=== PATIENT | male | born 1960 | race Caucasian/White ===

== ENCOUNTER 2018-01-06 09:44 | Inpatient (IN) | payer OTHER ==
--- OUTSIDE RECORDS SUMMARY | 2018-01-06 09:47 | XMS REPORT ---
:1960 [facility] Address [address] [place] [address] Dr. Arias [address] [place] [id number] Care Team Providers Name Role Phone Unavailable Unavailable Unavailable Problems This patient has no known problems. Allergies, Adverse Reactions, Alerts This patient has no known allergies or adverse reactions. Medications This patient has no known medications. Results Test Description Test Time Test Comments Text Results Atomic Results Result Comments NM BONE SCAN WHOLE BODY CLINICAL INDICATION: C61 Malignant neoplasm of prostateMODALITY: [employer] dual head gamma cameraTECHNIQUE: 25 mCi Tc 99m MDP are injected IV. After a suitable time delay, whole body imaging images are obtained.FINDINGS:COMPARISON: Multi para metric prostate MRI performed 05/24/2017.Symmetric bilateral renal function is observed.Nonspecific arthritic changes are noted at the acromioclavicular, glenohumeral, sternoclavicular, hip, patellofemoral joints bilaterally, left ankle.No lytic or blastic osseous metastatic disease.IMPRESSION:Negative for evidence of osteoblastic metastasis.PQRS 147: [id number]
--- OUTSIDE RECORDS SUMMARY | 2018-01-06 09:47 | XMS REPORT | Clinical Summary ---
:1960 Author Organization [facility] Address [address] [place] [address] Care Team Providers Name Role Phone Azael Marino MD Primary Care Provider Allergies Active Allergy Reactions Severity Noted Date Comments Cephalexin Hives 05/07/2017 Current Medications Prescription Sig. Disp. Refills Start Date End Date Status montelukast TAKE ONE (1) 11 02/17/2017 Active (SINGULAIR) 10 mg TABLET(S) BY tablet MOUTH ONCE A DAY. loratadine Take 10 mg by Active (CLARITIN) 10 mg mouth daily. tablet ONE DAILY Take by mouth. Active MULTIVITAMIN ORAL levoFLOXacin Take 1 tablet 5 tablet 0 05/07/2017 (LEVAQUIN) 750 MG (750 mg total) 7 tablet by mouth daily for 5 days. Take one tablet the night before procedure, then morning of procedure until gone. levoFLOXacin Take 1 tablet 10 tablet 0 07/26/2017 (LEVAQUIN) 500 MG (500 mg total) 8 tablet by mouth daily for 5 days. levoFLOXacin TAKE 1 TABLET 0 07/24/2017 Discontinued (LEVAQUIN) 750 MG (750 MG TOTAL) 8 tablet BY MOUTH DAILY FOR 5 DAYS. TAKE ONE TABLET THE NIGHT BEFORE PROCEDURE, THEN MORNING OF PROCEDURE UNTIL GONE. ciprofloxacin Begin taking 10 tablet 0 11/25/2017 (CIPRO) 500 MG twice daily, 1 8 tablet day prior to follow-up appointment with your Urologist docusate sodium Take 1 capsule 60 capsule 0 11/19/2017 (COLACE) 100 MG (100 mg total) 8 capsule by mouth 2 (two) times a day for 30 days. acetaminophen-code Take 1-2 tablets 30 tablet 0 11/19/2017 ine (TYLENOL WITH by mouth every 6 8 CODEINE #3) 300-30 (six) hours as mg per tablet needed for moderate pain for up to 14 days. ciprofloxacin Take 1 tablet 8 tablet 0 11/20/2017 (CIPRO) 500 MG (500 mg total) 8 tablet by mouth 2 (two) times a day for 4 days. acetaminophen-code Take 1-2 tablets 30 tablet 0 11/20/2017 ine (TYLENOL WITH by mouth every 6 8 CODEINE #3) 300-30 (six) hours as mg per tablet needed for moderate pain for up to 30 days. docusate sodium Take 1 capsule 60 capsule 0 11/20/2017 (COLACE) 100 MG (100 mg total) 8 capsule by mouth 2 (two) times a day for 30 days. tadalafil (CIALIS, Take 1 tablet (5 30 tablet 3 11/26/2017 ADCIRCA) 5 MG mg total) by 8 tablet mouth daily as needed for erectile dysfunction for up to 30 days. tadalafil (CIALIS) Take 1 tablet 12 tablet 3 11/26/2017 20 mg tablet (20 mg total) by 8 mouth every 7 days for 30 days. 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 11/25/2017 Prostate cancer 11/04/2017 Encounters Date Type Specialty Care Team Description 12/14/2017 Telephone Urology Jesus Hernandez MD 12/14/2017 Telephone Urology Jenifer Anthony 12/10/2017 Telephone Urology Jesus Hernandez MD 11/26/2017 Office Visit Urology Jesus Hernandez Malignant neoplasm of prostate (Primary Dx); MD Kelly Erectile dysfunction following radical prostatectomy 11/26/2017 Hospital Encounter Radiology Jesus Hernandez Malignant neoplasm of JMD Ellie prostate 11/26/2017 Telephone Urology Nataly Salas MA 11/25/2017 Hospital Encounter Radiology Khavari, Disorder of lymphatics; MD Angelica Malignant neoplasm of prostate; Localized edema 11/25/2017 Office Visit UrologJesus Owen Malignant Anisa MD prostate (Primary Dx) 11/25/2017 Transcribe Orders Jesus Carey Disorder of lymphatics ( Primary Dx); MD Kelly Malignant neoplasm of prostate; Localized edema 11/24/2017 Telephone Urology Anabella Dowell MA 11/18/2017 - Hospital Encounter General Internal Jesus Hernandez Prostate cancer 11/20/2017 Medicine MD Kelly 11/18/2017 Procedure Pass Urology 11/18/2017 Surgery Urology Jesus Hernandez ROBOTIC ASSISTED MD Kelly LAPARSCOPIC PROSTATECTOMY, BILATERAL PELVIC LYMPH NODE DISSECTION, W/ LAPIDES 11/17/2017 Telephone UrologJesus Owen MD 11/08/2017 Telephone Urology Jesus Hernandez MD 11/05/2017 Anesthesia Event Urology Carolina Duron, MATTIE 11/04/2017 Pre-Admit Testing Pre-Admission Jesus Hernandez Preop testing ( Primary Dx); Appointment Testing MD Kelly Malignant neoplasm of prostate 11/04/2017 Office Visit UrologJesus Owen Malignant neoplasm of prostate (Primary Dx); MD Kelly Pre-op testing; Prostate cancer 11/01/2017 Telephone UrologJesus Owen MD 10/21/2017 Transcribe Orders Jesus Carey MD prostate (Primary Dx) 09/09/2017 Telephone Charlesy Jenifer Anthony 08/24/2017 Orders Only Jesus Carey MD 08/24/2017 Telephone Urology Jenifer Anthony 08/20/2017 Telephone Urology Jesus Hernandez MD 08/09/2017 Office Visit UrologJesus Owen Malignant Anisa MD prostate (Primary Dx) 08/01/2017 Refill UrologJesus Owen MD 07/28/2017 Telephone Jesus Carey MD 07/28/2017 Telephone UrologJenifer Pugh 07/28/2017 Orders Only Jesus Carey MD 07/27/2017 Orders Only Urology Jesus Hernandez MD 07/26/2017 Procedure visit Jesus Carey MD specific antigen (PSA) 07/21/2017 Transcribe Orders Jesus Carey MD specific antigen (PSA) (Primary Dx) 05/26/2017 Telephone Jenifer Ma 05/26/2017 Orders Only Jesus Carey MD 05/24/2017 Orders Only Jesus Carey MD 05/24/2017 Telephone Jenifer Ma 05/20/2017 Telephone Jesus Carey MD 05/12/2017 Telephone Jesus Carey MD 05/07/2017 Office Visit Jesus Carey MD specific antigen (PSA) (Primary Dx) 04/15/2017 Telephone Jesus Carey MD after 01/05/2017 Family History Medical History Relation Name Comments Prostate cancer Father Cancer Maternal Aunt Relation Name Status Comments Father Alive Maternal Aunt Mother Social History Tobacco Use Types Packs/Day Years Used Date Never Smoker Smokeless Tobacco: Never Used Alcohol Use Drinks/Week oz/Week Comments No Sex Assigned at Date Recorded Not on file Last Filed Vital Signs Vital Sign Reading Time Taken Blood Pressure 116/65 11/20/2017 11:00 AM CDT Pulse 76 11/20/2017 11:00 AM CDT Temperature 37.5 C (99.5 F) 11/20/2017 11:00 AM CDT Respiratory Rate 20 11/20/2017 11:00 AM CDT Oxygen Saturation 96% 11/20/2017 11:00 AM CDT Inhaled Oxygen Concentration - - Weight 83.9 kg (185 lb) 11/25/2017 11:06 AM CDT Height 170.2 cm (5' 7") 11/25/2017 11:06 AM CDT Body Mass Index 28.98 11/25/2017 11:06 AM CDT Plan of Treatment Date Type Specialty Care Team Description 01/17/2018 Office Visit [place] [address] [place] [address] 01/17/2018 Office Visit Jesus Carey MD [address] [facility] [address] [place] [address] [phone] Health Maintenance Due Date Last Done Comments COLON CANCER SCREENING 2012 SHINGRIX VACCINE (#1) 2012 INFLUENZA VACCINE 02/02/2018 Implants Implanted Type Area Manager Pharmacy Device Expiration Model / Identifier Date Serial / Lot Clip Zander Hem-O-Kerwin Endoscpc Aplr Plymr Lg - [id number] Surgical N/A: WECK CLOSURE [id number] / Implanted: 11/18/2017 (Quantity not on file) Implants; N/A SYSTEMS / Expanders; Extenders; Surgical Wires Drain Wnd 1/4in 49in Rnd Mid Perfrtn - [id number] Surgical BARD MEDICAL [id number] / Implanted: Qty: 1 on 11/18/2017 by Jesus Hernandez MD Implants; DIVISION / Expanders; Extenders; Surgical Wires Amniofix Amniotic Membrane Allograft - [id number] Urological N/A: [employer] 08/05/2022 APS [id number] / Implanted: 11/18/2017 (Quantity not on file) Implants or N/A INC AS21- [id number] / Sets [id number] Procedures Procedure Name Priority Date/Time Associated Comments Diagnosis FL CYSTOGRAM MINIMUM Routine 11/26/2017 9:51 AM Malignant neoplasm Results for this 3 VW CDT of prostate procedure are in the results section. CT ABDOMEN W WO Routine 11/25/2017 12:02 PM Disorder of Results for this CONTRAST PELVIS W WO CDT lymphatics procedure are in CONTRAST Malignant neoplasm the results of prostate section. Localized edema HEMOGLOBIN & Routine 11/20/2017 10:20 AM Results for this HEMATOCRIT CDT procedure are in the results section. CREATININE LEVEL, STAT 11/20/2017 10:20 AM Results for this MISC FLUID CDT procedure are in the results section. HC COMPLETE BLD Routine 11/19/2017 4:20 AM Results for this COUNT W/AUTO DIFF CDT procedure are in the results section. ESTIMATED GFR Routine 11/19/2017 4:00 AM Results for this CDT procedure are in the results section. BASIC METABOLIC Routine 11/19/2017 4:00 AM Results for this PANEL CDT procedure are in the results section. ESTIMATED GFR Routine 11/18/2017 3:00 PM Results for this CDT procedure are in the results section. BASIC METABOLIC Routine 11/18/2017 3:00 PM Results for this PANEL CDT procedure are in the results section. HC COMPLETE BLD Routine 11/18/2017 3:00 PM Results for this COUNT W/AUTO DIFF CDT procedure are in the results section. SURGICAL PATHOLOGY Routine 11/18/2017 1:02 PM Results for this REQUEST CDT procedure are in the results section. SURGICAL PATHOLOGY Routine 11/18/2017 1:02 PM Results for this REQUEST CDT procedure are in the results section. PROSTATECTOMY, 11/18/2017 12:30 PM Prostate cancer LAPAROSCOPIC, CDT ROBOT-ASSISTED Special Needs DAVINCI NC AN ELECTIVE ENDOTRACHEAL AIRWAY Routine 11/18/2017 12:00 PM CDT Procedure Note - Tamara Alcala CRNA - 11/18/2017 12:00 PM CDT Airway Date/Time: 11/18/2017 11:10 AM Performed by: TAMARA ALCALA Authorized by: TRENTON SKINNER Location: OR Urgency: Elective Difficult Airway: No Resident/SHOT EXAMINER/AA: TAMARA ALCALA Preoxygenated with 100% O2: Yes C-spine Precautions Maintained Throughout: Yes Mask Ventilation: Easy mask Final Airway Type: Endotracheal airway Final Endotracheal Airway: ETT Cuffed: Yes Technique Used: Direct laryngoscopy Devices/Methods Used in Placement: Intubating stylet Insertion Site: Oral Blade Type: Woody Laryngoscope Blade/Videolaryngoscope Blade Size: 2 ETT Size (mm): 8.0 Cuff at minimum occlusion pressure: Yes Measured from: Gums ETT to Gums (cm): 23 Placement Verified by: CO2 detection and direct visualization Laryngoscopic view: Grade I - full view of glottis Rapid Sequence Induction (RSI): No Modified RSI: No Number of Attempts at Approach: 1 AUTRAUMATIC LUBE & TAPE BOTH EYES OGT URINE CULTURE Routine 11/04/2017 1:33 PM Results for this CDT procedure are in the results section. URINALYSIS SCREEN AND Routine 11/04/2017 1:12 PM Preop testing Results for this MICROSCOPY, WITH REFLEX CDT procedure are in TO CULTURE the results section. TYPE AND SCREEN Routine 11/04/2017 1:00 PM Malignant neoplasm Results for this CDT of prostate procedure are in the results section. ECG 12-LEAD Routine 11/04/2017 12:56 PM Malignant neoplasm Results for this CDT of prostate procedure are in the results section. ESTIMATED GFR Routine 11/04/2017 12:30 PM Results for this CDT procedure are in the results section. TESTOSTERONE LEVEL, Routine 11/04/2017 12:30 PM Malignant neoplasm Results for this FREE AND TOTAL, MALE CDT of prostate procedure are in the results section. PROTHROMBIN TIME WITH Routine 11/04/2017 12:30 PM Malignant neoplasm Results for this INR CDT of prostate procedure are in the results section. PARTIAL THROMBOPLASTIN Routine 11/04/2017 12:30 PM Malignant neoplasm Results for this TIME (PTT) CDT of prostate procedure are in the results section. HC COMPLETE BLD COUNT Routine 11/04/2017 12:30 PM Malignant neoplasm Results for this W/AUTO DIFF CDT of prostate procedure are in the results section. BASIC METABOLIC PANEL Routine 11/04/2017 12:30 PM Malignant neoplasm Results for this CDT of prostate procedure are in the results section. HEPATIC FUNCTION PANEL Routine 11/04/2017 12:30 PM Preop testing Results for this CDT procedure are in the results section. HIV 1, 2 ANTIBODY Routine 11/04/2017 12:24 PM Malignant neoplasm Results for this CDT of prostate procedure are in the results section. NM BONE SCAN WHOLE BODY Routine 08/20/2017 12:00 AM STACKER TISSUE, 13 SPECIMENS Routine 07/27/2017 12:04 PM Results for this STACKER procedure are in the results section. SURGICAL PATHOLOGY Routine 07/27/2017 12:04 PM Results for this REQUEST STACKER procedure are in the results section. BIOPSY PROSTATE Routine 07/27/2017 12:00 AM STACKER US NEEDLE BIOPSY Routine 07/26/2017 9:12 AM Elevated prostate Results for this STACKER specific antigen procedure are in (PSA) the results section. POC URINALYSIS DIPSTICK Routine 07/26/2017 8:30 AM Elevated prostate Results for this STACKER specific antigen procedure are in (PSA) the results section. MRI PROSTATE WWO Routine 05/24/2017 12:00 AM CONTRAST STACKER PROSTATE CANCER GENE Routine 05/14/2017 12:00 AM 3TIC STACKER after 01/05/2017 Results FL Cystogram Minimun 3 Views (11/26/2017 9:51 AM) Narrative Performed At EXAMINATION:FL CYSTOGRAM MINIMUM 3 VW HM RADIANT CLINICAL HISTORY:C61 Malignant neoplasm of prostate, cap COMPARISON:None. TECHNIQUE: Cystogram was performed. Contrast was instilled into the bladder in a retrograde manner via Daily catheter. FLUOROSCOPIC TIME:0.8 minutes IMAGES:9 FINDINGS: Bladder is normally distensible. There is no filling defect or outpouching. No contrast leak appreciated. Minimal residual following Daily catheter drainage. There is some subcutaneous emphysema in the regional soft tissues, postoperative. IMPRESSION: Unremarkable postoperative cystogram without evidence of leak. [facility]-[id number] Procedure Note Interface, Radiology Results Incoming - 11/26/2017 10:15 AM CDT EXAMINATION: FL CYSTOGRAM MINIMUM 3 VW CLINICAL HISTORY: C61 Malignant neoplasm of prostate, cap COMPARISON: None. TECHNIQUE: Cystogram was performed. Contrast was instilled into the bladder in a retrograde manner via Daily catheter. FLUOROSCOPIC TIME: 0.8 minutes IMAGES: 9 FINDINGS: Bladder is normally distensible. There is no filling defect or outpouching. No contrast leak appreciated. Minimal residual following Daily catheter drainage. There is some subcutaneous emphysema in the regional soft tissues, postoperative. IMPRESSION: Unremarkable postoperative cystogram without evidence of leak. [facility]-[id number] Performing Organization Address City/State/[facility] Phone Number [facility] [address] [place] [address] CT Abdomen W Wo Contrast Pelvis W Wo Contrast (11/25/2017 12:02 PM) Narrative Performed At Technique: Axial images of the abdomen pre and post contrast [facility] menstruation is obtained. Coronal and sagittal reformatted images are obtained reviewed and archived. CT scans performed using radiation dose reduction techniques.Technical factors are evaluated and adjusted to ensure appropriate moderation of exposure.Automated dose management technology is applied to adjust radiation exposure while achieving a diagnostic quality image. COMPARISON: None FINDINGS: ABDOMEN: The liver, gallbladder, spleen, pancreas, adrenals, and kidneys are within normal limits. The small bowel and colon are unremarkable. Subcutaneous emphysema is noted in the soft tissues of both the left and right flanks. Subcutaneous edema is present no evidence of abscess. No fluid collections. Pelvis: The prostate has been surgically removed. A small trace amount of free fluid is noted in the pelvic cul-de-sac. No loculated fluid collections are identified within the pelvis to suggest abscess or lymphocele. Diverticulosis is noted throughout colon without evidence of diverticulitis Small amount of air is present in the pelvis in the midline at the umbilicus as well as in the right and left lower flank most likely from laparoscopic port placement. Subcutaneous tissues in the soft tissues of the lower pelvis extending near the inguinal canal. Bony structures are within normal limits Atelectasis left lower lobe IMPRESSION: Patient has undergone recent laparoscopic prostate removal. Small amount of free fluid is present in the pelvic cul-de-sac. No loculated fluid collections are present to suggest abscess or lymphocele. Small amount of free air is noted in the abdomen in the midline near the iliacus and in the right and left lower anterior pelvis likely from port sites. Subcutaneous air in the subcutaneous tissues of the lower abdomen and pelvis Procedure Note Interface, Radiology Results Incoming - 11/25/2017 3:07 PM CDT Technique: Axial images of the abdomen pre and post contrast menstruation is obtained. Coronal and sagittal reformatted images are obtained reviewed and archived. CT scans performed using radiation dose reduction techniques. Technical factors are evaluated and adjusted to ensure appropriate moderation of exposure. Automated dose management technology is applied to adjust radiation exposure while achieving a diagnostic quality image. COMPARISON: None FINDINGS: ABDOMEN: The liver, gallbladder, spleen, pancreas, adrenals, and kidneys are within normal limits. The small bowel and colon are unremarkable. Subcutaneous emphysema is noted in the soft tissues of both the left and right flanks. Subcutaneous edema is present no evidence of abscess. No fluid collections. Pelvis: The prostate has been surgically removed. A small trace amount of free fluid is noted in the pelvic cul-de-sac. No loculated fluid collections are identified within the pelvis to suggest abscess or lymphocele. Diverticulosis is noted throughout colon without evidence of diverticulitis Small amount of air is present in the pelvis in the midline at the umbilicus as well as in the right and left lower flank most likely from laparoscopic port placement. Subcutaneous tissues in the soft tissues of the lower pelvis extending near the inguinal canal. Bony structures are within normal limits Atelectasis left lower lobe IMPRESSION: Patient has undergone recent laparoscopic prostate removal. Small amount of free fluid is present in the pelvic cul-de-sac. No loculated fluid collections are present to suggest abscess or lymphocele. Small amount of free air is noted in the abdomen in the midline near the iliacus and in the right and left lower anterior pelvis likely from port sites. Subcutaneous air in the subcutaneous tissues of the lower abdomen and pelvis Performing Organization Address City/State/Zipcode Phone Number [facility] [address] [place] [address] Hemoglobin & hematocrit (11/20/2017 10:20 AM) HGB 13.0 (L) 14.0 - 18.0 g/dL [facility] DEPARTMENT OF PATHOLOGY AND GENOMIC MEDICINE HCT 38.6 (L) 41.0 - 51.0 % [facility] DEPARTMENT OF PATHOLOGY AND GENOMIC MEDICINE Specimen Blood Performing Organization Address City/[facility]/Zipcode Phone Number [facility] DEPARTMENT OF PATHOLOGY AND [address] [place] [phone] GENOMIC MEDICINE Creatinine level, misc fluid (11/20/2017 10:20 AM) Fluid type Ascitic [facility] DEPARTMENT OF PATHOLOGY AND GENOMIC MEDICINE Creatinine, fluid 1.0 mg/dL [facility] DEPARTMENT OF PATHOLOGY Comment: AND GENOMIC MEDICINE Analysis performed on Jean Marie 8000 analyzer. This is not an approved methodology for this specimen type;accuracy and clinical significance uncertain. Specimen Fluid Performing Organization Address [facility] Phone Number [facility] DEPARTMENT OF PATHOLOGY AND [address] [place] [phone] GENOMIC MEDICINE CBC with platelet and differential (11/19/2017 4:20 AM)Only the most recent of3 resultswithin the time period is included. WBC 7.41 4.50 - 11.00 k/uL [facility] DEPARTMENT OF PATHOLOGY AND GENOMIC MEDICINE RBC 4.35 (L) 4.40 - 6.00 m/uL [facility] DEPARTMENT OF PATHOLOGY AND GENOMIC MEDICINE HGB 12.5 (L) 14.0 - 18.0 g/dL [facility] DEPARTMENT OF PATHOLOGY AND GENOMIC MEDICINE HCT 37.1 (L) 41.0 - 51.0 % [facility] DEPARTMENT OF PATHOLOGY AND GENOMIC MEDICINE MCV 85.3 82.0 - 100.0 fL [facility] DEPARTMENT OF PATHOLOGY AND GENOMIC MEDICINE MCH 28.7 27.0 - 34.0 pg [facility] DEPARTMENT OF PATHOLOGY AND GENOMIC MEDICINE MCHC 33.7 31.0 - 37.0 g/dL [facility] DEPARTMENT OF PATHOLOGY AND GENOMIC MEDICINE RDW - SD 39.1 37.0 - 55.0 fL [facility] DEPARTMENT OF PATHOLOGY AND GENOMIC MEDICINE MPV 10.2 8.8 - 13.2 fL [facility] DEPARTMENT OF PATHOLOGY AND GENOMIC MEDICINE Platelet count 138 (L) 150 - 400 k/uL [facility] DEPARTMENT OF PATHOLOGY AND GENOMIC MEDICINE Nucleated RBC 0.00 /100 WBC [facility] DEPARTMENT OF PATHOLOGY AND GENOMIC MEDICINE Neutrophils 61.0 39.0 - 69.0 % [facility] DEPARTMENT OF PATHOLOGY AND GENOMIC MEDICINE Lymphocytes 27.0 25.0 - 45.0 % [facility] DEPARTMENT OF PATHOLOGY AND GENOMIC MEDICINE Monocytes 10.4 (H) 0.0 - 10.0 % [facility] DEPARTMENT OF PATHOLOGY AND GENOMIC MEDICINE Eosinophils 0.7 0.0 - 5.0 % [facility] DEPARTMENT OF PATHOLOGY AND GENOMIC MEDICINE Basophils 0.8 0.0 - 1.0 % [facility] DEPARTMENT OF PATHOLOGY AND GENOMIC MEDICINE Immature granulocytes 0.1Comment: 0.0 - 1.0 % [facility] DEPARTMENT OF "Immature PATHOLOGY AND GENOMIC granulocytes" MEDICINE (promyelocytes, myelocytes, metamyelocytes) Specimen Blood Performing Organization Address City/[facility] Phone Number [facility] DEPARTMENT OF PATHOLOGY AND [address] [place] [address] Estimated GFR (11/19/2017 4:00 AM)Only the most recent of3 resultswithin the time period is included. GFR Non Af Amer 63 mL/min/1.73 m2 [facility] DEPARTMENT OF PATHOLOGY AND GENOMIC MEDICINE GFR Af Amer 76 mL/min/1.73 m2 [facility] DEPARTMENT OF Comment: PATHOLOGY AND GENOMIC Chronic kidney disease: <60 mL/min/1.73m2 MEDICINE Kidney failure: <15 mL/min/1.73m2 The estimated GFR is calculated from the IDMS-traceable Modification of Diet in Renal Disease Equation. The accuracy of the calculation is poor when the creatinine is normal. Calculated values >90 mL/min/1.73m2 are not reported. This equation has not been validated in children (<18 years), women, the elderly (>70 years), or ethnic groups other than Caucasians and Americans. Specimen Plasma specimen Performing Organization Address City/State/Zipcode Phone Number [facility] OF PATHOLOGY AND [address] [place] [phone] zerved Basic metabolic panel (11/19/2017 4:00 AM)Only the most recent of3 resultswithin the time period is included. Sodium 139 135 - 148 mEq/L [facility] DEPARTMENT OF PATHOLOGY AND GENOMIC MEDICINE Potassium 4.0 3.5 - 5.0 mEq/L [facility] DEPARTMENT OF PATHOLOGY AND GENOMIC MEDICINE Chloride 102 98 - 112 mEq/L [facility] DEPARTMENT OF PATHOLOGY AND GENOMIC MEDICINE CO2 26 24 - 31 mEq/L [facility] DEPARTMENT OF PATHOLOGY AND GENOMIC MEDICINE Anion gap 11@ANIO 7 - 15 mEq/L [facility] DEPARTMENT OF PATHOLOGY AND GENOMIC MEDICINE BUN 15 6 - 20 mg/dL [facility] DEPARTMENT OF PATHOLOGY AND GENOMIC MEDICINE Creatinine 1.2 0.7 - 1.2 mg/dL [facility] DEPARTMENT OF PATHOLOGY AND GENOMIC MEDICINE Glucose 118 (H) 65 - 99 mg/dL [facility] DEPARTMENT OF PATHOLOGY AND GENOMIC MEDICINE Calcium 8.1 (L) 8.3 - 10.2 mg/dL [facility] DEPARTMENT OF PATHOLOGY AND GENOMIC MEDICINE Specimen Plasma specimen Performing Organization Address City/[facility] Phone Number [facility] DEPARTMENT OF PATHOLOGY AND [address] [place] [address] GENOMIC MEDICINE Surgical pathology request (11/18/2017 1:02 PM)Only the most recent of3 resultswithin the time period is included. [facility] DEPARTMENT OF PATHOLOGY AND GENOMIC MEDICINE Surgical pathology See link below for PDF Lab [facility] DEPARTMENT OF report Report PATHOLOGY AND GENOMIC MEDICINE Result status This is Supplemental Report [facility] DEPARTMENT OF to [id number] PATHOLOGY AND GENOMIC MEDICINE Performing Organization Address City/[facility]ode Phone Number [facility] DEPARTMENT OF PATHOLOGY AND [address] [place] [address] MEDICINE Urine culture (11/04/2017 1:33 PM) Urine culture SEE COMMENTComment: Bacteriuria [facility] [facility] DEPARTMENT OF PATHOLOGY screen negative. AND GENOMIC MEDICINE Performing Organization Address City/[facility] Phone Number [facility] DEPARTMENT OF PATHOLOGY AND [address] [place] [address] Urinalysis screen and microscopy, with reflex to culture (11/04/2017 1:12 PM) Specimen site Clean catch [facility] DEPARTMENT OF PATHOLOGY AND GENOMIC MEDICINE Color, UA Yellow [facility] DEPARTMENT OF PATHOLOGY AND GENOMIC MEDICINE Appearance, UA Clear [facility] DEPARTMENT OF PATHOLOGY AND GENOMIC MEDICINE Specific gravity, UA 1.018 1.001 - 1.035 [facility] DEPARTMENT OF PATHOLOGY AND GENOMIC MEDICINE pH, UA 5.0 5.0 - 8.5 [facility] DEPARTMENT OF PATHOLOGY AND GENOMIC MEDICINE Protein, UA Negative Negative [facility] DEPARTMENT OF PATHOLOGY AND GENOMIC MEDICINE Glucose, UA Negative Negative [facility] DEPARTMENT OF PATHOLOGY AND GENOMIC MEDICINE Ketones, UA Negative Negative [facility] DEPARTMENT OF PATHOLOGY AND GENOMIC MEDICINE Bilirubin, UA Negative Negative [facility] DEPARTMENT OF PATHOLOGY AND GENOMIC MEDICINE Blood, UA Negative Negative [facility] DEPARTMENT OF PATHOLOGY AND GENOMIC MEDICINE Nitrite, UA Negative Negative [facility] DEPARTMENT OF PATHOLOGY AND GENOMIC MEDICINE Urobilinogen, UA <2.0 <2.0 [facility] DEPARTMENT OF PATHOLOGY AND GENOMIC MEDICINE Leukocyte esterase, UA Negative Negative [facility] DEPARTMENT OF PATHOLOGY AND GENOMIC MEDICINE Epithelial cells, UA <1 /HPF [facility] DEPARTMENT OF PATHOLOGY AND GENOMIC MEDICINE WBC, UA 2 (H) 0 - 1 /HPF [facility] DEPARTMENT OF PATHOLOGY AND GENOMIC MEDICINE RBC, UA 1 0 - 5 /HPF [facility] DEPARTMENT OF PATHOLOGY AND GENOMIC MEDICINE Bacteria, UA None seen None seen [facility] DEPARTMENT OF PATHOLOGY AND GENOMIC MEDICINE Yeast, UA None seen [facility] DEPARTMENT OF PATHOLOGY AND GENOMIC MEDICINE Yeast with pseudohyphae, UA None seen [facility] DEPARTMENT OF PATHOLOGY AND GENOMIC MEDICINE Specimen Urine Performing Organization Address City/[facility]/Zipcode Phone Number [facility] DEPARTMENT OF PATHOLOGY AND [address] [place], [place] [phone] GENOMIC MEDICINE Type and screen (11/04/2017 1:00 PM) ABO grouping O [facility] DEPARTMENT OF PATHOLOGY AND GENOMIC MEDICINE Rh type POS [facility] DEPARTMENT OF PATHOLOGY AND GENOMIC MEDICINE Antibody screen (gel) NEG [facility] DEPARTMENT OF PATHOLOGY AND GENOMIC MEDICINE Specimen Blood Performing Organization Address City/[facility] Phone Number [facility] DEPARTMENT OF PATHOLOGY AND [address] [place], [place] [phone] [facility] ECG 12 lead (11/04/2017 12:56 PM) Ventricular rate 50 [facility] Atrial rate 50 [facility] NC interval 166 [facility] QRSD interval 80 [facility] QT interval 426 [facility] QTC interval 388 [facility] P axis 1 67 [facility] QRS axis 1 81 [facility]USE T wave axis 40 [facility] EKG impression Sinus bradycardia-Otherwise normal ECG-No [facility] previous ECGs available- Performing Organization Address City/[facility] Phone Number [facility] MUSE [address] [place] [address] Partial thromboplastin time, activated (11/04/2017 12:30 PM) PTT 29.2 23.0 - 36.0 sec [facility] DEPARTMENT OF PATHOLOGY Comment: AND [facility] PTT therapeutic range for unfractionated heparin is 61.0-112.0 seconds which corresponds to Anti-Xa 0.3-0.7 U/ml. Specimen Blood Performing Organization Address City/[facility] Phone Number [facility] DEPARTMENT OF PATHOLOGY AND [address] [phone] [facility] Prothrombin time with INR (11/04/2017 12:30 PM) Prothrombin time 13.9 12.0 - 15.0 sec [facility] DEPARTMENT OF PATHOLOGY AND GENOMIC MEDICINE INR 1.1 [facility] DEPARTMENT OF Comment: PATHOLOGY AND GENOMIC The International Normalized Ratio (INR) is a therapeutic MEDICINE monitoring tool for patients who are stable on oral anticoagulant therapy. An INR of 2.0-3.0 is suggested for deep vein thrombosis/pulmonary embolism. Specimen Blood Performing Organization Address [facility] Phone Number [facility] DEPARTMENT OF PATHOLOGY AND [address] [place], [place] [phone] [facility] Testosterone level, free and total, male (11/04/2017 12:30 PM) Testosterone, total, 608 300 - 890 ng/dL [facility] adult male Comment: REFERENCE INTERVAL: Testosterone, Adult Male Access complete set of age- and/or gender-specific reference intervals for this test in the [facility] Test Directory ([employer]). Sex hormone binding 92 (H) 11 - 80 nmol/L [facility] globulin Comment: REFERENCE INTERVAL: Sex Hormone Binding Globulin Access complete set of age- and/or gender-specific reference intervals for this test in the [facility] Test Directory ([employer]). Testosterone, free 58 47 - 244 pg/mL [facility] Comment: INTERPRETIVE INFORMATION:Testosterone, Free Nicolas Stage IV35 - 169 pg/mL Nicolas Stage V 41 - 239 pg/mL The concentration of Free Testosterone is derived from a mathematical expression based on the constant for the binding of testosterone to Sex Hormone Binding Globulin (SHBG). Access complete set of age- and/or gender-specific reference intervals for this test in the [facility] Test Directory ([employer]). Testosterone, % free 1.0 (L) 1.6 - 2.9 % [facility] Comment: Performed by [facility], [address] [place] [id number] [email or web address], Jayden Burton MD - Lab. Director Specimen Serum Performing Organization Address City/[facility]/Zipcode Phone Number [facility] [address] [place] [address] Hepatic function panel (11/04/2017 12:30 PM) Albumin 4.0 3.5 - 5.0 g/dL [facility] DEPARTMENT OF PATHOLOGY AND GENOMIC MEDICINE Total bilirubin 0.4 0.0 - 1.2 mg/dL [facility] DEPARTMENT OF PATHOLOGY AND GENOMIC MEDICINE Bilirubin direct <0.2 0.0 - 0.3 mg/dL [facility] DEPARTMENT OF PATHOLOGY AND GENOMIC MEDICINE Alkaline phosphatase 93 40 - 129 U/L [facility] DEPARTMENT OF PATHOLOGY AND GENOMIC MEDICINE Protein 8.0 6.3 - 8.3 g/dL [facility] DEPARTMENT OF Comment: PATHOLOGY AND GENOMIC [facility] 4.6-7.0 g/dL MEDICINE 1 week 4.4-7.6 g/dL 7 months-1year5.1-7.3 g/dL 1-2 years5.6-7.5 g/dL >3 years6.0-8.0 g/dL 18-150 6.3-8.3 g/dL ALT 29 5 - 50 U/L [facility] DEPARTMENT OF PATHOLOGY AND GENOMIC MEDICINE AST 30 10 - 50 U/L [facility] DEPARTMENT OF PATHOLOGY AND GENOMIC MEDICINE Specimen Plasma specimen Performing Organization Address [facility] Phone Number [facility] DEPARTMENT OF PATHOLOGY AND [address] [place] [address] GENOMIC MEDICINE HIV 1, 2 antibody (11/04/2017 12:24 PM) HIV 1, 2 antibody Non-reactive Non-reactive [facility] DEPARTMENT OF Comment: PATHOLOGY AND GENOMIC Starting from October 01 2015, 4th generation HIV screening MEDICINE and confirmation assays are in use at [facility], consistent with the CDC-recommended algorithm. The screening test detects antibodies to HIV-1, HIV-2 and the p24 antigen. Positive screening results will be automatically reflexed to a HIV-1/HIV-2 differentiation assay. Indeterminant HIV-1 results will be further automatically reflexed to a nucleic acid test for detection of acute infection. Western blot will no longer be performed as a confirmation test. For a quick reference guide on the testing algorithm, please refer to: http://stacks.cdc.gov/view/cdc/26043. Specimen Blood Performing Organization Address City/[facility]/Zipcode Phone Number [facility] DEPARTMENT OF PATHOLOGY AND [address] [place] [phone] [facility] Bone Scan Whole Body (08/20/2017) Narrative Performed At Tissue, 13 specimens (07/27/2017 12:04 PM) Source Comment: PROSTATE RIGHT [facility] [place] LATERAL BASE Procedure Comment: Biopsy [facility] Gross description: [facility] Comment: Right lateral base, received in formalin, verified as to the patient's name and consists of one delicate soft rodriguez core(s) measuring 1.5 cm in length.TS, one block. Gross exam(s) performed at: [facility] [address] [phone] Art Department Head: BALTAZAR VILLELA M.D. Micro description [facility] Comment: Microscopic examination supports the above diagnosis. Diagnosis [facility] Comment: Benign prostatic tissue. Negative for malignancy. Source Comment: PROSTATE RIGHT [facility] LATERAL MID Procedure Comment: Biopsy [facility] Gross description: [facility] Comment: Right lateral mid, received in formalin, verified as to the patient's name and consists of one delicate soft rodriguez core(s) measuring 1.3 cm in length.TS, one block. Micro description [facility] Comment: Microscopic examination supports the above diagnosis. Diagnosis [facility] Comment: Benign prostatic tissue. Negative for malignancy. Source Comment: PROSATE RIGHT LATERAL [facility] APEX Procedure Comment: Biopsy [facility] Gross description: [facility] Comment: Right lateral apex, received in formalin, verified as to the patient's name and consists of one delicate soft rodriguez core(s) measuring 1.0 cm in length.TS, one block. Micro description [facility] Comment: Microscopic examination supports the above diagnosis. Diagnosis [facility] Comment: Benign prostatic tissue. Negative for malignancy. Source Comment: PROSTATE RIGHT BASE [facility] Procedure Comment: Biopsy [facility] Gross description: [facility] Comment: Right base, received in formalin, verified as to the patient's name and consists of one delicate soft rodirguez core(s) measuring 1.6 cm in length. TS, one block. Micro description [facility] [place] Comment: Microscopic examination supports the above diagnosis. Diagnosis [facility] Comment: Benign prostatic tissue. Negative for malignancy. Source Comment: PROSTATE RIGHT MID [facility] Procedure Comment: Biopsy [facility] Gross description: [facility] Comment: Right mid, received in formalin, verified as to the patient's name and consists of one delicate soft rodriguez core(s) measuring 1.5 cm in length. TS, one block. Micro description [facility] Comment: Microscopic examination supports the above diagnosis. Diagnosis [facility] Comment: Benign prostatic tissue. Negative for malignancy. Source Comment: PROSTATE RIGHT APEX [facility] Procedure Comment: Biopsy [facility] Gross description: [facility] Comment: Right apex, received in formalin, verified as to the patient's name and consists of one delicate soft rodriguez core(s) measuring 1.0 cm in length. TS, one block. Micro description [facility] Comment: Microscopic examination supports the above diagnosis. Diagnosis [facility] Comment: Benign prostatic tissue. Negative for malignancy. Source Comment: PROSTATE LEFT LATERAL [facility] BASE Procedure Comment: Biopsy [facility] Gross description: [facility] Comment: Left lateral base, received in formalin, verified as to the patient's name and consists of one delicate soft rodriguez core(s) measuring 1.7 cm in length.TS, one block. Micro description [facility] Comment: Microscopic examination supports the above diagnosis. 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 Grade Group 4. Source Comment: PROSTATE LEFT LATERAL [facility] [place] MID Procedure Comment: Biopsy [facility] Gross description: [facility] Comment: Left lateral mid, received in formalin, verified as to the patient's name and consists of one delicate soft rodriguez core(s) measuring 1.0 cm in length.TS, one block. Micro description [facility] Comment: Microscopic examination supports the above diagnosis. 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 Source Comment: PROSTATE LEFT LATERAL [facility] APEX Procedure Comment: Biopsy [facility] Gross description: [facility] Comment: Left lateral apex, received in formalin, verified as to the patient's name and consists of one delicate soft rodriguez core(s) measuring 2.0 cm in length.TS, one block. Micro description [facility] Comment: Microscopic examination supports the above diagnosis. Diagnosis [facility] Comment: Benign prostatic tissue. Negative for malignancy. Source Comment: PROSTATE LEFT BASE [facility] Procedure Comment: Biopsy [facility] Gross description: [facility] Comment: Left base, received in formalin, verified as to the patient's name and consists of one delicate soft rodriguez core(s) measuring 1.5 cm in length. TS, one block. Micro description [facility] Comment: Microscopic examination supports the above diagnosis. 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 Grade Group 4. Source Comment: PROSTATE LEFT MID [facility] Procedure Comment: Biopsy [facility] Gross description: [facility] Comment: Left mid, received in formalin, verified as to the patient's name and consists of one delicate soft rodriguez core(s) measuring 1.5 cm in length. TS, one block. Micro description [facility] [place] Comment: Microscopic examination supports the above diagnosis. 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 Grade Group 4. Source Comment: PROSTATE LEFT APEX [facility] Procedure Comment: Biopsy [facility] Gross description: [facility] [place] Comment: Left apex, received in formalin, verified as to the patient's name and consists of one delicate soft rodriguez core(s) measuring 1.4 cm in length. TS, one block. Micro description [facility] [place] Comment: Microscopic examination supports the above diagnosis. 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 Source Comment: PROSTATE ROL [facility] Procedure Comment: Biopsy [facility] Gross description: [facility] Comment: ROL, received in formalin, verified as to the patient's name and consists of 3 delicate soft rodriguez core(s) measuring up to 1.7 cm in length. TS, one block. CW 07/27/2017 Micro description [facility] [place] Comment: Microscopic examination supports the above diagnosis. Diagnosis [facility] Comment: Adenocarcinoma, Luis Fernando grade 4+4=8, 2/3 core(s), involving 90% of needle core tissue, and measuring 20 mm in length. Grade Group 4. Comment [facility] Comment: The doctor's office cannot be reached at this time. Report is faxed to the doctor's office on 07/27/17 at 10:11 am. Narrative Performed At FASTING: UNKNOWN [facility] Comment Performing Organization Information: Site ID: [id number] Name: [facility] Address: [address] [place] [id number] Director: Baltazar Villela MD Performing Organization Address [facility]/Zipcode Phone Number [facility] [address] [phone] Biopsy prostate (07/27/2017) Narrative Performed At US Needle Biopsy (07/26/2017 9:12 AM) Narrative Performed At Ultrasound/ MRI guided Prostate Needle Biopsy SD DiagnosisElevated PSA Previous Bx: Benign Findings: Prostate echogenicity: Heterogenous Calcifications: Small focal Measurements: Whole Gland AP Diamter:2.8 cm. Trasverse:3.9 cm. Length 3.9 cm. Total [id number] mL. Transitional Zone AP Diamter:2.2 cm. Trasverse:3.4 cm. Length 2.4 cm. Total Volume9 mL. Nodule Ultrasound guided biopsies under local anesthesia: 12 Template Biopsies. 2 Additional Biopsies ofMRI JUSTIN PI-RADS 5. : Comments: Fusion guided prostate needle BX was performed by and procedure was tolerated very well. Total 14 cores were taken under local anesthesia 1% lidocaine 10 cc on each side. Performing Organization Address [facility]ode Phone Number [facility] [address] [place] [address] POC urinalysis dipstick (07/26/2017 8:30 AM) Color urine, POC Yellow Clarity urine, POC Clear Glucose urine, POC Negative Negative Bilirubin urine, POC Negative Negative Ketones urine, POC Trace (A) Negative Specific gravity urine, POC >/=1.030 1.005 - 1.030 Blood urine, POC Negative Negative pH urine, POC 5.5 5.0, 5.5, 6.0, 6.5, 7.0, 7.5, 8.0, 8.5 Protein urine, POC Negative Negative Urobilinogen urine, POC <2.0 <2.0 Nitrite urine, POC Negative Negative Leukocyte esterase urine, POC Negative Negative Specimen Urine MRI Prostate Wwo Contrast (05/24/2017) Narrative Performed At Prostate Cancer Gene 3 (05/14/2017) Narrative Performed At after 01/05/2017 Insurance Payer Benefit Plan / Group Subscriber ID Type Phone Address AETNA AETNA PPO OPEN CHOICE xxxxxxxxx PPO [facility] MEDICAID [facility] COMM STAR+ MED xxxxxxxxx HMO Home: [id number] [facility] y [phone] [place], [facility] [place] [address]
[2018-01-06 10:29] LABS: Absolute Lymphocytes (CBC) 0.7 K/uL (0.7-4.9); Absolute Neutrophil 9.6 K/uL (1.8-8.0); Basophils % 0.6 % (0-1.3); Eosinophils % 0.5 % (0-4.4); Hematocrit 42.1 % (39.6-49.0); Lymphocytes % 6.4 % (15.3-44.8); MCH 28.6 pg (27.0-35.0); MCV 84.3 fL (80-100); MPV 8.7 fL (7.6-11.3); Monocytes % 8.8 % (3.3-12.3)
[2018-01-06] MEDS ORDERED: MORPHINE 4 MG/ML SYR ONE ×2 (10:32→13:01)
[2018-01-06] MEDS ORDERED: ONDANSETRON 4 MG/2 ML VIAL ONE (10:32)
[2018-01-06] MEDS ORDERED: NA CHLORIDE 0.9% 1,000 ML ONE ×2 (10:32→14:50)
[2018-01-06 10:42] LABS: Albumin 3.8 g/dL (3.4-5.0); Bilirubin Direct 0.1 mg/dL (0-0.2); Bilirubin Total 0.7 mg/dL (0.2-1.0); Protein, Total 7.2 g/dL (6.4-8.2)
--- NOTE | 2018-01-06 12:19 | RAD REPORT ---
EXAM DESCRIPTION: CT - Abdomen Pelvis W Contrast - 01/06/2018 12:01 pm CLINICAL HISTORY: Abdominal pain. Prostate carcinoma is August 2017 COMPARISON: None. TECHNIQUE: Computed axial tomography of the abdomen and pelvis was obtained. 100 cc Isovue-300 is ad ministered intravenously. Oral contrast was given. All CT scans are performed using dose optimization technique as appropriate and may include automated exposure control or mA/KV adjustment according to patient size. FINDINGS: The liver, spleen, pancreas, and adrenals appear unremarkable. Tiny nonobstructing bilateral renal ca lculi are present. Postsurgical changes of a prostatectomy are seen. The seminal vesicles appear unremarkable. A 7 x 3 c entimeter fluid collection abuts the left pelvic sidewall. A 6 by 3 centimeter fluid collection abuts the right pelvic sidewall Small right inguinal hernias contain fat. Mild to moderate stranding is present adjacent to the proximal to mid sigmoid colon. Diverticula are noted. An abscess is not seen.. The wall of the distal esophagus appears thickened perhaps secondary to esophagitis IMPRESSION: Mild to moderate sigmoid diverticulitis. Fluid collections along the pelvic sidewalls probably represent lymphoceles secondary to the recent p rostate surgery
[2018-01-06] MEDS ORDERED: METRONIDAZOLE 500mg IVPB 500 MG/100 ML BAG IV ONE (13:02)
[2018-01-06] MEDS ORDERED: CIPROFLOXACIN 400mg IV 400 MG/200 ML BAG IV ONE (13:02)
[2018-01-06] MEDS ORDERED: ACETAMINOPHEN 500 MG TAB ONE (13:02)
[2018-01-06 13:43] LABS: Urine Bacteria NONE SEEN /HPF (NONE SEEN); Urine Culture Reflex Order NOT NEEDED; Urine RBC <5 /HPF (NONE SEEN)
[2018-01-06 13:43] LABS: Urine Blood TRACE (NEG); Urine Glucose NEGATIVE (NEG); Urine Protein NEGATIVE (NEG); Urine Specific Gravity 1.015 (1.005-1.030)
--- NOTE | 2018-01-06 14:02 | ER ---
Nurse's Notes [facility] Name: Leno Rincon Jr Age: 57 yrs Sex: Male : 1960 Arrival Date: 01/06/2018 Time: 09:45 Bed 14 Private MD: Diagnosis: Diverticulitis of large intestine without perforation or abscess without bleeding;Lymphoceles Presentation: 01/06 09:55 Presenting complaint: Patient states: pt reports this morning, severe suprapubic abd sg pain, N/V this morning, reports chills and shakes, had a prostectomy Nov 18 2017, concerned may be having issues with it, SX performed by Dr. Hernandez. Transition of care: patient was not received from another setting of care. Onset of symptoms was January 06, 2018. Risk Assessment: Do you want to hurt yourself or someone else? Patient reports no desire to harm self or others. Initial Sepsis Screen: Does the patient meet any 2 criteria? No. Patient's initial sepsis screen is negative. Does the patient have a suspected source of infection? No. Patient's initial sepsis screen is negative. Care prior to arrival: None. 09:55 Method Of Arrival: Ambulatory sg 09:55 Acuity: MANASA 3 sg Historical: - Allergies: 09:55 Keflex; sg - Home Meds: 16:09 Cialis oral oral [Active]; Claritin Oral [Active]; Singulair Oral [Active]; rb1 - PMHx: 09:55 Prostate Cancer; sg - PSHx: 09:55 eye surgery; Tonsillectomy; sg 09:55 prostate; rb1 - Immunization history:: Adult Immunizations up to date. - Social history:: Smoking status: Patient/guardian denies using tobacco. - Ebola Screening: : Patient negative for fever greater than or equal to 101.5 degrees Fahrenheit, and additional compatible Ebola Virus Disease symptoms Patient denies exposure to infectious person Patient denies travel to an Ebola-affected area in the 21 days before illness onset No symptoms or risks identified at this time. - Family history:: not pertinent. - Hospitalizations: : No recent hospitalization is reported. Screenin:00 Abuse screen: Denies threats or abuse. Nutritional screening: No deficits noted. rb1 Tuberculosis screening: No symptoms or risk factors identified. Fall Risk None identified. Assessment: 10:00 General: Appears uncomfortable, Behavior is calm, cooperative, Reports chills for fever rb1 for. Pain: Complains of pain in abdomen Pain currently is 10 out of 10 on a pain scale. Neuro: Level of Consciousness is awake, alert, obeys commands, Oriented to person, place, time, situation. Cardiovascular: Capillary refill < 3 seconds is brisk in bilateral fingers. Respiratory: Airway is patent Respiratory effort is even, unlabored, Respiratory pattern is regular, symmetrical. GI: Bowel sounds present X 4 quads. Abdomen is tender to palpation in suprapubic area, right lower quadrant and left lower quadrant Reports diarrhea, nausea. : Derm: Skin is pink, warm \\T\\ dry. 11:00 Reassessment: Patient appears in no apparent distress at this time. Patient and/or rb1 family updated on plan of care and expected duration. Pain level reassessed. Patient is alert, oriented x 3, equal unlabored respirations, skin warm/dry/pink. 12:00 Reassessment: Patient appears in no apparent distress at this time. No changes from rb1 previously documented assessment. 13:00 Reassessment: Patient appears in no apparent distress at this time. Patient and/or rb1 family updated on plan of care and expected duration. Pain level reassessed. Patient is alert, oriented x 3, equal unlabored respirations, skin warm/dry/pink. 14:00 Reassessment: Patient appears in no apparent distress at this time. Patient and/or rb1 family updated on plan of care and expected duration. Pain level reassessed. Patient is alert, oriented x 3, equal unlabored respirations, skin warm/dry/pink. 15:00 Reassessment: pt. is resting with eyes closed, respirations even, unlabored. call light rb1 within reach. 15:48 Reassessment: Received lab alert for Lactate 2.4; Dr. Cervantes notified. rb1 16:00 Reassessment: Called Dr. Maria to inform him of Lactate 2.4. Received order for Sepsis rb1 protocol NS 2500 ml bolus, then NS at 125 ml/h. 16:00 Reassessment: Patient appears in no apparent distress at this time. Patient and/or rb1 family updated on plan of care and expected duration. Pain level reassessed. Patient is alert, oriented x 3, equal unlabored respirations, skin warm/dry/pink. 16:15 Reassessment: Dr. Maria at bedside. rb1 16:19 Reassessment: Attempted to call report and was put on hold. rb1 16:22 Reassessment: Called 2nd floor spoke to Ingris, unit secretary and she stated, "Dagmar is rb1 pushing meds, I'll have her call you back.". 16:30 Reassessment: Gave report to PUSHPA Leavitt. Information from the SBAR was given. All rb1 questions asked and answered. Vital Signs: 09:54 Pulse 115 MON; Resp 19 S; Temp 100(TE); Pulse Ox 96% ; Pain 10/10; sg 09:57 BP 104 / 70; sg 10:54 BP 115 / 79; Pulse 100; Resp 18; Pulse Ox 94% on R/A; rb1 11:30 BP 120 / 66; Pulse 105; Resp 19; Pulse Ox 94% on R/A; rb1 13:14 BP 94 / 47; Pulse 108; Resp 17; Pulse Ox 94% on R/A; mh5 13:17 BP 99 / 56; Pulse 103; Resp 18; Pulse Ox 94% on R/A; rb1 14:43 BP 89 / 58; Pulse 90; Resp 18; Pulse Ox 97% on R/A; mh5 14:44 BP 92 / 54; Pulse 90; Resp 19; Pulse Ox 94% on R/A; Pain 4/10; rb1 15:40 BP 104 / 75; Pulse 96; Resp 18; Pulse Ox 100% ; rb1 16:01 Weight 83.91 kg; rb1 16:30 BP 100 / 73; Pulse 91; Resp 19; Pulse Ox 98% on R/A; rb1 ED Course: 09:45 Patient arrived in ED. as 09:55 Arm band placed on. sg 09:56 Triage completed. sg 09:59 David Cervantes MD is Attending Physician. rn 10:00 Patient has correct armband on for positive identification. Placed in gown. Bed in low rb1 position. Call light in reach. Side rails up X 1. Pulse ox on. NIBP on. 10:08 Inserted saline lock: 20 gauge in right antecubital area, using aseptic technique. ss Blood collected. 10:27 Xochitl Rees, RN is Primary Nurse. rb1 12:01 CT Abd/Pelvis - W/Contrast In Process Unspecified. EDMS 14:00 Tim Maria DO is Hospitalizing Provider. rn 16:40 No provider procedures requiring assistance completed. Patient admitted, IV remains in rb1 place. Administered Medications: 10:37 Drug: NS 0.9% 1000 ml Route: IV; Rate: 1000 ml; Site: right antecubital; rb1 11:50 Follow up: IV Status: Completed infusion rb1 10:38 Drug: morphine 4 mg Route: IVP; Site: right antecubital; rb1 11:00 Follow up: Response: No adverse reaction; Pain is decreased rb1 10:38 Drug: Zofran 4 mg Route: IVP; Site: right antecubital; rb1 11:00 Follow up: Response: No adverse reaction; Nausea is decreased rb1 11:54 Drug: Tylenol 1000 mg Route: PO; rb1 12:30 Follow up: Response: No adverse reaction; Temperature is decreased rb1 11:54 Drug: morphine 4 mg Route: IVP; Site: right antecubital; rb1 12:13 Follow up: Response: No adverse reaction; Pain is decreased rb1 11:55 Drug: Flagyl 500 mg Volume: 100 ml; Route: IVPB; Rate: 200 ml/hr; Infused Over: 30 rb1 mins; Site: right antecubital; 14:11 Follow up: IV Status: Completed infusion ss 14:11 Drug: Cipro 400 mg Volume: 200 ml; Route: IVPB; Infused Over: 60 mins; Site: right ss antecubital; 15:14 Follow up: Response: No adverse reaction; IV Status: Completed infusion rb1 14:50 Drug: NS 0.9% 1000 ml Route: IV; Rate: 1000 ml; Site: right antecubital; rb1 16:00 Follow up: IV Status: Completed infusion rb1 16:27 Drug: NS 0.9% 500 ml Route: IV; Rate: bolus; Site: right antecubital; rb1 16:40 Follow up: IV Status: Infusion continued upon admission rb1 Outcome: 14:01 Decision to Hospitalize by Provider. rn 16:40 Patient left the ED. rb1 16:40 Admitted to Med/surg accompanied by tech, family with patient, via wheelchair, room rb1 224, with chart, Report called to PUSHPA Leavitt. Information from the SBAR was given. All questions asked and answered. 16:40 Condition: stable rb1 16:40 Instructed on the need for admit. Signatures: Dispatcher [employer] EDMS Grant Mckeon RN RN Sarah Arias Roman, MD MD rn Smirch, Shelby, RN RN ss Xochitl Rees RN RN rb1 Vanessa Alvarado [facility] Corrections: (The following items were deleted from the chart) 19:11 17:23 Patient left the ED. rb1 rb1
--- NOTE | 2018-01-06 14:02 | EDPHYS ---
Physician Documentation [facility] Name: Leno Rincon Jr Age: 57 yrs Sex: Male : 1960 Arrival Date: 01/06/2018 Time: 09:45 Bed 14 Private MD: ED Physician David Cervantes HPI: 01/06 10:07 This 57 yrs old Male presents to ER via Ambulatory with complaints of rn Abdominal Pain. 10:07 The patient presents with abdominal pain in the lower abdomen. Onset: The rn symptoms/episode began/occurred this morning. The symptoms do not radiate. Associated signs and symptoms: Pertinent positives: anorexia, diarrhea, fever, nausea, Pertinent negatives: testicular pain, vomiting blood. The symptoms are described as constant, sharp, stabbing. Modifying factors: The symptoms are alleviated by nothing, the symptoms are aggravated by movement, touching the area. Severity of pain: At its worst the pain was moderate in the emergency department the pain is unchanged. The patient has experienced a previous episode. Reports acute abdominal pain since 0400 today, assoc with anorexia/nausea/diarrhea, feels different from previous diverticulitis, finished abx a few weeks ago for uncomplicated diverticulitis. Had recent prostate surgery but no urinary symptoms. . Historical: - Allergies: 09:55 Keflex; sg - Home Meds: 16:09 Cialis oral oral [Active]; Claritin Oral [Active]; Singulair Oral [Active]; rb1 - PMHx: 09:55 Prostate Cancer; sg - PSHx: 09:55 eye surgery; Tonsillectomy; sg 09:55 prostate; rb1 - Immunization history:: Adult Immunizations up to date. - Social history:: Smoking status: Patient/guardian denies using tobacco. - Ebola Screening: : Patient negative for fever greater than or equal to 101.5 degrees Fahrenheit, and additional compatible Ebola Virus Disease symptoms Patient denies exposure to infectious person Patient denies travel to an Ebola-affected area in the 21 days before illness onset No symptoms or risks identified at this time. - Family history:: not pertinent. - Hospitalizations: : No recent hospitalization is reported. ROS: 10:07 Constitutional: Negative for fever, chills, and weight loss, Eyes: Negative for injury, rn pain, redness, and discharge, Neck: Negative for injury, pain, and swelling, Cardiovascular: Negative for chest pain, palpitations, and edema, Respiratory: Negative for shortness of breath, cough, wheezing, and pleuritic chest pain, Abdomen/GI: + abdominal pain/nausea/diarrhea MS/Extremity: Negative for injury and deformity, Skin: Negative for injury, rash, and discoloration, Neuro: Negative for headache, weakness, numbness, tingling, and seizure. Exam: 10:07 Constitutional: This is a well developed, well nourished patient who is awake, alert, rn appears uncomfortable Head/Face: Normocephalic, atraumatic. ENT: dry MM Cardiovascular: tachycardic, regular Abdomen/GI: soft, + tender RLQ/suprapubic/LLQ with guarding, no masses Skin: Warm, dry with normal turgor. Normal color with no rashes, no lesions, and no evidence of cellulitis. MS/ Extremity: Pulses equal, no cyanosis. Neurovascular intact. Full, normal range of motion. Equal circumference. Neuro: Awake and alert, GCS 15, oriented to person, place, time, and situation. Motor strength 5/5 in all extremities. Sensory grossly intact. Vital Signs: 09:54 Pulse 115 MON; Resp 19 S; Temp 100(TE); Pulse Ox 96% ; Pain 10/10; sg 09:57 BP 104 / 70; sg 10:54 BP 115 / 79; Pulse 100; Resp 18; Pulse Ox 94% on R/A; rb1 11:30 BP 120 / 66; Pulse 105; Resp 19; Pulse Ox 94% on R/A; rb1 13:14 BP 94 / 47; Pulse 108; Resp 17; Pulse Ox 94% on R/A; mh5 13:17 BP 99 / 56; Pulse 103; Resp 18; Pulse Ox 94% on R/A; rb1 14:43 BP 89 / 58; Pulse 90; Resp 18; Pulse Ox 97% on R/A; mh5 14:44 BP 92 / 54; Pulse 90; Resp 19; Pulse Ox 94% on R/A; Pain 4/10; rb1 15:40 BP 104 / 75; Pulse 96; Resp 18; Pulse Ox 100% ; rb1 16:01 Weight 83.91 kg; rb1 16:30 BP 100 / 73; Pulse 91; Resp 19; Pulse Ox 98% on R/A; rb1 MDM: 09:59 Patient medically screened. rn 13:30 ED course: Have paged his urologist at [facility], no call back, organizing transfer to rn [facility] for lymphoceles and acute diverticulitis. 13:54 Differential diagnosis: appendicitis, bowel obstruction, diverticulitis, non-specific rn abd pain, Peritonitis, Ureterolithiasis. Data reviewed: vital signs, nurses notes, lab test result(s), radiologic studies, CT scan, and as a result, I will admit patient. Counseling: I had a detailed discussion with the patient and/or guardian regarding: the historical points, exam findings, and any diagnostic results supporting the discharge/admit diagnosis, lab results, radiology results, the need for further work-up and treatment in the hospital, the need to transfer to another facility. Response to treatment: the patient's symptoms have markedly improved after treatment. ED course: Contacted [facility], at capacity, unable to transfer patient at this time, they recommend transfer re-initiation in AM, spoke with patient and family, this is best option instead of transferring to completely new hospital. Unlikely getting emergent lymphocele drainage as diverticulitis active. . 01/06 10:07 Order name: Basic Metabolic Panel; Complete Time: 11:01 rn 01/06 10:07 Order name: CBC with Diff; Complete Time: 11:01 rn 01/06 10:07 Order name: Hepatic Function; Complete Time: 11:01 rn 01/06 10:07 Order name: Lipase; Complete Time: 11:01 rn 01/06 10:07 Order name: Urine Microscopic Only; Complete Time: 14:46 rn 01/06 13:38 Order name: Urine Dipstick--Ancillary (enter results); Complete Time: 14:46 01/06 10:07 Order name: CT Abd/Pelvis - W/Contrast; Complete Time: 12:25 rn 01/06 15:49 Order name: Lactate; Complete Time: 15:55 EDMS 01/06 16:01 Order name: Procalcitonin; Complete Time: 16:34 EDMS 01/06 10:07 Order name: IV Saline Lock; Complete Time: 10:14 rn 01/06 10:07 Order name: Labs collected and sent; Complete Time: 10:14 rn 01/06 10:07 Order name: Urine Dipstick-Ancillary (obtain specimen); Complete Time: 13:38 rn Administered Medications: 10:37 Drug: NS 0.9% 1000 ml Route: IV; Rate: 1000 ml; Site: right antecubital; rb1 11:50 Follow up: IV Status: Completed infusion rb1 10:38 Drug: morphine 4 mg Route: IVP; Site: right antecubital; rb1 11:00 Follow up: Response: No adverse reaction; Pain is decreased rb1 10:38 Drug: Zofran 4 mg Route: IVP; Site: right antecubital; rb1 11:00 Follow up: Response: No adverse reaction; Nausea is decreased rb1 11:54 Drug: Tylenol 1000 mg Route: PO; rb1 12:30 Follow up: Response: No adverse reaction; Temperature is decreased rb1 11:54 Drug: morphine 4 mg Route: IVP; Site: right antecubital; rb1 12:13 Follow up: Response: No adverse reaction; Pain is decreased rb1 11:55 Drug: Flagyl 500 mg Volume: 100 ml; Route: IVPB; Rate: 200 ml/hr; Infused Over: 30 rb1 mins; Site: right antecubital; 14:11 Follow up: IV Status: Completed infusion ss 14:11 Drug: Cipro 400 mg Volume: 200 ml; Route: IVPB; Infused Over: 60 mins; Site: right ss antecubital; 15:14 Follow up: Response: No adverse reaction; IV Status: Completed infusion rb1 14:50 Drug: NS 0.9% 1000 ml Route: IV; Rate: 1000 ml; Site: right antecubital; rb1 16:00 Follow up: IV Status: Completed infusion rb1 16:27 Drug: NS 0.9% 500 ml Route: IV; Rate: bolus; Site: right antecubital; rb1 16:40 Follow up: IV Status: Infusion continued upon admission rb1 Disposition: 01/06/18 14:01 Hospitalization ordered by Tim Maria for Inpatient Admission. Preliminary diagnosis are Diverticulitis of large intestine without perforation or abscess without bleeding, Lymphoceles. - Bed requested for Telemetry/MedSurg (Inpatient). - Status is Inpatient Admission. rb1 - Condition is Stable. - Problem is new. - Symptoms have improved. UTI on Admission? No Signatures: Dispatcher [employer] Grant Diamond RN RN sg Nieto, Roman, MD MD rn Martinez, Eric em1 Silvia Ghotra RN RN Rees, Xochitl, RN RN rb1 Corrections: (The following items were deleted from the chart) 15:52 14:01 Hospitalization Ordered by Tim Maria DO for Inpatient Admission. Preliminary em1 diagnosis is Diverticulitis of large intestine without perforation or abscess without bleeding; Lymphoceles. Bed requested for Telemetry/MedSurg (Inpatient). Status is Inpatient Admission. Condition is Stable. Problem is new. Symptoms have improved. UTI on Admission? No. rn 16:40 15:52 01/06/2018 14:01 Hospitalization Ordered by Tim Maria DO for Inpatient em1 Admission. Preliminary diagnosis is Diverticulitis of large intestine without perforation or abscess without bleeding; Lymphoceles. Bed requested for Telemetry/MedSurg (Inpatient). Status is Inpatient Admission. Condition is Stable. Problem is new. Symptoms have improved. UTI on Admission? No. em1 17:23 16:40 01/06/2018 14:01 Hospitalization Ordered by Tim Crow RAMSAY for Inpatient rb1 Admission. Preliminary diagnosis is Diverticulitis of large intestine without perforation or abscess without bleeding; Lymphoceles. Bed requested for Telemetry/MedSurg (Inpatient). Status is Inpatient Admission. Condition is Stable. Problem is new. Symptoms have improved. UTI on Admission? No. em1
[2018-01-06] MEDS ORDERED: SODIUM CHLORIDE 0.9% 10ML INJ IV PRN (14:23)
[2018-01-06] MEDS ORDERED: ONDANSETRON 4 MG/2 ML VIAL IV PRN (14:23)
[2018-01-06] MEDS ORDERED: ACETAMINOPHEN 650MG/RECT SUPP PR PRN (14:23)
[2018-01-06] MEDS ORDERED: ACETAMINOPHEN 500 MG TAB PO PRN (14:23)
[2018-01-06] MEDS ORDERED: MORPHINE 4 MG/ML SYR IV PRN (14:23)
--- NOTE | 2018-01-06 14:40 | P.HP ---
Certification for Inpatient Patient admitted to: Inpatient With expected LOS: >2 Midnights Patient will require the following post-hospital care: None Practitioner: I am a practitioner with admitting privileges, knowledge of patient current condition, hospital course, and medical plan of care. Services: Services provided to patient in accordance with Admission requirements found in Title 42 Section 412.3 of the Code of Federal Regulations Patient History Date of Service: 01/06/18 Primary Care Provider: Dr. Mccullough; Urology-Dr. Hernandez-[facility] Reason for admission: Abdominal pain History of Present Illness: 57-year-old male present emergency room with abdominal pain. Patient reports abdominal pain since early this morning. He rated the pain severe. Mainly to the left lower quadrant. It was associated with fever, chills, riders, nausea and vomiting. Patient reports a history of diverticulitis in the past. Since August of 2017 he has had 2 prior episodes. 1 in August treated in the ER. Another episode of diverticulitis treated about a month ago as an outpatient. Of note patient had prostatectomy for stage II level 4 prostate cancer on November 18 by Urology-Dr. Hernandez at . Patient denies any diarrhea. Patient able to urinate appropriately. In the ER patient was evaluated. Initial white count elevated at 11.5, hemoglobin 14. Percent neutrophils 83, absolute neutrophils 9.6. Sodium 141, potassium 4.0, BUN of 21, creatinine 1.1 with a GFR of 69. Glucose 103. Urinalysis showed trace blood. CT scan showed postsurgical changes of the prostatectomy. There is a 7 x 3 cm fluid collection abutting the left pelvic sidewall. A 6 x 3 cm fluid collection abuts the right pelvic side wall. Small right inguinal hernia is noted. Mild to moderate stranding to the proximal and mid sigmoid colon noted. No abscess seen. Distal esophagus appeared thickened likely esophagitis. Patient with recurrent mild to moderate sigmoid diverticulitis with a fluid collections likely related to lymphoceles secondary to recent prostate surgery. ER physician tried to transfer the patient to with his urologist due to the findings. A bed was not available. [facility] recommended that the patient be admitted here and re-initiate for transfer. Once a bed is available intervention can be transferred to for further intervention by urology and possible intervention radiology. I saw the patient the ER, he appeared stable. Pain well controlled with morphine. Patient does not smoke. He occasionally drinks. Allergies cephalexin monohydrate [From Keflex] Allergy (Verified 12/31/14 16:28) Rash Home medications list reviewed: Yes Home Medications: Loratadine/Pseudoephedrine [Claritin-D 24 Hour Tablet] 1 each PO DAILY 12/31/14 Montelukast [Singulair] 10 mg PO DAILY 12/31/14 Ciprofloxacin HCl [Cipro] 250 mg PO BID 01/01/15 Docusate [Colace Cap] 100 mg PO DAILY 01/01/15 Oxybutynin Chloride 5 mg PO BEDTIME 01/01/15 Phenazopyrididine [Pyridium] 200 mg PO TID 01/01/15 Tamsulosin [Flomax] 0.4 mg PO BEDTIME 01/01/15 Tramadol HCl [Ultram] 50 mg PO Q8HP 01/01/15 metroNIDAZOLE [Flagyl] 500 mg PO Q8H 01/01/15 - Past Medical/Surgical History Diabetic: No -: Recurrent diverticulitis -: Prostate cancer status post prostatectomy -: Allergic rhinitis -: GERD -: Prostatectomy, November 2017 -: Bilateral tympanic membrane repair -: Eye surgery -: Left thumb partial amputation Psychosocial/ Personal History: The patient is engaged. 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 He has 5 children - Family History Father -: Cancer (Prostate cancer) Mother -: Cancer (Uterine cancer) - Social History Smoking Status: Never smoker Alcohol use: Yes CD- Drugs: No Caffeine use: Yes Place of Residence: Home Review of Systems General: Fever, Chills, Sweats, Malaise, As per HPI Eyes: Unremarkable ENT: Unremarkable Respiratory: Unremarkable Cardiovascular: Unremarkable Gastrointestinal: Nausea, Vomiting, Abdominal Pain, As per HPI Genitourinary: Unremarkable Musculoskeletal: Unremarkable Integumentary: Unremarkable Neurological: As per HPI Lymphatics: Unremarkable Physical Examination - Physical Exam General: Alert, In no apparent distress, Oriented x3, Cooperative HEENT: Atraumatic, Normocephalic, PERRLA, Other (Dry mucous membranes) Neck: Supple, No Thyromegaly Respiratory: Clear to auscultation bilaterally, Normal air movement Cardiovascular: Normal pulses, Regular rate/rhythm Gastrointestinal: Normal bowel sounds, Soft and benign, No masses, No rebound, No guarding, Distended (Minimal distention.), Tenderness (Tenderness to the left lower quadrant) Musculoskeletal: No erythema, No tenderness, No warmth Integumentary: No tenderness/swelling, No erythema, No warmth, No cyanosis Neurological: Normal speech, Normal strength at 5/5 x4 extr, Normal tone, Normal affect Lymphatics: No axilla or inguinal lymphadenopathy - Studies Laboratory Data (last 24 hrs) 01/06/18 10:04: WBC 11.5 H, Hgb 14.3, Hct 42.1, Plt Count 200 01/06/18 10:04: Sodium 141, Potassium 4.0, BUN 21 H, Creatinine 1.10, Glucose 103, Total Bilirubin 0.7, AST 24, ALT 32, Alkaline Phosphatase 74, Lipase 100 Assessment and Plan - Problems (Diagnosis) (1) Diverticulitis Current Visit: Yes Status: Acute Plan: Patient with recurrent sigmoid diverticulitis. Will start IV Cipro/Flagyl. Will provide IV fluid bolus. Will continue with aggressive hydration. Will keep the patient NPO. Will obtain blood, urine culture. Patient also found to have 7 x 3 cm fluid collection abutting the left pelvic side wall and 6 x 3 cm fluid collection abutting the right pelvic side wall. Both likely lymphoceles secondary to prostatectomy from prostate cancer done November 2017. ER tried to transfer the patient to for further evaluation by his urologist and possible intervention by interventional radiology. Bed not available. Will admit the patient. Will reinitiate transfer. Transfer for further evaluation and treatment. Transfer when approved. (2) Lymphocele after surgical procedure Current Visit: Yes Status: Acute Plan: Continue as above. Will re-initiate transferred to . Patient will need urological evaluation with possible intervention radiology procedure. (3) History of prostatectomy Current Visit: Yes Status: Chronic Plan: Continue as above. (4) Prostate cancer Current Visit: Yes Status: Chronic Plan: Continue as above. (5) Dehydration Current Visit: Yes Status: Acute Plan: Continue with aggressive fluid hydration and antibiotic therapy. (6) Renal insufficiency Current Visit: Yes Status: Acute Plan: Likely from dehydration. Will continue aggressive IV fluids. Discharge Plan: Transfer Plan to discharge in: Greater than 2 days - Advance Directives Does patient have a Living Will: No Does patient have a Durable POA for Healthcare: No - Code Status/Comfort Care Code Status Assessed: Yes (Patient full code.) Time Spent Managing Pts Care (In Minutes): 55
[2018-01-06] MEDS ORDERED: NA CHLORIDE 0.9% 500 ML ONE (16:21)
[2018-01-06] MEDS ORDERED: NA CHLORIDE 0.9% 1,000 ML IV ONE (17:42)
[2018-01-06] MEDS: NA CHLORIDE 0.9% 1,000 ML IV SCH ×2 (17:49→22:20)
[2018-01-06] MEDS: METRONIDAZOLE 500mg IVPB 500 MG/100 ML BAG IV SCH (17:50)
[2018-01-06] MEDS: ENOXAPARIN 40 MG/0.4 ML SQ SCH (17:50)
[2018-01-06] MEDS ORDERED: NA CHLORIDE 0.9% 500 ML IV ONE (19:00)
[2018-01-06 19:43] VITALS: BMI 29.0
[2018-01-06] MEDS ORDERED: VANCOMYCIN 1.5 GM in NA CHLORIDE 0.9% 500 ML IVPB SCH (20:00)
[2018-01-06] MEDS: CIPROFLOXACIN 400mg IV 400 MG/200 ML BAG IV SCH (21:08)
[2018-01-06] MEDS: FENTANYL CITR 100 MCG/2 ML IV PRN (22:16)
[2018-01-07] MEDS: METRONIDAZOLE 500mg IVPB 500 MG/100 ML BAG IV SCH ×2 (01:08→09:12)
[2018-01-07] MEDS: FENTANYL CITR 100 MCG/2 ML IV PRN (03:59)
[2018-01-07 04:54] LABS: Absolute Lymphocytes (CBC) 0.4 K/uL (0.7-4.9); Absolute Monocytes 1.3 K/uL (0.1-1.3); Absolute Neutrophil 9.6 K/uL (1.8-8.0); Basophils % 0.2 % (0-1.3); Eosinophils % 0.5 % (0-4.4); Hematocrit 36.4 % (39.6-49.0); Lymphocytes % 3.8 % (15.3-44.8); MCH 29.1 pg (27.0-35.0); MCV 86.9 fL (80-100); MPV 8.9 fL (7.6-11.3); Monocytes % 11.3 % (3.3-12.3); RBC Red Blood Cell Count 4.19 M/uL (4.33-5.43)
[2018-01-07 05:09] LABS: Magnesium 1.6 mg/dL (1.8-2.4); Potassium 4.3 mmol/L (3.5-5.1)
[2018-01-07] MEDS ORDERED: MAGNESIUM SULFATE 1 gm IVPB 1 GM/100 ML BAG IV ONE (05:13)
[2018-01-07] MEDS: NA CHLORIDE 0.9% 1,000 ML IV SCH ×2 (06:04→15:00)
--- NOTE | 2018-01-07 06:16 | P.INFCA ---
Sepsis Focused Assessment - Sepsis Screen Result Severe Sepsis: Negative Septic Shock: Positive - Evaluation Current stage of sepsis: Septic shock - Vital Signs Reviewed: Yes Temperature: 98.5 F Heart rate: 80 Blood Pressure: 105/55 Respiratory Rate: 18 O2 Sat by Pulse Oximetry: 95 - Examination Date exam was performed: 01/06/18 Time exam was performed: 20:35 Heart: Regular rate/rhythm Lungs: Clear bilaterally Peripheral pulses: 2+ Slightly diminished Peripheral pulse location: Radial Capillary refill: <2 Seconds Skin examination: Normal turgor
[2018-01-07 06:30] LABS: Thyroid Stimulating Hormone 1.05 uIU/mL (0.36-3.74)
[2018-01-07] MEDS ORDERED: TRAMADOL HCL 50 MG TAB PO PRN (07:11)
--- NOTE | 2018-01-07 07:56 | P.PN ---
Subjective Date of Service: 01/07/18 Primary Care Provider: Dr. Mccullough; Urology-Dr. Hernandez[facility] Chief Complaint: Abdominal pain Subjective: Other (Patient stable this time. Patient reports pain to the abdomen. Improved about 5/10. No significant nausea vomiting noted. Patient did have some diarrhea last night. T-max 100.) Physical Examination - Vital Signs Temperature: 98.5 F Blood Pressure: 105/55 Pulse: 80 Respirations: 18 Pulse Ox (%): 95 - Physical Exam General: Alert, In no apparent distress, Oriented x3, Cooperative HEENT: Atraumatic Neck: Supple Respiratory: Clear to auscultation bilaterally, Normal air movement Cardiovascular: Normal pulses, Regular rate/rhythm Gastrointestinal: Hypoactive, Non-distended, No masses, No rebound, No guarding , Tenderness (Pain to the lower quadrant) Musculoskeletal: No erythema, No tenderness, No warmth Integumentary: No tenderness/swelling, No erythema, No warmth, No cyanosis Neurological: Normal speech, Normal strength at 5/5 x4 extr, Normal tone, Normal affect - Studies Laboratory Data (last 24 hrs) 01/06/18 10:04: WBC 11.5 H, Hgb 14.3, Hct 42.1, Plt Count 200 01/06/18 10:04: Sodium 141, Potassium 4.0, BUN 21 H, Creatinine 1.10, Glucose 103, Total Bilirubin 0.7, AST 24, ALT 32, Alkaline Phosphatase 74, Lipase 100 Medications List Reviewed: Yes Assessment & Plan - Problems (Diagnosis) (1) Diverticulitis Current Visit: Yes Status: Acute Plan: Patient with recurrent sigmoid diverticulitis. Patient has had 2 prior episodes of diverticulitis within the past 6 months. Will continue with IV Cipro and Flagyl. Patient received aggressive fluid hydration due to sepsis. Vancomycin was also added yesterday. Patient remains NPO. Will provide medication for nausea. Blood cultures obtained. Lactic acid within normal range. Patient currently stable this time. Blood pressure stable. Patient also found to have 7 x 3 cm fluid collection abutting the left pelvic side wall and 6 x 3 cm fluid collection abutting the right pelvic side wall. Both likely lymphoceles secondary to prostatectomy from prostate cancer done November 2017. ER tried to transfer the patient to [facility] for further evaluation by his urologist and possible intervention by interventional radiology. I was able to get in contact with his urologist Dr. Hernandez at [facility]. He has agreed to accept the patient. Will re-initiate transferred this morning. Await transfer approval. (2) Lymphocele after surgical procedure Current Visit: Yes Status: Acute Plan: Continue as above. I did speak to his urologist last night-Dr. Hernandez out of [facility]. He has agreed to accept the patient. Will reinitiate transfer. Anticipate transfer today. Patient will likely need further intervention. (3) History of prostatectomy Current Visit: Yes Status: Chronic Plan: Continue as above. (4) Prostate cancer Current Visit: Yes Status: Chronic Plan: Continue as above. (5) Dehydration Current Visit: Yes Status: Acute Plan: Continue with aggressive fluid hydration and antibiotic therapy. (6) Renal insufficiency Current Visit: Yes Status: Acute Plan: Likely from dehydration. Will continue aggressive IV fluids. (7) Diarrhea Current Visit: Yes Status: Acute Plan: Will check stool for c. dif and culture. Qualifiers: Diarrhea type: unspecified type Qualified Code(s): R19.7 - Diarrhea, unspecified Discharge Plan: Transfer Plan to discharge in: 24 Hours Time Spent Managing Pts Care (In Minutes): 55
[2018-01-07] MEDS ORDERED: PANTOPRAZOLE 40 MG INJ IVP SCH (09:00)
[2018-01-07] MEDS: CIPROFLOXACIN 400mg IV 400 MG/200 ML BAG IV SCH (09:12)
[2018-01-07] MEDS: ENOXAPARIN 40 MG/0.4 ML SQ SCH (09:13)
[2018-01-07] MEDS: HYDROCODONE/APAP 7.5/325 MG TAB PO PRN ×2 (09:13→17:33)
[2018-01-07 11:04] VITALS: O2SAT 95
--- NOTE | 2018-01-07 11:52 | CON ---
Date of Consultation: 01/06/2018 Reason: Acute sigmoid diverticulitis. History Of Present Illness: The patient is a 57-year-old gentleman, who recently diagnosed with pros rosas cancer. Underwent a prostatectomy 6 weeks ago. Had some issues afterwards. There was concern for lymphocele, however, CAT scan done 1 week ago did not show any evidence of disease. This is his fourth episode of acute sigmoid diverticulitis. First one was done diagnosed earlier this year and t he second one, he was diagnosed with a CAT scan, treated with Cipro and Flagyl and he has been treate d with Cipro and Flagyl the last time as well. However, he had acute onset of suprapubic left lower quadrant pain associated with fever, chills, nausea, and vomiting and he came to the emergency room, had another CAT scan, which revealed 2 lymphoceles as well as acute sigmoid diverticulitis and I was consulted. He is accepted to admit to this hospital awaiting transfer, however, he is still in the h ospital and I was asked to evaluate the patient. He has never had a colonoscopy and there is no [facility] history of colorectal malignancy. Feels a little better after being admitted. Review of Systems: Otherwise unremarkable. Past Medical History: Significant for recent prostate cancer, allergic rhinitis, GERD, recurrent div erticulitis. Past Surgical History: Eye surgery, left thumb, partial amputation, bilateral ear surgery, prostatec za earlier this year. Allergies: CEPHALEXIN. Social History: He does not smoke. Drinks occasionally. Family History: Noncontributory. Physical Examination: Vital signs: Currently stable. He is afebrile. General: He is awake, alert, and oriented x3. Head and neck: Cranial nerves 2 through 12 are grossly within normal limits. No neck masses. No JV D. Throat clear. Neck is supple. Chest: Clear. Heart: S1, S2. Abdomen: Soft, nondistended. Bowel sounds hypoactive. Left lower and suprapubic tenderness with mi nimal rebound. No rigidity or guarding. EXTREMITIES: Adequately perfused. Nontender. Neuro: Nonfocal. Laboratory Data: White count was 11.5 yesterday and today is 11.4, with a left shift. Chemistry rev iewed. Magnesium is low, is being replaced. His procalcitonin was 13.46. Lactic acid was 2.4 yeste rday and today is 2.0. CAT scan of the abdomen and pelvis reviewed with Dr. Mcduffie essentially show s 2 lymphoceles on pelvic souza and mild to moderate sigmoid diverticulitis, uncomplicated. No evide nce of abscess or perforation. Assessment: Acute sigmoid diverticulitis and lymphoceles following prostate surgery. Recommendations: Discussed the case with Dr. Maria. We will add vancomycin and change the Flagyl t o clindamycin as he has had Cipro and Flagyl in the past without resolution. Subsequently, he will n eed outpatient oral antibiotic therapy followed by a colonoscopy in 4-6 weeks, after which I would re commend a segmental colon resection. Plan of care discussed in detail with Dr. Maria, the patient, and family members. The importance of low-fiber diet currently and high-fiber diet following was discussed in detail with the patient as well. /MODL Voice ID: [id number] Report ID: [id number]
--- NOTE | 2018-01-07 16:24 | P.DS ---
Admission Date: 01/06/18 Discharge Date: 01/07/18 Primary Care Provider: Dr. Mccullough; Urology-Dr. Hernandez[facility] Disposition: TRANSFER TO [facility] Discharge Condition: GOOD Reason for Admission: Abdominal pain Consultations: Surgery-Dr. Baldwin Procedures: CT Scan: CLINICAL HISTORY: Abdominal pain. Prostate carcinoma is August 2017 COMPARISON: None. TECHNIQUE: Computed axial tomography of the abdomen and pelvis was obtained. 100 cc Isovue-300 is administered intravenously. Oral contrast was given. All CT scans are performed using dose optimization technique as appropriate and may include automated exposure control or mA/KV adjustment according to patient size. FINDINGS: The liver, spleen, pancreas, and adrenals appear unremarkable. Tiny nonobstructing bilateral renal calculi are present. Postsurgical changes of a prostatectomy are seen. The seminal vesicles appear unremarkable. A 7 x 3 centimeter fluid collection abuts the left pelvic sidewall. A 6 by 3 centimeter fluid collection abuts the right pelvic sidewall Small right inguinal hernias contain fat. Mild to moderate stranding is present adjacent to the proximal to mid sigmoid colon. Diverticula are noted. An abscess is not seen.. The wall of the distal esophagus appears thickened perhaps secondary to esophagitis IMPRESSION: Mild to moderate sigmoid diverticulitis. Fluid collections along the pelvic sidewalls probably represent lymphoceles secondary to the recent prostate surgery - Problems (1) Diverticulitis Onset Date: 01/07/18 Current Visit: Yes Status: Acute (2) Lymphocele after surgical procedure Current Visit: Yes Status: Acute (3) History of prostatectomy Current Visit: Yes Status: Chronic (4) Prostate cancer Onset Date: 01/07/18 Current Visit: Yes Status: Chronic (5) Dehydration Onset Date: 01/07/18 Current Visit: Yes Status: Acute (6) Renal insufficiency Onset Date: 01/07/18 Current Visit: Yes Status: Acute (7) Diarrhea Current Visit: Yes Status: Acute Qualifiers: Diarrhea type: unspecified type Qualified Code(s): R19.7 - Diarrhea, unspecified (8) C. difficile colitis Current Visit: Yes Status: Acute (9) Guaiac + stool Current Visit: Yes Status: Acute (10) Sepsis Current Visit: Yes Status: Acute Brief History of Present Illness: 57-year-old male present emergency room with abdominal pain. Patient reports abdominal pain since early this morning. He rated the pain severe. Mainly to the left lower quadrant. It was associated with fever, chills, riders, nausea and vomiting. Patient reports a history of diverticulitis in the past. Since August of 2017 he has had 2 prior episodes. 1 in August treated in the ER. Another episode of diverticulitis treated about a month ago as an outpatient. Of note patient had prostatectomy for stage II level 4 prostate cancer on November 18 by Urology-Dr. Hernandez at [facility]. Patient denies any diarrhea. Patient able to urinate appropriately. In the ER patient was evaluated. Initial white count elevated at 11.5, hemoglobin 14. Percent neutrophils 83, absolute neutrophils 9.6. Sodium 141, potassium 4.0, BUN of 21, creatinine 1.1 with a GFR of 69. Glucose 103. Urinalysis showed trace blood. CT scan showed postsurgical changes of the prostatectomy. There is a 7 x 3 cm fluid collection abutting the left pelvic sidewall. A 6 x 3 cm fluid collection abuts the right pelvic side wall. Small right inguinal hernia is noted. Mild to moderate stranding to the proximal and mid sigmoid colon noted. No abscess seen. Distal esophagus appeared thickened likely esophagitis. Patient with recurrent mild to moderate sigmoid diverticulitis with a fluid collections likely related to lymphoceles secondary to recent prostate surgery. ER physician tried to transfer the patient to [facility] with his urologist due to the findings. A bed was not available. [facility] recommended that the patient be admitted here and re-initiate for transfer. Once a bed is available intervention can be transferred to [facility] for further intervention by urology and possible intervention radiology. I saw the patient the ER, he appeared stable. Pain well controlled with morphine. Patient does not smoke. He occasionally drinks. Hospital Course: During the course of his stay patient flagged for sepsis. Patient received 4 L of fluid bolus. Patient currently on maintenance 125 cc per hr of normal saline. Blood pressure remained stable. Blood cultures pending at this time. So far negative blood culture. Patient was found to have recurrent moderate sigmoid diverticulitis, C difficile positive, guaiac positive, pelvic fluid collections likely secondary to prostatectomy. These are likely Lymphoceles. Fluid collections will need to be evaluated for possible abscess. I discuss this case with his urologist last night. Urologist agrees to accept patient to further assess. Surgery was consulted to evaluate his diverticulitis. Patient currently on IV vancomycin, Cipro, and Flagyl. Patient is currently NPO not tolerating diet. Patient stable this time. Surgery recommends the patient be further assess at [facility] by surgery. Patient may require future colectomy. Further evaluation of fluid collections will be addressed by urology at [facility]. Transfer accepted. Patient to be transferred. Vital Signs/Physical Exam: Temp Pulse Resp BP Pulse Ox 97.6 F 70 18 90/51 L 96 01/07/18 12:00 01/07/18 12:00 01/07/18 12:00 01/07/18 12:00 01/07/18 12:00 General: Alert, In no apparent distress, Oriented x3, Cooperative HEENT: Atraumatic Neck: Supple Respiratory: Clear to auscultation bilaterally, Normal air movement Cardiovascular: Normal pulses, Regular rate/rhythm Gastrointestinal: Hypoactive, Non-distended, Tenderness (pain to the lower quadrant) Musculoskeletal: No erythema, No tenderness, No warmth Integumentary: No tenderness/swelling, No erythema, No warmth, No cyanosis Neurological: Normal speech, Normal strength at 5/5 x4 extr, Normal tone, Normal affect Laboratory Data at Discharge: WBC 11.4 K/uL (4.3-10.9) H 01/07/18 04:05 Hgb 12.2 g/dL (13.6-17.9) L 01/07/18 04:05 Hct 36.4 % (39.6-49.0) L 01/07/18 04:05 Plt Count 148 K/uL (152-406) L D 01/07/18 04:05 Sodium 142 mmol/L (136-145) 01/07/18 04:05 Potassium 4.3 mmol/L (3.5-5.1) 01/07/18 04:05 BUN 18 mg/dL (7-18) 01/07/18 04:05 Creatinine 1.00 mg/dL (0.55-1.3) 01/07/18 04:05 Glucose 87 mg/dL (74-106) 01/07/18 04:05 Magnesium 1.6 mg/dL (1.8-2.4) L 01/07/18 04:05 Total Bilirubin 0.7 mg/dL (0.2-1.0) 01/06/18 10:04 AST 24 U/L (15-37) 01/06/18 10:04 ALT 32 U/L (12-78) 01/06/18 10:04 Alkaline Phosphatase 74 U/L (45-117) 01/06/18 10:04 Lipase 100 U/L (73-393) 01/06/18 10:04 Home Medications: Loratadine/Pseudoephedrine [Claritin-D 24 Hour Tablet] 1 each PO DAILY 01/06/18 Montelukast [Singulair] 10 mg PO DAILY 01/06/18 Patient Discharge Instructions: 1. Patient will be transferred to [facility] for higher level of care. Patient with moderate recurrent diverticulitis, C diff colitis, guaiac-positive stool, Lymphoceles to pelvic wall likely secondary to prostatectomy. Patient will likely require further intervention by urology and possibly interventional radiology. 2. Patient currently on vancomycin, Cipro, Flagyl. 3. Continue pain medication, IV fluids. 4. Further adjustment can be done by [facility] physician. Diet: NPO Activity: Bedrest Time spent managing pt's care (in minutes): 55
[2018-01-07 16:29] VITALS: BP 101/55; TEMP 98.7
[2018-01-07] MEDS ORDERED: CLINDAMYCIN INJ 600 MG in NA CHLORIDE 0.9% 50 ML IV SCH (17:00)
[2018-01-07] MEDS ORDERED: VANCOMYCIN ORAL SOLN 250 MG/5 ML OSYR PO SCH (18:00)
[2018-01-07] MEDS ORDERED: LACTOBACILLUS/ACIDOPHILUS TAB PO SCH (21:00)
[2018-01-07] MEDS ORDERED: METRONIDAZOLE 500mg IVPB 500 MG/100 ML BAG IV SCH (21:00)
== END 2018-01-07 18:15 | disposition short-term general hospital (02) | DRG 871 ==
LOC: ER 09:44 → ERHOLD 14:07 → 2ND 16:44
PROVIDERS: ADMIT Family Medicine; ATTEND Family Medicine
DX: A41.9 Sepsis, unspecified organism (principal); R65.21 Severe sepsis with septic shock; K57.32 Diverticulitis of large intestine without perforation or abscess without bleeding; A04.72 Enterocolitis due to Clostridium difficile, not specified as recurrent; I89.8 Other specified noninfective disorders of lymphatic vessels and lymph nodes; Z90.79 Acquired absence of other genital organ(s); E86.0 Dehydration; N28.9 Disorder of kidney and ureter, unspecified; Z85.46 Personal history of malignant neoplasm of prostate; K21.9 Gastro-esophageal reflux disease without esophagitis; J30.9 Allergic rhinitis, unspecified
CPT/HCPCS: 36415; 74177; 80048; 80076; 81003; 81015; 82274; 82533; 83605; 83690; 83735; 84145; 84439; 84443; 85025; 87040; 87045; 87046; 87493; 96361; 96365; 96366; 96367; 96375; 99285; C9113; J0744; J1650; J2405; J3010; J3475; J7030; Q9967

== ENCOUNTER 2018-03-31 15:55 | Emergency (ER) | payer OTHER ==
--- OUTSIDE RECORDS SUMMARY | 2018-03-31 15:58 | XMS REPORT ---
:1960 [facility] Address [address] [place] [address] Dr. Arias [address] [place] [id number] Care Team Providers Name Role Phone Unavailable Unavailable Unavailable Problems This patient has no known problems. Allergies, Adverse Reactions, Alerts This patient has no known allergies or adverse reactions. Medications This patient has no known medications. Results Test Description Test Time Test Comments Text Results Atomic Results Result Comments NM BONE SCAN WHOLE BODY CLINICAL INDICATION: C61 Malignant neoplasm of prostateMODALITY: Lab21 dual head gamma cameraTECHNIQUE: 25 mCi Tc [...]
--- OUTSIDE RECORDS SUMMARY | 2018-03-31 15:58 | XMS REPORT | Clinical Summary ---
:1960 Author Organization [facility] Address [address] [place] [address] Care Team Providers Name Role Phone Rayne Mccullough MD Primary Care Provider Allergies Active Allergy Reactions Severity Noted Date Comments Cephalexin Hives 05/07/2017 Current Medications Prescription Sig. Disp. Refills Start Date End Date Status montelukast TAKE ONE (1) 11 02/17/2017 Active (SINGULAIR) 10 mg TABLET(S) BY tablet MOUTH ONCE A DAY. loratadine Take 10 mg by Active (CLARITIN) 10 mg mouth daily. tablet ONE DAILY Take by mouth Active MULTIVITAMIN ORAL daily. tadalafil (CIALIS) Take 20 mg by Active 20 mg tablet mouth daily. 10mg Wednesday-Wednesday, 25mg Wednesday meloxicam (MOBIC) Take 1 tablet 90 tablet 0 01/17/2018 Active 15 mg tablet (15 mg total) by mouth daily. oxybutynin XL Take 1 tablet 30 tablet 11 01/17/2018 01/18/20 Active (DITROPAN XL) 10 MG (10 mg total) by 19 24 hr tablet mouth daily. levoFLOXacin Take 1 tablet 5 tablet 0 05/07/2017 05/12/20 (LEVAQUIN) 750 MG (750 mg total) 17 tablet by mouth daily for 5 days. Take one tablet the night before procedure, then morning of procedure until gone. levoFLOXacin Take 1 tablet 10 tablet 0 07/26/2017 07/31/19 (LEVAQUIN) 500 MG (500 mg total) 18 tablet by mouth daily for 5 days. levoFLOXacin TAKE 1 TABLET 0 07/24/2017 11/05/19 Discontinued (LEVAQUIN) 750 MG (750 MG TOTAL) 18 tablet BY MOUTH DAILY FOR 5 DAYS. TAKE ONE TABLET THE NIGHT BEFORE PROCEDURE, THEN MORNING OF PROCEDURE UNTIL GONE. ciprofloxacin Begin taking 10 tablet 0 11/25/2017 12/01/19 (CIPRO) 500 MG twice daily, 1 18 tablet day prior to follow-up appointment with your Urologist docusate sodium Take 1 capsule 60 capsule 0 11/19/2017 12/20/19 (COLACE) 100 MG (100 mg total) 18 capsule by mouth 2 (two) times a day for 30 days. acetaminophen-codei Take 1-2 tablets 30 tablet 0 11/19/2017 12/04/19 ne (TYLENOL WITH by mouth every 6 18 CODEINE #3) 300-30 (six) hours as mg per tablet needed for moderate pain for up to 14 days. ciprofloxacin Take 1 tablet 8 tablet 0 11/20/2017 11/25/19 (CIPRO) 500 MG (500 mg total) 18 tablet by mouth 2 (two) times a day for 4 days. acetaminophen-codei Take 1-2 tablets 30 tablet 0 11/20/2017 12/21/19 ne (TYLENOL WITH by mouth every 6 18 CODEINE #3) 300-30 (six) hours as mg per tablet needed for moderate pain for up to 30 days. docusate sodium Take 1 capsule 60 capsule 0 11/20/2017 12/21/19 (COLACE) 100 MG (100 mg total) 18 capsule by mouth 2 (two) times a day for 30 days. tadalafil (CIALIS, Take 1 tablet (5 30 tablet 3 11/26/2017 12/27/19 ADCIRCA) 5 MG mg total) by 18 tablet mouth daily as needed for erectile dysfunction for up to 30 days. tadalafil (CIALIS) Take 1 tablet 12 tablet 3 11/26/2017 12/27/19 20 mg tablet (20 mg total) by 18 mouth every 7 days for 30 days. Lactobacillus Take 1 tablet by 90 tablet 0 01/11/2018 02/11/20 acidoph-L.bulgar mouth 3 (three) 18 (FLORANEX) 1 times a day for million cell tablet 30 days. ondansetron ODT Take 1 tablet (4 10 tablet 0 01/11/2018 03/25/20 Discontinued (ZOFRAN-ODT) 4 MG mg total) by 18 disintegrating mouth every 12 tablet (twelve) hours as needed for nausea or vomiting for up to 10 doses. ferrous sulfate 325 Take 1 tablet 60 tablet 0 01/11/2018 02/11/20 (65 FE) MG tablet (325 mg total) 18 by mouth 2 (two) times a day with meals for 30 days. vancomycin Take 2.5 mL (125 100 mL 0 01/11/2018 01/22/20 (VANCOCIN) 50 mg/ml mg total) by 18 suspension oral mouth 4 (four) suspension times a day for 10 days. meloxicam (MOBIC) Take 1 tablet 1 tablet 1 01/17/2018 01/18/20 Discontinued 15 mg tablet (15 mg total) by 18 mouth daily. ciprofloxacin Take 1 tablet 20 tablet 0 02/11/2018 02/22/20 (CIPRO) 500 MG (500 mg total) 18 tablet by mouth 2 (two) times a day for 10 days. metroNIDAZOLE Take 1 tablet 30 tablet 0 02/11/2018 02/22/20 (FLAGYL) 500 MG (500 mg total) 18 tablet by mouth 3 (three) times a day for 10 days. sodium,potassium,ma Take 2 Bottles 2 Bottle 0 03/21/2018 03/21/20 g sulfates (SUPREP (354 mL total) 18 BOWEL PREP KIT) by mouth once 17.5-3.13-1.6 gram for 1 dose. recon soln SUPREP BOWEL PREP Take 2 Bottles 354 mL 0 03/28/2018 03/28/20 KIT 17.5-3.13-1.6 (354 mL total) 18 gram recon soln by mouth once for 1 dose. Take as directed by physician Hospital, Clinic, or Other Ordered Dose Route Frequency Start Date End Date Status Facility Administered Medication gentamicin (GARAMYCIN) 160 mg IM once 07/26/2017 07/26/2017 Ended injection 160 mgIndications: Elevated prostate specific antigen (PSA) Active Problems Problem Noted Date Adhesive capsulitis of left shoulder 01/17/2018 Diverticulitis of intestine 01/09/2018 Diverticulitis 01/08/2018 C. difficile colitis 01/08/2018 Abdominal pain 01/07/2018 Lymphocele after surgical procedure 11/25/2017 Prostate cancer 11/04/2017 Encounters Date Type Specialty Care Team Description 03/28/2018 Orders Only General Surgery Govind Tayolr MD 03/25/2018 Pre-Admit Testing Pre-Admission Govind Taylor Preop examination Appointment Testing MD Dontae (Primary Dx) 03/25/2018 Anesthesia Event Pre-Admission Kari Daniela Testing WEllie, CONFIGURATION DEVELOPER 03/21/2018 Orders Only General Surgery Chelsi Collins 02/11/2018 Office Visit General Surgery Alagugurusamy, Diverticulitis of Miranda Fernandes, large intestine DRIVER LICENSE TECHNICIAN-C without perforation Govind Taylor or abscess without MD Dontae bleeding (Primary Dx) 02/11/2018 Orders Only General Surgery Alagugurusamy, Miranda Fernandes, DRIVER LICENSE TECHNICIAN-C 02/10/2018 Telephone Urology Jesus Hernandez MD 01/25/2018 Telephone Urology Jesus Hernandez MD 01/17/2018 Office Visit Urology Jesus Hernandez, Malignant neoplasm of MD prostate (Primary Dx) 01/17/2018 Hospital Encounter Radiology Clarence Carlos MD 01/17/2018 Office Visit Orthopedic Clarence Carlos, Adhesive capsulitis of left shoulder (Primary Dx); Surgery Bilateral shoulder pain, unspecified chronicity 01/17/2018 Procedure Pass Radiology 01/17/2018 Ancillary Orders Radiology Clarence Carlos MD 01/17/2018 Ancillary Orders Radiology Blanquita Haas MD 01/07/2018 - Hospital Encounter General Internal FanHeike MD Abdominal pain, unspecified abdominal location (Primary Dx); 01/11/2018 Medicine 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 Intake Access N/A 01/06/2018 Intake Access N/A 12/14/2017 Telephone Urology Jesus Hernandez MD 12/14/2017 Telephone Urology Jenifer Anthony 12/10/2017 Telephone Urology Jesus Hernandez MD 11/26/2017 Office Visit Urology Jesus Hernandez, Malignant neoplasm of prostate (Primary Dx); Erectile dysfunction following radical prostatectomy 11/26/2017 Hospital Encounter Radiology Jesus Hernandez, Malignant neoplasm of MD prostate 11/26/2017 Telephone Urology Nataly Salas MA 11/25/2017 Hospital Encounter Radiology Angelica Goldberg MD Disorder of lymphatics; Malignant neoplasm of prostate; Localized edema 11/25/2017 Office Visit Urology Jesus Hernandez, Malignant neoplasm of MD prostate (Primary Dx) 11/25/2017 Transcribe Orders Urology Jesus Hernandez, Disorder of lymphatics (Primary Dx); Malignant neoplasm of prostate; Localized edema 11/24/2017 Telephone Urology Delmer AnabellaJEN 11/18/2017 - Hospital Encounter General Internal Jesus Hernandez, Prostate cancer 11/20/2017 Medicine MD 11/18/2017 Procedure Pass Urology 11/18/2017 Surgery Urology Jesus Hernandez, ROBOTIC ASSISTED LAPARSCOPIC PROSTATECTOMY, BILATERAL PELVIC LYMPH NODE DISSECTION, W/ LAPIDES 11/17/2017 Telephone UrologJesus Owen MD 11/08/2017 Telephone UrologJessu Owen MD 11/05/2017 Anesthesia Event Urology Carolina De lCid, MATTIE 11/04/2017 Pre-Admit Testing Pre-Admission Jesus Hernandez, Preop testing ( Primary Dx); Appointment Testing Malignant neoplasm of prostate 11/04/2017 Office Visit UrologJesus Owen, Malignant neoplasm of prostate (Primary Dx); Pre-op testing; Prostate cancer 11/01/2017 Telephone UrologJesus Owen MD 10/21/2017 Transcribe Orders UrologJesus Owen, Malignant neoplasm of prostate (Primary Dx) 09/09/2017 Telephone Urology Jenifer Anthony 08/24/2017 Orders Only Jesus Carey MD 08/24/2017 Telephone Urology Jenifer Anthony 08/20/2017 Telephone UrologJesus Owen MD 08/09/2017 Office Visit UrologJesus Owen, Malignant neoplasm of prostate (Primary Dx) 08/01/2017 Refill UrologJesus Owen MD 07/28/2017 Telephone Jesus Carey MD 07/28/2017 Telephone UrologJenifer Pugh 07/28/2017 Orders Only Jesus Carey MD 07/27/2017 Orders Only Jesus Carey MD 07/26/2017 Procedure visit Jesus Carey, Elevated prostate MD specific antigen (PSA) 07/21/2017 Transcribe Orders Urology Jesus Hernandez, Elevated prostate MD specific antigen (PSA) (Primary Dx) 05/26/2017 Telephone Urology Jenfier Anthony 05/26/2017 Orders Only Urology Jesus Hernandez MD 05/24/2017 Orders Only Jesus Carey MD 05/24/2017 Telephone Urology Jenifer Anthony 05/20/2017 Telephone Urology Jesus Hernandez MD 05/12/2017 Telephone Urology Jesus Hernandez MD 05/07/2017 Office Visit Urology Jesus Hernandez, Elevated prostate MD specific antigen (PSA) (Primary Dx) 04/15/2017 Telephone Urology Jesus Hernandez MD after 03/30/2017 Family History Medical History Relation Name Comments Prostate cancer Father Cancer Maternal Aunt Relation Name Status Comments Father Alive Maternal Aunt Mother Social History Tobacco Use Types Packs/Day Years Used Date Never Smoker Smokeless Tobacco: Never Used Alcohol Use Drinks/Week oz/Week Comments No Sex Assigned at Date Recorded Not on file Last Filed Vital Signs Vital Sign Reading Time Taken Blood Pressure 113/56 03/25/2018 12:01 PM CDT Pulse 56 03/25/2018 12:01 PM CDT Temperature 36.1 C (96.9 F) 03/25/2018 12:01 PM CDT Respiratory Rate 16 03/25/2018 12:01 PM CDT Oxygen Saturation 93% 03/25/2018 12:01 PM CDT Inhaled Oxygen Concentration - - Weight 88.5 kg (195 lb) 03/25/2018 12:01 PM CDT Height 170.2 cm (5' 7") 03/25/2018 12:01 PM CDT Body Mass Index 30.54 03/25/2018 12:01 PM CDT Plan of Treatment Date Type Specialty Care Team Description 04/06/2018 Surgery General Surgery Govind Taylor ROBOTIC ASSISTED MD Dontae LAPARSCOPIC LOW [address] [facility] [address] [place] [address] 04/06/2018 Procedure Pass General Surgery 04/06/2018 Hospital Encounter General Surgery Govind Taylor MD [address] [facility] [address] [place] [address] [phone] 07/25/2018 Office Visit Urology Jesus Hernandez MD [address] [facility] [address] [place] [address] Health Maintenance Due Date Last Done Comments COLON CANCER SCREENING 2012 SHINGRIX VACCINE (#1) 2012 INFLUENZA VACCINE 02/02/2018 Implants Implanted Type Area Digital Forensics Investigator Device Expiration Model / Identifier Date Serial / Lot Clip Ligtng Hem-O-Kerwin Endoscpc Aplr [facility] Lg - [id number] Surgical N/A: WECK CLOSURE [id number] / Implanted: 11/18/2017 (Quantity not on file) Implants; N/A SYSTEMS / Expanders; Extenders; Surgical Wires Drain Wnd 1/4in 49in Rnd Mid Perfrtn - [id number] Surgical BARD MEDICAL [id number] / Implanted: Qty: 1 on 11/18/2017 by Jesus Hernandez MD Implants; DIVISION / Expanders; Extenders; Surgical Wires Amniofix Amniotic Membrane Allograft - [id number] Urological N/A: [employer] 08/05/2022 APS [id number] / Implanted: 11/18/2017 (Quantity not on file) Implants or N/A INC AS21- [id number] / Sets [id number] Procedures Procedure Name Priority Date/Time Associated Diagnosis Comments ECG PRE/POST OP Routine 03/25/2018 12:20 Preop examination Results for this PM CDT procedure are in the results section. ESTIMATED GFR Routine 03/25/2018 12:07 Results for this PM CDT procedure are in the results section. CBC HEMOGRAM Routine 03/25/2018 12:07 Preop examination Results for this PM CDT procedure are in the results section. TYPE AND SCREEN Routine 03/25/2018 12:07 Preop examination Results for this PM CDT procedure are in the results section. BASIC METABOLIC Routine 03/25/2018 12:07 Preop examination Results for this PANEL PM CDT procedure are in the results section. XR SHOULDERS Routine 01/17/2018 8:50 Bilateral shoulder Results for this BILATERAL AM CDT pain, unspecified procedure are in chronicity the results section. ZZESTIMATED GFR Routine 01/11/2018 4:40 Results for this AM CDT procedure are in the results section. PHOSPHORUS LEVEL Routine 01/11/2018 4:40 Results for this AM CDT procedure are in the results section. MAGNESIUM LEVEL Routine 01/11/2018 4:40 Results for this AM CDT procedure are in the results section. BASIC METABOLIC Routine 01/11/2018 4:40 Results for this PANEL AM CDT procedure are in the results section. HC COMPLETE BLD Routine 01/11/2018 4:40 Results for this COUNT W/AUTO DIFF AM CDT procedure are in the results section. XR PICC CHEST Routine 01/10/2018 12:57 AML (acute myeloid Results for this PORTABLE PM CDT leukemia) in relapse procedure are in the results section. HC CATH DUAL LUMEN Routine 01/10/2018 12:12 Results for this PICC PM CDT procedure are in the results section. HC US GUIDED Routine 01/10/2018 12:12 Results for this VASCULAR ACCESS PM CDT procedure are in the results section. HC CVL PICC INSERT 5 Routine 01/10/2018 12:12 Results for this YRS OR > PM CDT procedure are in the results section. HC COMPLETE BLD Routine 01/10/2018 5:30 Results for this COUNT W/AUTO DIFF AM CDT procedure are in the results section. ZZESTIMATED GFR Routine 01/10/2018 4:00 Results for this AM CDT procedure are in the results section. PHOSPHORUS LEVEL Routine 01/10/2018 4:00 Results for this AM CDT procedure are in the results section. MAGNESIUM LEVEL Routine 01/10/2018 4:00 Results for this AM CDT procedure are in the results section. BASIC METABOLIC Routine 01/10/2018 4:00 Results for this PANEL AM CDT procedure are in the results section. URINALYSIS SCREEN Routine 01/09/2018 2:23 Results for this AND MICROSCOPY, WITH PM CDT procedure are in REFLEX TO CULTURE the results section. GRAM STAIN Routine 01/09/2018 2:23 Results for this PM CDT procedure are in the results section. URINE CULTURE Routine 01/09/2018 2:23 Results for this PM CDT procedure are in the results section. ZZESTIMATED GFR Routine 01/09/2018 4:00 Results for this AM CDT procedure are in the results section. PHOSPHORUS LEVEL Routine 01/09/2018 4:00 Results for this AM CDT procedure are in the results section. MAGNESIUM LEVEL Routine 01/09/2018 4:00 Results for this AM CDT procedure are in the results section. BASIC METABOLIC Routine 01/09/2018 4:00 Results for this PANEL AM CDT procedure are in the results section. HC COMPLETE BLD Routine 01/09/2018 4:00 Results for this COUNT W/AUTO DIFF AM CDT procedure are in the results section. VITAMIN B12 LEVEL Routine 01/09/2018 4:00 Results for this AM CDT procedure are in the results section. TOTAL IRON BINDING Routine 01/09/2018 4:00 Results for this CAPACITY AM CDT procedure are in the results section. FOLATE LEVEL Routine 01/09/2018 4:00 Results for this AM CDT procedure are in the results section. FERRITIN LEVEL Routine 01/09/2018 4:00 Results for this AM CDT procedure are in the results section. ECG 12-LEAD Routine 01/08/2018 6:44 Results for this PM CDT procedure are in the results section. CLOSTRIDIUM Routine 01/08/2018 5:29 Results for this DIFFICILE TOXIN PM CDT procedure are in the results section. BLOOD CULTURE, Routine 01/08/2018 1:51 Results for this AEROBIC PM CDT procedure are in the results section. BLOOD CULTURE, Routine 01/08/2018 12:41 Results for this AEROBIC & ANAEROBIC PM CDT procedure are in the results section. CBC HEMOGRAM Routine 01/08/2018 5:00 Results for this AM CDT procedure are in the results section. ZZESTIMATED GFR Routine 01/08/2018 4:00 Results for this AM CDT procedure are in the results section. BASIC METABOLIC Routine 01/08/2018 4:00 Results for this PANEL AM CDT procedure are in the results section. ZZESTIMATED GFR STAT 01/07/2018 9:15 Results for this PM CDT procedure are in the results section. BASIC METABOLIC STAT 01/07/2018 9:15 Results for this PANEL PM CDT procedure are in the results section. CBC HEMOGRAM STAT 01/07/2018 9:15 Results for this PM CDT procedure are in the results section. FL CYSTOGRAM MINIMUM Routine 11/26/2017 9:51 Malignant neoplasm Results for this 3 VW AM CDT of prostate procedure are in the results section. CT ABDOMEN W WO Routine 11/25/2017 12:02 Disorder of Results for this CONTRAST PELVIS W WO PM CDT lymphatics procedure are in CONTRAST Malignant neoplasm the results of prostate section. Localized edema HEMOGLOBIN & Routine 11/20/2017 10:20 Results for this HEMATOCRIT AM CDT procedure are in the results section. CREATININE LEVEL, STAT 11/20/2017 10:20 Results for this MISC FLUID AM CDT procedure are in the results section. HC COMPLETE BLD Routine 11/19/2017 4:20 Results for this COUNT W/AUTO DIFF AM CDT procedure are in the results section. ZZESTIMATED GFR Routine 11/19/2017 4:00 Results for this AM CDT procedure are in the results section. BASIC METABOLIC Routine 11/19/2017 4:00 Results for this PANEL AM CDT procedure are in the results section. ZZESTIMATED GFR Routine 11/18/2017 3:00 Results for this PM CDT procedure are in the results section. BASIC METABOLIC Routine 11/18/2017 3:00 Results for this PANEL PM CDT procedure are in the results section. HC COMPLETE BLD Routine 11/18/2017 3:00 Results for this COUNT W/AUTO DIFF PM CDT procedure are in the results section. SURGICAL PATHOLOGY Routine 11/18/2017 1:02 Results for this REQUEST PM CDT procedure are in the results section. SURGICAL PATHOLOGY Routine 11/18/2017 1:02 Results for this REQUEST PM CDT procedure are in the results section. PROSTATECTOMY, 11/18/2017 12:30 Prostate cancer LAPAROSCOPIC, PM CDT ROBOT-ASSISTED Special Needs DAVINCI NM AN ELECTIVE ENDOTRACHEAL AIRWAY Routine 11/18/2017 12:00 PM CDT Procedure Note - Tamara Alcala CRNA - 11/18/2017 12:00 PM CDT Airway Date/Time: 11/18/2017 11:10 AM Performed by: TAMARA ALCALA Authorized by: TRENTON SKINNER Location: OR Urgency: Elective Difficult Airway: No Resident/LADLE PULLER/AA: TAMARA ALCALA Preoxygenated with 100% O2: Yes C-spine Precautions Maintained Throughout: Yes Mask Ventilation: Easy mask Final Airway Type: Endotracheal airway Final Endotracheal Airway: ETT Cuffed: Yes Technique Used: Direct laryngoscopy Devices/Methods Used in Placement: Intubating stylet Insertion Site: Oral Blade Type: Woody Laryngoscope Blade/Videolaryngoscope Blade Size: 2 ETT Size (mm): 8.0 Cuff at minimum occlusion pressure: Yes Measured from: Fely ALFONSOT to Gums (cm): 23 Placement Verified by: [...] prostate procedure are in the results section. ZZESTIMATED GFR Routine 11/04/2017 12:30 PM Results for [...] SCAN WHOLE BODY Routine 08/20/2017 12:00 AM CASE TECHNICIAN TISSUE, 13 SPECIMENS Routine 07/27/2017 12:04 PM Results for this CASE TECHNICIAN procedure are in the results section. SURGICAL PATHOLOGY Routine 07/27/2017 12:04 PM Results for this REQUEST CASE TECHNICIAN procedure are in the results section. BIOPSY PROSTATE Routine 07/27/2017 12:00 AM CASE TECHNICIAN US NEEDLE BIOPSY Routine 07/26/2017 9:12 AM Elevated prostate Results for this CASE TECHNICIAN specific antigen procedure are in (PSA) the results section. POC URINALYSIS DIPSTICK Routine 07/26/2017 8:30 AM Elevated prostate Results for this CASE TECHNICIAN specific antigen procedure are in (PSA) the results section. MRI LOWER EXTREMITY Routine 07/15/2017 5:18 PM Results for this EXTERNAL STUDY CASE TECHNICIAN procedure are in the results section. MRI PROSTATE WWO Routine 05/24/2017 12:00 AM CONTRAST CASE TECHNICIAN PROSTATE CANCER GENE Routine 05/14/2017 12:00 AM 3TIC CASE TECHNICIAN after 03/30/2017 Results ECG Pre/Post Op (03/25/2018 12:20 PM) Ventricular rate 54 [facility] Atrial rate 54 [facility] NM interval 156 [facility] QRSD interval 82 [facility] QT interval 396 [facility] QTC interval 375 [facility] P axis 1 70 [facility] QRS axis 1 78 [facility] T wave axis 40 [facility] EKG impression Sinus bradycardia-Otherwise normal ECG-In [facility] MUSE automated comparison with ECG of 08-JAN-2018 18:44,-QT has shortened- Performing Organization Address City/[facility] Hospitalcode Phone Number [facility] [address] [place] [address] Estimated GFR (03/25/2018 12:07 PM) Estimated GFR 82 mL/min/1.73 m2 [facility] DEPARTMENT OF Comment: PATHOLOGY AND GENOMIC CatergoryUnitsInterpretation MEDICINE G1 >=90 Normal or high G2 60-89Mildly decreased [id number] to moderately decreased [id number] to severely decreased G4 15-29Severely decreased G5 <15Kidney failure The eGFR was calculated using the Chronic Kidney Disease Epidemiology Collaboration (CKD-EPI) equation. Interpretation is based on recommendations of the National Kidney Foundation-Kidney Disease Outcomes Quality Initiative (NKF-KDOQI) published in 2014. Specimen Plasma specimen Performing Organization Address City/[facility]/Zipcode Phone Number [facility] DEPARTMENT OF PATHOLOGY AND [address] [place] [address] GENOMIC MEDICINE CBC hemogram (03/25/2018 12:07 PM)Only the most recent of3 resultswithin the time period is included. WBC 6.74 4.50 - 11.00 k/uL [facility] DEPARTMENT OF PATHOLOGY AND GENOMIC MEDICINE RBC 5.19 4.40 - 6.00 m/uL [facility] DEPARTMENT OF PATHOLOGY AND GENOMIC MEDICINE HGB 14.4 14.0 - 18.0 g/dL [facility] DEPARTMENT OF PATHOLOGY AND GENOMIC MEDICINE HCT 42.9 41.0 - 51.0 % [facility] DEPARTMENT OF PATHOLOGY AND GENOMIC MEDICINE MCV 82.7 82.0 - 100.0 fL [facility] DEPARTMENT OF PATHOLOGY AND GENOMIC MEDICINE MCH 27.7 27.0 - 34.0 pg [facility] DEPARTMENT OF PATHOLOGY AND GENOMIC MEDICINE MCHC 33.6 31.0 - 37.0 g/dL [facility] DEPARTMENT OF PATHOLOGY AND GENOMIC MEDICINE RDW - SD 38.0 37.0 - 55.0 fL [facility] DEPARTMENT OF PATHOLOGY AND GENOMIC MEDICINE MPV 10.4 8.8 - 13.2 fL [facility] DEPARTMENT OF PATHOLOGY AND GENOMIC MEDICINE Platelet count 200 150 - 400 k/uL [facility] DEPARTMENT OF PATHOLOGY AND GENOMIC MEDICINE Nucleated RBC 0.00 /100 WBC [facility] DEPARTMENT OF PATHOLOGY AND GENOMIC MEDICINE Specimen Blood Performing Organization Address City/[facility] Hospitalcode Phone Number [facility] DEPARTMENT OF PATHOLOGY AND [address] [place], [place] [id number] GENOMIC MEDICINE Type and screen (03/25/2018 12:07 PM)Only the most recent of2 resultswithin the time period is included. ABO grouping O [facility] DEPARTMENT OF PATHOLOGY AND GENOMIC MEDICINE Rh type POS [facility] DEPARTMENT OF PATHOLOGY AND GENOMIC MEDICINE Antibody screen (gel) NEG [facility] DEPARTMENT OF PATHOLOGY AND GENOMIC MEDICINE Specimen Blood Performing Organization Address City/[facility] Hospitalcode Phone Number [facility] DEPARTMENT OF PATHOLOGY AND [address] [place] [phone] GENOMIC MEDICINE Basic metabolic panel (03/25/2018 12:07 PM)Only the most recent of9 resultswithin the time period is included. Sodium 140 135 - 148 mEq/L [facility] DEPARTMENT OF PATHOLOGY AND GENOMIC MEDICINE Potassium 4.5 3.5 - 5.0 mEq/L [facility] DEPARTMENT OF PATHOLOGY AND GENOMIC MEDICINE Chloride 104 98 - 112 mEq/L [facility] DEPARTMENT OF PATHOLOGY AND GENOMIC MEDICINE CO2 24 24 - 31 mEq/L [facility] DEPARTMENT OF PATHOLOGY AND GENOMIC MEDICINE Anion gap 12@ANIO 7 - 15 mEq/L [facility] DEPARTMENT OF PATHOLOGY AND GENOMIC MEDICINE BUN 22 (H) 6 - 20 mg/dL [facility] DEPARTMENT OF PATHOLOGY AND GENOMIC MEDICINE Creatinine 1.02 0.70 - 1.20 mg/dL [facility] DEPARTMENT OF PATHOLOGY AND GENOMIC MEDICINE Glucose 86 65 - 99 mg/dL [facility] DEPARTMENT OF PATHOLOGY AND GENOMIC MEDICINE Calcium 9.3 8.3 - 10.2 mg/dL [facility] DEPARTMENT OF PATHOLOGY AND GENOMIC MEDICINE Specimen Plasma specimen Performing Organization Address City/[facility] [place]/Zipcode Phone Number [facility] DEPARTMENT OF PATHOLOGY AND [address] [place] [address] MEDICINE XR Shoulders Bilateral (01/17/2018 8:50 AM) Narrative Performed At 3 views (AP, scapular Y, axillary) of the bilateral shoulder(s) reveal no [facility] evidence of any fracture, dislocation, or any other acute osseous abnormalities. Performing Organization Address [facility] [place] Phone Number [facility] [address] [place] [phone] Estimated GFR (01/11/2018 4:40 AM)Only the most recent of8 resultswithin the time period is included. GFR Non Af Amer 88 mL/min/1.73 m2 [facility] DEPARTMENT OF PATHOLOGY AND GENOMIC MEDICINE GFR Af Amer >90 mL/min/1.73 m2 [facility] DEPARTMENT OF Comment: PATHOLOGY AND [...] Americans. Specimen Plasma specimen Performing Organization Address [facility]/Zipcode Phone Number [facility] DEPARTMENT OF PATHOLOGY AND [address] [place], [place] [id number] [facility] CBC with platelet and differential (01/11/2018 4:40 AM)Only the most recent of6 resultswithin the time period is included. WBC 6.02 4.50 - 11.00 k/uL [facility] DEPARTMENT OF PATHOLOGY AND GENOMIC MEDICINE RBC 4.35 (L) 4.40 - 6.00 m/uL [facility] DEPARTMENT OF PATHOLOGY AND GENOMIC MEDICINE HGB 12.4 (L) 14.0 - 18.0 g/dL [facility] DEPARTMENT OF PATHOLOGY AND GENOMIC MEDICINE HCT 36.3 (L) 41.0 - 51.0 % [facility] DEPARTMENT OF PATHOLOGY AND GENOMIC MEDICINE MCV 83.4 82.0 - 100.0 fL [facility] DEPARTMENT OF PATHOLOGY AND GENOMIC MEDICINE MCH 28.5 27.0 - 34.0 pg [facility] DEPARTMENT OF PATHOLOGY AND GENOMIC MEDICINE MCHC 34.2 31.0 - 37.0 g/dL [facility] DEPARTMENT OF PATHOLOGY AND GENOMIC MEDICINE RDW - SD 39.4 37.0 - 55.0 fL [facility] DEPARTMENT OF PATHOLOGY AND GENOMIC MEDICINE MPV 10.3 8.8 - 13.2 fL [facility] DEPARTMENT OF PATHOLOGY AND GENOMIC MEDICINE Platelet count 171 150 - 400 k/uL [facility] DEPARTMENT OF PATHOLOGY AND GENOMIC MEDICINE Nucleated RBC 0.00 /100 WBC [facility] DEPARTMENT OF PATHOLOGY AND GENOMIC MEDICINE Neutrophils 58.1 39.0 - 69.0 % [facility] DEPARTMENT OF PATHOLOGY AND GENOMIC MEDICINE Lymphocytes 24.6 (L) 25.0 - 45.0 % [facility] DEPARTMENT OF PATHOLOGY AND GENOMIC MEDICINE Monocytes 11.1 (H) 0.0 - 10.0 % [facility] DEPARTMENT OF PATHOLOGY AND GENOMIC MEDICINE Eosinophils 4.7 0.0 - 5.0 % [facility] DEPARTMENT OF PATHOLOGY AND GENOMIC MEDICINE Basophils 0.7 0.0 - 1.0 % [facility] DEPARTMENT OF PATHOLOGY AND GENOMIC MEDICINE Immature granulocytes 0.8Comment: 0.0 - 1.0 % [facility] DEPARTMENT OF "Immature PATHOLOGY AND GENOMIC granulocytes" MEDICINE (promyelocytes, myelocytes, metamyelocytes) Specimen Blood Performing Organization Address City/[facility] [place] Phone Number [facility] DEPARTMENT OF PATHOLOGY AND [address] [place] [phone] GENOMIC MEDICINE Phosphorus level (01/11/2018 4:40 AM)Only the most recent of3 resultswithin the time period is included. Phosphorus 2.7 2.4 - 4.5 mg/dL [facility] DEPARTMENT OF PATHOLOGY AND GENOMIC MEDICINE Specimen Plasma specimen Performing Organization Address City/[facility] [place] Hospitalcode Phone Number [facility] DEPARTMENT OF PATHOLOGY AND [address] [place] [phone] [employer] MEDICINE Magnesium level (01/11/2018 4:40 AM)Only the most recent of3 resultswithin the time period is included. 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 IMPRESSION: Single frontal view reveals the presence of a left-sided PICC line with tip overlying the SVC. Lungs are clear. Pleural margins are sharp. Otherwise negative mediastinal silhouette. 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 IMPRESSION: Single frontal view reveals the presence of a left-sided PICC line with tip overlying the SVC. Lungs are clear. Pleural margins are sharp. Otherwise negative mediastinal silhouette. [facility]-[id number] Performing Organization Address [facility] [place] Hospitalcode Phone Number [facility] [address] [place] [address] PICC INSERTION (01/10/2018 12:12 PM) Narrative Performed At [facility] 01/10/2018 12:46 PM PICC insertion Date/Time: 01/10/2018 12:45 PM Performed by: JOSE HAGAN Authorized by: HEIKE TRIVEDI Consent: Consent obtained:Verbal Consent given by:Patient Risks discussed: arterial puncture, incorrect placement, nerve damage, infection, superficial thrombus, deep vein thrombus and bleeding [place] protocol: Procedure explained and questions answered to patient or proxy's satisfaction: yes Relevant documents present and verified: yes Test results available and properly labeled: yes Imaging studies available: yes Required blood products, implants, devices, and special equipment available: yes Site/side marked: yes Immediately prior to procedure, a time out was called: yes Patient identity confirmed:Verbally with patient, arm band and hospital-assigned identification number Pre-procedure details: Hand hygiene: Hand hygiene performed prior to insertion Sterile barrier technique: All elements of maximal sterile technique followed Skin preparation:2% chlorhexidine Skin preparation agent: Skin preparation agent completely dried prior to procedure Anesthesia (see MAR for exact dosages): Anesthesia method:Local infiltration Local anesthetic:Lidocaine 1% w/o epi Route of administration:Subcutaneous PICC Line Placement Details (Will create an LDA): Patient position:Flat Vessel Size (mm): 4.8. 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 IV therapy Location:Left basilic Site selection rationale:NON-COMPRESSIBLE RIGHT BASILIC VEIN Device Type:Non-valved Catheter size:5 Fr PICC Characteristics: Catheter Brand:MakerCraft POWER PICC External Catheter Length (cm):0 Internal Catheter Length (cm):41 Total Catheter Length (cm):41 Catheter Lot Number:[id number] Catheter Expiration Date:09/02/2019 Procedure Details: Landmarks identified: yes Ultrasound guidance: yes Sterile ultrasound techniques: Sterile gel and sterile probe covers were used Number of attempts:2 Number of PICC kits used during procedure:1 Purpose of procedure:PICC Placement Successful PICC Placement: Yes Patency/Placement:Flushes without difficulty, flushed with 10 mL normal saline, positive blood return, injection cap placed and x-ray placement verified PICC placed utlizing ultrasound-guided Modified Seldinger Technique: Yes Dressing/Securement:Antimicrobial dressing applied and catheter securement device Blood Loss Amount:Less than 20 mL Post-Procedure Details: Post-procedure:Dressing applied Tip placement confirmed by chest x-ray: Yes Patient tolerance of procedure:Tolerated well, no immediate complications Urinalysis screen and microscopy, with reflex to culture (01/09/2018 2:23 PM) Only the most recent of2 resultswithin the time period is included. Specimen site Clean catch [facility] DEPARTMENT OF PATHOLOGY AND GENOMIC MEDICINE Color, UA Straw [facility] DEPARTMENT OF PATHOLOGY AND GENOMIC MEDICINE Appearance, UA Clear [facility] DEPARTMENT OF PATHOLOGY AND GENOMIC MEDICINE Specific gravity, UA 1.009 1.001 - 1.035 [facility] DEPARTMENT OF PATHOLOGY AND GENOMIC MEDICINE pH, UA 6.0 5.0 - 8.5 [facility] DEPARTMENT OF PATHOLOGY AND GENOMIC MEDICINE Protein, UA Negative Negative [facility] DEPARTMENT OF PATHOLOGY AND GENOMIC MEDICINE Glucose, UA Negative Negative [facility] DEPARTMENT OF PATHOLOGY AND GENOMIC MEDICINE Ketones, UA Trace (A) Negative [facility] DEPARTMENT OF PATHOLOGY AND GENOMIC MEDICINE Bilirubin, UA Negative Negative [facility] DEPARTMENT OF PATHOLOGY AND GENOMIC MEDICINE Blood, UA Negative Negative [facility] DEPARTMENT OF PATHOLOGY AND GENOMIC MEDICINE Nitrite, UA Negative Negative [facility] DEPARTMENT OF PATHOLOGY AND GENOMIC MEDICINE Urobilinogen, UA <2.0 <2.0 [facility] DEPARTMENT OF PATHOLOGY AND GENOMIC MEDICINE Leukocyte esterase, UA Trace (A) Negative [facility] DEPARTMENT OF PATHOLOGY AND GENOMIC MEDICINE Epithelial cells, UA <1 /HPF [facility] DEPARTMENT OF PATHOLOGY AND GENOMIC MEDICINE WBC, UA 4 (H) 0 - 1 /HPF [facility] DEPARTMENT OF PATHOLOGY AND GENOMIC MEDICINE RBC, UA None seen 0 - 5 /HPF [facility] DEPARTMENT OF PATHOLOGY AND GENOMIC MEDICINE Bacteria, UA Few None seen [facility] DEPARTMENT OF PATHOLOGY AND GENOMIC MEDICINE Yeast, UA None seen [facility] DEPARTMENT OF PATHOLOGY AND GENOMIC MEDICINE Yeast with pseudohyphae, UA None seen [facility] DEPARTMENT OF PATHOLOGY AND GENOMIC MEDICINE Specimen Urine Performing Organization Address City/[facility] [place] Hospitalcode Phone Number [facility] DEPARTMENT OF PATHOLOGY AND [address] [place] [address] MEDICINE Gram stain (01/09/2018 2:23 PM) Gram stain result No WBC's or organisms seen. [facility] DEPARTMENT OF PATHOLOGY Comment: AND GENOMIC MEDICINE Specimen Information Specimen Source: Urine Specimen Site: Clean catch Specimen Urine Performing Organization Address City/[facility] [place] Hospitalcode Phone Number [facility] DEPARTMENT OF PATHOLOGY AND [address] [place] [address] Urine culture (01/09/2018 2:23 PM)Only the most recent of2 resultswithin the time period is included. Urine culture isolate Yeast [facility] DEPARTMENT OF <10-1 cfu/ml PATHOLOGY AND GENOMIC (A) MEDICINE Comment: Specimen Information Specimen Source: Urine Specimen Site: Clean catch Specimen Urine Performing Organization Address City/[facility] Hospitalcode Phone Number [facility] DEPARTMENT OF PATHOLOGY AND [address] [place] [address] Total iron binding capacity (01/09/2018 4:00 AM) Iron level 25 (L) 59 - 158 ug/dL [facility] DEPARTMENT OF PATHOLOGY AND GENOMIC MEDICINE Iron binding capacity 135 (L) 200 - 400 ug/dL [facility] DEPARTMENT OF PATHOLOGY AND GENOMIC MEDICINE % Saturation 18.5 (L) 20.0 - 40.0 % [facility] DEPARTMENT OF PATHOLOGY AND GENOMIC MEDICINE Specimen Plasma specimen Performing Organization Address City/State/[facility] Hospitalcode Phone Number [facility] DEPARTMENT OF PATHOLOGY AND [address] [place] [address] Folate level (01/09/2018 4:00 AM) Folate 13.3 4.8 - 24.2 ng/mL [facility] DEPARTMENT OF PATHOLOGY AND GENOMIC MEDICINE Specimen Serum Performing Organization Address [facility] Phone Number [facility] DEPARTMENT OF PATHOLOGY AND [address] [place] [address] Ferritin level (01/09/2018 4:00 AM) Ferritin level 248 30 - 400 ng/mL [facility] DEPARTMENT OF PATHOLOGY AND GENOMIC MEDICINE Specimen Plasma specimen Performing Organization Address [facility] Phone Number [facility] DEPARTMENT OF PATHOLOGY AND [address] [place] [address] Vitamin B12 level (01/09/2018 4:00 AM) Vitamin B12 271 211 - 946 pg/mL [facility] DEPARTMENT OF PATHOLOGY Comment: AND [facility] MEDICINE Significant overlap exists between normal and deficiency states. However, most patients with deficiencies will have Serum B12 <200 pg/mL. Specimen Serum Performing Organization Address [facility] Phone Number [facility] DEPARTMENT OF PATHOLOGY AND [address] [place] [address] ECG 12 lead (01/08/2018 6:44 PM)Only the most recent of2 resultswithin the time period is included. Ventricular rate 62 [facility] MUSE Atrial rate 62 [facility] MUSE NM interval 156 [facility] MUSE QRSD interval 82 [facility] QT interval 418 [facility] MUSE QTC interval 424 [facility] MUSE P axis 1 67 [facility] QRS axis 1 65 [facility] MUSE T wave axis 49 [facility] MUSE EKG impression Normal sinus rhythm-Normal ECG-In automated [facility] MUSE comparison with ECG of 04-NOV-2017 12:56,-No significant change was found- Performing Organization Address [facility] Hospitalcode Phone Number [facility] MUSE [address] [place] [address] C difficile toxin (01/08/2018 5:29 PM) Clostridium difficile Positive for C. difficile toxin (A) [facility] DEPARTMENT OF toxin Comment: PATHOLOGY AND GENOMIC Specimen Information MEDICINE Specimen Source: Stool Specimen Site: Nonpreserved Specimen Stool - Nonpreserved Performing Organization Address [facility] Hospitalcode Phone Number [facility] DEPARTMENT OF PATHOLOGY AND [address] [place] [phone] [facility] Blood culture, aerobic (01/08/2018 1:51 PM) Blood culture isolate, No growth after 5 days of incubation. [facility] DEPARTMENT OF aerobic Comment: PATHOLOGY AND GENOMIC Specimen Information MEDICINE Specimen Source: Blood Specimen Site: LAC Specimen Blood Performing Organization Address [facility] Hospitalcode Phone Number [facility] DEPARTMENT OF PATHOLOGY AND [address] [place] [address] Blood culture, aerobic & anaerobic (01/08/2018 12:41 PM) Blood culture isolate No growth after 5 days of incubation. [facility] DEPARTMENT OF Comment: PATHOLOGY AND GENOMIC Specimen Information MEDICINE Specimen Source: Blood Specimen Site: RT AC Specimen Blood Performing Organization Address [facility] Phone Number [facility] DEPARTMENT OF PATHOLOGY AND [address] [place] [address] [place] Cystogram Minimun 3 Views (11/26/2017 9:51 AM) Narrative Performed At EXAMINATION:[place] CYSTOGRAM MINIMUM 3 VW [facility] CLINICAL HISTORY:C61 Malignant neoplasm of prostate, cap COMPARISON:None. TECHNIQUE: Cystogram was performed. Contrast was instilled into the bladder in a retrograde manner via Daily catheter. FLUOROSCOPIC TIME:0.8 minutes IMAGES:9 FINDINGS: Bladder is normally distensible. There is no filling defect or outpouching. No contrast leak appreciated. Minimal residual following Adily catheter drainage. There is some subcutaneous emphysema in the regional soft tissues, postoperative. IMPRESSION: Unremarkable postoperative cystogram without evidence of leak. [facility]-[id number] Procedure Note Interface, Radiology Results Incoming - [...] Unremarkable postoperative cystogram without evidence of leak. [facility]-[id number] Performing Organization Address City/State/Zipcode Phone Number [facility] [address] [place] [address] CT Abdomen W Wo Contrast Pelvis W Wo Contrast (11/25/2017 12:02 PM) Narrative Performed At Technique: Axial images of the abdomen pre and post contrast [facility] menstruation is obtained. Coronal and sagittal reformatted [...] lower abdomen and pelvis Performing Organization Address City/[facility]/Zipcode Phone Number [facility] [address] [place] [address] Hemoglobin & hematocrit (11/20/2017 10:20 AM) HGB 13.0 (L) 14.0 - 18.0 g/dL [facility] DEPARTMENT OF PATHOLOGY AND GENOMIC MEDICINE HCT 38.6 (L) 41.0 - 51.0 % [facility] DEPARTMENT OF PATHOLOGY AND GENOMIC MEDICINE Specimen Blood Performing Organization Address [facility] Hospitalcode Phone Number [facility] DEPARTMENT OF PATHOLOGY AND [address] [place] [address] GENOMIC MEDICINE Creatinine level, misc fluid (11/20/2017 10:20 AM) Fluid type Ascitic [facility] DEPARTMENT OF PATHOLOGY AND GENOMIC MEDICINE Creatinine, fluid 1.0 mg/dL [facility] DEPARTMENT OF PATHOLOGY Comment: AND GENOMIC MEDICINE Analysis performed on Jean Marie 8000 analyzer. This is not an approved methodology for this specimen type;accuracy and clinical significance uncertain. Specimen Fluid Performing Organization Address [facility] Hospitalcode Phone Number [facility] DEPARTMENT OF PATHOLOGY AND [address] [place] [address] GENOMIC MEDICINE Surgical pathology request (11/18/2017 1:02 PM)Only the most recent of3 resultswithin the time period is included. [facility] DEPARTMENT OF PATHOLOGY AND GENOMIC MEDICINE Surgical pathology See link below for PDF Lab [facility] DEPARTMENT OF report Report PATHOLOGY AND GENOMIC MEDICINE Result status This is Supplemental Report [facility] DEPARTMENT OF to [id number] PATHOLOGY AND GENOMIC MEDICINE Performing Organization Address [facility] Hospitalcoid Phone Number [facility] DEPARTMENT OF PATHOLOGY AND [address] [place] [address] Partial thromboplastin time, activated (11/04/2017 12:30 PM) PTT 29.2 23.0 - 36.0 sec [facility] DEPARTMENT OF PATHOLOGY Comment: AND [facility] PTT therapeutic range for unfractionated heparin is 61.0-112.0 seconds which corresponds to Anti-Xa 0.3-0.7 U/ml. Specimen Blood Performing Organization Address [facility] Hospitalcode Phone Number [facility] DEPARTMENT OF PATHOLOGY AND [address] [place] [address] Prothrombin time with INR (11/04/2017 12:30 PM) Prothrombin time 13.9 12.0 - 15.0 sec [facility] DEPARTMENT OF PATHOLOGY AND [employer] MEDICINE INR 1.1 [facility] DEPARTMENT OF Comment: PATHOLOGY AND GENOMIC The International Normalized Ratio (INR) is a therapeutic MEDICINE monitoring tool for patients who are stable on oral anticoagulant therapy. An INR of 2.0-3.0 is suggested for deep vein thrombosis/pulmonary embolism. Specimen Blood Performing Organization Address [facility] Phone Number [facility] DEPARTMENT OF PATHOLOGY AND [address] [place] [address] Testosterone level, free and total, male (11/04/2017 12:30 PM) Testosterone, total, 608 300 - 890 ng/dL [facility] adult male Comment: REFERENCE INTERVAL: Testosterone, Adult Male Access complete set of age- and/or gender-specific reference intervals for this test in the [facility] Test Directory ([facility]). Sex hormone binding 92 (H) 11 - 80 nmol/L [facility] globulin Comment: REFERENCE INTERVAL: Sex Hormone Binding Globulin Access complete set of age- and/or gender-specific reference intervals for this test in the [facility] Test Directory ([facility]). Testosterone, free 58 47 - 244 pg/mL [facility] Comment: INTERPRETIVE INFORMATION:Testosterone, Free Nicolas Stage IV35 - 169 pg/mL Nicolas Stage V 41 - 239 pg/mL The concentration of Free Testosterone is derived from a mathematical expression based on the constant for the binding of testosterone to Sex Hormone Binding Globulin (SHBG). Access complete set of age- and/or gender-specific reference intervals for this test in the [employer] Laboratory Test Directory ([facility]). Testosterone, % free 1.0 (L) 1.6 - 2.9 % [facility] Comment: Performed by [employer], [address] [place], [place] [id number] [email or web address], Jayden Burton MD - Lab. Director Specimen Serum Performing Organization Address City/[facility] Hospitalcode Phone Number [facility] [address] [place] [address] Hepatic function panel (11/04/2017 12:30 PM) Albumin 4.0 3.5 - 5.0 g/dL [facility] DEPARTMENT OF PATHOLOGY AND GENOMIC MEDICINE Total bilirubin 0.4 0.0 - 1.2 mg/dL [facility] DEPARTMENT OF PATHOLOGY AND GENOMIC MEDICINE Bilirubin direct <0.2 0.0 - 0.3 mg/dL [facility] DEPARTMENT OF PATHOLOGY AND GENOMIC MEDICINE Alkaline phosphatase 93 40 - 129 U/L [facility] DEPARTMENT OF PATHOLOGY AND GENOMIC MEDICINE Protein 8.0 6.3 - 8.3 g/dL [facility] DEPARTMENT OF Comment: PATHOLOGY AND GENOMIC [place] 4.6-7.0 g/dL MEDICINE 1 week 4.4-7.6 g/dL 7 months-1year5.1-7.3 g/dL 1-2 years5.6-7.5 g/dL >3 years6.0-8.0 g/dL 18-150 6.3-8.3 g/dL ALT 29 5 - 50 U/L [facility] DEPARTMENT OF PATHOLOGY AND GENOMIC MEDICINE AST 30 10 - 50 U/L [facility] DEPARTMENT OF PATHOLOGY AND GENOMIC MEDICINE Specimen Plasma specimen Performing Organization Address City/[facility]/Zipcode Phone Number [facility] DEPARTMENT OF PATHOLOGY AND [address] [place] [phone] [facility] HIV 1, 2 antibody (11/04/2017 12:24 PM) HIV 1, 2 antibody Non-reactive Non-reactive [facility] DEPARTMENT OF Comment: PATHOLOGY AND GENOMIC Starting from October 01 2015, 4th generation HIV screening MEDICINE and confirmation assays are in use at [facility], consistent with the CDC-recommended algorithm. [...] on the testing algorithm, please refer to: http://stacks.cdc.gov/view/cdc/85172. Specimen Blood Performing Organization Address City/State/Zipcode Phone Number [facility] DEPARTMENT OF PATHOLOGY AND [address] [place] [address] GENOMIC MEDICINE NM Bone Scan Whole Body (08/20/2017) Narrative Performed At Tissue, 13 specimens (07/27/2017 12:04 PM) Source Comment: PROSTATE RIGHT [facility] LATERAL BASE Procedure Comment: Biopsy [facility] Gross description: [facility] Comment: Right lateral base, received in formalin, verified as to the patient's name and consists of one delicate soft rodriguez core(s) measuring 1.5 cm in length.TS, one block. Gross exam(s) performed at: [facility] [address] [address] Engraver: BALTAZAR VILLELA M.D. Micro description [facility] Comment: Microscopic examination supports the above diagnosis. Diagnosis [facility] Comment: Benign prostatic tissue. Negative for malignancy. Source Comment: PROSTATE RIGHT [facility] LATERAL MID Procedure Comment: Biopsy [facility] Gross description: [facility] Comment: Right lateral mid, received in formalin, verified as to the patient's name and consists of one delicate soft rodriguez core(s) measuring 1.3 cm in length.TS, one block. Micro description [facility] Comment: Microscopic examination supports the above diagnosis. Diagnosis [facility] Comment: Benign prostatic tissue. Negative for malignancy. Source Comment: PROSATE RIGHT LATERAL [facility] APEX Procedure Comment: Biopsy [facility] Gross description: [facility] Comment: Right lateral apex, received in formalin, verified as to the patient's name and consists of one delicate soft rodriguez core(s) measuring 1.0 cm in length.TS, one block. Micro description [facility] [place] Comment: Microscopic examination supports the above diagnosis. Diagnosis [facility] Comment: Benign prostatic tissue. Negative for malignancy. Source Comment: PROSTATE RIGHT BASE [facility] Procedure Comment: Biopsy [facility] [place] Gross description: [facility] [place] Comment: Right base, received in formalin, verified as to the patient's name and consists of one delicate soft rodriguez core(s) measuring 1.6 cm in length. TS, one block. Micro description [facility] [place] Comment: Microscopic examination supports the above diagnosis. Diagnosis [facility] [place] Comment: Benign prostatic tissue. Negative for malignancy. Source Comment: PROSTATE RIGHT MID [facility] [place] Procedure Comment: Biopsy [facility] [place] Gross description: [facility] Comment: Right mid, received in formalin, verified as to the patient's name and consists of one delicate soft rodriguez core(s) measuring 1.5 cm in length. TS, one block. Micro description [facility] Comment: Microscopic examination supports the above diagnosis. Diagnosis [facility] Comment: Benign prostatic tissue. Negative for malignancy. Source Comment: PROSTATE RIGHT APEX [facility] [place] Procedure Comment: Biopsy [facility] Gross description: [facility] Comment: Right apex, received in formalin, verified as to the patient's name and consists of one delicate soft rodriguez core(s) measuring 1.0 cm in length. TS, one block. Micro description [facility] [place] Comment: Microscopic examination supports the above diagnosis. Diagnosis [facility] [place] Comment: Benign prostatic tissue. Negative for malignancy. Source Comment: PROSTATE LEFT LATERAL [facility] [place] BASE Procedure Comment: Biopsy [facility] [place] Gross description: [facility] [place] Comment: Left lateral base, received in formalin, verified as to the patient's name and consists of one delicate soft rodriguez core(s) measuring 1.7 cm in length.TS, one block. Micro description [facility] [place] [facility] Comment: Microscopic examination supports the above diagnosis. 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 Grade Group 4. Source Comment: PROSTATE LEFT LATERAL [facility] [place] MID Procedure Comment: Biopsy [facility] [place] Gross description: [facility] [place] Comment: Left lateral mid, received in formalin, verified as to the patient's name and consists of one delicate soft rodriguez core(s) measuring 1.0 cm in length.TS, one block. Micro description [facility] [place] Comment: Microscopic examination supports the above diagnosis. 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 Source Comment: PROSTATE LEFT LATERAL [facility] [place] [facility] APEX Procedure Comment: Biopsy [facility] [place] Gross description: [facility] [place] Comment: Left lateral apex, received in formalin, verified as to the patient's name and consists of one delicate soft rodriguez core(s) measuring 2.0 cm in length.TS, one block. Micro description [facility] [place] Comment: Microscopic examination supports the above diagnosis. Diagnosis [facility] [place] Comment: Benign prostatic tissue. Negative for malignancy. Source Comment: PROSTATE LEFT BASE [facility] [place] Procedure Comment: Biopsy [facility] [place] Gross description: [facility] [facility] Comment: Left base, received in formalin, verified as to the patient's name and consists of one delicate soft rodriguez core(s) measuring 1.5 cm in length. TS, one block. Micro description 1[facility]4 [facility] [place] Comment: Microscopic examination supports the above diagnosis. 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 Grade Group 4. Source Comment: PROSTATE LEFT MID [facility] [place] Procedure Comment: Biopsy [facility] [place] Gross description: 1[facility]4 [facility] [facility] Comment: Left mid, received in formalin, verified as to the patient's name and consists of one delicate soft rodriguez core(s) measuring 1.5 cm in length. TS, one block. Micro description [facility]4 [facility] [place] Comment: Microscopic examination supports the above diagnosis. 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 Grade Group 4. Source Comment: PROSTATE LEFT APEX [facility] [place] Procedure Comment: Biopsy [facility] [place] Gross description: 1-4 [facility] [place] Comment: Left apex, received in formalin, verified as to the patient's name and consists of one delicate soft rodriguez core(s) measuring 1.4 cm in length. TS, one block. Micro description [facility]4 [facility] [place] Comment: Microscopic examination supports the above diagnosis. Diagnosis [facility] [place] Comment: High grade prostatic intraepithelial neoplasia. Source Comment: PROSTATE ROL [facility] [place] Procedure Comment: Biopsy [facility]4 [facility] [place] [facility] Gross description: 1[facility]4 [facility] [place] Comment: ROL, received in formalin, verified as to the patient's name and consists of 3 delicate soft rodriguez core(s) measuring up to 1.7 cm in length. TS, one block. CW 07/27/2017 Micro description [facility] [facility] Comment: Microscopic examination supports the above diagnosis. Diagnosis [facility] Comment: Adenocarcinoma, [place] grade 4+4=8, 2/3 core(s), involving 90% of needle core tissue, and measuring 20 mm in length. Grade Group 4. Comment [facility] [employer] [place] Comment: The doctor's office cannot be reached at this time. Report is faxed to the doctor's office on 07/27/17 at 10:11 am. Narrative Performed At FASTING: [facility] Other Results Text Performing Organization Information: Site ID: [id number] Name: [facility] Address: [address] [place] [id number] Director: Baltazar Villela MD Performing Organization Address [facility]/State/Zipcode Phone Number [facility] [place] [phone] Biopsy prostate (07/27/2017) Narrative Performed At US Needle Biopsy (07/26/2017 9:12 AM) Narrative Performed At Ultrasound/ MRI guided Prostate Needle Biopsy [facility] DiagnosisElevated PSA Previous Bx: Benign Findings: Prostate echogenicity: Heterogenous Calcifications: Small focal Measurements: Whole Gland AP Diamter:2.8 cm. Trasverse:3.9 cm. Length 3.9 cm. Total [id number] mL. Transitional Zone AP Diamter:2.2 cm. Trasverse:3.4 [...] cc on each side. Performing Organization Address [facility] Hospital[facility] Phone Number [facility] [address] [place] [address] POC urinalysis dipstick (07/26/2017 8:30 AM) Color [...] urine, POC Negative Negative Specimen Urine MRI Lower Extremity External Study (07/15/2017 5:18 PM) Narrative Performed At This exam was not acquired at a [facility] facility and has not been [facility] interpreted by a [facility] Provider.The exam was imported into our imaging system for comparisons purposes. Performing Organization Address [facility] Hospitalcoid Phone Number [employer] [address] [place] [address] MRI Prostate Wwo Contrast (05/24/2017) Narrative Performed At Prostate Cancer Gene 3 (05/14/2017) Narrative Performed At after 03/30/2017 Insurance Payer Benefit Plan / Group Subscriber ID Type Phone Address AETNA AETNA HMO,POS,EPO, MC/EC xxxxxxxxx HMO Home: Emilee INMAN JR. y [phone] [address]
--- OUTSIDE RECORDS SUMMARY | 2018-03-31 15:58 | XMS REPORT | Continuity of Care Document ---
:1960 Author Organization Interface Problems Problem Status Onset Date Classification Date Comments Source Reported Medications Medication Details Route Status Patient Ordering Order Source Instructions Provider Date Allergies, Adverse Reactions, Alerts Substance Category Reaction Severity Reaction Status Date Comments Source type Reported Immunizations Immunization Date Given Site Status Last Updated Comments Source Results Order Results Value Reference Date Interpretation Comments Source Name Range Vital Signs Vital Sign Value Date Comments Source Encounters Location Location Encounter Encounter Reason Attending ADM DC Status Source Details Type Number For Provider Date Date Visit Outpatient [id number] [place] 03[place]15 [facility] [place] [id number] [place] 03[place]23 [facility] [place] [id number] [place] 06/[address] Procedures Procedure Code Date Perfomer Comments Source
[2018-03-31] MEDS ORDERED: NA CHLORIDE 0.9% 1,000 ML ONE ×2 (16:47→17:55)
[2018-03-31] MEDS ORDERED: ONDANSETRON 4 MG/2 ML VIAL ONE ×2 (16:47→17:54)
[2018-03-31] MEDS ORDERED: MORPHINE 4 MG/ML SYR ONE ×2 (16:47→22:36)
[2018-03-31] MEDS ORDERED: FAMOTIDINE 20 MG/2 ML VIAL IV ONE (16:48)
--- NOTE | 2018-03-31 17:08 | RAD REPORT ---
EXAM DESCRIPTION: Rika Single View03/31/2018 5:03 pm CLINICAL HISTORY: Abdominal pain COMPARISON: 2013 FINDINGS: The lungs appear clear of acute infiltrate. The heart is normal size IMPRESSION: No acute abnormalities displayed
[2018-03-31 17:12] LABS: Absolute Monocytes 1.1 K/uL (0.1-1.3); Absolute Neutrophil 9.5 K/uL (1.8-8.0); Basophils % 0.3 % (0-1.3); Hematocrit 45.2 % (39.6-49.0); Lymphocytes % 8.6 % (15.3-44.8); MCH 28.2 pg (27.0-35.0); MCV 84.3 fL (80-100); MPV 8.9 fL (7.6-11.3); Monocytes % 9.4 % (3.3-12.3); RBC Red Blood Cell Count 5.37 M/uL (4.33-5.43)
[2018-03-31 17:22] LABS: ALT/SGPT 19 U/L (12-78); AST/SGOT 18 U/L (15-37); Albumin 3.5 g/dL (3.4-5.0); Alkaline Phosphatase 107 U/L (45-117); BUN Blood Urea Nitrogen 14 mg/dL (7-18); Bicarbonate 29 mmol/L (21-32); Bilirubin Direct 0.2 mg/dL (0-0.2); Bilirubin Total 0.5 mg/dL (0.2-1.0); Glucose Level 136 mg/dL (74-106); Lipase 107 U/L (73-393); Magnesium 2.2 mg/dL (1.8-2.4); Potassium 3.7 mmol/L (3.5-5.1); Protein, Total 8.4 g/dL (6.4-8.2); Sodium Level 136 mmol/L (136-145); Troponin I < 0.02 ng/mL (0.0-0.045)
[2018-03-31 17:28] LABS: Urine Blood NEGATIVE (NEG); Urine Glucose NEGATIVE (NEG); Urine Protein 1+ (NEG); Urine Specific Gravity 1.025 (1.005-1.030)
--- NOTE | 2018-03-31 18:40 | RAD REPORT ---
EXAM DESCRIPTION: CT - Abdomen Pelvis W Contrast - 03/31/2018 6:25 pm CLINICAL HISTORY: Abdominal pain, fever, fatigue, colonoscopy 3 days earlier COMPARISON: CT January 06, 2018 TECHNIQUE: Biphasic, helical CT imaging of the abdomen and pelvis was performed following 100 ml non -ionic IV contrast. Oral contrast was given. All CT scans are performed using dose optimization technique as appropriate and may include automated exposure control or mA/KV adjustment according to patient size. FINDINGS: No suspicious findings in the lung bases. The liver, spleen, and pancreas show no suspicious findings. Gallbladder and biliary tree are also wi thout suspicious finding. Gallstones can be occult on CT imaging. Symmetric renal function is seen with no hydronephrosis or suspicious renal mass. No pyelonephritis o r acute renal parenchymal process. A 2.5 x 1.5 cm cyst present lateral mid left kidney. No urinary bl adder abnormality. No gastric dilatation or gastric wall thickening. No acute small bowel finding. No appendicitis findi ngs. Diverticulosis is present in the sigmoid colon and distal descending colon. There is no acute di verticulitis at this time. No colon mass is identifiable. Prior imaging demonstrated cystic masses along each pelvic sidewall believed to be lymphocele is a se condary to the prior prostate surgery. The fluid collection on the right is not clearly different fro january. The fluid collection on the left now demonstrates a thickened shaggy rind. There is stranding in the adjacent fat. A small amount of fluid or stranding is seen in the presacral fatty tissue. Thi s most likely represents a secondarily infected lymphocele. No air within this structure. A few small nonspecific pelvic lymph nodes are present. No free air or pneumatosis. Fat filled left inguinal hernia is again noted. No adrenal abnormality. No suspicious bony findings. IMPRESSION: An approximately 8 x 4 centimeter fluid collection along the left pelvic side wall was s een on prior imaging and presumed to be a post- operative lymphocele. This left-side fluid collection now shows evidence for secondary infection. Wall is thickened and sha ggy. There is stranding in the adjacent fat. Right-side presumed lymphocele is unchanged. Diverticulosis of the left side colon with no acute diverticulitis or mass.
[2018-03-31] MEDS ORDERED: PIPER/TAZO/NS 3.375gm 3.375 GM/100 ML BAG ONE (19:54)
--- NOTE | 2018-03-31 20:32 | ER ---
Nurse's Notes [facility] Name: Leno Rincon Jr Age: 57 yrs Sex: Male : 1960 Arrival Date: 03/31/2018 Time: 15:57 Bed 15 Private MD: Rayne Mccullough K Diagnosis: Intraabdominal Abscess Presentation: 03/31 15:57 Presenting complaint: Patient states: He has a colonoscopy on Wednesday. That evening he aj1 started running fever, feeling fatigued, having abdominal lower abdominal and has been feeling worse since then. He has been taking Flagyl and Cipro for the past 2 and a half days. He is scheduled to have a sigmoidectomy for diverticulitis. Patient spoke to the colorectal surgeon who advised him to come to the emergency room for further evaluation. Transition of care: patient was not received from another setting of care. Onset of symptoms was March 2018. Risk Assessment: Do you want to hurt yourself or someone else? Patient reports no desire to harm self or others. Initial Sepsis Screen: Does the patient meet any 2 criteria? HR > 90 bpm. No. Patient's initial sepsis screen is negative. Does the patient have a suspected source of infection? Yes: Acute abdominal pain. Care prior to arrival: None. 15:57 Method Of Arrival: Ambulatory aj 15:57 Acuity: MANASA 3 aj1 Triage Assessment: 16:03 General: Appears in no apparent distress. uncomfortable, Behavior is calm, cooperative, aj1 appropriate for age. Pain: Complains of pain in right lower quadrant and left lower quadrant Pain currently is 4 out of 10 on a pain scale. Neuro: Level of Consciousness is awake, alert, obeys commands. Cardiovascular: Patient's skin is warm and dry. Respiratory: Airway is patent Respiratory effort is even, unlabored, Respiratory pattern is regular, symmetrical. GI: Reports lower abdominal pain. Historical: - Allergies: 16:03 Keflex; aj1 - Home Meds: 16:03 Cialis Oral [Active]; Claritin Oral [Active]; Singulair Oral [Active]; aj1 - PMHx: 16:03 Prostate Cancer; Diverticulitis; [place] Nails Syndrome; aj1 - PSHx: 16:03 prostatectomy; aj1 - Immunization history:: Flu vaccine is up to date. - Social history:: Smoking status: Patient/guardian denies using tobacco. - Ebola Screening: : Patient denies travel to an Ebola-affected area in the 21 days before illness onset. Screenin:15 Abuse screen: Denies threats or abuse. Denies injuries from another. Nutritional kr2 screening: No deficits noted. Tuberculosis screening: No symptoms or risk factors identified. Fall Risk None identified. Assessment: 10:27 Reassessment: Reassessment: Transfer form signed by patient, report called to receiving kr2 nurse PUSHPA Hobbs. 16:15 General: Appears in no apparent distress. uncomfortable, well groomed, well developed, kr2 well nourished, Behavior is calm, cooperative, appropriate for age. Pain: Complains of pain in right lower quadrant and left lower quadrant Pain currently is 8 out of 10 on a pain scale. Quality of pain is described as sharp, tender, Is continuous, Alleviated by medications, rest, Aggravated by increased activity, palpation. Neuro: Level of Consciousness is awake, alert, obeys commands, Oriented to person, place, time, situation, Appropriate for age. Cardiovascular: Capillary refill < 3 seconds in bilateral fingers Patient's skin is warm and dry. Respiratory: Airway is patent Respiratory effort is even, unlabored, Respiratory pattern is regular, symmetrical. GI: Abdomen is flat, non-distended, Bowel sounds present X 4 quads. hyperactive in left upper quadrant and left lower quadrant Reports nausea, States he is supposed to have a sigmoidectomy next week. : Urine is mandi. EENT: Oral mucosa is moist. Derm: Skin is intact, is healthy with good turgor, Skin is dry, Skin is pale, pink, Skin temperature is warm. Musculoskeletal: Circulation, motion, and sensation intact. 17:15 Reassessment: Patient appears in no apparent distress at this time. Patient and/or kr2 family updated on plan of care and expected duration. Pain level reassessed. Patient is alert, oriented x 3, equal unlabored respirations, skin warm/dry/pink. Patient states pain and nausea have decreased. Denies needing any additional pain medication at this time. 18:21 Reassessment: Patient in CT at this time. kr2 19:30 Reassessment: Patient appears in no apparent distress at this time. Patient and/or kr2 family updated on plan of care and expected duration. Pain level reassessed. Patient is alert, oriented x 3, equal unlabored respirations, skin warm/dry/pink. Patient states symptoms have improved. 20:06 Reassessment: Patient appears in no apparent distress at this time. Patient and/or kr2 family updated on plan of care and expected duration. Pain level reassessed. Patient is alert, oriented x 3, equal unlabored respirations, skin warm/dry/pink. Denies nausea Patient denies pain at this time. Patient states symptoms have improved. 21:37 Reassessment: Patient appears in no apparent distress at this time. Patient and/or kr2 family updated on plan of care and expected duration. Pain level reassessed. Patient is alert, oriented x 3, equal unlabored respirations, skin warm/dry/pink. Patient denies pain at this time. 22:33 Reassessment: Patient appears in no apparent distress at this time. Patient and/or kr2 family updated on plan of care and expected duration. Pain level reassessed. Patient is alert, oriented x 3, equal unlabored respirations, skin warm/dry/pink. Patient complains of increased pain to head and abdomen at this time. Medicated as ordered. 23:30 Reassessment: Patient appears in no apparent distress at this time. Patient and/or kr2 family updated on plan of care and expected duration. Pain level reassessed. Patient is alert, oriented x 3, equal unlabored respirations, skin warm/dry/pink. Pain decreased. 04/01 00:15 Reassessment: Patient appears in no apparent distress at this time. Patient and/or kr2 family updated on plan of care and expected duration. Pain level reassessed. Patient is alert, oriented x 3, equal unlabored respirations, skin warm/dry/pink. [facility] here for transfer, given report Patient denies pain at this time. Vital Signs: 03/31 16:03 BP 117 / 69; Pulse 87; Resp 18; Temp 100.0(TE); Pulse Ox 97% on R/A; Weight 84.37 kg aj1 (R); Height 5 ft. 7 in. (170.18 cm) (R); Pain 4/10; 18:00 BP 129 / 72; Pulse 88; Resp 18; Pulse Ox 99% on R/A; kr2 19:41 BP 136 / 78; Pulse 82; Resp 18; Temp 98.4; Pulse Ox 99% on R/A; kr2 21:36 BP 112 / 75; Pulse 72; Resp 16; Pulse Ox 99% on R/A; kr2 22:30 BP 118 / 76; Pulse 80; Resp 15; Pulse Ox 97% on R/A; kr2 23:30 BP 122 / 74; Pulse 78; Resp 17; Pulse Ox 99% on R/A; kr2 04/01 00:15 BP 116 / 78; Pulse 84; Resp 17; Pulse Ox 98% on R/A; kr2 03/31 16:03 Body Mass Index 29.13 (84.37 kg, 170.18 cm) aj1 ED Course: 03/31 15:57 Patient arrived in ED. sb2 15:57 Rayne Mccullough MD is Private Physician. sb2 16:01 Triage completed. aj1 16:03 Arm band placed on Patient placed in an exam room. aj1 16:14 Francisco Lion PA is PHCP. cp 16:14 David Cervantes MD is Attending Physician. cp 16:35 Pulse ox on. NIBP on. jp3 16:35 Initial lab(s) drawn, by fl, sent to lab. First set of blood cultures drawn via jp3 20-gauge IV in Right A/C. Inserted saline lock: 20 gauge in right antecubital area, using aseptic technique. Blood collected. 16:38 Veronica Gonzalez, RN is Primary Nurse. kr2 16:39 EKG done, by paintless dent repair technician. reviewed by Francisco FUENTES. sm3 16:55 Urine collected: clean catch specimen, mandi colored. kr2 16:55 Second set of blood cultures drawn via 21-gauge Butterfly Needle from Left A/C. jp3 17:03 X-ray completed. Portable x-ray completed in exam room. Patient tolerated procedure ml well. 17:03 Chest Single View In Process Unspecified. EDMS 17:51 Placed in gown. Bed in low position. Call light in reach. Side rails up X 1. Warm jp3 blanket given. 18:03 Urine Dipstick--Ancillary (enter results) Sent. jp3 18:25 CT Abd/Pelvis - W/Contrast: give oral contrast In Process Unspecified. EDMS 18:59 called [phone] and left message with Dr. Govind Taylor answering service for [employer]/. eb 19:57 called [phone] and left a message with Dr. Taylor answering service for [employer]. mw2 04/01 00:25 No provider procedures requiring assistance completed. Patient transferred, IV remains kr2 in place. Administered Medications: 03/31 16:50 Drug: Zofran 4 mg Route: IVP; Site: right antecubital; kr2 17:55 Follow up: Response: No adverse reaction; Nausea is decreased kr2 16:50 Drug: morphine 2 mg Route: IVP; Site: right antecubital; kr2 17:56 Follow up: Response: No adverse reaction; Pain is decreased kr2 16:52 Drug: Pepcid 20 mg Route: IVP; Site: right antecubital; kr2 17:56 Follow up: Response: No adverse reaction; Pain is decreased; Nausea is decreased kr2 16:55 Drug: NS 0.9% 1000 ml Route: IV; Rate: 1 bolus; Site: right antecubital; kr2 17:55 Drug: NS 0.9% 1000 ml Route: IV; Rate: 125 ml/hr; Site: right antecubital; kr2 04/01 00:25 Follow up: Response: No adverse reaction; IV Status: Infusion continued upon transfer kr2 03/31 18:48 Drug: morphine 2 mg Route: IVP; Site: right antecubital; kr2 19:00 Follow up: Response: No adverse reaction; Pain is decreased kr2 19:49 Drug: Zosyn 3.375 grams Route: IVPB; Infused Over: 60 mins; Site: right antecubital; kr2 21:02 Follow up: Response: No adverse reaction; IV Status: Completed infusion kr2 21:03 Not Given (Patient Refused): Zofran 4 mg IVP once; over 2 minutes kr2 22:33 Drug: morphine 2 mg Route: IVP; Site: right antecubital; kr2 23:15 Follow up: Response: No adverse reaction; Pain is decreased kr2 Outcome: 20:31 ER care complete, transfer ordered by MD. ivey 04/01 00:25 Transferred by [facility] to [facility], Transfer form kr2 completed. X-rays sent w/ patient. Condition: stable Instructed on the need for transfer, Demonstrated understanding of instructions. 00:29 Patient left the ED. kr2 Signatures: Dispatcher [employer] EDNikki Van RN RN aj1 Portia Lawrence Corey, PA PA cp Reaves, Karey, RN RN kr2 Cait Fitzgerald 2 Trixie Thomas 2 Kalli Manning Shakira 3 Rafa Lindsey jp3
--- NOTE | 2018-03-31 20:32 | EDPHYS ---
Physician Documentation [facility] Name: Leno Rincon Jr Age: 57 yrs Sex: Male : 1960 Arrival Date: 03/31/2018 Time: 15:57 Bed 15 Private MD: Rayne Mccullough K ED Physician David Cervantes HPI: 03/31 16:34 This 57 yrs old Male presents to ER via Ambulatory with complaints of Fever, cp Abdominal Pain. 16:35 The patient presents with abdominal pain. Onset: The symptoms/episode began/occurred 3 cp day(s) ago. Associated signs and symptoms: Pertinent positives: fever, nausea, Pertinent negatives: blood in stools, chest pain, constipation, diarrhea, dysuria, testicular pain, vomiting. The symptoms are described as achy. Patient reports having colonoscopy this past Wednesday and being diagnosed with diverticulitis. Patient reports he is currently taking prescribed Cipro and Metronidazole. Scheduled for sigmoidectomy next week with DR Taylor in [place]. Historical: - Allergies: 16:03 Keflex; aj1 - Home Meds: 16:03 Cialis Oral [Active]; Claritin Oral [Active]; Singulair Oral [Active]; aj1 - PMHx: 16:03 Prostate Cancer; Diverticulitis; [place] Nails Syndrome; aj1 - PSHx: 16:03 prostatectomy; aj1 - Immunization history:: Flu vaccine is up to date. - Social history:: Smoking status: Patient/guardian denies using tobacco. - Ebola Screening: : Patient denies travel to an Ebola-affected area in the 21 days before illness onset. ROS: 16:40 Constitutional: Positive for chills, fever, Negative for body aches, poor PO intake. cp 16:40 Eyes: Negative for injury, pain, redness, and discharge. cp 16:40 ENT: Negative for drainage from ear(s), ear pain, sore throat, difficulty swallowing, difficulty handling secretions. 16:40 Neck: Negative for pain with movement, pain at rest, stiffness, tenderness. 16:40 Cardiovascular: Negative for chest pain, edema, palpitations. 16:40 Respiratory: Negative for cough, shortness of breath, wheezing. 16:40 Abdomen/GI: Positive for abdominal pain, nausea, anorexia, of the right lower quadrant and left lower quadrant, Negative for diarrhea, constipation, black/tarry stool, rectal pain, rectal bleeding. 16:40 Back: Negative for pain at rest, pain with movement, radiated pain. 16:40 : Negative for urinary symptoms, hematuria, testicular pain 16:40 Skin: Negative for cellulitis, rash. 16:40 Neuro: Negative for altered mental status, dizziness, headache, syncope, near syncope, weakness. 16:40 All other systems are negative. Exam: 16:38 ECG was reviewed by the Attending Physician. cp 16:45 Constitutional: The patient appears in no acute distress, alert, awake, cp non-diaphoretic, non-toxic, well developed, well nourished, uncomfortable. 16:45 Head/Face: Normocephalic, atraumatic. Eyes: Pupils equal round and reactive to light, cp extra-ocular motions intact. Lids and lashes normal. Conjunctiva and sclera are non-icteric and not injected. Cornea within normal limits. Periorbital areas with no swelling, redness, or edema. ENT: Nares patent. No nasal discharge, no septal abnormalities noted. Tympanic membranes are normal and external auditory canals are clear. Oropharynx with no redness, swelling, or masses, exudates, or evidence of obstruction, uvula midline. Mucous membranes moist. Neck: Trachea midline, no thyromegaly or masses palpated, and no cervical lymphadenopathy. Supple, full range of motion without nuchal rigidity, or vertebral point tenderness. No Meningismus. Chest/axilla: Normal chest wall appearance and motion. Nontender with no deformity. No lesions are appreciated. 16:45 Cardiovascular: Rate: normal, Rhythm: regular, Heart sounds: murmur, not appreciated, Edema: is not appreciated, JVD: is not appreciated. 16:45 Respiratory: the patient does not display signs of respiratory distress, Respirations: normal, no use of accessory muscles, no retractions, no splinting, no tachypnea, labored breathing, is not present, Breath sounds: are clear throughout, no decreased breath sounds, no stridor, no wheezing. 16:45 Abdomen/GI: Inspection: scar(s), Bowel sounds: active, all quadrants, Palpation: soft, in all quadrants, moderate abdominal tenderness, in the right lower quadrant and left lower quadrant, rebound tenderness, is not appreciated, voluntary guarding, is elicited in the right lower quadrant and left lower quadrant, involuntary guarding, is not appreciated. 16:45 Back: pain, is absent, ROM is normal. 16:45 Skin: cellulitis, is not appreciated, no rash present. 16:45 Neuro: Orientation: to person, place \T\ time. Mentation: lucid, able to follow commands, Cerebellar function: is grossly normal, Motor: moves all fours, strength is normal, Sensation: no obvious gross deficits. 17:02 : Rectal exam: Rectal tone: normal, Stool: brown, Guaiac testing: results were cp negative for occult blood. Vital Signs: 16:03 BP 117 / 69; Pulse 87; Resp 18; Temp 100.0(TE); Pulse Ox 97% on R/A; Weight 84.37 kg [facility] (R); Height 5 ft. 7 in. (170.18 cm) (R); Pain 4/10; 18:00 BP 129 / 72; Pulse 88; Resp 18; Pulse Ox 99% on R/A; kr2 19:41 BP 136 / 78; Pulse 82; Resp 18; Temp 98.4; Pulse Ox 99% on R/A; kr2 21:36 BP 112 / 75; Pulse 72; Resp 16; Pulse Ox 99% on R/A; kr2 22:30 BP 118 / 76; Pulse 80; Resp 15; Pulse Ox 97% on R/A; kr2 23:30 BP 122 / 74; Pulse 78; Resp 17; Pulse Ox 99% on R/A; kr2 04/01 00:15 BP 116 / 78; Pulse 84; Resp 17; Pulse Ox 98% on R/A; kr2 03/31 16:03 Body Mass Index 29.13 (84.37 kg, 170.18 cm) [facility] MDM: 03/31 16:15 Patient medically screened. cp 17:00 Differential diagnosis: appendicitis, bowel obstruction, diverticulitis, gastritis, cp pancreatitis, Pyelonephritis, Ureterolithiasis, urinary tract infection. 20:00 Data reviewed: vital signs, nurses notes, lab test result(s), radiologic studies, CT cp scan, plain films. 20:00 Counseling: I had a detailed discussion with the patient and/or guardian regarding: the cp historical points, exam findings, and any diagnostic results supporting the discharge/admit diagnosis, lab results, radiology results, the need to transfer to another facility, continuation of care. 20:28 Physician consultation: DR Tracy, requests transfer to [facility] under care cp of hospitalist and DR Taylor will consult on patient. 03/31 16:26 Order name: Basic Metabolic Panel; Complete Time: 17:34 03/31 17:35 Interpretation: Normal except: GLUC 136; CRE 1.40; GFR 53. 03/31 16:26 Order name: CBC with Diff; Complete Time: 17:34 03/31 17:35 Interpretation: Normal except: WBC 11.8; GEO% 80.7; LYM% 8.6; NEUT A 9.5. 03/31 16:26 Order name: Creatinine for Radiology; Complete Time: 17:24 03/31 17:25 Interpretation: Normal except: GFR 57. 03/31 16:26 Order name: Hepatic Function; Complete Time: 17:34 03/31 17:36 Interpretation: Normal except: TP 8.4; GLOB 4.9; A/G 0.7. 03/31 16:26 Order name: Lipase; Complete Time: 17:34 03/31 16:26 Order name: Lactate; Complete Time: 17:24 03/31 17:25 Interpretation: Within normal limits: LAC 1.3. 03/31 16:26 Order name: Procalcitonin; Complete Time: 17:34 03/31 17:36 Interpretation: Procalcitonin 0.18; Reviewed. 03/31 16:26 Order name: Troponin I; Complete Time: 17:34 03/31 16:26 Order name: CT Abd/Pelvis - W/Contrast: give oral contrast; Complete Time: 18:43 03/31 16:26 Order name: Magnesium; Complete Time: 17:34 03/31 17:35 Interpretation: MG 2.2; Reviewed. 03/31 16:26 Order name: Blood Culture Adult (2) 03/31 17:07 Order name: Urine Dipstick--Ancillary (enter results) eb 03/31 17:08 Order name: Urine Dipstick-Ancillary; Complete Time: 17:34 EDMS 03/31 21:04 Interpretation: Normal except: UPROT 1+; UESTR TRACE. 03/31 16:26 Order name: IV Saline Lock; Complete Time: 16:58 03/31 16:26 Order name: Labs collected and sent; Complete Time: 16:58 cp 03/31 16:26 Order name: Urine Dipstick-Ancillary (obtain specimen); Complete Time: 17:56 cp 03/31 16:26 Order name: EKG; Complete Time: 16:26 cp 03/31 16:26 Order name: EKG - Nurse/Tech; Complete Time: 16:58 cp 03/31 17:03 Order name: Chest Single View; Complete Time: 17:24 EDMS EC:38 Rate is 75 beats/min. QRS [place] is Normal. CA interval is normal. QRS interval is cp normal. QT interval is normal. Interpreted by me. Reviewed by me. Administered Medications: 16:50 Drug: Zofran 4 mg Route: IVP; Site: right antecubital; kr2 17:55 Follow up: Response: No adverse reaction; Nausea is decreased kr2 16:50 Drug: morphine 2 mg Route: IVP; Site: right antecubital; kr2 17:56 Follow up: Response: No adverse reaction; Pain is decreased kr2 16:52 Drug: Pepcid 20 mg Route: IVP; Site: right antecubital; kr2 17:56 Follow up: Response: No adverse reaction; Pain is decreased; Nausea is decreased kr2 16:55 Drug: NS 0.9% 1000 ml Route: IV; Rate: 1 bolus; Site: right antecubital; kr2 17:55 Drug: NS 0.9% 1000 ml Route: IV; Rate: 125 ml/hr; Site: right antecubital; kr2 04/01 00:25 Follow up: Response: No adverse reaction; IV Status: Infusion continued upon transfer kr2 03/31 18:48 Drug: morphine 2 mg Route: IVP; Site: right antecubital; kr2 19:00 Follow up: Response: No adverse reaction; Pain is decreased kr2 19:49 Drug: Zosyn 3.375 grams Route: IVPB; Infused Over: 60 mins; Site: right antecubital; kr2 21:02 Follow up: Response: No adverse reaction; IV Status: Completed infusion kr2 21:03 Not Given (Patient Refused): Zofran 4 mg IVP once; over 2 minutes kr2 22:33 Drug: morphine 2 mg Route: IVP; Site: right antecubital; kr2 23:15 Follow up: Response: No adverse reaction; Pain is decreased kr2 Disposition: 04/01 07:36 Co-signature as Attending Physician, David Cervantes MD I agree with the assessment and rn plan of care. Attestation: The patient's history, exam findings, diagnostics, and a summary of any interventions or procedures was reviewed in detail with Francisco FUENTES. Disposition: 03/31/18 20:31 Transfer ordered to [facility]. Diagnosis is Intraabdominal Abscess. - Reason for transfer: Higher level of care. - Accepting physician is DR March. - Condition is Stable. - Problem is new. - Symptoms have improved. Signatures: Dispatcher [employer] EDMS Nikki Vallejo RN RN aj1 David Cervantes MD MD rn Page, Corey, PA PA cp Reaves, Karey, RN RN kr2 Corrections: (The following items were deleted from the chart) 03/31 17:03 16:26 Abdomen 1 View (KUB)+RAD.RAD.BRZ ordered. [facility] EDNM 20:34 20:31 03/31/2018 20:31 Transfer ordered to [facility]. Diagnosis is cp Lower abdominal pain, unspecified. Reason for transfer: Higher level of care. Accepting physician is Condition is Stable. Problem is new. Symptoms have improved. 21:18 20:34 03/31/2018 20:31 Transfer ordered to [facility]. Diagnosis is cp Intraabdominal Abscess. Reason for transfer: Higher level of care. Accepting physician is Condition is Stable. Problem is new. Symptoms have improved. cp 04/01 00:29 03/31 21:18 03/31/2018 20:31 Transfer ordered to [facility]. kr2 Diagnosis is Intraabdominal Abscess. Reason for transfer: Higher level of care. Accepting physician is DR March. Condition is Stable. Problem is new. Symptoms have improved. cp
--- NOTE | 2018-03-31 22:27 | EKG ---
Test Date: 2018-03-31 Test Time: 16:36:50 Job Tracer: DONNIE MEASUREMENT RESULTS: Intervals: Rate: 75 MN: 150 QRSD: 84 QT: 344 QTc: 384 [place]: P: 56 MN: 150 QRS: 20 T: 36 INTERPRETIVE STATEMENTS: Normal sinus rhythm Normal ECG No previous ECG available for comparison Electronically Signed On 03-31-18 22:26:17 CDT by Dakota Azevedo
[2018-04-01 00:35] VITALS: O2SAT 99
[2018-04-01 00:36] VITALS: TEMP 98.4
[2018-04-01 00:37] VITALS: BP 112/75
== END 2018-04-01 00:29 | disposition short-term general hospital (02) ==
LOC: ER 15:55
DX: L02.211 Cutaneous abscess of abdominal wall (principal); Z85.46 Personal history of malignant neoplasm of prostate
CPT/HCPCS: 36415; 71045; 74177; 80048; 80076; 81003; 83605; 83690; 83735; 84145; 84484; 85025; 87040; 93005; 96361; 96365; 96375; 99285; J2405; J2543; J7030; Q9967

== ENCOUNTER 2022-03-19 14:45 | Emergency (ER) | payer OTHER ==
--- OUTSIDE RECORDS SUMMARY | 2022-03-19 14:48 | XMS REPORT | Clinical Summary ---
:1960 Author Organization [facility] MD [facility] Address [address] [place] [address] Care Team Providers Name Role Phone Rosy Aviles MD Unavailable Collette Aleman MD Primary Care Provider Wily Ham [facility] Unavailable Unavailable Shae Walton RD Unavailable Allergies Active Allergy Reactions Severity Noted Date Comments Cephalexin Hives 05/07/2017 Medications Medication Sig Dispensed Refills Start Date End Date Status relugolix Take 3 60 tablet 3 01/19/2021 12/19/2021 Disconti nued (Orgovyx) 120 mg tablets (360 (Therapy tabletIndication mg) by mouth completed) s: Personal for 1 day, history of other then take 1 malignant tablet (120 neoplasm of mg) once kidney daily thereafter. Active Problems Patient Care Coordination Note Formatting of this note might be differe nt from the original. 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 Disorder of fluid AND/OR electrolyte 05/06/2020 Mucositis 05/03/2020 Severe protein-calorie malnutrition 05/03/2020 Dysphagia, oropharyngeal phase 05/03/2020 Abnormal weight loss 05/03/2020 Dehydration 05/02/2020 Prostate cancer 03/04/2020 Overview: Mandatory CMS ICD-10 2020 UPDATE 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 Staging: Clinical stage from 2019: Stage I (cT2, cN1, cM0, p16+) - Unsigned Encounters Date Type Specialty Care Team Description 12/19/2021 [facility] Radiology Collette Aleman MD Dysphagia, Encounter Guillermo De Santiagoe, oropharyngea l phase [facility] 12/19/2021 [facility] Head and Neck Collette Aleman MD Malignan t neoplasm of Encounter Surgery tonsil, not oth erwise specified 12/19/2021 Ancillary Radiology Karlos, Malignant neopl asm of Procedure Kalli, PA tonsil, not ot herwise specified 12/19/2021 Ancillary Radiology Karlos, Malignant neopl asm of Procedure Kalli, PA tonsil, not ot herwise specified 12/19/2021 Hospital Lab Antholkasie, Malignant neopl asm of Encounter Kalli, PA tonsil, not ot herwise specified 12/19/2021 Travel 09/19/2021 Orders Only Head and Neck Bartelsmeyer, Dysphagia, Surgery ALFREDO Lai oropharyngeal p hase (Primary Dx) 08/21/2021 [facility] Radiation Errol Manzanares Squamous c ell Encounter Oncology MD carcinoma of ph arynx 08/21/2021 [facility] Radiology Collette Aleman MD Squamous cell Encounter carcinoma of ph arynx 08/21/2021 Orders Only Radiology Juan M Bauman PA 08/21/2021 Orders Only Radiation Karlos, Squamous cell c arcinoma of pharynx (Primary Dx); Oncology ALFREDO Mahan Malignant neop lasm of tonsil, not otherwise specified 08/21/2021 Orders Only Radiation 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, 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 08/21/2021 Travel 08/15/2021 Orders Only Radiation Timolkasie, Squamous cell Oncology ALFREDO Mahan carcinoma of p harynx (Primary Dx) 08/15/2021 Orders Only Radiation Karlos, Squamous cell Oncology ALFREDO Mahan carcinoma of p harynx (Primary Dx) 08/14/2021 Hospital Lab Squamous cell Encounter carcinoma of ph arynx 08/14/2021 Telephone Radiation Dayna Platt Oncology D, RN 08/14/2021 Travel 08/08/2021 Orders Only Radiation Karlos Squamous cell Oncology ALFREOD Mahan carcinoma of p harynx (Primary Dx) 04/11/2021 [facility] Head and Neck Collette Aleman MD Squamous cell Encounter Surgery carcinoma of ph arynx (Primary Dx) 04/11/2021 Hospital Lab Soraya Foster PA Squamous cell Encounter carcinoma of ph arynx 04/11/2021 [facility] Radiology Soraya Foster PA Squamous cell Encounter carcinoma of ph arynx 04/11/2021 Travel after 03/19/2021 Immunizations Name Administration Dates Next Due Pfizer SARS-CoV-2 Vaccination (Purple Cap) 08/31/2020, 12/2020 Surgical History Surgery Date Site/Laterality Comments COLON SURGERY 07/05/2017 - 07/04/2018 COLONOSCOPY 07/05/2017 - 07/04/2018 PROSTATE SURGERY 07/05/2017 - 07/04/2018 ROBOTIC LAPAROSCOPIC PROSTATECTOMY Medical History Medical History Date Comments Hearing loss 2005 tinnitus Diverticulitis 2018 Renal stone 2016 Prostate cancer 06/20/2017 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/26/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 Family History Medical History Relation Name Comments Prostate cancer Father allen rincon Lung cancer Maternal Grandfather cachorro rodriguez Cervical cancer Mother esteban rincon Relation Name Status Comments Father allen rincon Maternal Grandfather cachorro rodriguez Mother esteban rincon Social History Tobacco Use Types Packs/Day Years Used Date Never Smoker 0 0 Smokeless Tobacco: Never Used Tobacco Cessation: Counseling Given: No Alcohol Use Standard Drinks/Week Comments Yes 0 (1 standard drink = 0.6 oz pure alcoho l) 1 or 2 mixed drinks a month Alcohol Habits Answer Date Recorded How often do you have a drink containing Not asked alcohol? How many drinks containing alcohol do you Not asked have on a typical day when you are drinking? How often do you have six or more drinks on Not asked one occasion? 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 Inhaled Oxygen Concentration - - Weight 84.5 kg (186 lb 4.6 oz) 12/19/2021 9:33 AM CDT Height - - Body Mass Index 29.24 08/15/2020 6:49 AM MILLING OPERATOR Plan of Treatment Date Type Specialty Care Team Description 04/23/2022 Appointment Lab Kathy Andre PA [address] [place], [place] [address] (Wo rk) 04/23/2022 Ancillary Procedure Radiology Kathy Andre PA [address] [place] [address] (Wo rk) 04/23/2022 Appointment Radiation Oncology Scott Manzanares MD [address] [place] [phone] (Wo rk) 12/18/2022 Appointment Speech Pathology Collette Aleman MD [address] [place], [place] [id number] Geneiveve Garner, [facility] [place] [address] Health Maintenance Due Date Last Done Comments COVID-19 Vaccination (3 - Pfizer risk 09/28/2020 08/31/2020 , 08/10/2020 series) Procedures Procedure Name Priority Date/Time Associated Diagnosis Comme nts FL MODIFIED BARIUM Routine 12/19/2021 11:32 Dysphagia, Resul ts for this SWALLOW W SPEECH AM CDT oropharyngeal phase proc edure are in the results section. CT SOFT TISSUE NECK Routine 12/19/2021 8:26 AM Malignant neopl asm of Results for this W CONTRAST CDT tonsil, not otherwise proced ure are in specified the results section. XR CHEST 2 VW Routine 12/19/2021 7:10 AM Malignant neoplasm of Results for this CDT tonsil, not otherwise proced ure are in specified the results section. .GLOMERULAR Routine 12/19/2021 6:53 AM Malignant neoplasm of Results for this FILTRATION RATE CDT tonsil, not otherwise pro cedure are in specified the results section. SERUM CREATININE Routine 12/19/2021 6:53 AM Malignant neoplasm of Results for this CDT tonsil, not otherwise proced ure are in specified the results section. FREE THYROXINE Routine 12/19/2021 6:53 AM Malignant neoplasm o f Results for this CDT tonsil, not otherwise proced ure are in specified the results section. THYROID STIMULATING Routine 12/19/2021 6:53 AM Malignant neopl asm of Results for this HORMONE CDT tonsil, not otherwise proced ure are in specified the results section. SERUM CREATININE Routine 12/19/2021 6:53 AM Malignant neoplasm of CDT tonsil, not otherwise specified BLOOD UREA NITROGEN Routine 12/19/2021 6:53 AM Malignant neopl asm of Results for this CDT tonsil, not otherwise proced ure are in specified the results section. CT SOFT TISSUE NECK Routine 08/21/2021 12:48 Squamous cell Res ults for this W CONTRAST PM MILLING OPERATOR carcinoma of pharynx procedu re are in the results section. .GLOMERULAR Routine 08/14/2021 10:15 Squamous cell Results fo r this FILTRATION RATE AM MILLING OPERATOR carcinoma of pharynx proc edure are in the results section. SERUM CREATININE Routine 08/14/2021 10:15 Squamous cell Result s for this AM MILLING OPERATOR carcinoma of pharynx procedu re are in the results section. FREE THYROXINE Routine 08/14/2021 10:15 Squamous cell Results for this AM MILLING OPERATOR carcinoma of pharynx procedu re are in the results section. THYROID STIMULATING Routine 08/14/2021 10:15 Squamous cell Res ults for this HORMONE AM MILLING OPERATOR carcinoma of pharynx procedu re are in the results section. SERUM CREATININE Routine 08/14/2021 10:15 Squamous cell AM MILLING OPERATOR carcinoma of pharynx BLOOD UREA NITROGEN Routine 08/14/2021 10:15 Squamous cell Res ults for this AM MILLING OPERATOR carcinoma of pharynx procedu re are in the results section. .GLOMERULAR Routine 04/11/2021 8:19 AM Squamous cell Results for this FILTRATION RATE CDT carcinoma of pharynx proc edure are in the results section. SERUM CREATININE Routine 04/11/2021 8:19 AM Squamous cell Resu lts for this CDT carcinoma of pharynx procedu re are in the results section. FREE THYROXINE Routine 04/11/2021 8:19 AM Squamous cell Result s for this CDT carcinoma of pharynx procedu re are in the results section. THYROID STIMULATING Routine 04/11/2021 8:19 AM Squamous cell R esults for this HORMONE CDT carcinoma of pharynx procedu re are in the results section. SERUM CREATININE Routine 04/11/2021 8:19 AM Squamous cell CDT carcinoma of pharynx BLOOD UREA NITROGEN Routine 04/11/2021 8:19 AM Squamous cell R esults for this CDT carcinoma of pharynx procedu re are in the results section. CT SOFT TISSUE NECK Routine 04/11/2021 7:45 AM Squamous cell R esults for this W CONTRAST CDT carcinoma of pharynx procedu re are in the results section. POC CREATININE Routine 04/11/2021 7:14 AM Results for this CDT procedure are i n the results section. after 03/19/2021 Results Modified Barium Swallow w Speech (12/19/2021 11:32 AM CDT) Anatomical Region Laterality Modality Neck Radio Fluoroscopy Specimen (Source) Anatomical Collection Method Collection Time Re ceived Time Location / / Volume Laterality 12/19/2021 12:50 PM CDT Impressions 12/19/2021 2:43 PM CDT 1. Silent penetration without aspiration seen with thin liquid barium. 2. Please refer to the separately dictat ed speech pathology report for further details and recommendations. Narrative 12/19/2021 2:43 PM CDT FULL RESULT: Examination: FL MODIFIED BARIUM SWALLO W W SPEECH, 12/19/2021 11:32 AM Clinical History: Squamous cell carcinom a of the pharynx, status post chemoradiation completed 05/08/2020. Indication: Re-evaluation of swallowing function for squamous cell carcinoma of the pharynx, status post chemoradiation completed 05/08/2020. Comparison: Modified barium swallow with speech on 08/16/2020. Technique: A modified barium swallow w as performed in conjunction with speech pathology. The patient was given barium mixed with a variety of consistencies including thin liquid, pudding, and cracker to swallow by mouth under videofluoroscopy. Findings: The oral bolus formation and transit were normal. There was no nasopharyngeal reflux. There was silent penetration without aspiration seen with thin liquid barium. There was no penetration or aspiration seen with pudding, and cr lico. There was no pharyngeal residue. Pharyngeal contraction was symmetric. Procedure Note Mikey Boyle MD - 12/19/2021Form atting of this note might be different from the original. FULL RESULT: Examination: FL MODIFIED BARIUM SWALLOW W SPEECH, 12/19/2021 11:32 AM Clinical History: Squamous cell carcinom a of the pharynx, status post chemoradiation completed 05/08/2020. Indication: Re-evaluation of swallowing function for squamous cell carcinoma of the pharynx, status post chemoradiation completed 05/08/2020. Comparison: Modified barium swallow with speech on 08/16/2020. Technique: A modified barium swallow was performed in conjunction with speech pathology. The patient was given barium mixed with a variety of consistencies including thin liquid, pudding, and cracker to swallow by mouth under videofluoroscopy. Findings: The oral bolus formation and t ransit were normal. There was no nasopharyngeal reflux. There was silent penetration without aspiration seen with thin liquid barium. There was no penetration or aspiration seen with pudding, and cracker. There was no pharyngeal residue. Pharyngeal contraction was symmetric. IMPRESSION: 1. Silent penetration without aspiration seen with thin liquid barium. 2. Please refer to the separately dictat ed speech pathology report for further details and recommendations. Collette Aleman MD IMG FLUOROSCOPY ORDERABLES CT Soft Tissue Neck with Contrast (12/19/2021 8:26 AM CDT)Only the most recent of3 resultswithin the time period is included. Anatomical Region Laterality Modality Neck Computed Tomography Specimen (Source) Anatomical Collection Method Collection Time Re ceived Time Location / / Volume Laterality 12/19/2021 9:20 AM CDT Impressions 12/19/2021 9:30 AM CDT Stable post treatment changes of the neck with no suspicious masses or lymph nodes to suggest recurrent squamous cell carcinoma. Stable thin mucosal enhancement is seen along the right tongue base that is likely reactive. 1. Primary: NIRADS 2a: Low suspicion, focal mucosal enhancement: recommend direct visual inspection. 2. Nodes: NIRADS 1: No evidence of rec urrence; routine surveillance NI-RADS (Neck Imaging Reporting & Data S te) is a standardized reporting system for follow-up of treated head and neck cancers. 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 Technique: CT images of the aerodigestiv e tract were obtained with intravenous contrast Findings: There are stable posttreatment changes o f the neck. Thin mucosal enhancement measures a couple of millimeters along the right tongue base annotated on series 301, images 6 through 10, which is likely se condary to reactive/inflammatory changes . This finding appears similar to the comparison CT neck from August 2021, although appears slightly more conspicuous since CT neck from 04/11/2021. There are no visualized suspicious foci of enhancement or concerning masses to suggest new or recurrent malignancy. There are no suspicious neck lymph nodes . There are no osteolytic or osteoblastic lesions concerning for malignancy. There are no concerning nodules or britney s in the imaged upper lungs to suggest metastasis. Procedure Note Warren Faustin MD - 12/19/2021Formattin g of this note might be different from the original. FULL RESULT: Examination: CT SOFT TISSUE NECK W CONTR AST on 12/19/2021 8:26 AM Clinical History: Right tonsil squamous cell carcinoma treated with concurrent chemoradiation completed May 2020 Indication: Posttreatment reassessment Comparison: CT neck August 21, 2021, 1 , and 03/05/2020. Technique: CT images of the aerodigestiv e tract were obtained with intravenous contrast Findings: There are stable posttreatment changes o f the neck. Thin mucosal enhancement measures a couple of millimeters along the right tongue base annotated on series 301, images 6 through 10, which is likely secondary to reactive/inflammatory changes. This find ing appears similar to the comparison CT neck from August 2021, although appears slightly more conspicuous since CT neck from 04/11/2021. There are no visualized suspicious foci of enhancement or concerning masses to suggest new or recurrent malignancy. There are no suspicious neck lymph nodes . There are no osteolytic or osteoblastic lesions concerning for malignancy. There are no concerning nodules or britney s in the imaged upper lungs to suggest metastasis. IMPRESSION: Stable post treatment changes of the nec k with no suspicious masses or lymph nodes to suggest recurrent squamous cell carcinoma. Stable thin mucosal enhancement is seen along the right tongue base that is likely reactive. 1. Primary: NIRADS 2a: Low suspicion, fo luis mucosal enhancement: recommend direct visual inspection. 2. Nodes: NIRADS 1: No evidence of recur rence; routine surveillance NI-RADS (Neck Imaging Reporting & Data S [facility]) is a standardized reporting system for follow-up of treated head and neck cancers. For more information: [email or web address]/-/[email or web address] Kalli FUENTES IMG CT ORDERABLES XR Chest 2 Views (12/19/2021 7:10 AM CDT) Anatomical Region Laterality Modality Chest Digital Radiography Specimen (Source) Anatomical Collection Method Collection Time Re ceived Time Location / / Volume Laterality 12/19/2021 8:30 AM CDT Impressions 12/19/2021 8:30 AM CDT No evidence of acute cardiopulmonary disease. Narrative 12/19/2021 8:30 AM CDT FULL RESULT: Examination: Chest, 2 views, 12/19/2021 7 :10 AM. Clinical History: Malignant neoplasm of tonsil, not otherwise specified. Indication: Other:, Surveillance; post-t reatment for SCC Rt tonsil. Comparison: 03/22/2020. Technique: Posteroanterior, lateral, and dual-energy radiographs of the chest. Findings: The cardiomediastinal silhouette is unre markable. No pulmonary nodule, mass or consolidati on is seen. There are no pleural effusions. No pneum othorax. Procedure Note Feli Ramirez C.B., MD - 12/19/2021Format ting of this note might be different from the original. FULL RESULT: Examination: Chest, 2 views, 12/19/2021 7 :10 AM. Clinical History: Malignant neoplasm of tonsil, not otherwise specified. Indication: Other:, Surveillance; post-t reatment for SCC Rt tonsil. Comparison: 03/22/2020. Technique: Posteroanterior, lateral, and dual-energy radiographs of the chest. Findings: The cardiomediastinal silhouette is unre markable. No pulmonary nodule, mass or consolidati on is seen. There are no pleural effusions. No pneum othorax. IMPRESSION: No evidence of acute cardiopulmonary dis ease. Kalli FUENTES [facility] DIAGNOSTIC IMAGING ORDER JUANPABLO .Serum Creatinine (12/19/2021 6:53 AM CDT)Only the most recent of3 resultswithin the time period is included. P athologist Signature Creatinine 1.11 0.67 - 1.17 [facility] mg/dL Comment: Testing Performed at [facility], [address], [address], [place] [address] Specimen Anatomical Collection Method Collection Time Receive d Time (Source) Location / / Volume Laterality Blood 12/19/2021 6:53 AM 2 7:03 CDT AM CDT Kalli FUENTES LAB BLOOD ORDERABLES Performing Organization Address City/State/ZIP Code Phon e Number [facility] [address] [place] [address] [address] Glomerular Filtration Rate (12/19/2021 6:53 AM CDT)Only the most recent of3 resultswithin the time period is included. athologist Signature eGFR-AA 84 >=60 [facility] mL/min/1.73 sq. m Comment: Normal eGFR >= 60 mL/min/1.73 m2 Note: The eGFR is calculated using the C KD-EPI equation. The eGFR declines with age. eGFR <60 mL/min/1.73 m2 is considered as "decreased". This equation should only be used for patients 18 and older. According to the National Kidney Foundat ion's Kidney Disease Outcome Quality Initiative (KDOQI) classification and 2012 Kidney Disease Improving Global Outcomes (KDIGO) Clinical Practice Guideline, the stage of CKD should be categorized based on estimated GFR. Stage Description GFR mL/min/1. 73 m2 1 Normal or high GFR >=90 2 Mildly decreased GFR 60-89 3a Mildly to moderately decreased GFR 45-59 3b Moderately to severely decreased GFR 30-44 4 Severely decreased GFR 15-29 5 Kidney failure <15 Testing Performed at [facility] Door Installer [facility], [address], [place] [address] eGFR-BESSIE 72 >=60 mL/min/1.73 sq. m [facility] Comment: Normal eGFR >= 60 mL/min/1.73 m2 Note: The eGFR is calculated using the C KD-EPI equation. The eGFR declines with age. eGFR <60 mL/min/1.73 m2 is considered as "decreased". This equation should only be used for patients 18 and older. According to the National Kidney Foundat ion's Kidney Disease Outcome Quality Initiative (KDOQI) classification and 2012 Kidney Disease Improving Global Outcomes (KDIGO) Clinical Practice Guideline, the stage of CKD should be categorized based on estimated GFR. Stage Description GFR mL/min/1. 73 m2 1 Normal or high GFR >=90 2 Mildly decreased GFR 60-89 3a Mildly to moderately decreased GFR 45-59 3b Moderately to severely decreased GFR 30-44 4 Severely decreased GFR 15-29 5 Kidney failure <[address] Performed at [facility] Door Install[facility], [address], [place] [address] Specimen Anatomical Collection Method Collection Time Receive d Time (Source) Location / / Volume Laterality Blood 12/19/2021 6:53 AM 2 7:03 CDT AM CDT Kalli FUENTES LAB BLOOD ORDERABLES Performing Organization Address [facility] e Number [facility] [address] [place] [address] [address] BUN (12/19/2021 6:53 AM CDT)Only the most recent of3 resultswithin the time period is included. athologist [facility] BUN 20 6 - 23 mg/dL [facility] Comment: Testing Performed at [facility], [address], [address], [place] [address] Specimen Anatomical Collection Method Collection Time Receive d Time (Source) Location / / Volume Laterality Blood 12/19/2021 6:53 AM 2 7:03 CDT AM CDT Kalli FUENTES LAB BLOOD ORDERABLES Performing Organization Address [facility] Number [address] [place] [address] [address] (ABNORMAL) TSH (12/19/2021 6:53 AM CDT)Only the most recent of3 resultswithin the time period is included. [facility] TSH 4.68 (H) 0.27 - 4.20 [facility] mcunit/mL Comment: Note: New Methodology and Reference Ra nge change effective 10/21/2017 at 1400 Testing Performed at [facility] Door Installer [facility], [address], [address], [place] [address] Specimen Anatomical Collection Method Collection Time Receive d Time (Source) Location / / Volume Laterality Blood 12/19/2021 6:53 AM 2 7:03 CDT AM CDT Kalli FUENTES LAB BLOOD ORDERABLES Performing Organization Address [facility] e Number [facility] [address] [place] [address] [address] Free T4 (12/19/2021 6:53 AM CDT)Only the most recent of3 resultswithin the time period is included. athologist [facility] T4 Free 1.02 0.93 - 1.70 [facility] ng/dL Comment: Testing Performed at [facility], [address], [address], [place] [address] Specimen Anatomical Collection Method Collection Time Receive d Time (Source) Location / / Volume Laterality Blood 12/19/2021 6:53 AM 7:03 CDT AM CDT Kalli FUENTES LAB BLOOD ORDERABLES Performing Organization Address City/State/ZIP Code Phon e Number [facility] [address] [place] [address] [address] POC Creatinine (04/11/2021 7:14 AM CDT) athologist Signature POC Crea 1.2 0.6 - 1.3 POC TELCOR mg/dL Comment: Medications, especially hydroxyurea or s upplements, such as ascorbate, can interfere with test results causing a falsely and significantly higher result than expected. If a problem is suspected with a patient's result, a sample should be sent to the laboratory for confirmatory testing. Method description: The i-STAT is an mary lyzer used for in vitro quantification of various analytes in whole blood. The device uses a single disposable cartridge which contains microfabricated sensors, a calibration solution, fluidics system, and a waste chamber. Each test cartridge contains ch emically sensitive biosensors on a silicon chip that are configured to perform specific tests. The microfabricated sensors measure analyte concentration by an electrochemical assay. POC eGFR-AA 77 >=60 mL/min/1.73 m2 POC TELC OR Comment: Normal eGFR >= 60 mL/min/1.73 m2 The eGFR is calculated using the CKD-EPI equation. The eGFR declines with age. eGFR <60 mL/min/1.73 m2 is considered as "decreased" This equation should only be used for patients 18 and older. According to the [employer]'s Kidney Disease Outcome Quality Initiative (KDOQI) classification and 2012 Kidney Disease Improving Global Outcomes (KDIGO) Clinical Practice Guideline, the stage of CKD should be categorized based on estimated GFR. Stage Description GFR mL/min/1.73 m2 1 Kidney damage with normal or high GFR >=90 2 Kidney damage with mild decrease in GF R 60-89 3a Mild to moderate decrease in GFR 45-59 3b Moderate to severe decrease in GFR 30-44 4 Severe decrease in GFR 15-29 5 Kidney failure <15 (or dialysis) POC eGFR-BESSIE 66 >=60 mL/min/1.73 m2 POC TEL COR Comment: Normal eGFR >= 60 mL/min/1.73 m2 The eGFR is calculated using the CKD-EPI equation. The eGFR declines with age. eGFR <60 mL/min/1.73 m2 is considered as "decreased" This equation should only be used for patients 18 and older. According to the [employer]'s Kidney Disease Outcome Quality Initiative (KDOQI) classification and 2012 Kidney Disease Improving Global Outcomes (KDIGO) Clinical Practice Guideline, the stage of CKD should be categorized based on estimated GFR. Stage Description GFR mL/min/1.73 m2 1 Kidney damage with normal or high GFR >=90 2 Kidney damage with mild decrease in GF R 60-89 3a Mild to moderate decrease in GFR 45-59 3b Moderate to severe decrease in GFR 30-44 4 Severe decrease in GFR 15-29 5 Kidney failure <15 (or dialysis) POC Clean Dev Yes POC TELCOR Performing Lab [facility] POC TELCO R Comment: [facility] [place] [facility], [address] [place] [id number]; Lab Direct or: Estela Morrison MD Specimen Anatomical Collection Method Collection Time Receive d Time (Source) Location / / Volume Laterality Blood 04/11/2021 7:14 AM 7:14 CDT AM CDT Soraya FUENTES POCT ORDERABLES - DEVICE Performing Organization Address City/State/ZIP Code Phon e Number POC TELCOR after 03/19/2021 Insurance Payer Benefit Plan / Subscriber ID Effective Dates Phone Addre ss Type Group [employer] MANAGED [employer] O [id number] 2000-Present [address] X [id number] [place] [address] (Work) [id number] Leno Rincon Personal/Family Self 1960 [address] [phone] [place] (Work) [phone] Leno Rincon Personal/Family Self 1960 [address] [phone] [place] (Work) [id number] Advance Directives Code Status Date Activated Date Inactivated Comments Full Code 05/03/2020 6:21 PM 05/07/2020 6:23 PM Care Teams Exhibitions Curator Relationship Specialty Start Date End Date Rosy Aviles PCP - External Otolaryngology 02/26/20 MD Shirin Referring [address] [place] [address] Collette Aleman MD PCP - General Head and Neck Surgery 02/27/[address] [place] [address] [id number] Wily Ham Speech Language Speech Pathology 06/10/20 L, CCC-[employer] Pathologist [address] [place] [id number] Shae Walton, Clinical Dietitian Nutrition 06/17/[address] [place] [address] [place] [id number]
--- OUTSIDE RECORDS SUMMARY | 2022-03-19 14:50 | XMS REPORT | Continuity of Care Document ---
:1960 Author Organization [facility] t Address [address] [place] [address] Care Team Providers Name Role Phone [phone] Primary Care Physician Unavailable SYSTEM, PROVIDER NOT IN Attending Clinician Unavailable Beverly Resendez MA Attending Clinician Unavailable David THOMSON, Jesus Mendoza Attending Clinician Collette Jacobson MD Attending Clinician Jonnathan [facility], Linda Attending Clinician COLLETTE JACOBSON Attending Clinician Unavailable Kalli Guerra Attending Clinician KIAN CONNER Attending Clinician Unavailable Zee Miller Attending Clinician Kian Conner PA-C Attending Clinician Joelle Pal Attending Clinician [phone] Paola Manzanares MD Attending Clinician PAOLA MANZANARES Attending Clinician Unavailable Juan M Baxter Attending Clinician Itzel BARROW, Ascencion Kuhn Attending Clinician Unavailable Dayna Platt RN Attending Clinician Unavailable Robert THOMSON, Harriett Dobson Attending Clinician Chantelle Mcintyre RN Attending Clinician Unavailable Francisco Peguero RN Attending Clinician Unavailable MANJEET ZAVALA Attending Clinician Unavailable Only, Ang Db Test Attending Clinician Unavailable Cuco TAYLOR Manjeet Attending Clinician Doctor Unassigned, Lengby Attending Clinician Unavailable Melissa Ann MA Attending Clinician Unavailable Nithin THOMSON, Cris Diaz Attending Clinician Provider, Unknown Attending Clinician Unavailable Roma RN, Kendra Attending Clinician Unavailable Lida BARROW, Lewis Attending Clinician Unavailable Quinn BARROW, Marlyn Attending Clinician Unavailable Karoline Santiago Attending Clinician KAROLINE HUI Attending Clinician Unavailable Vanessa So MA Attending Clinician Unavailable WHIT MATT Attending Clinician Unavailable ZEE RINCON Attending Clinician Unavailable Jhonathan Canela Attending Clinician Anselmo Santo Attending Clinician Unavailable Anselmo Santo Attending Clinician Unavailable Anselmo Santo Admitting Clinician Unavailable Payers Payer Name Policy Type Policy Number Effective Date Expiration Date Kristine gutiérrez [employer] [id number] 2018 OUT OF NETWORK 00:00:00 Problems Condition Condition Condition Status Onset Resolution Last Treating Co mments Source Name Details Category Date Date Treatment Clinician Date Encounter Encounter Disease Active 2020-07 Met hodi for for 0-19 st antineopla antineopla 00:00: Ho spita stic stic 00 l radiation radiation therapy therapy Sensory Sensory Disease Active 2019-07 Univers hearing hearing 2-29 ity of loss, loss, 00:00: [place] bilateral bilateral 00 MD [facility] Attention Attention Disease Active 2019-07 Uni vers to to 2-02 ity of gastrostom gastrostom [place] [facility] Cough Cough Disease Recurre 2019-07 Univers nce 2-02 ity of 00:00: [place] 00 MD [facility] Malignant Malignant Disease Active 2019-07 Uni vers neoplasm neoplasm 1-05 ity of of [place]il [place] [facility] Disorder Disorder Disease Active 2019-07 Unive rs of fluid of fluid 1-02 ity of AND/OR AND/OR 00:00: [place] electrolyt electrolyt 00 MD e e [facility] Mucositis Mucositis Disease Active 2019-07 Uni vers 0-30 ity of 00:00: [place] 00 MD [facility] 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-30 it y of venu lea 00:00: [place] malnutriti malnutriti 00 on on [facility] Dysphagia, Dysphagia, Disease Active 2019-07 U nivers oropharyng oropharyng 0-30 it y of eal phase eal phase [place] [facility] Abnormal Abnormal Disease Active 2019-07 Unive rs weight weight 0-30 ity of loss loss 00:00: [place] 00 MD [facility] Dehydratio Dehydratio Disease Active 2019-07 U nivers n n 0-29 ity of 00:00: [place] MD [facility] Prostate Prostate Disease Active Overview: Un arnold cancer cancer 8-31 Formattin ity of 00:00: g of this [place] 00 note MD might be [facility] workman n from the Cancer original. 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 C. Disease Active Methodi difficile difficile 01-08 st colitis colitis 00:00: Hospita 00 l Abdominal Abdominal Disease Active Met hodi pain pain 01-07 st 00:00: Hospita 00 l Lymphocele Lymphocele Disease Active M ethodi after after 5-24 st surgical surgical 00:00: Hospit a procedure procedure 00 l Prostate Prostate Disease Active Metho di cancer cancer 5-03 st 00:00: Hospita 00 l No known No known Disease Unive rs active active ity of problems problems [facility] Simple Simple Problem Active 2020-03-22 Jaun nichole obesity obesity 21:19:50 l (disorder) (disorder) Juan rmann Active Problem 03/22/2020 [facility] 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 21:19:50 l disorder disorder Basim n (disorder) (disorder) Active Problem 03/22/2020 [facility] Allergies, Adverse Reactions, Alerts Allergy Allergy Status Severity Reaction(s) Onset Inactive Treating Comm ents Source Name Type Date Date Clinician Cephalex Drug Active Hives 2016-07 Univers in Allergy 07-07 ity of 00:00: [place] 00 MD [facility] Cephalex Propensi Active Hives 2017- Method i in ty to 07-07 st adverse 00:00: Hospita reaction 00 l s to drug CEPHALEX DRUG Active Hives 2016-07 IN INGREDI 07-07 Anderso 00:00: n 00 CEPHALEX DRUG Active Hives 2017- IN INGREDI 07-07 Anderso 00:00: n 00 CEPHALEX DRUG Active Hives 2016- Univers IN INGREDI 07-07 ity of 00:00: [place] 00 [facility] Keflex Keflex Active Ester Do NO KNOWN Drug Active Univers ALLERGIE Class ity of S [facility] Family History Family Member Diagnosis Comments Start Date Stop Date Source Maternal grandfather Lung cancer Uni versity of [place] MD Azar [facility] Natural father Prostate cancer [facility] Maternal aunt Cancer [facility] Natural mother Denominational [facility] Social History Social Habit Start Date Stop Date Quantity Comments Source History [facility] University o f Alcohol Frequency [facility] [place] [facility] History [facility] o f Alcohol Std [facility] History [facility] o f Alcohol Binge [facility] Exposure to 2021-10-16 2021-10-26 Not sure University of SARS-CoV-2 00:00:00 10:08:00 [facility] (event) [place] Alcohol intake 2021-09-22 2021-09-22 Current drinker Metho dist 00:00:00 00:00:00 of [facility] (finding) Tobacco use and 2020-03-05 2020-03-05 Smokeless tobacco Un iversity of exposure 00:00:00 00:00:00 non-user Elio [facility] Alcohol Comment 2018-04-06 2018-04-06 1-2 drinks/month Met [facility] 00:00:00 00:00:00 [facility] Social History 2018-03-15 2018-03-15 [facility] 15:31:41 15:31:41 Sex [birth year] Denominational 00:00:00 00:00:00 Hospital Smoking Status Start Date Stop Date Source Unknown if ever smoked [facility] [place] [facility] Never smoker [facility] Medications Ordered Filled Start Stop Current Ordering Indication Dosage Frequency Signature Comments Components Source Medication Medication Date Date Medication? Clinician (SIG) Name Name ibuprofen 2021- No [id number] 800mg U nivers (IBU) 10-26 ity of tablet 800 16:45: 15:40 [place] mg 00 :00 Medical Branch ondansetron 2021- No [id number] 8mg Univers (ZOFRAN-ODT 10-26 ity of ) 16:45: 15:48 [place] disintegrat 00 :00 Medical ing tablet Branch 8 mg ondansetron 2021- No [id number] 8mg 8 mg, Univers (ZOFRAN-ODT 10-26 Oral, ity of ) 16:45: 15:48 ONCE, 1 [place] disintegrat 00 :00 dose, On Medi luis ing tablet Sun Branch 8 mg 10/26/21 at 1145, Routine ibuprofen 2021- No [id number] 800mg 800 mg, Univers (IBU) 10-26 Oral, ity of tablet 800 16:45: 15:40 ONCE, 1 [place] as mg 00 :00 dose, On Medical [place] Branch 10/26/21 at 1145, Routine promethazin Yes [id number] 5mL Take 5 mL Univers e-dextromet 10-26 by mouth 4 it y of horphan 00:00: (four) [place] 6.25-15 00 times Medical mg/5 mL daily as Branch syrup needed for Cough. oseltamivir 2021- No [id number] 75mg Take 1 Univers (TAMIFLU) 4-24 04-30 capsule by ity of 75 mg 00:00: 04:59 mouth 2 [place] capsule 00 :00 (two) Medical times [place] daily for 5 days. ketoconazol Yes USE THREE M ethodi e (NIZORAL) 3-10 (3) TO 4 st 2 % shampoo 00:00: TIMES A Hos stacie 00 WEEK. l LEAVE ON FOR 5 MINS BEFORE RINSING. No known No Univers medications 08-02 ity of 11:30: [address] No known No Univers medications 08-02 ity of 11:30: [address] ketoconazol Yes APPLY TO Me thodi e (NIZORAL) 1-[address] 2 % cream 00:00: AREA(S) ON Ho spita 00 THE FACE l TWICE A DAY. fluocinonid 2020-07 Yes Q.5D 2 (two) Met hodi e (LIDEX) 2-[address] 0.05 % 00:00: day. Hospita cream 00 l traMADol 2020-07- No tramadol Meth cali (ULTRAM) 50 0-19 10-[address] mg tablet 15:05: 00:00 tablet Hospi ta 29 :00 l tadalafil 2020-07 No 20mg QD Take 20 mg M ethodi (CIALIS) 20 0- 10-[address] mg tablet 15:05: 00:00 daily. Hospi ta 22 :00 10mg l Wednesday-Wed, 25mg Wednesday tadalafil 2020-07- No Q24H daily. Metho di (CIALIS) 10 0-19 10-19 st MG tablet 15:05: 00:00 Hospita 16 :00 l sildenafil 2020-07- No Q24H daily. Meth cali (VIAGRA) 0-19 10-19 st 100 MG 15:05: 00:00 Hospita tablet 09 :00 l ONE DAILY 2020-07- No QD Take by Meth cali MULTIVITAMI 0-19 10-[address] N ORAL 15:04: 00:00 daily. Hospita 58 :00 l loratadine 2020-07- No 10mg QD Take 10 mg Methodi (CLARITIN) 0-19 10-[address] 10 mg 15:04: 00:00 daily. Hospita tablet 23 :00 l relugolix Yes Take 3 Method i (Orgovyx) 7-[address] 120 mg 00:00: (360 mg) Hospita tablet 00 by mouth l for 1 day, then take 1 tablet (120 mg) once daily thereafter . relugolix 2021- No Personal Take 3 U nivers (Orgovyx) 718 06-17 history of tablets ity of 120 mg 00:00: 00:00 other (360 mg) [place] tablet 00 :00 malignant by mouth MD neoplasm of for 1 day, An derso kidney then take n 1 tablet Cancer (120 mg) Center once daily thereafter . meloxicam 2020- No 15mg QD Take 1 Metho di (MOBIC) 15 01-17- tablet (15 st mg tablet 00:00: 00:00 mg total) Ho spita 00 :00 by mouth l daily. montelukast 2020- No TAKE ONE M ethodi (SINGULAIR) -16 10-19 (1) st 10 mg 00:00: 00:00 TABLET(S) Hospit a tablet 00 :00 BY MOUTH l ONCE A DAY. Immunizations Ordered Filled Immunization Date Status Comments [facility] e Immunization Name Name Pfizer SARS-CoV-2 2020-08-31 Completed Univer sity of Vaccination (Purple 00:00:00 [facility] Pfizer SARS-CoV-2 2020-08-10 Completed Univer sity of Vaccination (Purple 00:00:00 [facility] Vital Signs Vital Name Observation Time Observation Value Comments Source Systolic blood 2021-10-26 128 mm[Hg] University of pressure 15:16:00 [facility] Diastolic blood 2021-10-26 77 mm[Hg] [place] o f pressure 15:16:00 [facility] Heart rate 2021-10-26 99 /min [facility] 15:16:00 [facility] Body temperature 2021-10-26 38.94 Libby [facility] 15:16:00 [facility] Respiratory rate 2021-10-26 16 /min [facility] 15:16:00 [facility] Body height 2021-10-26 170.2 cm University 15:16:00 [facility] Body weight 2021-10-26 80.74 kg University of 15:16:00 [facility] BMI 2021-10-26 27.88 kg/m2 University of 15:16:00 [facility] Oxygen saturation 2021-10-26 95 /min University of in Arterial blood 15:16:00 [facility] [place] [facility] by Pulse oximetry [place] Systolic blood 2021-12-19 125 mm[Hg] University of pressure 14:38:30 [facility] Diastolic blood 2021-12-19 61 mm[Hg] University o f pressure 14:38:30 [facility] Heart rate 2021-12-19 58 /min University 14:38:30 [facility] Body temperature 2021-12-19 36.61 Libby University 14:38:30 [facility] Respiratory rate 2021-12-19 16 /min University 14:38:30 [facility] Body weight 2021-12-19 84.5 kg University 14:33:00 [facility] BMI 2021-12-19 29.24 kg/m2 University 14:33:00 [facility] Oxygen saturation 2021-08-21 98 /min University of in Arterial blood 19:19:06 [facility] by Pulse oximetry [facility] Systolic blood 2021-05-09 112 mm[Hg] Denominational pressure 17:31:00 [facility] Diastolic blood 2021-05-09 57 mm[Hg] Denominational pressure 17:31:00 Hospital Heart rate 2021-05-09 49 /min patient said he Denominational 17:31:00 has low HR Hospital Body temperature 2021-05-09 36.11 Libby Denominational 17:31:00 Hospital Respiratory rate 2021-05-09 18 /min Denominational 17:31:00 Hospital Body height 2021-05-09 170.2 cm Denominational 17:31:00 Hospital Body weight 2021-05-09 83.87 kg Denominational 17:31:00 Hospital BMI 2021-05-09 28.96 kg/m2 Denominational 17:31:00 Hospital Oxygen saturation 2021-05-09 97 /min Denominational in Arterial blood 17:31:00 Hospital by Pulse oximetry Procedures Procedure Date / Time Performing Clinician Source Performed PSA, POST-PROSTATECTOMY 2022-01-02 15:32:00 Jesus Hernandez [facility] [place] MODIFIED BARIUM 2021-12-19 16:32:03 Maggie [facility] SWALLOW W SPEECH Joelle [facility] CT SOFT TISSUE NECK W 2021-12-19 13:26:37 Kalli Everett [facility] XR CHEST 2 VW 2021-12-19 12:10:20 Kalli Everett [facility] BLOOD UREA NITROGEN 2021-12-19 11:53:00 [facility] SER[facility] CREATININE 2021-12-19 11:53:00 Kalli Everett [facility] THYROID STIMULATING 2021-12-19 11:53:00 [facility] 2021-12-19 11:53:00 Kalli Everett [facility] SERUM CREATININE 2021-12-19 11:53:00 Kalli Everett [facility] .GLOMERULAR FILTRATION 2021-12-19 11:53:00 Kalli Everett [facility] RATE [facility] POCT MOLECULAR FLU 2021-10-26 15:23:00 Kian Conner [facility] PSA, POST-PROSTATECTOMY 2021-09-15 15:57:00 Jesus Hernandez [facility] CT SOFT TISSUE NECK W 2021-08-21 18:48:00 Rupesh Younger [facility] BLOOD UREA NITROGEN 2021-08-14 16:15:00 [facility] SERUM CREATININE 2021-08-14 16:15:00 [facility]upesh [facility] THYROID STIMULATING 2021-08-14 16:15:00 [facility]esh [facility] THYROXINE 2021-08-14 16:15:00 Rupesh Younger [facility] [place] [facility] SERUM CREATININE 2021-08-14 16:15:00 Collette Jacobson [facility] .GLOMERULAR FILTRATION 2021-08-14 16:15:[address] [facility] PSA, POST-PROSTATECTOMY 2021-07-14 15:03:00 Jesus Hernandez [facility] RAD ONC COURSE SUMMARY 2021-05-15 22:10:45 Provider, Unknown [facility] RAD ONC DAILY TREATMENT 2021-05-14 18:25:33 Provider, Unknown [facility] RAD ONC DAILY TREATMENT 2021-05-12 21:21:23 Provider, Unknown [facility] RAD ONC DAILY TREATMENT 2021-05-09 17:07:23 Provider, Unknown [facility] BLOOD UREA NITROGEN 2021-04-11 13:19:00 Karoline Hui [facility] SERUM CREATININE 2021-04-11 13:19:00 Karoline Hui [facility] THYROID STIMULATING 2021-04-11 13:19:00 Karoline Hui [facility] FREE THYROXINE 2021-04-11 13:19:00 Karoline Hui [facility] SERUM CREATININE 2021-04-11 13:19:00 Karoline Hui [facility] .GLOMERULAR FILTRATION 2021-04-11 13:19:00 Karoline Hui [facility] CT SOFT TISSUE NECK W 2021-04-11 12:45:58 Karoline Hui [facility] CONTRAST [facility] POC CREATININE 2021-04-11 12:14:00 Karoline Hui [facility] PSA, POST-PROSTATECTOMY 2021-04-03 16:13:00 Jesus Hernandez [facility] Plan of Care Planned Activity Planned Date Details Comments Source Future Scheduled 2022-03-05 HEPATITIS B VACCINES Met [facility] Test 11:56:57 (1 of 3 - 3-dose series) [code = HEPATITIS B VACCINES (1 of 3 - 3-dose series)] Future Scheduled 2022-03-05 Hepatitis C screening [facility] Test 11:56:57 (procedure) [code = 555289790] Future Scheduled 2022-03-05 SHINGLES VACCINES (1 Met [facility] Test 11:56:57 of 2) [code = SHINGLES VACCINES (1 of 2)] Future Scheduled 2022-03-05 COLONOSCOPY SCREENING [facility] Test 11:56:57 [code = COLONOSCOPY SCREENING] Future Scheduled 2022-03-05 COVID-19 VACCINE (3 - [facility] Test 11:56:57 Pfizer risk series) [code = COVID-19 VACCINE (3 - Pfizer risk series)] Future Scheduled 2022-03-05 INFLUENZA VACCINE Method [facility] Test 11:56:57 [code = INFLUENZA VACCINE] Future Scheduled 2022-02-13 COVID-19 Vaccination Uni [facility] Test 16:00:54 (3 - Pfizer risk [facility] series) [code = Center COVID-19 Vaccination (3 - Pfizer risk series)] Encounters Start End Encounter Admission Attending Care Care Encounter Source Date/Time Date/Time Type Type Clinicians Facility Department ID 2021-01-08 Outpatient SYSTEM, TREMAYNE CASPER [id number] 14:40:36 PROVIDER Efrem o timo 2020-02-26 Outpatient SYSTEM, TREMAYNE CASPER [id number] 11:27:36 PROVIDER Efrem o n 2022-01-19 2022-01-19 Orders Mal 1.2.840.1 [id number] Methodi 00:00:00 00:00:00 Only Beverly 79705.1.[address] 3.430.2.7 Hospit a .3.790942 l .8 2022-01-16 2022-01-16 Orders Mal 1.2.840.1 [id number] Methodi 00:00:00 00:00:00 Only Beverly 91189.1.[address] 3.430.2.7 Hospit a .3.388920 l .8 2022-01-15 2022-01-15 Telephone Miles, 1.2.840.1 [id number] Methodi 00:00:00 00:00:00 Jesus Mendoza [address].1.[address] 3.430.2.7 Hospit a .3.979983 l .8 2022-01-02 2022-01-02 Telephone Miles, 1.2.840.1 [id number] Methodi 00:00:00 00:00:00 Jesus Mendoza [address]65.1.[address] 3.430.2.7 Hospit a .3.132818 l .8 2021-12-19 2021-12-19 [facility] Collette Jacobson 1.2.840.1 [id number] Univers 11:00:35 23:59:00 Encounter Linda De Santiago 80518.1.1 ity of 3.412.2.7 [place] .3.368337 .8 [facility] 2021-12-19 2021-12-19 Outpatient FERNANDO JACOBSON [facility] [id number] 11:00:35 23:59:00 COLLETTE [facility] 2021-12-19 2021-12-19 [facility] Ash 1.2.840.1 [id number] [facility] 08:59:54 10:59:00 Encounter Collette Cope 85703.1.1 it y of 3.412.2.7 [place] .3.184490 MD Fernandez [facility] 2021-12-19 2021-12-19 [facility] Karlos 1.2.840.1 [id number] Univers 07:45:00 09:10:00 Procedure Kalli 13660.1.1 ity of 3.412.2.7 [place] .3.700660 MD Fernandez [facility] 2021-12-19 2021-12-19 [facility] Karlos 1.2.840.1 [id number] Univers 06:45:52 08:58:00 Encounter Kalli 57233.1.1 ity of 3.412.2.7 [place] .3.699197 .8 [facility] 2021-12-19 2021-12-19 Ancillary Karlos, 1.2.840.1 [id number] Univers 07:30:00 07:45:00 Procedure Kalli 03482.1.1 ity of 3.412.2.7 [place] .3.519426 .8 [facility] 2021-12-19 2021-12-19 Travel 1.2.840.1 [id number] [id number] Univers 00:00:00 00:00:00 39874.1.1 350.1.13.41 ity of 3.412.2.7 2.[place].7.3.698 [place] .3.448148 084.8 MD Argueta8 [facility] 2021-10-26 2021-10-26 Outpatient [facility] [id number] Univers 10:00:00 10:45:50 ANTELOPE ity [facility] 2021-10-26 2021-10-26 Urgent Bong Zee [facility] 1.2.840.11 [id number] Univers 10:00:00 10:45:50 [facility] 350.1.13.10 ity [facility] 4.2.7.2.686 [place] as ETTA?BLEA [id number] [address] MEDICAL OFFICE BUILDING 2021-10-26 2021-10-26 Outpatient R [facility] [id number] Univers 10:00:00 10:00:00 [id number] ity of [facility] 2021-09-22 2021-09-22 Office Miles, 1.2.840.1 [id number] Methodi 11:30:00 12:25:11 Visit Jesus Mendoza 90048.1.[address] 3.430.2.7 Hospit a .3.729033 l .8 2021-09-22 2021-09-22 Travel 1.2.840.1 [id number] [id number] Methodi 00:00:00 00:00:[address] 3.430.2.7 0.2.7.3.698 rosata .3.086652 084.8 l .8 2021-09-22 2021-09-22 Outpatient [facility] [id number] [place] 00:00:00 00:00:[address] 2021-09-19 2021-09-19 Orders Oli 1.2.840.1 [id number] [facility] 00:00:00 00:00:00 Only Joelle larios 25095.1.1 ity of 3.412.2.7 [place] .3.427641 MD Argueta8 [facility] [place] 2021-08-21 2021-08-21 [facility] Joann, 1.2.840.1 [id number] Univers 13:13:59 23:59:00 Encounter Paola 20174.1.1 it y of 3.412.2.7 [place] .3.031799 .8 [facility] [place] 2021-08-21 2021-08-21 Outpatient JOANN [facility] [id number] [place] 13:13:59 23:59:00 PAOLA [facility] 2021-08-21 2021-08-21 [facility] 1.2.840.1 [id number] [facility] 11:20:00 13:12:00 Encounter Collette Cope 11916.1.1 it y of 3.412.2.7 [place] .3.166012 MD Argueta8 [facility] 2021-08-21 2021-08-21 Outpatient FERNANDO JACOBSON [facility] [id number] 11:20:00 13:12:00 COLLETTE [facility] 2021-08-21 2021-08-21 Orders Bauman, 1.2.840.1 [id number] Univers 00:00:00 00:00:00 Only Juan M 64777.1.1 ity of Van 3.412.2.7 [place] .3.092563 MD Argueta8 [facility] 2021-08-21 2021-08-21 Orders Karlos, 1.2.840.1 [id number] Univers 00:00:00 00:00:00 Only Kalli 60184.1.1 it y of 3.412.2.7 [place] .3.694969 MD Fernandez [facility] 2021-08-21 2021-08-21 Orders Robbins, 1.2.840.1 [id number] Univers 00:00:00 00:00:00 Only Ascencion Kuhn 61430.1.1 ity of 3.412.2.7 [place] .3.700340 MD Fernandez [facility] 2021-08-21 2021-08-21 [facility] 1.2.840.1 [id number] Univers 00:00:00 00:00:00 27320.1.1 350.1.13.41 ity of 3.412.2.7 2.2.7.3.698 [place] .3.469901 084.8 MD Fernandez [facility] 2021-08-15 2021-08-15 Orders Karlos, 1.2.840.1 [id number] Univers 00:00:00 00:00:00 Only Kalli 81167.1.1 it y of 3.412.2.7 [place] .3.530710 MD Fernandez [facility] 2021-08-15 2021-08-15 Orders Karlos, 1.2.840.1 [id number] Univers 00:00:00 00:00:00 Only Kalli 90507.1.1 it y of 3.412.2.7 [place] .3.243940 MD Argueta8 [facility] 2021-08-14 2021-08-14 [facility] 1.2.840.1 [id number] 56139 Univers 09:45:00 23:59:00 Encounter 51936.1.1 it y of 3.412.2.7 [place] .3.235327 MD Fernandez [facility] 2021-08-14 2021-08-14 Outpatient [facility] [id number] 755 09:45:00 23:59:00 Efrem [facility] 2021-08-14 2021-08-14 Telephone Lc, 1.2.840.1 [id number] 1089 [id number] [facility] 00:00:00 00:00:00 Mcintosh 22298.1.1 i ty of D 3.412.2.7 [place] .3.097035 .8 [facility] 2021-08-14 2021-08-14 Travel 1.2.840.1 1.2.518.434 5413 [id number] [facility] 00:00:00 00:00:00 06559.1.1 350.1.13.41 ity of 3.412.2.7 2.[place].7.3.698 [place] .3.5528[place] 084.8 MD Argueta8 [facility] 2021-08-12 2021-08-12 [facility] 1.2.840.1 [id number] 1011 [id number] Methodi 09:24:26 09:58:12 Encounter Chantelle Mcintyre 82469.1.[address] 3.430.2.7 Hospit a .3.855149 l .8 2021-08-12 2021-08-12 Outpatient [facility] [id number] 630 [place] 00:00:00 00:00:00 HARRIETT [address] 2021-08-11 2021-08-11 Telephone Robert, 1.2.840.1 [id number] 2100 [id number] Methodi 00:00:00 00:00:00 Harri[address] Dobson [address]68.[address] 3.430.2.7 Hospit a .3.207618 l .8 2021-08-08 2021-08-08 Soy Everett 1.2.840.1 [id number] 10 [id number] [facility] 00:00:00 00:00:00 Only Kalli 99992.1.1 it y of 3.412.2.7 [place] .3.318518 MD Argueta8 [facility] 2021-08-05 2021-08-05 [facility], 1.2.840.1 [id number] 32510 Methodi 07:30:00 23:59:00 Encounter Harriett Dobson 42512.1.[address] 3.430.2.7 Hospit a .3.325070 l .8 2021-08-05 2021-08-05 Outpatient ROBERT, [facility] [id number] 604 [place] 00:00:00 00:00:00 HARRIETT Sanchez [facility] 2021-08-03 2021-08-03 Telephone LEONARDO Peguero 1.2.840.114 [id number] [facility] 00:00:00 00:00:00 Francisco RADHA 350.1.13.10 it y of HOSPITAL 4.2.7.2.686 Kelby as [id number] [facility] 019 [place] 2021-08-02 2021-08-02 Outpatient Desire ZAVALA [facility] [id number] Univers 11:15:00 11:32:04 MANJEET ity [facility] 2021-08-02 2021-08-02 Laboratory Only, Ang Db Test [facility] 1.2.8 40.114 [id number] Univers 11:15:00 11:30:00 [facility] 350.1.13.10 ity of [place] 4.2.7.2.686 Kelby as ETTA?BLEA [phone] [address] MEDICAL OFFICE BUILDING 2021-08-02 2021-08-02 Letter Doctor LEONARDO 1.2.840.114 [id number] Univers 00:00:00 00:00:00 (Out) Unassigned, RADHA 350.1.13.10 ity of [place] [facility] 4.2.7.2.686 Kelby as [id number] [facility] 044 [place] 2021-08-02 2021-08-02 Letter Doctor LEONARDO 1.2.840.114 [id number] Univers 00:00:00 00:00:00 (Out) Unassigned, RADHA 350.1.13.10 ity of [place] [facility] 4.2.7.2.686 Kelby as [id number] [facility] 044 [place] 2021-08-01 2021-08-01 Travel 1.2.840.1 1.2.951.906 6576 [id number] Methodi 00:00:00 00:00:[address] 3.430.2.7 0.2.7.3.698 Ho spita .3.714814 084.8 l .8 2021-07-14 2021-07-14 Telephone Miles, 1.2.840.1 [id number] 2099 [id number] Methodi 00:00:00 00:00:[address]1.[address] 3.430.2.7 Hospit a .3.723405 l .8 2021-07-07 2021-07-07 Telephone Ann, 1.2.840.1 [id number] 2099 [id number] Methodi 00:00:00 00:00:[address] 3.430.2.7 Hospit a .3.265536 l .8 2021-05-14 2021-05-14 [facility], 1.2.840.1 [id number] 90073 Methodi 12:06:51 12:25:30 Encounter Cris 30081.1.[address] Joe 3.430.2.7 Hospit a .3.028329 l .8 2021-05-14 2021-05-14 Orders Provider, 1.2.840.1 [id number] 2099 [id number] Methodi 00:00:00 00:00:00 Only Unknown 00646.1.[address] 3.430.2.7 Hospit a .3.129505 l .8 2021-05-14 2021-05-14 Travel 1.2.840.1 1.2.932.133 6708 513815 Methodi 00:00:00 00:00:[address] 3.430.2.7 0.2.7.3.698 Ho spita .3.206602 084.8 l .8 2021-05-14 2021-05-14 [facility] [id number] [address] [place] [address] 00:00:00 00:00:00 CRIS [address] 2021-05-12 2021-05-12 Orders Provider, 1.2.840.1 [id number] 2099 [id number] Methodi 00:00:00 00:00:00 Only Unknown 76402.1.[address] 3.430.2.7 Hospit a .3.983502 l .8 2021-05-09 2021-05-09 [facility] 1.2.840.1 00330 1011 [id number] Methodi 11:40:53 16:11:18 Encounter Kendra Brandon 00259.1.[address] 3.430.2.7 Hospit a .3.645475 l .8 2021-05-09 2021-05-09 Orders Provider, 1.2.840.1 [id number] 2099 832301 Methodi 00:00:00 00:00:00 Only Unknown 86870.1.[address] 3.430.2.7 Hospit a .3.100625 l .8 2021-05-09 2021-05-09 Travel 1.2.840.1 1.2.620.090 5905 282371 Methodi 00:00:00 00:00:[address] 3.430.2.7 0.2.7.3.698 Ho spita .3.360966 084.8 l .8 2021-05-09 2021-05-09 Outpatient [facility] [id number] 290 [place] 00:00:00 00:00:00 HARRIETT [address] 2021-05-05 2021-05-05 [facility], 1.2.840.1 [id number] 74800 18075 Methodi 01:00:00 09:38:47 Encounter Harriett Dobson 26367.1.[address] 3.430.2.7 Hospit a .3.548535 l .8 2021-05-05 2021-05-05 Outpatient [facility] [id number] 480 [place] 00:00:00 00:00:00 HARRIETT [address] 2021-05-01 2021-05-01 [facility] 1.2.840.1 [id number] 1011 [id number] Methodi 13:45:00 15:19:16 Encounter Lewis Hilton 18188.1.[address] 3.430.2.7 Hospit a .3.451947 l .8 2021-05-01 2021-05-01 [facility], 1.2.840.1 [id number] 04187 Methodi 14:00:00 15:07:03 Encounter Harriett Dobson 43170.1.[address] 3.430.2.7 Hospit a .3.593268 l .8 2021-05-01 2021-05-01 Travel 1.2.840.1 1.2.674.599 1937 [id number] Methodi 00:00:00 00:00:[address] 3.430.2.7 0.2.7.3.698 Ho spita .3.347492 084.8 l .8 2021-05-01 2021-05-01 Outpatient [facility] [id number] 118 [place] 00:00:00 00:00:00 HARRIETT [address] 2021-05-01 2021-05-01 Outpatient [facility] [id number] 118 [place] 00:00:00 00:00:00 HARRIETT [address] 2021-04-30 2021-04-30 [facility] 1.2.840.1 [id number] 2100 [id number] Methodi 00:00:00 00:00:00 Harri[address] Dobson [address]10.[address] 3.430.2.7 Hospit a .3.511131 l .8 2021-04-23 2021-04-23 Travel 1.2.840.1 1.2.388.870 5701 491415 Methodi 00:00:00 00:00:[address] 3.430.2.7 0.2.7.3.698 Ho spita .3.523706 084.8 l .8 2021-04-22 2021-04-22 [facility] Jesus Hernandez 1.2.840.1 [id number] Methodi 11:13:41 11:42:27 Encounter Robert Harriett Dobson 76986.1.[address] [place] Marlyn 3.430.2.7 Hospita .3.922874 l .8 2021-04-22 2021-04-22 [facility] 1.2.840.1 [id number] 93627 95874 Methodi 01:00:00 09:41:51 Encounter Harriett Dobson 19270.1.[address] 3.430.2.7 Hospit a .3.726637 l .8 2021-04-22 2021-04-22 Outpatient [facility] [id number] 480 [place] 00:00:00 00:00:00 HARRIETT [address] 2021-04-22 2021-04-22 Outpatient [facility] [id number] 503 [place] 00:00:00 00:00:00 HARRIETT [address] 2021-04-07 2021-04-21 Office [place], 1.2.840.1 [id number] 063663 3632 Methodi 09:00:00 00:21:22 Visit Jesus Mendoza 57976.1.[address] 3.430.2.7 Hospit a .3.689096 l .8 2021-04-21 2021-04-21 [facility], 1.2.840.1 [id number] 2100 [id number] Methodi 00:00:00 00:00:00 [address] 3.430.2.7 Hospit a .3.219465 l .8 2021-04-15 2021-04-15 Travel 1.2.840.1 1.2.802.819 6188 363268 Methodi 00:00:00 00:00:[address] 3.430.2.7 0.2.7.3.698 Ho spita .3.419807 084.8 l .8 2021-04-11 2021-04-11 [facility], 1.2.840.1 [id number] 15655 15350 [facility] 08:52:29 23:59:00 Encounter Collette Cope 83282.1.1 it y of 3.412.2.7 [place] .3.305879 MD [facility]gu[facility]8 [facility] 2021-04-11 2021-04-11 Outpatient EL ASH, MDA MDA [id number] 08:52:29 23:59:00 COLLETTE Duarteers chelly [place] 2021-04-11 2021-04-11 [facility] Kristin, 1.2.840.1 [id number] 1081 [id number] [facility] 07:53:42 08:51:00 Encounter Karoline Cope 36793.1.1 it y of 3.412.2.7 [place] .3.263895 MD Argueta8 [facility] [place] 2021-04-11 2021-04-11 Outpatient EL KRISTIN, MDA MDA [id number] [place] 07:53:42 08:51:00 KAROLINE Efrem [place] 2021-04-11 2021-04-11 [facility], 1.2.840.1 [id number] 1082 [id number] [facility] 06:40:00 07:52:00 Encounter Karoline Cope 88774.1.1 it y of 3.412.2.7 [place] .3.922171 MD Argueta8 [facility] [place] 2021-04-11 2021-04-11 Outpatient EL KRISTIN, [facility] [id number] [place] 06:40:00 07:52:00 KAROLINE Duartekatlin [place] 2021-04-11 2021-04-11 Travel 1.2.840.1 1.2.800.770 0254 [id number] Univers 00:00:00 00:00:00 66221.1.1 350.1.13.41 ity of 3.412.2.7 2.[place].7.3.698 [place] .3.374394 084.8 MD Argueta8 [place] 2021-04-07 2021-04-07 Travel 1.2.840.1 1.2.201.020 2162 [id number] Methodi 00:00:00 00:00:[address] 3.430.2.7 0.2.7.3.698 Ho spita .3.659172 084.8 l .8 2021-04-07 2021-04-07 Outpatient [place], [facility] [id number] 931 [place] 00:00:00 00:00:00 JESUSPEREZ Murphy [facility] 2021-04-01 2021-04-01 Orders Judah, 1.2.840.1 [id number] 4092 Methodi 00:00:00 00:00:00 Only Vanessa 10942.1.[address] 3.430.2.7 Hospit a .3.774160 l .8 2021-04-01 2021-04-01 Orders Judah, 1.2.840.1 [id number] 6829 Methodi 00:00:00 00:00:00 Only Vanessa 10117.1.[address] 3.430.2.7 Hospit a .3.414268 l .8 2021-04-01 2021-04-01 Telephone Miles, 1.2.840.1 [id number] 2100 [id number] Methodi 00:00:00 00:00:[address]54.1.[address] 3.430.2.7 Hospit a .3.267692 l .8 2021-03-25 2021-03-25 Clinical 1.2.840.1 [id number] 30725 73178 Methodi 08:40:00 09:00:[address] 3.430.2.7 Hospit a .3.786533 l .8 2021-03-25 2021-03-25 Travel 1.2.840.1 1.2.653.667 8190 638624 Methodi 00:00:00 00:00:[address] 3.430.2.7 0.2.7.3.698 Ho spita .3.339860 084.8 l .8 2021-03-25 2021-03-25 Outpatient [facility] [id number] 677 [place] 00:00:00 00:00:[address] 2021-01-28 2021-01-28 Outpatient [facility] [id number] 040 [place] 00:00:00 00:00:00 JESUS [address] 2021-01-20 2021-01-20 Outpatient FERNANDO MATT, MDA MDA [id number] 10:35:16 10:35:16 WHIT [place] 2021-01-16 2021-01-16 Outpatient EL KAINT, MDA MDA [id number] 11:39:18 11:39:18 ZEE [place] 2021-01-16 2021-01-16 Outpatient EL QUIQUEINERT, MDA MDA [id number] 11:39:17 11:39:17 ZEE [place] 2021-01-09 2021-01-09 Outpatient EL LUIS ANGEL, MDA MDA [id number] 14:56:37 23:59:00 PAOLA [place] 2021-01-03 2021-01-03 Outpatient FERNANDO JACOBSON, MDA MDA [id number] 09:08:10 23:59:00 COLLETTE [place] 2021-01-03 2021-01-03 Outpatient FERNANDO MATT, MDA MDA [id number] 162 10:24:16 13:18:56 WHIT [place] 2021-01-03 2021-01-03 Outpatient EL QUIQUEINERT, MDA MDA [id number] 06:24:53 09:07:00 ZEE [place] 2021-01-03 2021-01-03 Outpatient EL KAINT, MDA MDA [id number] 06:15:00 06:23:00 ZEE [place] 2020-12-24 2020-12-24 Outpatient [facility] [id number] 838 [place] 00:00:00 00:00:00 JESUS 195 Method i 2020-11-19 2020-11-19 Outpatient [facility] [id number] 271 [place] 00:00:00 00:00:00 JESUS 220 Method i 2020-11-19 2020-11-19 Outpatient [facility] [id number] [address] [place] [address] 00:00:00 00:00:00 JESUS 222 Method i 2020-11-19 2020-11-19 Outpatient [facility] [id number] [address] [place] [address] 00:00:00 00:00:00 JESUS [address] 2020-03-26 2020-03-26 Outpatient FERNANDO JACOBSON MDA [facility] [id number] 15:05:59 16:16:00 COLLETTE spaulding timo 2020-03-20 2020-03-20 Ambulatory nullFlavo MNA [id number] Memoria 14:15:00 14:15:00 Pre-Reg r Neurology 03 l [place] 2020-03-20 2020-03-20 Ambulatory nullFlavo MNA [id number] Memoria 14:15:00 14:15:00 Pre-Reg r Neurology 03 l [place] [place] 2020-03-20 2020-03-20 Outpatient MHIE SYLVESTER [id number] [facility] 09:15:00 09:15:00 03 l [place] 2020-03-20 2020-03-20 Outpatient AMAN CanelaSCHCLAUDIA MISCHER [id number] 09:15:00 09:15:00 Jhonathan Drake Nestor 2020-03-18 2020-03-18 Outpatient [facility] [id number] [place] [address] 00:00:00 00:00:00 JESUS 410 Method i 2019-06-30 2019-06-30 Outpatient 3 SantoAnselmo baez [facility] 1 [id number] . 14:17:00 14:17:00 Anselmo Santo [facility] 2018-07-09 2018-07-11 Outside nullFlavo MNA [id number] Memoria 15:39:00 05:59:59 Medical r Neurology 00 l Records Jose R Do 2018-07-09 2018-07-11 Outside nullFlavo MNA [id number] [facility]oria 15:39:00 05:59:59 Medical r Neurology 00 l Records Jose R Do 2018-07-09 2018-07-10 Outpatient MHMISCHER MHMISCHER [id number] 09:39:00 23:59:59 00 2018-06-22 2018-06-22 Ambulatory nullFlavo MNA [id number] Memoria 15:15:00 15:15:00 Pre-Reg r Neurology 02 l [place] 2018-06-22 2018-06-22 Ambulatory nullFlavo MNA [id number] [facility]oria 15:15:00 15:15:00 Pre-Reg r Neurology 02 l [place] 2018-06-22 2018-06-22 Outpatient [facility] [id number] [place] 09:15:00 09:15:00 02 steff Do 2018-06-22 2018-06-22 Outpatient MATT Canela [id number] [id number] 09:15:00 09:15:00 Jhonathan 02 Nest[place] 2018-03-23 2018-03-23 Outpatient [facility] [id number] [place] 08:15:00 08:15:00 01 steff Do 2018-03-23 2018-03-23 Outpatient [facility] [id number] [place] 08:15:00 08:15:00 01 steff Do 2018-03-15 2018-03-15 Outpatient [facility] [id number] [place] 09:45:00 09:45:00 00 steff Do 2018-03-15 2018-03-15 Outpatient [facility] [id number] [place] 09:45:00 09:45:00 00 steff Do Results Test Description Test Time Test Comments Results Result Comments Source PSA, POST-PROSTATECTOMY 2022-01-07 01:44:00 Test Item Value Reference Range Interpretation Comme nts PSA, ICMA (test code = 0.23 ng/mL REFE RENCE RANGES for PSA: LESS 21091-1) THAN 0.10 ng/mL AFTER RADICAL PROSTATECTOMY. 4.0 ng/mL OR LESS IN HEALTHY MALE S WITHOUT PROSTATECTOMY. PSA values obtained with d ifferent assay methods or kits cannot be used interchangeably . This test was performed using the ERUCES DxImeth od. PSA, ICMA is not to be used as a diagnosticproce dure without confirmation of the diagnosis by anotherestablis hed product or procedure. The lower limit of accurate quanti fication for this assay is0.02 ng /mL. PSA values less than 0.02 ng/mL cannot beaccurately me asured and will be reported as les s than 0.02ng/mL. Specimens with PSA levels below the lower limit ofaccurate quantification should be considered as n egative. Inpatients with a negative result for post prosta tectomy PSA,serial monitoring of P SA levels at regular interva ls, alongwith physical examin ations and other tests, may help todetect recurrent prost ate cancer. YUSEF (test code = YUSEF) FASTING:NO FASTING: NO RAC (test code = RAC) Performing Organization Information: Site ID: [id number] Name: [employer], Address: [address] [place] [address] Director: Alejandra Aguirre MD,PhD,DEUCE [facility] [place] [facility] [id number] 12:44:55 Test Item Value Reference Range Interpretation Comments TSH (test code = 4.68 See_Comment H Note: New M ethodology 48941-7) and Reference R josue change effectiv e 10/21/2017 at 14 00 Testing Perform ed at [facility], [address] [place] [address], [address], [place], [place] [address] [Automate d message] The sy stem which generated this result transmit diane reference range : 0.27 - 4.20 mcunit/m L. The reference range was not used to int erpret this result as normal/abnormal . Lab Interpretation (test Abnormal code = 85091-5) [id number] 12:44:54 Test Item Value Reference Range Interpretation Comments T4 Free (test code 1.02 ng/dL 0.93-1.70 Testing P erformed at [facility] = 3024-7) Lab Route Delivery Manager [facility], [address], [address], [place] [address] [facility] Rate 2021-12-19 12:31:05 Test Item Value Reference Range Interpretation Comments eGFR-AA (test code 84 See_Comment Normal eG FR >= 60 mL/min/1.73 = 12261-0) m2 Note: The eG FR is calculated usin g the CKD-EPI equation. The e GFR declines with age. eGFR <60 mL/min/1.73 m2 is considered as "decreased". This equation should only be used for patients 18 and older. According to th e National Kidney Foundati on's Kidney Disease Outcome Quality Initiative (KDO QI) classification and 2012 Kidney Disease Improving Global Outcomes (KDIGO) Clinical Practi ce Guideline, the stage of CK D should be categorized bas ed on estimated GFR. Stage Description GFR mL/min/1.73 m21 Normal or h igh GFR >=902 Mildly decrease d GFR 60-893a Mildly to moder ately decreased GFR 4 5-593b Moderately to s everely decreased GFR 3 0-444 Severely decreased GFR 1 5-295 Kidney failure <15 Ann ting Performed at [facility] Lab [facility], [address] [place] [address], [address], [place] [address] [Automated mess age] The system which Snapsheet nerated this result transmit diane reference range: >=60 mL/ min/1.73 sq. m. The referenc e range was not used to int erpret this result as brenda l/abnormal. eGFR-BESSIE (test code 72 See_Comment Normal e GFR >= 60 mL/min/1.73 = 40258-8) m2 Note: The eG FR is calculated usin g the CKD-EPI equation. The e GFR declines with age. eGFR <60 mL/min/1.73 m2 is considered as "decreased". This equation should only be used for patients 18 and older. According to e National Kidney Foundati on's Kidney Disease Outcome Quality Initiative (KDO QI) classification and 2012 Kidney Disease Improving Global Outcomes (KDIGO) Clinical Practi ce Guideline, the stage of CK D should be categorized bas ed on estimated GFR. Stage Description GFR mL/min/1.73 m21 Normal or h igh GFR >=902 Mildly decrease d GFR 60-893a Mildly to moder ately decreased GFR 4 5-593b Moderately to s everely decreased GFR 3 0-444 Severely decreased GFR 1 5-295 Kidney failure <15 Ann ting Performed at [facility] Lab [facility], [address] [place] [address], [address], [place] [address] [Automated mess age] The system which Snapsheet nerated this result transmit diane reference range: >=60 mL/ min/1.73 sq. m. The referenc e range was not used to int erpret this result as brenda l/abnormal. [facility] [place].Serum [id number] 12:31:04 Test Item Value Reference Range Interpretation Comments Creatinine (test code 1.11 mg/dL 0.67-1.17 Testin g Performed at = 2160-0) [facility] Lab [facility], [address] [place] [address], [address], [place] [address] [facility] [id number] 12:31:03 Test Item Value Reference Range Interpretation Comments BUN (test code = 20 mg/dL 6-23 Testing Per formed at B 3094-0) Lab Route Delivery Manager Bldg, [address], [address], [place] [address] [facility] [place]POCT MOLECULAR [id number] 15:27:29 Test Item Value Reference Range Interpretation Comments POCT Molecular FluA (test code = Positive Negative A 53049-1) Lab Interpretation (test code = Abnormal 41418-2) [facility] [id number] 22:10:45 Test Item Value Reference Range Interpretation Comments Course ID (test code = C1 5706) Course Start Date (test 2021-05-06 @13:52 code = 5707) Treatment Elapsed Days (test code = 5709) Course Intent (test code Curative = 5686) Treatment Dates (test Course End Date: code = 5685) 2021-05-15 @16:10First Treatment Date: 2021-05-09 @12:02Last Treatment Date: 2021-05-14 @12:23 Reference Point ID (test Rt External Joel code = 5710) Dosage Given to Date in Gy (test code = 5711) Plan ID (test code = Rt Pelvis 5713) Plan Name (test code = Rt Pelvis 5714) Fractions Treated to 3 of 3 Date (test code = 5715) Prescribed Dose Per Fraction in Gy (test code = 5716) Prescription Dose in cGy (test code = 5717) [facility] [id number] 18:25:33 Test Item Value Reference Range Interpretation Comments Course ID (test code = C1 5706) Course Start Date (test 2021-05-06 @13:52 code = 5707) Treatment Elapsed Days (test code = 5709) Course Intent (test code Curative = 5686) Treatment Dates (test First Treatment Date: code = 5685) 2021-05-09 @12:02Last Treatment Date: 2021-05-14 @12:23 Reference Point ID (test Rt External Joel code = 5710) Dosage Given to Date in Gy (test code = 5711) Session Dosage Given in Gy (test code = 5712) Plan ID (test code = Rt Pelvis 5713) Plan Name (test code = Rt Pelvis 5714) Fractions Treated to 3 of 3 Date (test code = 5715) Prescribed Dose Per Fraction in Gy (test code = 5716) Prescription Dose in cGy (test code = 5717) [facility] DAILY [id number] 21:21:23 Test Item Value Reference Range Interpretation Comments Course ID (test code = C1 5706) Course Start Date (test 2021-05-06 @13:52 code = 5707) Treatment Elapsed Days (test code = 5709) Course Intent (test code Curative = 5686) Treatment Dates (test First Treatment Date: code = 5685) 2021-05-09 @12:02Last Treatment Date: 2021-05-12 @15:19 Reference Point ID (test Rt External Joel code = 5710) Dosage Given to Date in Gy (test code = 5711) Session Dosage Given in Gy (test code = 5712) Plan ID (test code = Rt Pelvis 5713) Plan Name (test code = Rt Pelvis 5714) Fractions Treated to 2 of 3 Date (test code = 5715) Prescribed Dose Per Fraction in Gy (test code = 5716) Prescription Dose in cGy (test code = 5717) [facility] DAILY [id number] 17:07:23 Test Item Value Reference Range Interpretation Comments Course ID (test code = C1 [id number]) Course Start Date (test 2021-05-06 @13:52 code = 5707) Treatment Elapsed Days (test code = 5709) Course Intent (test code Curative = 5686) Treatment Dates (test First Treatment Date: code = 5685) 2021-05-09 @12:02Last Treatment Date: 2021-05-09 @12:05 Reference Point ID (test Rt External Joel code = 5710) Dosage Given to Date in Gy (test code = 5711) Session Dosage Given in Gy (test code = 5712) Plan ID (test code = Rt Pelvis 5713) Plan Name (test code = Rt Pelvis 5714) Fractions Treated to 1 of 3 Date (test code = 5715) Prescribed Dose Per Fraction in Gy (test code = 5716) Prescription Dose in cGy (test code = 5717) [facility] [id number] 12:15:54 Test Item Value Reference Range Interpretation Comments POC Crea (test 1.2 mg/dL 0.6-1.3 Medications, code = 35156-8) especially h ydroxyurea or supplements, such as ascorbate, c an interfere with test results causing a falsely and significantly h igher result than exp ected. If a problem is suspected with a patient's resul t, a sample should b e sent to the laborato for confirmatory te sting. Method descript ion: The i-STAT is a n analyzer used f or in vitro quantific ation of various anal ytes in whole blood. e device uses a s grant disposable cart ridge which contains microfabricated sensors, a shaggy bration solution, fluid ics system, and a w aste chamber. Each t est cartridge conta ins chemically sens itive biosensors on a silicon chip th at are configured to p erform specific tests. The microfabricated sensors measure analyte concent ration by an electroch emical assay. POC eGFR-AA (test 77 See_Comment Normal eGF R >= 60 code = 91554-5) mL/min/1.73 m2 The eGFR is calcula diane using the CKD-E PI equation. The e GFR declines with a ge. eGFR <60 mL/min /1.73 m2 is considere d as "decreased" Thi s equation should only be used for pat ients 18 and older. According to National Kid[employer]'s Ki dney Disease Outcome Quality Initiat boyd (KDOQI) classif ication and 2012 Kidney Disease Improvi ng Global Outcomes (KDIGO) Clinica l Practice Guidel ine, the stage of CK D should be categ orized based on estima diane GFR. Stage Desc ription GFR mL/min/1.73 m21 Kidney damage w ith normal or high GFR >=902 Kidney da mage with mild decre ase in GFR 60-893a Mil d to moderate decrea se in GFR 45-593b Mod erate to severe decre ase in GFR 30-444 Desiree re decrease in GFR 15-295 Kidney failure <15 (or dialysis) [Auto mated message] The sy stem which generated this result transmit diane reference range : >=60 mL/min/1.73 m2. The reference range was not used to int erpret this result as normal/abnormal . POC eGFR-BESSIE (test 66 See_Comment Normal eG FR >= 60 code = 25015-7) mL/min/1.73 m2 The eGFR is calcula diane using the CKD-E PI equation. The e GFR declines with a ge. eGFR <60 mL/min /1.73 m2 is considere d as "decreased" Thi s equation should only be used for pat ients 18 and older. According to th e National Kid[employer]'s Ki dney Disease Outcome Quality Initiat boyd (KDOQI) classif ication and 2011 Kidney Disease Improvi ng Global Outcomes (KDIGO) Clinica l Practice Guidel ine, the stage of CK D should be categ orized based on estima diane GFR. Stage Desc ription GFR mL/min/1.73 m21 Kidney damage w ith normal or high GFR >=902 Kidney da mage with mild decre ase in GFR 60-893a Mil d to moderate decrea se in GFR 45-593b Mod erate to severe decre ase in GFR 30-444 Desiree re decrease in GFR 15-295 Kidney failure <15 (or dialysis) [Auto mated message] The sy stem which generated this result transmit diane reference range : >=60 mL/min/1.73 m2. The reference range was not used to int erpret this result as normal/abnormal . POC Clean Dev Yes (test code = 6672) Performing Lab [facility] (test code = [facility] [address]) Clinical Lab, [address] [place] [address], [place], [place] [address]; Machine Wood Sander: Claudette Morrison MD [facility] WHOLE BODYCLINICAL INDICATION: C61 Malignant neoplasm of prostateMODALITY: DotBluum dual head gamma cameraTECHNIQUE: 25 mCi Tc 99m MDP are injected IV. After a suitable time delay, whole body imaging images are obtained.FINDINGS:COMPARISON: Multi para metric prostate MRI performed 05/24/2017.Symmetric bilateral renal function is observed.Nonspecific arthritic changes are noted at the acromioclavicular, leandra ohumeral, sternoclavicular, hip, patellofemoral joints bilaterally, left ankle.No lytic or blastic osseous metastatic disease.IMPRESSION:Negative for evidence of osteoblastic metastasis.PQRS 147: 3570F
--- NOTE | 2022-03-19 16:13 | RAD REPORT ---
EXAM DESCRIPTION: RAD - Chest Single View - 03/19/2022 4:03 pm CLINICAL HISTORY: CHEST PAIN Chest pain. COMPARISON: Chest Pa And Lat (2 Views) dated 04/11/2019; Chest Single View dated 03/31/2018; CHEST PA AND LAT 2 VIEW dated 09/15/2013; CHEST PA AND LAT 2 VIEW dated 09/28/2000 FINDINGS: Portable technique limits examination quality. The lungs are grossly clear. The heart is normal in size. No displaced fractures. IMPRESSION: No acute intrathoracic process suspected.
[2022-03-19 17:06] LABS: Hematocrit 40.9 % (39.6-49.0); Lymphocytes % 24.7 % (15.3-44.8); MCV 89.4 fL (80-100); MPV 7.6 fL (7.6-11.3); RBC Red Blood Cell Count 4.57 M/uL (4.33-5.43)
[2022-03-19 17:25] LABS: ALT/SGPT 29 U/L (12-78); AST/SGOT 17 U/L (15-37); Albumin 3.5 g/dL (3.4-5.0); Alkaline Phosphatase 79 U/L (45-117); BUN Blood Urea Nitrogen 19 mg/dL (7-18); Bicarbonate 27 mmol/L (21-32); Bilirubin Total 0.3 mg/dL (0.2-1.0); Glomerular Filtration Rate 80 ml/min (=/>90); Glucose Level 96 mg/dL (74-106); Lipase 92 U/L (73-393); Magnesium 2.2 mg/dL (1.8-2.4); Potassium 3.7 mmol/L (3.5-5.1); Protein, Total 6.8 g/dL (6.4-8.2); Sodium Level 143 mmol/L (136-145); Troponin High Sensitivity 5.7 pg/mL (<58.9)
[2022-03-19 17:26] LABS: Bilirubin Direct < 0.1 mg/dL (0-0.2)
--- NOTE | 2022-03-19 18:02 | RAD REPORT ---
EXAM DESCRIPTION: US - Abdomen Exam Limited - 03/19/2022 5:28 pm CLINICAL HISTORY: right upper abdomen pain COMPARISON: No comparisons FINDINGS: The gallbladder demonstrates no gallstones. No pericholecystic fluid or gallbladder wall t hickening. The common bile duct is normal measuring 4 mm. The liver demonstrates no findings of intrahepatic biliary dilatation. IMPRESSION: Unremarkable examination.
[2022-03-19 18:27] LABS: Protime INR 1.03
--- NOTE | 2022-03-19 20:39 | RAD REPORT ---
EXAM DESCRIPTION: CTAbdomen Pelvis W Contrast - 03/19/2022 8:26 pm CLINICAL HISTORY: Abdominal pain. RUQ abdomen pain COMPARISON: Abdomen Pelvis W Contrast dated 03/31/2018; Abdomen Pelvis W Contrast dated 01/06/2018; Abdomen Pelvis W Contrast dated 08/31/2017; CT ABD PELVIS W CONTRAST dated 12/29/2014 TECHNIQUE: Biphasic CT imaging of the abdomen and pelvis was performed with 100 ml non-ionic IV cont rast. All CT scans are performed using dose optimization technique as appropriate and may include automated exposure control or mA/KV adjustment according to patient size. FINDINGS: The lung bases are clear. The liver, spleen, pancreas, adrenal glands and right kidney are within normal limits. Tiny left marcos l calculi without hydronephrosis. Small benign left renal cyst. No bowel obstruction, free air, free fluid or abscess. Postsurgical changes affect the sigmoid colon. The appendix is normal. No evidence of significant lymphadenopathy. No suspicious bony findings. IMPRESSION: No acute intra-abdominal or pelvic finding.
--- NOTE | 2022-03-19 20:50 | ER ---
Nurse's Notes [facility] Name: Leno Rincon Jr Age: 61 yrs Sex: Male : 1960 Arrival Date: 03/19/2022 Time: 14:46 Bed 7 Private MD: Diagnosis: Chest pain, unspecified Presentation: 03/19 14:51 Chief complaint: Patient states: so last night i started having these weird chest tw2 pains. best to describe it if you could dig up under your ribs its like something is jabbing me. it takes my breath away. 6 episodes. i did tweak my back yesterday working out so i thought it might be that. no sweating. no nausea. Coronavirus screen: At this time, the client does not indicate any symptoms associated with coronavirus-19. Ebola Screen: Patient denies travel to an Ebola-affected area in the 21 days before illness onset. Initial Sepsis Screen: Does the patient meet any 2 criteria? No. Patient's initial sepsis screen is negative. Does the patient have a suspected source of infection? No. Patient's initial sepsis screen is negative. Risk Assessment: Do you want to hurt yourself or someone else? Patient reports no desire to harm self or others. Onset of symptoms was March 19, 2022. 14:51 Method Of Arrival: Ambulatory tw2 14:51 Acuity: MANASA 3 tw2 Triage Assessment: 14:57 General: Appears in no apparent distress. well groomed, Behavior is calm, cooperative, tw2 appropriate for age. Pain: Complains of pain in right breast. Cardiovascular: Reports chest pain, Denies shortness of breath. Historical: - Allergies: 14:55 Keflex; tw2 - Home Meds: 14:55 None [Active]; tw2 - PMHx: 14:55 Diverticulitis; [place] Nails Syndrome; Prostate Cancer; throat cancer; tw2 - PSHx: 14:55 prostectomy; colon resection; tw2 - Social history:: Smoking status: Patient denies any tobacco usage or history of. Patient uses alcohol, occasionally. Screenin:20 Abuse screen: Denies threats or abuse. Denies injuries from another. Nutritional ph screening: No deficits noted. Tuberculosis screening: No symptoms or risk factors identified. Fall Risk None identified. IV access (20 points). Assessment: 14:57 Pain: Pain does not radiate. Pain began 1 day ago. tw2 15:20 General: Appears in no apparent distress. comfortable, Behavior is calm, cooperative, ph appropriate for age. Pain: Complains of pain in abdomen Pain radiates to right mid back and right low back Pain level that patient reports is acceptable is 2 out of 10 on a pain scale. Quality of pain is described as sharp, shooting, Pain began Is episodic. Neuro: No deficits noted. Cardiovascular: No deficits noted. Respiratory: No deficits noted. GI: Reports upper abdominal pain, Patient currently denies. GI:. : No deficits noted. EENT: No deficits noted. Derm: No deficits noted. Musculoskeletal: No deficits noted. 19:44 Reassessment: Patient appears in no apparent distress at this time. Patient and/or jb4 family updated on plan of care and expected duration. Pain level reassessed. Patient is alert, oriented x 3, equal unlabored respirations, skin warm/dry/pink. Pt notified to remain NPO, updated on plan of care and pending CT scan. Pt denies and needs or concerns at this time. Vital Signs: 14:51 BP 135 / 83; Pulse 57; Resp 18; Temp 98.8(TE); Pulse Ox 99% on R/A; Weight 79.38 kg tw2 (R); Height 5 ft. 7 in. (170.18 cm); Pain 0/10; 16:30 BP 126 / 88; Pulse 66; Resp 18; Temp 98; Pulse Ox 100% ; ph 16:45 BP 126 / 87; Pulse 49; Resp 16; Pulse Ox 100% ; ph 17:00 BP 122 / 84; Pulse 50; Resp 16; Pulse Ox 100% ; ph 17:15 BP 132 / 86; Pulse 49; Pulse Ox 100% ; ph 17:30 BP 126 / 79; Pulse 50; Pulse Ox 100% ; ph 17:45 BP 128 / 82; Pulse 52; Pulse Ox 100% ; ph 18:00 BP 128 / 72; Pulse 49; Pulse Ox 100% ; ph 19:30 BP 122 / 79; Pulse 52; Resp 13; Pulse Ox 100% on R/A; jb4 21:21 BP 135 / 71; Pulse 50; Resp 11; Pulse Ox 100% ; vc1 14:51 Body Mass Index 27.41 (79.38 kg, 170.18 cm) tw2 14:51 "its just uncomfortable, it comes and goes" tw2 ED Course: 14:46 Patient arrived in ED. rg4 14:55 Triage completed. tw2 14:57 Arm band placed on. tw2 14:57 Patient maintains SpO2 saturation greater than 95% on room air. tw2 15:02 EKG completed in triage. Results shown to MD. tw2 15:04 Francisco Lion PA is PHCP. cp 15:04 Francisco Azar MD is Attending Physician. cp 15:20 Patient has correct armband on for positive identification. Bed in low position. Call ph light in reach. Side rails up X 1. Client placed on continuous cardiac and pulse oximetry monitoring. NIBP monitoring applied. 16:05 XRAY Chest (1 view) In Process Unspecified. EDMS 16:30 Inserted saline lock: 22 gauge in right upper arm, using aseptic technique. Blood ko1 collected. 16:32 Vivi Loredo, RN is Primary Nurse. ph 17:30 US Abdomen Limited In Process Unspecified. EDMS 18:24 PT-INR Sent. ph 20:28 CT Abd/Pelvis - IV Contrast Only In Process Unspecified. EDMS 21:24 No provider procedures requiring assistance completed. IV discontinued, intact, vc1 bleeding controlled, No redness/swelling at site. Pressure dressing applied. Administered Medications: No medications were administered Medication: 15:20 VIS not applicable for this client. ph Outcome: 20:50 Discharge ordered by MD. cp 21:25 Discharged to home ambulatory. vc1 21:25 Condition: good 21:25 Discharge instructions given to patient, Instructed on discharge instructions, follow up and referral plans. medication usage, Demonstrated understanding of instructions, follow-up care, medications, Prescriptions given X 1. 21:25 Patient left the ED. vc1 Signatures: Dispatcher [employer] EDMS Vivi Loredo, RN RN ph Francisco Lion PA PA cp Karen Mustafa RN RN tw2 Margaret Platt rg4 Leno Hood RN RN jb4 Roseann Rahman RN RN vc1 Slime Jimenez RN RN ko1
--- NOTE | 2022-03-19 20:51 | EDPHYS ---
Physician Documentation [facility] Name: Leno Rincon Jr Age: 61 yrs Sex: Male : 1960 Arrival Date: 03/19/2022 Time: 14:46 Bed 7 Private MD: ED Physician Francisco Azar HPI: 03/19 15:10 This 61 yrs old Male presents to ER via Ambulatory with complaints of Chest Pain. cp 15:10 The patient or guardian reports chest pain that is located primarily in the right lower cp anterior chest under ribs. 15:10 Onset: today. The pain does not radiate. Associated signs and symptoms: Pertinent cp negatives: cough, diaphoresis, dizziness, lower extremity pain, lower extremity swelling, shortness of breath, vomiting. The chest pain is described as intermittent. Duration: The patient or guardian reports multiple episodes, that are intermittent. 15:10 Severity of pain: in the emergency department the pain has improved markedly. cp 15:10 Modifying factors: the symptoms are aggravated by movement, palpation of area. cp Historical: - Allergies: 14:55 Keflex; tw2 - Home Meds: 14:55 None [Active]; tw2 - PMHx: 14:55 Diverticulitis; P[place] Nails Syndrome; Prostate Cancer; throat cancer; tw2 - PSHx: 14:55 prostectomy; colon resection; tw2 - Social history:: Smoking status: Patient denies any tobacco usage or history of. Patient uses alcohol, occasionally. ROS: 15:15 Constitutional: Negative for body aches, chills, fever, poor PO intake. cp 15:15 Eyes: Negative for injury, pain, redness, and discharge. cp 15:15 ENT: Negative for drainage from ear(s), ear pain, sore throat, difficulty swallowing, difficulty handling secretions. 15:15 Cardiovascular: Positive for chest pain, of the anterior aspect right lower chest, Negative for edema, palpitations. 15:15 Respiratory: Negative for cough, shortness of breath, wheezing. 15:15 Abdomen/GI: Positive for abdominal pain, of the right upper abdomen under ribs, Negative for vomiting, diarrhea, constipation, anorexia, black/tarry stool, rectal bleeding. 15:15 Back: Negative for pain at rest, pain with movement, radiated pain. 15:15 : Negative for urinary symptoms, hematuria, testicular pain 15:15 Skin: Negative for rash. 15:15 Neuro: Negative for altered mental status, dizziness, headache, syncope, weakness. 15:15 All other systems are negative. Exam: 15:03 ECG was reviewed by the Attending Physician. cp 15:20 Constitutional: The patient appears in no acute distress, alert, awake, cp non-diaphoretic, non-toxic, well developed, well nourished. 15:20 Head/Face: Normocephalic, atraumatic. cp 15:20 Eyes: Periorbital structures: appear normal, Conjunctiva: normal, no exudate, no injection, Sclera: no appreciated abnormality, Lids and lashes: appear normal, bilaterally. 15:20 ENT: External ear(s): are unremarkable, Nose: is normal, Mouth: Lips: moist, Oral mucosa: moist, Posterior pharynx: Airway: no evidence of obstruction, patent. 15:20 Neck: ROM/movement: is normal, is supple, without pain, no range of motions limitations. 15:20 Chest/axilla: Inspection: normal, Palpation: crepitus, is not appreciated, tenderness, that is mild, of the right lower anterior chest. 15:20 Cardiovascular: Rate: bradycardic, Rhythm: regular, Pulses: Pulses are 2+ in right radial artery and left radial artery. Edema: is not appreciated, JVD: is not appreciated. 15:20 Respiratory: the patient does not display signs of respiratory distress, Respirations: normal, no use of accessory muscles, no retractions, labored breathing, is not present, Breath sounds: are clear throughout, no decreased breath sounds, no stridor, no wheezing. 15:20 Abdomen/GI: Inspection: abdomen appears normal, Bowel sounds: active, all quadrants, Palpation: soft, in all quadrants, mild abdominal tenderness, in the right upper abdomen under ribs, rebound tenderness, is not appreciated, involuntary guarding, is not appreciated. 15:20 Back: pain, is absent, ROM is normal. 15:20 Skin: cellulitis, is not appreciated, no rash present. 15:20 Neuro: Orientation: to person, place \\T\\ time. Mentation: is normal, Motor: moves all fours, strength is normal, Sensation: is normal. 19:30 ECG was reviewed by the Attending Physician. cp Vital Signs: 14:51 BP 135 / 83; Pulse 57; Resp 18; Temp 98.8(TE); Pulse Ox 99% on R/A; Weight 79.38 kg tw2 (R); Height 5 ft. 7 in. (170.18 cm); Pain 0/10; 16:30 BP 126 / 88; Pulse 66; Resp 18; Temp 98; Pulse Ox 100% ; ph 16:45 BP 126 / 87; Pulse 49; Resp 16; Pulse Ox 100% ; ph 17:00 BP 122 / 84; Pulse 50; Resp 16; Pulse Ox 100% ; ph 17:15 BP 132 / 86; Pulse 49; Pulse Ox 100% ; ph 17:30 BP 126 / 79; Pulse 50; Pulse Ox 100% ; ph 17:45 BP 128 / 82; Pulse 52; Pulse Ox 100% ; ph 18:00 BP 128 / 72; Pulse 49; Pulse Ox 100% ; ph 19:30 BP 122 / 79; Pulse 52; Resp 13; Pulse Ox 100% on R/A; jb4 21:21 BP 135 / 71; Pulse 50; Resp 11; Pulse Ox 100% ; vc1 14:51 Body Mass Index 27.41 (79.38 kg, 170.18 cm) tw2 14:51 "its just uncomfortable, it comes and goes" tw2 MDM: 16:00 Differential diagnosis: acute myocardial infarction, acute pericarditis, chest wall cp pain, cholecystitis, Cholelithiasis costochondritis, pancreatitis, pericarditis, pleurisy, pneumonia, pneumothorax, stable angina, thoracic aortic disection, unstable angina. 16:20 Patient medically screened. [facility] 20:50 Data reviewed: vital signs, nurses notes, lab test result(s), EKG, radiologic studies, cp CT scan, plain films, ultrasound. 20:50 Test interpretation: by ED physician or midlevel provider: ECG, plain radiologic cp studies. Counseling: I had a detailed discussion with the patient and/or guardian regarding: the historical points, exam findings, and any diagnostic results supporting the discharge/admit diagnosis, lab results, radiology results, the need for outpatient follow up, a family practitioner, to return to the emergency department if symptoms worsen or persist or if there are any questions or concerns that arise at home. Response to treatment: the patient's symptoms have markedly improved after treatment, VSS. Pain resolved. Discussed today's results and low suspicion as cardiac cause of pain. Will discharge to home for continued monitoring. 03/19 15:39 Order name: Basic Metabolic Panel; Complete Time: 18:27 cp 03/19 18:27 Interpretation: Normal except: CL 109; BUN 19; GFR 80. cp 03/19 15:39 Order name: CBC with Diff; Complete Time: 18:27 cp 03/19 15:39 Order name: LFT's; Complete Time: 18:27 cp 03/19 15:39 Order name: Magnesium; Complete Time: 18:27 cp 03/19 15:39 Order name: PT-INR; Complete Time: 18:28 cp 03/19 15:39 Order name: Troponin HS; Complete Time: 18:27 cp 03/19 15:39 Order name: XRAY Chest (1 view); Complete Time: 16:34 cp 03/19 16:34 Interpretation: Report review. cp 03/19 15:39 Order name: EKG; Complete Time: 15:40 cp 03/19 15:39 Order name: Cardiac monitoring; Complete Time: 16:32 cp 03/19 15:39 Order name: EKG - Nurse/Tech; Complete Time: 16:34 cp 03/19 15:39 Order name: Lipase; Complete Time: 18:27 cp 03/19 16:35 Order name: US Abdomen Limited; Complete Time: 18:27 cp 03/19 19:05 Order name: Troponin HS; Complete Time: 20:17 cp 03/19 20:18 Interpretation: Reviewed. cp 03/19 19:05 Order name: CT Abd/Pelvis - IV Contrast Only; Complete Time: 20:40 cp 03/19 15:39 Order name: IV Saline Lock; Complete Time: 17:29 cp 03/19 15:39 Order name: Labs collected and sent; Complete Time: 17:29 cp 03/19 15:39 Order name: O2 Per Protocol; Complete Time: 16:32 cp 03/19 15:39 Order name: O2 Sat Monitoring; Complete Time: 16:32 cp 03/19 16:35 Order name: NPO; Complete Time: 19:43 cp 03/19 17:23 Order name: Labs - recollect needed: recollect blue top/ tube not filled; Complete eb Time: 18:24 03/19 19:06 Order name: EKG - Nurse/Tech; Complete Time: 19:27 cp EC:03 Rate is 55 beats/min. Rhythm is regular. WV interval is normal. QRS interval is normal. cp QT interval is normal. T waves are Inverted in lead aVR. Interpreted by me. Reviewed by me. 19:30 Rate is 51 beats/min. Rhythm is regular. WV interval is normal. QRS interval is normal. cp QT interval is normal. T waves are Inverted in lead aVR. Interpreted by me. Reviewed by me. Administered Medications: No medications were administered Disposition Summary: 03/19/22 20:50 Discharge Ordered Location: Home cp Problem: new cp Symptoms: have improved cp Condition: Stable cp Diagnosis - Chest pain, unspecified cp Followup: cp - With: Private Physician - When: 2 - 3 days - Reason: Recheck today's complaints Discharge Instructions: - Discharge Summary Sheet cp - Nonspecific Chest Pain, Adult cp - Aspirin and Your Heart cp Forms: - Medication Reconciliation Form cp - Thank You Letter cp - Antibiotic Education cp - Prescription Opioid Use cp Prescriptions: - Diclofenac Sodium 75 mg Oral Tablet Sustained Release - take 1 tablet by ORAL route 2 times per day; 30 tablet; Refills: 0, Product cp Selection Permitted Signatures: Dispatcher [employer] EDMS Francisco Azar MD MD cha Page, Corey, PA PA cp Karen Mustafa, RN RN tw2 Kalli Manning
--- NOTE | 2022-03-20 12:33 | EKG ---
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
[2022-03-21 05:45] VITALS: TEMP 98; O2SAT 100
[2022-03-21 06:39] VITALS: BP 122/79
== END 2022-03-19 21:25 | disposition home or self-care (01) ==
LOC: ER 14:45
DX: R07.89 Other chest pain (principal)
CPT/HCPCS: 93005 ×2; 85025; 80048; 36415; 83735; 85610; 80076; 84484 ×2; 83690; 74177; 71045; 76705; 99284; Q9967

== ENCOUNTER 2022-12-02 20:24 | Observation (INO) | payer OTHER ==
--- OUTSIDE RECORDS SUMMARY | 2022-12-02 20:28 | XMS REPORT | Clinical Summary ---
:1960 Author Organization [facility] Address [address] [place] [address] Care Team Providers Name Role Phone Rosy Aviles MD Unavailable Collette Aleman MD Primary Care Provider Wily Ham [facility]WASTE HANDLING TECHNICIAN Unavailable Unavailable Shae Walton RD Unavailable Frandy Clayton DDS Unavailable Sydnee Bhardwaj DDS Unavailable Gerri Guthrie MD Unavailable Errol Manzanares MD Unavailable Allergies Active Allergy Reactions Severity Noted [...] Encounters Date Type Specialty Care Team Description 09/08/2022 Hospital Encounter Head and Neck Collette Aleman t neoplasm of Surgery MD Prisca tonsil, not oth erwise specified 09/08/2022 Hospital Encounter Lab KristinSoraya aguilar Malignan t neoplasm of M, PA tonsil, not oth erwise specified 09/08/2022 Ancillary Procedure Radiology KristinSoraya Maligna nt neoplasm of M, PA tonsil, not oth erwise specified 09/08/2022 Hospital Encounter Radiology Soraya Foster Encounte r for follow-up examination after completed treatment for malignant neoplasm; M, PA Malignant neopl asm of tonsil, not otherwise specified 09/08/2022 Travel 04/30/2022 Orders Only Radiation Oncology Kristin, Soraya Malignan t neoplasm of tonsil, not otherwise specified (Primary Dx); M, PA Encounter for f ollow-up examination after completed treatment for malignant neoplasm 04/23/2022 Hospital Encounter Radiation Oncology Spiotto, Mal ignant neoplasm of MD Errol tonsil, not oth erwise specified 04/23/2022 Ancillary Procedure Radiology Kathy Andre Malignan t neoplasm of PA tonsil, not oth erwise specified 04/23/2022 Hospital Encounter Lab Kathy Andre, Malignant neoplasm of PA tonsil, not oth erwise specified 04/23/2022 Travel 04/20/2022 Orders Only Radiation Oncology Kristin, Soraya Malignan t neoplasm of M, PA tonsil, not oth erwise specified (Prim mango Dx) 12/19/2021 Hospital Encounter Radiology Collette Aleman M, MD oropharyngeal phase Linda De Santiago, CCC-WASTE HANDLING TECHNICIAN 12/19/2021 Hospital Encounter Head and Neck Collette Aleman Maligncitlaly t neoplasm of Surgery MD Prisca tonsil, not oth erwise specified 12/19/2021 Ancillary Procedure Radiology InderjitRosalie kirkland t neoplasm of [place], PA tonsil, not ot herwise specified 12/19/2021 Ancillary Procedure Radiology Karlos Rosalie t neoplasm of [place], PA tonsil, not ot herwise specified 12/19/2021 Hospital Encounter Lab Karlos, Malignant neoplasm of [place], PA tonsil, not ot herwise specified 12/19/2021 Travel after 12/02/2021 Immunizations Name Administration Dates Next Due Pfizer [...] Tobacco Use Types Packs/Day Years Used Date Smoking Tobacco: Never Smokeless Tobacco: Never Tobacco Cessation: Counseling Given: No Alcohol Use Standard Drinks/Week Comments Yes 0 (1 standard drink = 0.6 oz pure alcoho l) 1 or 2 mixed drinks a month Sex Assigned at Date Recorded Male 02/27/2020 11:04 AM CDT Job Start Date Occupation Industry Not on file Not on file Not on file Obstetrics History Last Filed Vital Signs Vital Sign Reading Time Taken Comments Blood Pressure 112/74 09/08/2022 11:41 AM COMMUNICATIONS MANAGER Pulse 63 09/08/2022 11:41 AM COMMUNICATIONS MANAGER Temperature 36.4 C (97.5 F) 09/08/2022 11:41 AM COMMUNICATIONS MANAGER Respiratory Rate 16 09/08/2022 11:41 AM COMMUNICATIONS MANAGER Oxygen Saturation 96% 09/08/2022 11:41 AM COMMUNICATIONS MANAGER Inhaled Oxygen Concentration - - Weight 84.9 kg (187 lb 2.7 oz) 09/08/2022 11:31 AM COMMUNICATIONS MANAGER Height - - Body Mass Index 29.38 08/15/2020 6:49 AM COMMUNICATIONS MANAGER Plan of Treatment Date Type Specialty Care Team Description 03/11/2023 Appointment Lab Raulito Maria PA [address] [place], [place] [address] (Wo rk) 03/11/2023 Appointment Radiology Raulito Maria PA [address] [place], [place] [address] (Wo rk) 03/11/2023 Appointment Radiation Oncology Scott Manzanares MD [address] [place], [place] [address] (Wo rk) 03/11/2023 Appointment Speech Pathology Collette Aleman MD [address] [place] [address] Jade Wong, [facility]WASTE HANDLING TECHNICIAN [facility] [place] [address] Health Maintenance Due Date Last Done Comments COVID-19 Vaccination (3 - Pfizer series) 10/26/2020 021, 08/10/2020 Procedures Procedure Name Priority Date/Time Associated Diagnosis Comme nts .GLOMERULAR Routine 09/08/2022 9:17 AM Malignant neoplasm of Results for this FILTRATION RATE COMMUNICATIONS MANAGER tonsil, not otherwise pro cedure are in specified the results section. SERUM CREATININE Routine 09/08/2022 9:17 AM Malignant neoplasm of Results for this COMMUNICATIONS MANAGER tonsil, not otherwise proced ure are in specified the results section. FREE THYROXINE Routine 09/08/2022 9:17 AM Malignant neoplasm o f Results for this COMMUNICATIONS MANAGER tonsil, not otherwise proced ure are in specified the results section. THYROID STIMULATING Routine 09/08/2022 9:17 AM Malignant neopl asm of Results for this HORMONE COMMUNICATIONS MANAGER tonsil, not otherwise proced ure are in specified the results section. SERUM CREATININE Routine 09/08/2022 9:17 AM Malignant neoplasm of COMMUNICATIONS MANAGER tonsil, not otherwise specified BLOOD UREA NITROGEN Routine 09/08/2022 9:17 AM Malignant neopl asm of Results for this COMMUNICATIONS MANAGER tonsil, not otherwise proced ure are in specified the results section. XR CHEST 2 VW Routine 09/08/2022 8:34 AM Malignant neoplasm of Results for this COMMUNICATIONS MANAGER tonsil, not otherwise proced ure are in specified the results section. CT SOFT TISSUE NECK Routine 09/08/2022 7:52 AM Encounter for R esults for this W CONTRAST COMMUNICATIONS MANAGER follow-up examination proced ure are in after completed the results treatment for section. malignant neopla sm Malignant neoplasm of tonsil, not otherwise specified POC CREATININE Routine 09/08/2022 7:30 AM Results for this COMMUNICATIONS MANAGER procedure are i n the results section. CT SOFT TISSUE NECK Routine 04/23/2022 9:30 AM Malignant neopl asm of Results for this W CONTRAST CDT tonsil, not otherwise proced ure are in specified the results section. POC CREATININE Routine 04/23/2022 8:40 AM Results for this CDT procedure are i n the results section. .GLOMERULAR Routine 04/23/2022 8:38 AM Malignant neoplasm of Results for this FILTRATION RATE CDT tonsil, not otherwise pro cedure are in specified the results section. SERUM CREATININE Routine 04/23/2022 8:38 AM Malignant neoplasm of Results for this CDT tonsil, not otherwise proced ure are in specified the results section. FREE THYROXINE Routine 04/23/2022 8:38 AM Malignant neoplasm o f Results for this CDT tonsil, not otherwise proced ure are in specified the results section. THYROID STIMULATING Routine 04/23/2022 8:38 AM Malignant neopl asm of Results for this HORMONE CDT tonsil, not otherwise proced ure are in specified the results section. SERUM CREATININE Routine 04/23/2022 8:38 AM Malignant neoplasm of CDT tonsil, not otherwise specified BLOOD UREA NITROGEN Routine 04/23/2022 8:38 AM Malignant neopl asm of Results for this CDT tonsil, not otherwise proced ure are in specified the results section. [place] MODIFIED BARIUM Routine 12/19/2021 11:32 Dysphagia, [...] ure are in specified the results section. after 12/02/2021 Results .Serum Creatinine (09/08/2022 9:17 AM COMMUNICATIONS MANAGER)Only the most recent of3 resultswithin the time period is included. athologist Signature Creatinine 1.17 0.67 - 1.17 [facility] mg/dL [facility] Specimen Anatomical Collection Method Collection Time Receive d Time (Source) Location / / Volume Laterality Blood 09/08/2022 9:17 AM 3 9:56 COMMUNICATIONS MANAGER AM COMMUNICATIONS MANAGER Soraya FUENTES LAB BLOOD ORDERABLES Performing Organization Address City/State/ZIP Code Phon e Number [facility] Unless otherwise noted, [place], [place] [address] CENTER all lab tests performed by: Division of Pathology and Laboratory Medicine [address] [place] Glomerular Filtration Rate (09/08/2022 9:17 AM COMMUNICATIONS MANAGER)Only the most recent of3 resultswithin the time period is included. athologist Signature eGFR 72 >=60 [facility] mL/min/1.73 DIAGNOSTIC sq. m CENTER Comment: The eGFRcr is calculated with the 2020 KD-EPI creatinine equation using creatinine, patient's age, and sex for adults 18 years of age and older. Other factors, especially muscle mass, may affect accuracy and need to be considered. According to the Kidney Disease: Improvi ng Global Outcomes (KDIGO) CKD Work Group 2012 Clinical Practice Guideline, chronic kidney disease (CKD) is defined as the abnormalities of kidney structure or function, present for more than 3 months, with implications for health. CKD should be c lassified by cause, GFR category, and albuminuria category. KDIGO guidelines provide the following GFR categories Stage Description GFR mL/min/1.73 m2 G1* Normal or high >= 90 G2* Mildly decreased 60-89 G3a Mildly to moderately decreased 45-59 G3b Moderately to severely decreased 30- 44 G4 Severely decreased 15-29 G5 Kidney failure <15 *In the absence of evidence of kidney da mage, neither G1 nor G2 fulfill criteria for CKD. Specimen Anatomical Collection Method Collection Time Receive d Time (Source) Location / / Volume Laterality Blood 09/08/2022 9:17 AM 9:56 COMMUNICATIONS MANAGER AM COMMUNICATIONS MANAGER Soraya FUENTES LAB BLOOD ORDERABLES Performing Organization Address City/State/ZIP Code Phon e Number [facility] DIAGNOSTIC Unless otherwise noted, [address] all lab tests performed by: Division of Pathology and Laboratory Medicine [address] [place] [address] BUN (09/08/2022 9:17 AM COMMUNICATIONS MANAGER)Only the most recent of3 resultswithin the time period is included. athologist Signature BUN 19 6 - 23 [facility] mg/dL DIAGNOSTIC CENTER Specimen Anatomical Collection Method Collection Time Receive d Time (Source) Location / / Volume Laterality Blood 09/08/2022 9:17 AM 9:56 COMMUNICATIONS MANAGER AM COMMUNICATIONS MANAGER Soraya FUENTES LAB BLOOD ORDERABLES Performing Organization Address City/State/ZIP Code Phon e Number [facility] DIAGNOSTIC Unless otherwise noted, [address] all lab tests performed by: Division of Pathology and Laboratory Medicine [address] [place] [address] TSH (09/08/2022 9:17 AM COMMUNICATIONS MANAGER)Only the most recent of3 resultswithin the time period is included. P athologist Signature TSH 2.97 0.27 - 4.20 [facility] mcunit/mL DIAGNOSTIC CENTER Specimen Anatomical Collection Method Collection Time Receive d Time (Source) Location / / Volume Laterality Blood 09/08/2022 9:17 AM 9:56 COMMUNICATIONS MANAGER AM COMMUNICATIONS MANAGER Soraya Shaylauren FUENTES LAB BLOOD ORDERABLES Performing Organization Address City/[facility]/ZIP Code Phon e Number [facility] DIAGNOSTIC Unless otherwise noted, [address] all lab tests performed by: Division of Pathology and Laboratory Medicine [address] [place] (ABNORMAL) Free T4 (09/08/2022 9:17 AM COMMUNICATIONS MANAGER)Only the most recent of3 results within the time period is included. athologist Signature T4 Free 0.90 (L) 0.93 - 1.70 [facility] ng/dL DIAGNOSTIC CENTER Specimen Anatomical Collection Method Collection Time Receive d Time (Source) Location / / Volume Laterality Blood 09/08/2022 9:17 AM 9:56 COMMUNICATIONS MANAGER AM COMMUNICATIONS MANAGER Soraya Shaylauren FUENTES LAB BLOOD ORDERABLES Performing Organization Address City/[facility] Phon e Number [facility] DIAGNOSTIC Unless otherwise noted, [address] all lab tests performed by: Division of Pathology and Laboratory Medicine [address] [place] XR Chest 2 Views (09/08/2022 8:34 AM COMMUNICATIONS MANAGER)Only the most recent of2 resultswithin the time period is included. Anatomical Region Laterality Modality Chest Digital Radiography Specimen (Source) Anatomical Collection Method Collection Time Re ceived Time Location / / Volume Laterality 09/08/2022 8:35 AM COMMUNICATIONS MANAGER Impressions 09/08/2022 8:36 AM COMMUNICATIONS MANAGER No acute or metastatic disease. Narrative 09/08/2022 8:36 AM COMMUNICATIONS MANAGER FULL RESULT: Examination: XR CHEST 2 VW, 09/08/2022 8:3 4 AM Clinical History: Malignant neoplasm of tonsil, not otherwise specified Indication: Other:, surveillance Comparison: 12/19/2021 Technique: Posteroanterior, lateral and dual-energy radiographs of the chest. Findings: The lungs are clear. There is no pleural effusion or pneumothorax. There is no mediastinal or hilar adenopathy. Cardiac silhouette is normal. Procedure Note Lillian Scott MD - 09/09/19 23 FULL RESULT: Examination: XR CHEST 2 VW, 09/08/2022 8:3 4 AM Clinical History: Malignant neoplasm of tonsil, not otherwise specified Indication: Other:, surveillance Comparison: 12/19/2021 Technique: Posteroanterior, lateral and dual-energy radiographs of the chest. Findings: The lungs are clear. There is no pleural effusion or pneumothorax. There is no mediastinal or hilar adenopathy. Cardiac silhouette is normal. IMPRESSION: No acute or metastatic disease. Soraya HERNANDEZ DIAGNOSTIC IMAGING ORDER JUANPABLO CT Soft Tissue Neck with Contrast (09/08/2022 7:52 AM COMMUNICATIONS MANAGER)Only the most recent of3 resultswithin the time period is included. Anatomical Region Laterality Modality Neck Computed Tomography Specimen (Source) Anatomical Collection Method Collection Time Re ceived Time Location / / Volume Laterality 09/08/2022 8:42 AM COMMUNICATIONS MANAGER Impressions 09/08/2022 8:58 AM COMMUNICATIONS MANAGER No local or dari recurrence. NIRADS SCORE: 1. Primary: NIRADS 1: Expected post-tr eatment changes without evidence of recurrence, routine surveillance 2. Nodes: NIRADS 1: No evidence of rec urrence; routine surveillance NI-RADS (Neck Imaging Reporting & Data S te) is a standardized reporting system for follow-up of treated head and neck cancers. For more information: [email or web address]/-/[email or web address] [email or web address] Narrative 09/08/2022 8:58 AM COMMUNICATIONS MANAGER FULL RESULT: Examination: CT SOFT TISSUE NECK W CONTR AST on 09/08/2022 7:52 AM Clinical History: Encounter for follow-u p examination after completed treatment for malignant neoplasm Malignant neoplasm of tonsil, not otherw ise specified Indication: Cancer surveillance, SCC ton bruna s/p chemoradiation 2019 Comparison: 04/23/2022 and 12/19/2021 Technique: CT of the Neck with Contrast. Findings: Primary Site: There is no evidence of nodular thickeni ng or enhancement at the primary site to suggest recurrent tumor. Post treatment changes are stable. Lymph Nodes: There is no adenopathy. Stable appearanc e of bilateral lateral retropharyngeal lymph nodes dating back to at least 08/21/2021. Distant Sites: Evaluation of the visualized portions of the brain, orbits, spine, and lung show no lesions suspicious for metastasis. Other: The left maxillary sinus is hypoplastic opacified with mild increase in the orbital volume. Findings can be seen with sinusitis syndrome. There is partial effusion of C6-C7 verte bral bodies that is not instrumented. There is an irregular soft plaque within the left internal carotid artery at the bifurcation with similar stenosis when compared to previous exam. Focal area of enhancement along the righ t midline within the retropharyngeal space at the level of the cricoid (series 2 image 87) favors to represent prominent venous plexus and was noted on multiple prior exams. Procedure Note Jeane Oliveira MD - 09/08/2022 FULL RESULT: Examination: CT SOFT TISSUE NECK W CONTR AST on 09/08/2022 7:52 AM Clinical History: Encounter for follow-u p examination after completed treatment for malignant neoplasm Malignant neoplasm of tonsil, not otherw ise specified Indication: Cancer surveillance, SCC ton bruna s/p chemoradiation 2019 Comparison: 04/23/2022 and 12/19/2021 Technique: CT of the Neck with Contrast. Findings: Primary Site: There is no evidence of nodular thickeni ng or enhancement at the primary site to suggest recurrent tumor. Post treatment changes are stable. Lymph Nodes: There is no adenopathy. Stable appearanc e of bilateral lateral retropharyngeal lymph nodes dating back to at least 08/21/2021. Distant Sites: Evaluation of the visualized portions of the brain, orbits, spine, and lung show no lesions suspicious for metastasis. Other: The left maxillary sinus is hypoplastic opacified with mild increase in the orbital volume. Findings can be seen with sinusitis syndrome. There is partial effusion of C6-C7 verte bral bodies that is not instrumented. There is an irregular soft plaque within the left internal carotid artery at the bifurcation with similar stenosis when compared to previous exam. Focal area of enhancement along the righ t midline within the retropharyngeal space at the level of the cricoid (series 2 image 87) favors to represent prominent venous plexus and was noted on multiple prior exams. IMPRESSION: No local or dari recurrence. NIRADS SCORE: 1. Primary: NIRADS 1: Expected post-alexander tment changes without evidence of recurrence, routine surveillance 2. Nodes: NIRADS 1: No evidence of recur rence; routine surveillance NI-RADS (Neck Imaging Reporting & Data S ystem) is a standardized reporting system for follow-up of treated head and neck cancers. For more information: [email or web address].org/-/[email or web address] [email or web address] Soraya FUENTES IM CT ORDERABLES POC Creatinine (09/08/2022 7:30 AM COMMUNICATIONS MANAGER)Only the most recent of2 resultswithin the time period is included. athologist Signature POC Crea 1.1 0.6 - 1.3 POC [facility] mg/dL Comment: [...] analyte concentration by an electrochemical assay. POC EGFR 77 >=60 mL/min/1.73 sq. m POC [facility] Comment: The eGFRcr is calculated with the 2020 KD-EPI creatinine equation using creatinine, patient's age, and sex for adults 18 years of age and older. Other factors, especially muscle mass, may affect accuracy and need to be considered. According to the Kidney Disease: Improvi ng Global Outcomes (KDIGO) CKD Work Group 2012 Clinical Practice Guideline, chronic kidney disease (CKD) is defined as the abnormalities of kidney structure or function, present for more than 3 months, with implications for health. CKD should be c lassified by cause, GFR category, and albuminuria category. KDIGO guidelines provide the following GFR categories Stage Description GFR mL/min/1.73 m2 G1* Normal or high >= 90 G2* Mildly decreased 60-89 G3a Mildly to moderately decreased 45-59 G3b Moderately to severely decreased 30- 44 G4 Severely decreased 15-29 G5 Kidney failure <15 *In the absence of evidence of kidney da mage, neither G1 nor G2 fulfill criteria for CKD. POC Clean Dev Yes POC [facility] Performing Lab [facility] POC TELCO R Comment: [facility], [address] [place] [address] [place], [place] [address]; Lab Direct or: Estela Morrison MD; Waived Point of Care Testing - Glenny Hatch MD Specimen Anatomical Collection Method Collection Time Receive d Time (Source) Location / / Volume Laterality Blood 09/08/2022 7:30 AM 7:30 COMMUNICATIONS MANAGER AM COMMUNICATIONS MANAGER Soraya FUENTES POCT ORDERABLES - DEVICE Performing Organization Address City/State/ZIP Code Phon e Number POC [facility] Unless otherwise noted, [place] [address] lab tests performed by: Division of Pathology and Laboratory Medicine [address] [place] [address] Modified Barium Swallow w Speech (12/19/2021 11:32 [...] recommendations. Collette Aleman MD IMG FLUOROSCOPY ORDERABLES after 12/02/2021 Insurance Payer Benefit Plan / Subscriber ID Effective Dates Phone Addre ss Type Group AETNA MANAGED AETNA O [id number] 2000-Present [address] [id number] [facility] [place] [address] (Work) [id number] Leno Rincon Personal/Family Self 1960 [address] [phone] [place], [place] (Work) [id number] Leno Rincon Personal/Family Self 1960 [address] [phone] [place], [place] (Work) [phone] Advance Directives Code Status Date Activated Date Inactivated Comments Full Code 05/03/2020 6:21 PM 05/07/2020 6:23 PM Care Teams Manifest Clerk Relationship Specialty Start Date End Date Rosy Aviles PCP - External Otolaryngology 02/26/20 MD Shirin Referring [address] [place] [address] Collette Aleman MD PCP - General Head and Neck Surgery 02/27/[address] [place] [address] [phone] Wily Ham Speech Language Speech Pathology 06/10/20 L, CCC-WASTE HANDLING TECHNICIAN Pathologist [address] [place] [phone] Shae Walton, Clinical Dietitian Nutrition 06/17/[address] [place] [address] [address] [place], [place] [phone] Frandy Clayton, Consulting Physician Dental Oncology 03/05/[address] [place] [phone] Sydnee Bhardwaj, Consulting Physician Dental Oncology 03/13/20 DDS [facility] [address] [place] [address] Gerri Guthrie MD Consulting Physician Head and Neck Surgery 07/15/[address] [place] [phone] Errol Manzanares MD Consulting Physician Radiation Oncology 03/08/[address] [place] [id number]
--- OUTSIDE RECORDS SUMMARY | 2022-12-02 20:30 | XMS REPORT | Continuity of Care Document ---
:1960 Author Organization [facility] t Address [address] [facility] [address] [place] [address] Care Team Providers Name Role Phone PCP, PATIENT DOES NOT HAVE A Primary Care Physician [facility] PROVIDER NOT IN Attending Clinician Unavailable Jesus Hernandez MD Attending Clinician Collette Aleman MD Attending Clinician COLLETTE ALEMAN Attending Clinician Unavailable Karoline Santiago Attending Clinician KAROLINE FOSTER Attending Clinician Unavailable Beverly Resendez MA Attending Clinician Unavailable Paola Manzanares MD Attending Clinician PAOLA MANZANARES Attending Clinician Unavailable Kathy Lewis Attending Clinician KATHY RODRIGUEZ Attending Clinician Unavailable Jonnathan TAVERA-EXPORT SALES ASSISTANTLinda Attending Clinician Kalli Guerra Attending Clinician KIAN CONNER Attending Clinician Unavailable Zee Miller Attending Clinician Kian Connre PA-C Attending Clinician Sandra Pal Attending Clinician [phone] Juan M Baxter Attending Clinician Itzel BARROW, Ascencion Kuhn Attending Clinician Unavailable Lc RN, Dayna Dai Attending Clinician Unavailable Raisa THOMSON, Danial Dobson Attending Clinician Francisco Javier BARROW, Chantelle Attending Clinician Unavailable Sudhir BARROW, Francisco Attending Clinician Unavailable MANJEET ZAVALA Attending Clinician Unavailable Only, Ang Db Test Attending Clinician Unavailable Cuco CNC MACHINIST, Manjeet Attending Clinician Doctor Unassigned, Manzanola Attending Clinician Unavailable Melissa Ann MA Attending Clinician Unavailable Nithin THOMSON, Amelia Diaz Attending Clinician Provider, Unknown Attending Clinician Unavailable Roma BARROW, Kendra Attending Clinician Unavailable Lida BARROW, Lewis Attending Clinician Unavailable Marlyn Ball RN Attending Clinician Unavailable Vanessa So MA Attending Clinician Unavailable WHIT MATT Attending Clinician Unavailable ZEE RINCON Attending Clinician Unavailable SANDRA PLATT Attending Clinician Unavailable MARK KUHN Attending Clinician Unavailable Jhonathan Canela Attending Clinician Anselmo Santo Attending Clinician Unavailable Anselmo Santo Attending Clinician Unavailable Anselmo Santo Admitting Clinician Unavailable Payers Payer Name Policy Type Policy Number Effective Date Expiration Date Kristine [employer] [id number] 2018 OUT OF NETWORK 00:00:00 Problems Condition Condition Condition Status Onset Resolution Last Treating Co mments Source Name Details Category Date Date Treatment Clinician Date Encounter Encounter Disease Active 2020-07 Met hodi for for 0-19 st antineopla antineopla 00:00: Ho spita stic stic 00 l radiation radiation therapy therapy Sensory Sensory Disease Active 2019-07 [facility] hearing hearing 2-29 ity of loss, loss, 00:00: [place] bilateral bilateral 00 MD [facility] Attention Attention Disease Active 2019-07 Uni vers to to 2-02 ity of gastrostom gastrostom [place] [facility] Cough Cough Disease Recurre 2019-07 Univers nce 2-02 ity of 00:00: [place] 00 MD [facility] Malignant Malignant Disease Active 2019-07 Uni vers neoplasm neoplasm 1-05 ity of of tonsil [place] [facility] Disorder Disorder Disease Active 2019-07 Unive rs of fluid of fluid 1-02 ity of AND/OR AND/OR 00:00: [place] electrolyt electrolyt 00 MD e e [facility] Mucositis Mucositis Disease Active 2019-07 Uni vers 0-30 ity of 00:00: [place] 00 MD [facility] 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-30 it y of venu lea 00:00: [place] malnutriti malnutriti 00 on on [facility] Dysphagia, Dysphagia, Disease Active 2019-07 U nivers oropharyng oropharyng 0-30 it y of eal phase eal phase [place] [facility] Abnormal Abnormal Disease Active 2019-07 Unive rs weight weight 0-30 ity of loss loss 00:00: [place] 00 MD [facility] Dehydratio Dehydratio Disease Active 2019-07 U nivers n n 0-29 ity of 00:00: [place] MD [facility] Prostate Prostate Disease Active Overview: Un [facility] cancer cancer 8-31 Formattin ity of 00:00: g of this 00 note MD might be [facility] workman n from the Cancer original. 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 C. 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 21:19:50 l disorder disorder Basim n (disorder) (disorder) Active Problem 03/22/2020 [facility] No known No known Disease Unive rs active active ity of problems problems [facility] [place] Allergies, Adverse Reactions, Alerts Allergy Allergy Status Severity Reaction(s) Onset Inactive Treating Comm ents Source Name Type Date Date Clinician CEPHALEX DRUG Active Hives 2017 IN INGREDI 07-07 Anderso 00:00: n 00 CEPHALEX DRUG Active Hives 2017- IN INGREDI 07-07 Anderso 00:00: n 00 CEPHALEX DRUG Active Hives 2017- IN INGREDI 07-07 Anderso 00:00: n 00 CEPHALEX DRUG Active Hives 2017- IN INGREDI 07-07 Anderso 00:00: n 00 CEPHALEX DRUG Active Hives 2017- IN INGREDI 07-07 Anderso 00:00: n 00 Cephalex Drug Active Hives 2017- Univers in Allergy 07-07 ity of 00:00: [place] 00 MD [facility] CEPHALEX DRUG Active Hives 2017- IN INGREDI [...] IN INGREDI 07-07 Anderso 00:00: n 00 Cephalex Propensi Active Hives 2017- Method i in ty to 07-07 st adverse 00:00: Hospita reaction 00 l s to drug CEPHALEX DRUG Active Hives 2017- MD IN INGREDI 07-07 Anderso 00:00: n 00 CEPHALEX DRUG Active Hives 2017- MD IN INGREDI 07-07 Anderso 00:00: n 00 CEPHALEX DRUG Active Hives 2017- MD IN INGREDI 07-07 Anderso 00:00: n 00 CEPHALEX DRUG Active Hives 2017- MD IN INGREDI 07-07 Anderso 00:00: n 00 CEPHALEX DRUG Active Hives 2017- MD IN INGREDI 07-07 Anderso 00:00: n 00 CEPHALEX DRUG Active Hives 2017- MD IN INGREDI 07-07 Anderso 00:00: n 00 CEPHALEX DRUG Active Hives 2017- MD IN INGREDI 07-07 Anderso 00:00: n 00 CEPHALEX DRUG Active Hives 2017- MD IN INGREDI 07-07 Anderso 00:00: n 00 CEPHALEX DRUG Active Hives 2017- MD IN INGREDI 07-07 Anderso 00:00: n 00 CEPHALEX DRUG Active Hives 2017- MD IN INGREDI 07-07 Anderso 00:00: n 00 CEPHALEX DRUG Active Hives 2017- MD IN INGREDI 07-07 Anderso 00:00: n 00 CEPHALEX DRUG Active Hives 2017- MD IN INGREDI 07-07 Anderso 00:00: n 00 CEPHALEX DRUG Active Hives 2017- MD IN INGREDI 07-07 Anderso 00:00: n 00 CEPHALEX DRUG Active Hives 2017- MD IN INGREDI 07-07 Anderso 00:00: n 00 CEPHALEX DRUG Active Hives 2017- MD IN INGREDI 07-07 Anderso 00:00: n 00 CEPHALEX DRUG Active Hives 2017- MD IN INGREDI 07-07 Anderso 00:00: n 00 CEPHALEX DRUG Active Hives 2017-1 MD IN INGREDI 07-07 Anderso 00:00: n 00 CEPHALEX DRUG Active Hives 2017- MD IN INGREDI 07-07 Anderso 00:00: n 00 CEPHALEX DRUG Active Hives 2017- MD IN INGREDI 07-07 Anderso 00:00: n 00 CEPHALEX DRUG Active Hives 2017- MD IN INGREDI 07-07 Anderso 00:00: n 00 CEPHALEX DRUG Active Hives 2017- MD IN INGREDI 07-07 Anderso 00:00: n 00 CEPHALEX DRUG Active Hives 2017- MD IN INGREDI 07-07 Anderso 00:00: n 00 CEPHALEX DRUG Active Hives 2017- MD IN INGREDI 07-07 Anderso 00:00: n 00 CEPHALEX DRUG Active Hives 2017- Univers IN INGREDI 07-07 ity of 00:00: [address] Keflex Keflex Active Memoria l [place] NO KNOWN Drug Active Univers ALLERGIE Class ity of S [facility] [place] Family History Family Member Diagnosis Comments Start Date Stop Date Source Maternal grandfather Lung cancer Uni [facility]ity [facility] [place] MD [facility] Maternal aunt Cancer [facility] Natural mother [facility] Natural father Prostate cancer [facility] [place] [facility] Social History Social Habit Start Date Stop Date Quantity Comments Source Gender identity [facility] Sexual orientation [facility] Hospital History SDOH University o f Alcohol Frequency [facility] History [facility] University o f Alcohol Std Drinks [facility] o f Alcohol Binge [place] [facility] Alcohol intake 2022-09-21 2022-09-21 Current drinker Metho dist 00:00:00 00:00:00 of [facility] (finding) History of Social 2022-09-21 2022-09-[address] function 00:00:00 00:00:00 Hospital Exposure to 2021-10-16 2021-10-26 Not sure University of SARS-CoV-2 (event) 00:00:00 10:08:00 [facility] [place] Alcohol Comment 2018-04-06 2018-04-06 1-2 drinks/month Met hodist 00:00:00 00:00:00 Hospital Social History 2018-03-15 2018-03-15 [facility] eliseo 15:31:41 15:31:41 Tobacco use and 2017-07-26 2017-07-26 Smokeless Yazdanism exposure 00:00:00 00:00:00 tobacco non-user Hospital Sex Assigned At [birth year] [facility] 00:00:00 00:00:00 Hospital Smoking Status Start Date Stop Date Source Unknown if ever smoked [facility] [place] [facility] Never smoked tobacco [facility] Medications Ordered Filled Start Stop Current Ordering Indication Dosage Frequency Signature Comments Components Source Medication Medication Date Date Medication? Clinician (SIG) Name Name ibuprofen 2021- No [id number] 800mg U nivers (IBU) 10-26 ity of tablet 800 16:45: 15:40 [place] mg 00 :00 Medical Branch ondansetron 2021- No [id number] 8mg Univers (ZOFRAN-ODT 10-26 ity of ) 16:45: 15:48 [place] disintegrat 00 :00 Medical ing tablet Branch 8 mg ondansetron 2021- No [id number] 8mg 8 mg, Univers (ZOFRAN-ODT 10-26 Oral, ity of ) 16:45: 15:48 ONCE, 1 [place] disintegrat 00 :00 dose, On Medi luis ing tablet [place] Branch 8 mg 10/26/21 at 1145, Routine ibuprofen 2021- No [id number] 800mg 800 mg, Univers (IBU) 10-26 Oral, ity of tablet 800 16:45: 15:40 ONCE, 1 [place] as mg 00 :00 dose, On Medical [place] [facility] 10/26/21 at 1145, Routine promethazin Yes [id number] 5mL Take 5 mL Univers e-dextromet 10-26 by mouth 4 it y of horphan 00:00: (four) [place] 6.25-15 00 times Medical mg/5 mL daily as Branch syrup needed for Cough. oseltamivir 2021- No [id number] 75mg Take 1 Univers (TAMIFLU) 10-26-30 capsule by ity of 75 mg 00:00: 04:59 mouth 2 [place] capsule 00 :00 (two) Medical times Branch daily for 5 days. ketoconazol Yes USE THREE M ethodi e (NIZORAL) 3-10 (3) TO 4 st 2 % shampoo 00:00: TIMES A Hos stacie 00 WEEK. l LEAVE ON FOR 5 MINS BEFORE RINSING. ketoconazol Yes USE THREE M ethodi e (NIZORAL) 3-10 (3) TO 4 st 2 % shampoo 00:00: TIMES A Hos stacie 00 WEEK. l LEAVE ON FOR 5 MINS BEFORE RINSING. No known No Univers medications 08-02 ity of 11:30: [address] No known No Univers medications 08-02 ity of 11:30: [address] ketoconazol Yes APPLY TO Me thodi e (NIZORAL) 1-[address] 2 % cream 00:00: AREA(S) ON Ho spita 00 THE FACE l TWICE A DAY. ketoconazol Yes APPLY TO Me thodi e (NIZORAL) 1-[address] 2 % cream 00:00: AREA(S) ON Ho spita 00 THE FACE l TWICE A DAY. fluocinonid 2020-07 Yes Q.5D 2 (two) Met hodi e (LIDEX) 2-[address] 0.05 % 00:00: day. Hospita cream 00 l fluocinonid 2020-07 Yes Q.5D 2 (two) Met hodi e (LIDEX) 2-[address] 0.05 % 00:00: day. Hospita cream 00 l traMADol 2020-07- No tramadol Meth cali (ULTRAM) 50 0- 10- [address] mg tablet 15:05: 00:00 tablet Hospi ta 29 :00 l tadalafil 2020-07- No 20mg QD Take 20 mg M [...] 00:00 daily. Hospita 58 :00 l loratadine 2020-07 No 10mg QD Take 10 mg Methodi (CLARITIN) 0-19 10-[address] 10 mg 15:04: 00:00 daily. Hospita tablet 23 :00 l relugolix Yes Take 3 Method i (Orgovyx) 7-[address] 120 mg 00:00: (360 mg) Hospita tablet 00 by mouth l for 1 day, then take 1 tablet (120 mg) once daily thereafter . relugolix Yes Take 3 Method i (Orgovyx) 7-[address] 120 mg 00:00: (360 mg) Hospita tablet 00 by mouth l for 1 day, then take 1 tablet (120 mg) once daily thereafter . relugolix 2021- No Personal Take 3 U nivers (Orgovyx) 01-1917 history of tablets ity of 120 mg 00:00: 00:00 other (360 mg) [place] tablet 00 :00 malignant by mouth neoplasm of for 1 day, An derso kidney then take n 1 tablet Cancer (120 mg) Center once daily thereafter . relugolix 2021- No Personal Take 3 U nivers (Orgovyx) 01-19 history of tablets ity of 120 mg 00:00: 00:00 other (360 mg) [place] tablet 00 :00 malignant by mouth neoplasm of for 1 day, An derso kidney then take n 1 tablet Cancer (120 mg) Center once daily thereafter . meloxicam 2020- No 15mg QD Take 1 Metho di (MOBIC) 15 01-17 tablet (15 st mg tablet 00:00: 00:00 mg total) Ho spita 00 :00 by mouth l daily. montelukast 2020- No TAKE ONE M ethodi (SINGULAIR) -04-22 (1) st 10 mg 00:00: 00:00 TABLET(S) Hospit a tablet 00 :00 BY MOUTH l ONCE A DAY. Immunizations Ordered Filled Immunization Date Status Comments [facility] Immunization Name Name Pfizer SARS-CoV-2 2020-08-31 Completed Univer sity of Vaccination (Purple 00:00:00 [place] [facility]) [facility] Pfizer SARS-CoV-2 2020-08-31 Completed Univer sity of Vaccination (Purple 00:00:00 [facility]) Cancer Center Pfizer SARS-CoV-2 2020-08-10 Completed Univer sity of Vaccination (Purple 00:00:00 [facility]) Cancer Center Pfizer SARS-CoV-2 2020-08-10 Completed Univer sity of Vaccination (Purple 00:00:00 [facility]) Cancer [place] Vital Signs Vital Name Observation Time Observation Value Comments Source Systolic blood 2021-10-26 128 mm[Hg] University of pressure 15:16:00 [facility] [place] Diastolic blood 2021-10-26 77 mm[Hg] University o f pressure 15:16:00 [facility] [place] Heart rate 2021-10-26 99 /min University 15:16:00 [facility] [place] Body temperature 2021-10-26 38.94 [place] University 15:16:00 [facility] [place] Respiratory rate 2021-10-26 16 /min University 15:16:00 [facility] [place] Body height 2021-10-26 170.2 cm University of 15:16:00 [facility] [place] Body weight 2021-10-26 80.74 kg University of 15:16:00 [facility] [place] BMI 2021-10-26 27.88 kg/m2 University of 15:16:00 [facility] [place] Oxygen saturation 2021-10-26 95 /min [facility] in Arterial blood 15:16:00 [facility] by Pulse oximetry [place] Systolic blood 2022-09-08 112 mm[Hg] University of pressure 17:41:27 [facility] Diastolic blood 2022-09-08 74 mm[Hg] University o f pressure 17:41:27 [facility] Heart rate 2022-09-08 63 /min University of 17:41:27 [facility] Body temperature 2022-09-08 36.39 [place] University of 17:41:27 [facility] Respiratory rate 2022-09-08 16 /min University of 17:41:27 [facility] Oxygen saturation 2022-09-08 96 /min [facility] in Arterial blood 17:41:27 [facility] by Pulse oximetry [facility] Body weight 2022-09-08 84.9 kg University of 17:31:00 [facility] BMI 2022-09-08 29.38 kg/m2 University of 17:31:00 [facility] Systolic blood 2021-12-19 125 mm[Hg] University of pressure 14:38:30 [facility] Diastolic blood 2021-12-19 61 mm[Hg] University o f pressure 14:38:30 [facility] Heart rate 2021-12-19 58 /min University 14:38:30 [facility] Body temperature 2021-12-19 36.61 [place] University 14:38:30 [facility] Respiratory rate 2021-12-19 16 /min University 14:38:30 [facility] Body weight 2021-12-19 84.5 kg University 14:33:00 [facility] BMI 2021-12-19 29.24 kg/m2 University 14:33:00 [facility] Oxygen saturation 2021-08-21 98 /min [facility] in Arterial blood 19:19:06 Elio THOMSON by Pulse oximetry [facility] Heart rate 2021-05-09 49 /min patient said he Yazdanism 17:31:00 has low HR Hospital Body temperature 2021-05-09 36.11 [place] [facility] 17:31:00 Hospital Respiratory rate 2021-05-09 18 /min [facility] 17:31:00 Hospital Body height 2021-05-09 170.2 cm [facility]ism 17:31:00 Hospital Body weight 2021-05-09 83.87 kg [facility]ism 17:31:00 Hospital BMI 2021-05-09 28.96 kg/m2 [facility] 17:31:00 Hospital Oxygen saturation 2021-05-09 97 /min Y[facility]ism in Arterial blood 17:31:00 Hospital by Pulse oximetry Systolic blood 2021-05-09 112 mm[Hg] [facility]ism pressure 17:31:00 Hospital Diastolic blood 2021-05-09 57 mm[Hg] [facility]ism pressure 17:31:00 Hospital Procedures Procedure Date / Time Performing Clinician Source Performed BLOOD UREA NITROGEN 2022-09-08 15:17:00 Karoline Foster [facility] SERUM CREATININE 2022-09-08 15:17:00 Karoline Foster [facility] THYROID STIMULATING 2022-09-08 15:17:00 KristinKaroline clements [facility] HORMONE [facility] er Center FREE THYROXINE 2022-09-08 15:17[facility]00 [facility] 2022-09-08 15:17:00 Kristin, Leah [facility] .GLOMERULAR FILTRATION 2022-09-08 15:17:00 Karoline Foster [facility] RATE [facility] XR CHEST 2 VW 2022-09-08 14:34:05 [facility]UE NEC[facility] W 2022-09-08 13:52:00 Karoline Foster [facility] CONTRAST [facility] POC CREATININE 2022-09-08 13:30:00 Kristin, [facility] PROSTATE SPECIFIC ANTIGEN 2022-09-02 17:28:00 [facility] [place] [facility] (PSA), TOTAL, ULTRASENSITIVE ZZPSA, POST-PROSTATECTOMY 2022-05-05 14:29:00 [facility] [place] [facility] CT SOFT TISSUE NECK W 2022-04-23 14:30:29 Kathy Rodriguez [facility] [place] [facility] POC CREATININE 2022-04-23 13:40:00 Kathy Rodriguez [facility] BLOOD UREA NITROGEN 2022-04-23 13:38:00 Kathy Rodriguez [facility] Center SERUM CREATININE 2022-04-23 13:38:00 Thai [facility] THYROID STIMULATING 2022-04-23 13:38:00 Kathy Rodriguez [facility] HORMONE [facility] Center FREE THYROXINE 2022-04-23 13:38:00 [facility] 2022-04-23 13:38:00 Thai [facility] .GLOMERULAR FILTRATION 2022-04-23 13:38:00 Kathy Rodriguez [facility] RATE [facility] er Center PSA, POST-PROSTATECTOMY 2022-01-02 15:32:00 Jesus Hernandez [facility] [place] [facility] [place] MODIFIED BARIUM 2021-12-19 16:32:03 [facility]ECH Sandra THOMSON [facility] CT SOFT TISSUE NECK W 2021-12-19 13:26:37 Karlos [facility] CONTRAST Kalli [facility] XR CHEST 2 VW 2021-12-19 12:10[facility]EN 2021-12-19 11:53:00 [facility] 2021-12-19 11:53:[facility] 2021-12-19 11:53[facility] Center FREE THYROXINE 2021-12-19 11:53:00 [facility] 2021-12-19 11:53:00 [facility] .GLOM[facility] FILTRATION 2021-12-19 11:53:00 Pino [facility] POCT MOLECULAR FLU 2021-10-26 15:23:00 Kian Conner [facility] PSA, POST-PROSTATECTOMY 2021-09-15 15:57:00 Jesus Hernandez [facility] [place] [facility] CT SOFT TISSUE NECK W 2021-08-21 18:48:00 Rupesh Younger [facility] CONTRAST Danial THOMSON [facility] Center BLOOD UREA NITROGEN 2021-08-14 16:15:00 Rupesh Younger [facility] Danial THOMSON [facility] Center SERUM CREATININE 2021-08-14 16:15:00 Rupesh Younger [facility] Danial THOMSON [facility] THYROID STIMULATING 2021-08-14 16:15:00 Rupesh Younger [facility] HORMONE Danial [facility] Center FREE THYROXINE 2021-08-14 16:15:00 Aren [facility] Danial [facility] SERUM CREATININE 2021-08-14 16:15:00 Collette Aleman [facility] .GLOMERULAR FILTRATION 2021-08-14 16:15:00 Collette Aleman [facility] [place] [facility] RATE [facility] PSA, POST-PROSTATECTOMY 2021-07-14 15:03:00 Jesus Hernandez [facility] RAD ONC COURSE SUMMARY 2021-05-15 22:10:45 Provider, Unknown [facility] RAD ONC DAILY TREATMENT 2021-05-14 18:25:33 Provider, Unknown [facility] RAD ONC DAILY TREATMENT 2021-05-12 21:21:23 Provider, Unknown [facility] RAD ONC DAILY TREATMENT 2021-05-09 17:07:23 Provider, Unknown [facility] SERUM CREATININE 2021-04-11 13:19:00 Karoline Foster [facility] .GLOMERULAR FILTRATION 2021-04-11 13:19:00 Karoline Foster [facility] BLOOD UREA NITROGEN 2021-04-11 13:19:00 Karoline Foster [facility] SERUM CREATININE 2021-04-11 13:19:00 Karoline Foster [facility] THYROID STIMULATING 2021-04-11 13:19:00 Karoline Foster [facility] HORMONE [facility] FREE THYROXINE 2021-04-11 13:19:00 Karoline Foster [facility] CT SOFT TISSUE NECK W 2021-04-11 12:45:58 Karoline Foster [facility] CONTRAST [facility] Center POC CREATININE 2021-04-11 12:14:00 Karoline Foster [facility] PSA, POST-PROSTATECTOMY 2021-04-03 16:13:00 Jesus Hernandez [facility] Plan of Care Planned Activity Planned Date Details Comments Source Future Scheduled 2022-11-30 Hepatitis C screening [facility] Test 16:57:39 (procedure) [code = [id number]] Future Scheduled 2022-11-30 SHINGLES VACCINES (1 Met [facility] Test 16:57:39 of 2) [code = SHINGLES VACCINES (1 of 2)] Future Scheduled 2022-11-30 COLONOSCOPY SCREENING [facility] Test 16:57:39 [code = COLONOSCOPY SCREENING] Future Scheduled 2022-11-30 COVID-19 VACCINE (3 - [facility] Test 16:57:39 Pfizer risk series) [code = COVID-19 VACCINE (3 - Pfizer risk series)] Future Scheduled 2022-11-30 INFLUENZA VACCINE Method [facility] Test 16:57:39 [code = INFLUENZA VACCINE] Future Scheduled 2022-11-27 COVID-19 Vaccination [facility] [place] Test 07:58:53 (3 - Pfizer series) [facility] [code = COVID-19 Center Vaccination (3 - Pfizer series)] Future Scheduled 2022-03-05 HEPATITIS B VACCINES Met [facility] Test 11:56:57 (1 of 3 - 3-dose series) [code = HEPATITIS B VACCINES (1 of 3 - 3-dose series)] Future Scheduled 2022-03-05 [facility]atitis C screening [facility] [facility] Test 11:56:57 (procedure) [code = 841995654] Future Scheduled 2022-03-05 SHINGLES VACCINES (1 Met [place] [facility] Test 11:56:57 of 2) [code = SHINGLES VACCINES (1 of 2)] Future Scheduled 2022-03-05 COLONOSCOPY SCREENING [facility] Test 11:56:57 [code = COLONOSCOPY SCREENING] Future Scheduled 2022-03-05 COVID-19 VACCINE (3 - [facility] Test 11:56:57 Pfizer risk series) [code = COVID-19 VACCINE (3 - Pfizer risk series)] Future Scheduled 2022-03-05 INFLUENZA VACCINE Method [facility] Test 11:56:57 [code = INFLUENZA VACCINE] Future Scheduled 2022-02-13 COVID-19 Vaccination [facility] [place] Test 16:00:54 (3 - Pfizer risk Doe Cancer series) [code = Center COVID-19 Vaccination (3 - Pfizer risk series)] Encounters Start End Encounter Admission Attending Care Care Encounter Source Date/Time Date/Time Type Type Clinicians Facility Department ID 2021-01-08 Outpatient SYSTEM, TREMAYNE CASPER [id number] 14:40:36 PROVIDER Efrem greenwood 2020-02-26 Outpatient SYSTEM, TREMAYNE CASPER [id number] 11:27:36 PROVIDER Efrem greenwood 2022-09-21 2022-09-21 Office [place], 2.840.1 [id number] Methodi 11:00:00 12:46:14 Visit Jesus Mendoza 57762.1.[address] [facility] 3.430.2.7 Hospit a .3.300029 steff .8 2022-09-21 2022-09-21 Outpatient [facility] [id number] [address] [place] [address] 00:00:00 00:00:00 JESUS Whitney Method i 2022-09-08 2022-09-08 [facility], 1.2.840.1 [id number] [facility] 11:26:37 23:59:00 Encounter Collette Cope 92402.1.1 it y of 3.412.2.7 [place] .3.434888 .8 [facility] [place] 2022-09-08 2022-09-08 Outpatient FERNANDO ALEMAN MDA MDA [id number] 11:26:37 23:59:00 COLLETTE greenwood 2022-09-08 2022-09-08 [facility] Kristin, 1.2.840.1 [id number] [facility] 09:00:48 11:25:00 Encounter Karoline Cope 61333.1.1 it y of 3.412.2.7 [place] .3.102871 .8 [facility] [place] 2022-09-08 2022-09-08 Outpatient FERNANDO FOSTER MDA MDA [id number] 09:00:48 11:25:00 KAROLINE [place] 2022-09-08 2022-09-08 [facility] Kristin, 1.2.840.1 [id number] [facility] 09:00:00 09:15:00 Procedure Karoline Cope 11167.1.1 it y of 3.412.2.7 [place] .3.420446 MD Argueta8 [facility] 2022-09-08 2022-09-08 [facility] Kristin, 1.2.840.1 [id number] [id number] [facility] 06:08:57 08:59:00 Encounter Karoline Cope 41713.1.1 it y of 3.412.2.7 [place] .3.324143 MD Argueta8 [facility] 2022-09-08 2022-09-08 Outpatient EL KRISTIN, MDA MDA [id number] 06:08:57 08:59:00 [facility] 2022-09-08 2022-09-08 Outpatient EL KRISTIN, [facility] [id number] 08:07:27 08:07:27 [facility] 2022-09-08 2022-09-08 Travel 1.2.840.1 1.2.844.353 [id number] Univers 00:00:00 00:00:00 75737.1.1 350.1.13.41 ity of 3.412.2.7 2.[place]7.3.698 [place] .3.175312 084.8 MD Argueta8 [facility] 2022-05-12 2022-05-12 [facility] Res[place], 1.2.840.1 [id number] Methodi 00:00:00 00:00:00 Only Beverly 34809.1.[address] 3.430.2.7 Hospit a .3.229954 l .8 2022-04-30 2022-04-30 Orders Kristin, 1.2.840.1 [id number] Univers 00:00:00 00:00:00 Only Karoline Cope 03225.1.1 ity of 3.412.2.7 [place] .3.021719 MD Argueta8 [facility] 2022-04-23 2022-04-23 [facility], 1.2.840.1 [id number] [id number] [facility] 10:12:43 23:59:00 Encounter Paola 40469.1.1 it y of 3.412.2.7 [place] .3.915622 .8 [facility] 2022-04-23 2022-04-23 Outpatient FERNANDO MANZANARES MDA [facility] [id number] 10:12:43 23:59:00 PAOLA Efrem colby [place] 2022-04-23 2022-04-23 [facility] Rodriguez Kathy 1.2.840.1 [id number] 1 [id number] [facility] 07:45:00 10:11:00 Encounter 00282.1.1 it y of 3.412.2.7 [place] .3.112407 MD Argueta8 [facility] 2022-04-23 2022-04-23 Outpatient JACKI RODRIGUEZLL [facility] [id number] 07:45:00 10:11:00 Efrem colby [place] 2022-04-23 2022-04-23 [facility] Kathy Rodriguez 1.2.840.1 [id number] [facility] 08:10:00 09:35:00 Procedure 65173.1.1 it y of 3.412.2.7 [place] .3.785960 MD Argueta8 [facility] 2022-04-23 2022-04-23 Outpatient JACKI RODRIGUEZLL [facility] [id number] 08:08:32 08:08:32 Efrem colby [place] 2022-04-23 2022-04-23 Travel 1.2.840.1 1.2.643.290 5217 [id number] [facility] 00:00:00 00:00:00 40641.1.1 350.1.13.41 ity of 3.412.2.7 [place].7.3.698 [place] .3.869479 084.8 .8 [facility] 2022-04-20 2022-04-20 Orders Kristin, 1.2.840.1 [id number] Univers 00:00:00 00:00:00 Only Karoline Cope 21681.1.1 ity of 3.412.2.7 [place] .3.112847 MD Argueta8 [facility] 2022-01-19 2022-01-19 Orders Resendez, 1.2.840.1 [id number] Methodi 00:00:00 00:00:00 Only Beverly 55051.1.[address] 3.430.2.7 Hospit a .3.303336 l .8 2022-01-19 2022-01-19 Orders Resendez, 1.2.840.1 [id number] Methodi 00:00:00 00:00:00 Only [place] 61250.1.[address] 3.430.2.7 Hospit a .3.812084 l .8 2022-01-16 2022-01-16 Orders Resendez, 1.2.840.1 [id number] 07199 Methodi 00:00:00 00:00:00 Only Beverly 76033.1.[address] 3.430.2.7 Hospit a .3.225802 l .8 2022-01-16 2022-01-16 Orders Resendez, 1.2.840.1 [id number] 32777 Methodi 00:00:00 00:00:00 Only Beverly 46124.1.[address] 3.430.2.7 Hospit a .3.572728 l .8 2022-01-15 2022-01-15 Telephone Miles, 1.2.840.1 [id number] 2099 [id number] Methodi 00:00:00 00:00:00 [address]346.1.[address] 3.430.2.7 Hospit a .3.780327 l .8 2022-01-15 2022-01-15 Telephone [place], 1.2.840.1 [id number] 2099 [id number] Methodi 00:00:00 00:00:00 [address] Mendoza [address]252.1.[address] 3.430.2.7 Hospit a .3.051776 l .8 2022-01-02 2022-01-02 Telephone Miles, 1.2.840.1 [id number] 2099 [id number] Methodi 00:00:00 00:00:00 Jesus Mendoza 56760.1.[address] 3.430.2.7 Hospit a .3.267448 l .8 2022-01-02 2022-01-02 [place] Corbin, 1.2.840.1 [id number] 2100 [id number] Method 00:00:00 00:00:[address]273.1.[address] 3.430.2.7 Hospit a .3.096166 l .8 2021-12-19 2021-12-19 [facility] Collette Aleman 1.2.840.1 [id number] Univers 11:00:35 23:59:00 Encounter Linda De Santiago 03302.1.1 ity of 3.412.2.7 [place] .3Ellie917299 MD Argueta8 [facility] 2021-12-19 2021-12-19 [facility] Collette Aleman 1.2.840.1 [id number] Univers 11:00:35 23:59:00 Encounter Linda De Santiago 64137.1.1 ity of 3.412.2.7 [place] .3.819840 MD Argueta8 [facility] 2021-12-19 2021-12-19 [facility] Ash, 1.2.840.1 [id number] Univers 08:59:54 10:59:00 Encounter Collette Cope 05647.1.1 it y of 3.412.2.7 [place] .3.133967 MD Fernandez [facility] 2021-12-19 2021-12-19 [facility] Ash 1.2.840.1 [id number] Univers 08:59:54 10:59:00 Encounter Collette Prisca 69673.1.1 it y of 3.412.2.7 [place] .3.077037 MD Fernandez [facility] 2021-12-19 2021-12-19 Ancillary Karlos 1.2.840.1 [id number] Univers 07:45:00 09:10:00 Procedure Kalli 94541.1.1 ity of 3.412.2.7 [place] .3Ellie976574 MD Fernandez [facility] 2021-12-19 2021-12-19 Ancillary Karlos, 1.2.840.1 [id number] Univers 07:45:00 09:10:00 Procedure Kalli 98029.1.1 ity of 3.412.2.7 [place] .3.906854 MD Fernandez [facility] 2021-12-19 2021-12-19 [facility] Timarmando, 1.2.840.1 [id number] 1 [id number] Univers 06:45:52 08:58:00 Encounter Kalli 24990.1.1 ity of 3.412.2.7 [place] .3.199571 MD Fernandez [facility] 2021-12-19 2021-12-19 [facility] Timarmando, 1.2.840.1 [id number] 1 [id number] Univers 06:45:52 08:58:00 Encounter Kalli 96126.1.1 ity of 3.412.2.7 [place] .3.106283 MD Fernandez [facility] 2021-12-19 2021-12-19 [facility] Karlos, 1.2.840.1 [id number] Univers 07:30:00 07:45:00 Procedure Kalli 73595.1.1 ity of 3.412.2.7 [place] .3.450544 MD Fernandez [facility] 2021-12-19 2021-12-19 [facility] Karlos, 1.2.840.1 [id number] Univers 07:30:00 07:45:00 Procedure Kalli 31860.1.1 ity of 3.412.2.7 [place] .3.432054 MD Fernandez [facility] 2021-12-19 2021-12-19 Travel 1.2.840.1 1.2.118.105 5740 [id number] Univers 00:00:00 00:00:00 60083.1.1 350.1.13.41 ity of 3.412.2.7 2.2.7.3.698 [place] .3.127135 084.8 MD Fernandez [facility] 2021-12-19 2021-12-19 Travel 1.2.840.1 1.2.574.661 2752 [id number] Univers 00:00:00 00:00:00 76625.1.1 350.1.13.41 ity of 3.412.2.7 2.2.7.3.698 [place] .3.751490 084.8 .8 [facility] 2021-10-26 2021-10-26 Outpatient R DALILA [facility] [id number] Univers 10:00:00 10:45:50 KIAN ity of [facility] [place] 2021-10-26 2021-10-26 Urgent Zee Woody [facility] 1.2.840.11 4 [id number] Univers 10:00:00 10:45:50 [facility] 350.1.13.10 ity of [place] 4.2.7.2.686 Kelby as ETTA?BLEA [phone] [address] MEDICAL OFFICE BUILDING 2021-09-22 2021-09-22 Office Miles, 1.2.840.1 [id number] [id number] Methodi 11:30:00 12:25:11 Visit Jesus Mendoza 20186.1.[address] 3.430.2.7 Hospit a .3.246062 l .8 2021-09-22 2021-09-22 Travel 1.2.840.1 1.2.499.699 2692 [id number] Methodi 00:00:00 00:00:[address] 3.430.2.7 0.2.7.3.698 Ho spita .3.191892 084.8 l .8 2021-09-19 2021-09-19 Orders Oli 1.2.840.1 [id number] 10 [id number] Univers 00:00:00 00:00:00 Only Sandra phipps 83633.1.1 ity of 3.412.2.7 [place] .3.284070 .8 [facility] 2021-08-21 2021-08-21 Hospital [place], 1.2.840.1 [id number] 1089 [id number] Univers 13:13:59 23:59:00 Encounter Paola 26615.1.1 it y of 3.412.2.7 [place] .3.774573 MD Fernandez [facility] 2021-08-21 2021-08-21 [facility], 1.2.840.1 [id number] 01505 Univers 11:20:00 13:12:00 Encounter Collette Cope 77947.1.1 it y of 3.412.2.7 [place] .3.269281 MD Fernandez [facility] 2021-08-21 2021-08-21 Orders Merna, 1.2.840.1 [id number] Univers 00:00:00 00:00:00 Only Juan M 30580.1.1 ity of [place] 3.412.2.7 [place] .3.243002 MD Fernandez [facility] 2021-08-21 2021-08-21 Orders Karols, 1.2.840.1 [id number] 10 [id number] Univers 00:00:00 00:00:00 Only Kalli 32722.1.1 it y of 3.412.2.7 [place] .3.537659 MD Fernandez [facility] 2021-08-21 2021-08-21 Orders Itzel, 1.2.840.1 [id number] 1089 [id number] Univers 00:00:00 00:00:00 Only Ascencion Kuhn 03047.1.1 ity of 3.412.2.7 [place] .3.481809 MD Fernandez [facility] 2021-08-21 2021-08-21 Travel 1.2.840.1 1.2.352.597 1600 [id number] Univers 00:00:00 00:00:00 53269.1.1 350.1.13.41 ity of 3.412.2.7 2.2.7.3.698 [place] .3.632243 084.8 MD Fernandez [facility] 2021-08-15 2021-08-15 Orders Timelliottclaudia, 1.2.840.1 [id number] 10 [id number] Univers 00:00:00 00:00:00 Only Kalli 57706.1.1 it y of 3.412.2.7 [place] .3.100041 MD Argueta8 [facility] 2021-08-15 2021-08-15 Orders Timelliottclaudia, 1.2.840.1 [id number] 10 [id number] Univers 00:00:00 00:00:00 Only Kalli 53372.1.1 it y of 3.412.2.7 [place] .3.976586 MD Argueta8 [facility] 2021-08-14 2021-08-14 [facility] 1.2.840.1 [id number] [id number] Univers 09:45:00 23:59:00 Encounter 87309.1.1 it y of 3.412.2.7 [place] .3.005573 MD Argueta8 [facility] 2021-08-14 2021-08-14 Telephone [facility], 1.2.840.1 [id number] 1089 [id number] Univers 00:00:00 00:00:00 Mcintosh 34466.1.1 i ty of D 3.412.2.7 [place] .3.848490 MD Argueta8 [facility] 2021-08-14 2021-08-14 Travel 1.2.840.1 1.2.507.534 8801 [id number] Univers 00:00:00 00:00:00 26701.1.1 350.1.13.41 ity of 3.412.2.7 2.2.7.3.698 [place] .3.581812 084.8 MD Argueta8 [facility] 2021-08-12 2021-08-12 [facility] Danial Kline 1.2.840.1 81409 1011 [id number] Methodi 09:24:26 09:58:12 Chantelle So 10162.1.[address] 3.430.2.7 Hospit a .3.321018 steff .8 2021-08-11 2021-08-11 Telephone Raisa, 1.2.840.1 [id number] 2100 [id number] Methodi 00:00:00 00:00:[address] Danial [address]353.1.[address] 3.430.2.7 Hospit a .3.683480 l .8 2021-08-08 2021-08-08 Orders Karlos, 1.2.840.1 [id number] 10 [id number] Univers 00:00:00 00:00:00 Only Kalli 71974.1.1 it y of 3.412.2.7 [place] .3.854759 MD .8 [facility] 2021-08-05 2021-08-05 Hospital Raisa, 1.2.840.1 [id number] 56205 Methodi 07:30:00 23:59:00 Encounter Danial Dboson 22599.1.[address] 3.430.2.7 Hospit a .3.774575 l .8 2021-08-03 2021-08-03 Telephone LEONARDO Peguero 1.2.840.114 [id number] Univers 00:00:00 00:00:00 Francisco GARCIA 350.1.13.10 it y of HOSPITAL 4.2.7.2.686 [place] as [phone] [address] 2021-08-02 2021-08-02 Outpatient R CUCO [facility] [id number] Univers 11:15:00 11:32:04 MANJEET ity of [facility] [place] 2021-08-02 2021-08-02 Laboratory Only, Ang Db Test [facility] 1.2.8 40.114 [id number] Univers 11:15:00 11:30:00 Only [facility] 350.1.13.10 ity of [place] 4.2.7.2.686 Kelby as ETTA?BLEA [phone] Nd alexsandra[address] MEDICAL OFFICE BUILDING 2021-08-02 2021-08-02 Letter Doctor LEONARDO 1.2.840.114 [id number] Univers 00:00:00 00:00:00 (Out) UnassignedRADHA 350.1.13.10 ity of [place] [facility] 4.2.7.2.686 Kelby as [phone] [place] [address] [place] 2021-08-02 2021-08-02 Letter Doctor LEONARDO 1.2.840.114 [id number] Univers 00:00:00 00:00:00 (Out) Unassigned, RADHA 350.1.13.10 ity of [place] [facility] 4.2.7.2.686 Kelby as [phone] [place] [address] [place] 2021-08-01 2021-08-01 Travel 1.2.840.1 1.2.199.854 7456 [id number] Methodi 00:00:00 00:00:[address] 3.430.2.7 0.2.7.3.698 Ho spita .3.507405 084.8 l .8 2021-07-14 2021-07-14 Telephone Miles, 1.2.840.1 [id number] 2099 [id number] Methodi 00:00:00 00:00:00 Jesus Mendoza 14865.1.[address] 3.430.2.7 Hospit a .3.090253 l .8 2021-07-07 2021-07-07 Telephone Ann, 1.2.840.1 [id number] 2099 [id number] Methodi 00:00:00 00:00:[address] 3.430.2.7 Hospit a .3.837022 l .8 2021-05-14 2021-05-[address] [facility], 1.2.840.1 [id number] 97363 33886 Methodi 12:06:51 12:25:30 Encounter Amelia 37962.1.[address] Joe 3.430.2.7 Hospit a .3.699342 l .8 2021-05-14 2021-05-14 Orders Provider, 1.2.840.1 [id number] 2099 [id number] Methodi 00:00:00 00:00:00 Only Unknown 45318.1.[address] 3.430.2.7 Hospit a .3.574165 l .8 2021-05-14 2021-05-14 Travel 1.2.840.1 1.2.334.808 7922 401544 Methodi 00:00:00 00:00:[address] 3.430.2.7 0.2.7.3.698 Ho spita .3.858392 084.8 l .8 2021-05-12 2021-05-12 Orders Provider, 1.2.840.1 [id number] 2099 [id number] Methodi 00:00:00 00:00:00 Only Unknown 39915.1.[address] 3.430.2.7 Hospit a .3.818081 l .8 2021-05-09 [facility] 1.2.840.1 50570 1011 [id number] Methodi 11:40:53 16:11:18 Encounter Kendra Brandon 40161.1.[address] 3.430.2.7 Hospit a .3.495768 l .8 2021-05-09 2021-05-09 Orders Provider, 1.2.840.1 [id number] 2099 [id number] Methodi 00:00:00 00:00:00 Only Unknown 29809.1.[address] 3.430.2.7 Hospit a .3.624238 l .8 2021-05-09 2021-05-09 Travel 1.2.840.1 1.2.078.642 2162 387184 Methodi 00:00:00 00:00:[address] 3.430.2.7 0.2.7.3.698 Ho spita .3.533523 084.8 l .8 2021-05-05 2021-05-05 [facility], 1.2.840.1 [id number] 75031 Methodi 01:00:00 09:38:47 Di Dobson 30638.1.[address] 3.430.2.7 Hospit a .3.387006 l .8 2021-05-01 2021-05-01 Hospital Danial Kline.2.840.1 15215 1011 [id number] Methodi 13:45:00 15:19:16 Encounter Lewis Hilton 05592.1.[address] 3.430.2.7 Hospit a .3.644082 l .8 2021-05-01 2021-05-01 Hospital [facility], 1.2.840.1 [id number] 21001 17798 Methodi 14:00:00 15:07:03 Encounter Danial Dobson 66713.1.[address] 3.430.2.7 Hospit a .3.426029 l .8 2021-05-01 2021-05-01 Travel 1.2.840.1 1.2.477.761 7544 [id number] Methodi 00:00:00 00:00:[address] 3.430.2.7 0.2.7.3.698 Ho spita .3.903207 084.8 l .8 2021-04-30 2021-04-30 [facility], 1.2.840.1 [id number] 2100 456117 Methodi 00:00:00 00:00:[address].1.[address] 3.430.2.7 Hospit a .3.383186 l .8 2021-04-23 2021-04-23 Travel 1.2.840.1 1.2.727.605 0832 179108 Methodi 00:00:00 00:00:[address] 3.430.2.7 0.2.7.3.698 Ho spita .3.699036 084.8 l .8 2021-04-22 2021-04-22 [facility] Jesus Hernandez 1.2.840.1 [id number] 11 [id number] Methodi 11:13:41 11:42:27 Encounter Danial Kline 45210.1.[address] [facility] 3.430.2.7 Hospita .3.834861 l .8 2021-04-22 [facility] 1.2.840.1 [id number] 64349 21235 Methodi 01:00:00 09:41:51 Encounter Danial Dobson 22095.1.[address] 3.430.2.7 Hospit a .3.789463 l .8 2021-04-07 2021-04-21 Office [place], 1.2.840.1 [id number] 5256 Methodi 09:00:00 00:21:22 Visit Jesus Mendoza 63413.1.[address] 3.430.2.7 Hospit a .3.013044 l .8 2021-04-21 2021-04-21 Telephone [facility], 1.2.840.1 [id number] 2100 [id number] Methodi 00:00:00 00:00:[address] Dob[address].1.[address] 3.430.2.7 Hospit a .3.730304 l .8 2021-04-15 2021-04-15 Travel 1.2.840.1 1.2.392.360 4533 075384 Methodi 00:00:00 00:00:[address] 3.430.2.7 0.2.7.3.698 Ho spita .3.156565 084.8 l .8 2021-04-11 2021-04-11 [facility], 1.2.840.1 [id number] 51578 07105 Univers 08:52:29 23:59:00 Encounter Collette Cope 85729.1.1 it y of 3.412.2.7 [place] .3.037080 MD Fernandez [facility] [place] 2021-04-11 2021-04-11 [facility], 1.2.840.1 [id number] 1081 759115 Univers 07:53:42 08:51:00 Encounter Karoline Cope 17016.1.1 it y of 3.412.2.7 [place] .3.799482 MD Argueta8 [facility] [place] 2021-04-11 2021-04-11 [facility], 1.2.840.1 [id number] 1082 [id number] [facility] 06:40:00 07:52:00 Encounter Karoline Cope 43605.1.1 it y of 3.412.2.7 [place] .3.231370 .8 [facility] 2021-04-11 2021-04-11 Travel 1.2.840.1 1.2.396.793 7775 477556 [facility] 00:00:00 00:00:00 71417.1.1 350.1.13.41 ity of 3.412.2.7 2.[place].7.3.698 [place] .3.727955 084.8 .8 [facility] 2021-04-07 2021-04-07 Travel 1.2.840.1 1.2.748.773 3332 178282 Methodi 00:00:00 00:00:[address] 3.430.2.7 0.2.7.3.698 Ho spita .3.695371 084.8 l .8 2021-04-01 2021-04-01 Orders Judah, 1.2.840.1 [id number] 173863 2672 Methodi 00:00:00 00:00:00 Only Vanessa 85750.1.[address] 3.430.2.7 Hospit a .3.883720 l .8 2021-04-01 2021-04-01 Orders Judah, 1.2.840.1 [id number] 074127 5621 Methodi 00:00:00 00:00:00 Only Vanessa 78702.1.[address] 3.430.2.7 Hospit a .3.894528 l .8 2021-04-01 2021-04-01 Telephone [place], 1.2.840.1 [id number] 2099 073097 Methodi 00:00:00 00:00:00 Jesus Mendoza 70520.1.[address] 3.430.2.7 Hospit a .3.684199 l .8 2021-03-25 2021-03-25 Clinical 1.2.840.1 [id number] 31807 00900 Methodi 08:40:00 09:00:[address] 3.430.2.7 Hospit a .3.206401 l .8 2021-03-25 2021-03-25 Travel 1.2.840.1 1.2.036.397 1432 339635 Methodi 00:00:00 00:00:[address] 3.430.2.7 0.2.7.3.698 Ho spita .3.207690 084.8 l .8 2021-01-28 2021-01-28 Outpatient [facility] [id number] [place] 00:00:00 00:00:00 JESUS [address] 2021-01-20 2021-01-20 Outpatient FERNANDO MATT, MDA MDA [id number] 10:35:16 10:35:16 WHIT [place] 2021-01-16 2021-01-16 Outpatient FERNANDO RINCON, MDA MDA [id number] 11:39:18 11:39:18 ZEE [place] 2021-01-16 2021-01-16 Outpatient EL KAINDevyn, MDA MDA [id number] 11:39:17 11:39:17 ZEE [place] 2021-01-09 2021-01-09 Outpatient FERNANDO DAVIDColby, MDA MDA [id number] 14:56:37 23:59:00 PAOLA [place] 2021-01-03 2021-01-03 Outpatient FERNANDO ALEMAN, MDA MDA [id number] 09:08:10 23:59:00 COLLETTE [place] 2021-01-03 2021-01-03 Outpatient FERNANDO MATT, MDA MDA [id number] 10:24:16 13:18:56 WHIT [place] 2021-01-03 2021-01-03 Outpatient EL KAINT, MDA MDA [id number] 06:24:53 09:07:00 ZEE [place] 2021-01-03 2021-01-03 Outpatient FERNANDO KAINDevyn, MDA MDA [id number] 06:15:00 06:23:00 ZEE [place] 2020-12-24 2020-12-24 Outpatient CORBIN, [facility] [id number] [place] 00:00:00 00:00:00 JESUS [address] 2020-11-19 2020-11-19 Outpatient CORBIN [facility] [id number] [place] 00:00:00 00:00:00 JESUS [address] 2020-11-19 2020-11-19 Outpatient CORBIN [facility] [id number] 271 [place] 00:00:00 00:00:00 JESUS [address] 2020-11-19 2020-11-19 Outpatient CORBIN, [facility] [id number] [place] 00:00:00 00:00:00 JESUS [address] 2020-10-10 2020-10-10 Outpatient FERNANDO DENNIS MDA MDA [id number] 10:11:21 10:11:21 SANDRA Phipps 2020-10-10 2020-10-10 Outpatient FERNANDO DENNIS MDA MDA [id number] 08:07:32 08:07:32 RSANDRA 2020-09-19 2020-09-19 Outpatient FERNANDO KUHN MDA MDA [id number] 07:36:22 07:36:22 MARK [place] 2020-03-26 2020-03-26 Outpatient FERNANDO ALEMAN MDA MDA [id number] 15:05:59 16:16:00 COLLETTE [place] 2020-03-20 2020-03-20 Ambulatory nullFlavo MNA [id number] Mem[facility] 14:15:00 14:15:00 Pre-Reg r Neurology 03 l Jose R Hi 2020-03-20 2020-03-20 Ambulatory nullFlavo MNA [id number] [facility] 14:15:00 14:15:00 Pre-Reg r Neurology 03 l Jose R Do 2020-03-20 2020-03-20 Outpatient MHIE KLAUSIE [id number] [place] 09:15:00 09:15:00 03 steff Do 2020-03-20 2020-03-20 Outpatient MATT Canela [id number] 09:15:00 09:15:00 Jhonathan Baez 2020-03-18 2020-03-18 Outpatient [facility] [id number] [place] 00:00:00 00:00:00 JESUS [address] 2019-06-30 2019-06-30 Outpatient 3 Anselmo Santo [facility] ROF 1 [id number] . 14:17:00 14:17:00 Anselmo Santo [facility] 2018-07-09 2018-07-11 Outside nullFlavo MNA [id number] [place] 15:39:00 05:59:59 Medical r Neurology 00 l Records Jose R Hi 2018-07-09 2018-07-11 Outside nullFlavo MNA [id number] [place] 15:39:00 05:59:59 Medical r Neurology 00 l [place] 2018-07-09 2018-07-10 Outpatient MHMISCHER MHMISCHER [id number] 09:39:00 23:59:59 00 2018-06-22 2018-06-22 Ambulatory nullFlavo MNA [id number] Memoria 15:15:00 15:15:00 Pre-Reg r Neurology 02 l [place] 2018-06-22 2018-06-22 Ambulatory nullFlavo MNA [id number] Mem[facility] 15:15:00 15:15:00 Pre-Reg r Neurology 02 l Jose R Do 2018-06-22 2018-06-22 Outpatient MHIE MHIE [id number] [place] 09:15:00 09:15:00 02 steff Do 2018-06-22 2018-06-22 Outpatient MATT CanelaMISCHCLAUDIA [id number] 09:15:00 09:15:00 Jhonathan Baez 2018-03-23 2018-03-23 Outpatient MHIE MHIE [id number] Memoria 08:15:00 08:15:00 01 steff Do 2018-03-23 2018-03-23 Outpatient MHIE MHIE [id number] Memoria 08:15:00 08:15:00 01 steff Do 2018-03-15 2018-03-15 Outpatient MHIE MHIE [id number] Memoria 09:45:00 09:45:00 00 steff Do 2018-03-15 2018-03-15 Outpatient MHIE MHIE [id number] Memoria 09:45:00 09:45:00 00 l [place] Results Test Description Test Time Test Comments Results Result Comments Source TSH 2022-09-08 16:40:38 Test Item Value Reference Range Interpretation Comme nts TSH (test code = 99921-9) 2.97 See_Comment [ Automated message] The system which generated this result transmitted reference range : 0.27 - 4.20 mcunit/mL. The reference r josue was not used to interpret this result as normal/abnormal . [id number] 16:40:37 Test Item Value Reference Range Interpretation Comments T4 Free (test code = 3024-7) 0.90 ng/dL 0.93-1.70 L Lab Interpretation (test code = Abnormal 11550-2) [facility] 2022-09-08 16:35:39 Test Item Value Reference Range Interpretation Comments eGFR (test code = 72 See_Comment The eGFRcr is calculated with 86211-3) the 2020 CKD-EP I creatinine equation using creatinine, patient's age, and sex for adults 18 years of age and older. Other fa ctors, especially musc le mass, may affect accuracy and need to be considered.A ccording to the Kidney Dise ase: Improving Global Outcomes (KDIGO) CKD Work Group 2012 Clinical Practice Guidel ine, chronic kidney disease (CKD) is defined as the abnormalities of kidney struc ture or function, prese nt for more than 3 months, with implications fo r health. CKD should be class ified by cause, GFR ashley gory, and albuminuria cat egory. KDIGO guidelines prov keely the following GFR c ategoriesStage Description GFR mL/min/1.73 m2G1* Normal or high >= 90G2* Mildly decrease d 60-89G3a Mildly to moder ately decreased 45-59 G3b Moderately to severely dec reased 30-44G4 Severely decrea sed 15-29G5 Kidney failure <15*In the absence of evid ence of kidney damage, neither G1 nor G2 fulfill criteri a for CKD. [Automated mess age] The system which ge nerated this result transmit diane reference range: >=60 mL/ min/1.73 sq. m. The referenc e range was not used to int erpret this result as brenda l/abnormal. [facility].Serum [id number] 16:35:38 Test Item Value Reference Range Interpretation Comments Creatinine (test code = 2160-0) 1.17 mg/dL 0.67-1.17 [facility] 16:35:37 Test Item Value Reference Range Interpretation Comments BUN (test code = 3094-0) 19 mg/dL 6-23 [facility] [id number] 13:34:22 Test Item Value Reference Range Interpretation Comments POC Crea (test 1.1 mg/dL 0.6-1.3 Medications, code = 50875-6) especially h ydroxyurea or supplements, such as ascorbate, c an interfere with test results causing a falsely and significantly h igher result than exp ected. If a problem is suspected with a patient's resul t, a sample should b e sent to the laborato ry for confirmatory te sting. Method descript ion: The i-STAT is a n analyzer used f or in vitro quantific ation of various anal ytes in whole blood. Th e device uses a s grant disposable cart ridge which contains microfabricated sensors, a shaggy bration solution, fluid ics system, and a w aste chamber. Each t est cartridge conta ins chemically sens itive biosensors on a silicon chip at are configured to p erform specific tests. The microfabricated sensors measure analyte concent ration by an electroch emical assay. POC EGFR (test 77 See_Comment The eGFRcr is code = 79097) calculated wit h the 2020 CKD-EPI creatinine equa tion using creatinin e, patient's age, and sex for adults 18 y ears of age and older. Other factors, especi ally muscle mass, ma y affect accuracy and need to be considered.Acco rding to the Kidney D isease: Improving Globa l Outcomes (KDIGO ) CKD Work Group 2012 Clinical Practi ce Guideline, smutter keith kidney disease (CKD) is defined as t he abnormalities o f kidney structur e or function, prese nt for more than 3 mon ths, with implicatio ns for health. CKD malgorzata uld be classified by c ause, GFR category, a nd albuminuria cat egory. KDIGO guideline s provide the fol lowing GFR categoriesS tage Description GFR mL/min/1.73 m2G 1* Normal or high >= 90G2* Mildly de creased 60-89G3a Mildly to moderately decr eased 45-59G3b Modera tely to severely decrea sed 30-44G4 Severel y decreased 15-29 G5 Kidney failure <15*In the absence of evidence of kid carie damage, neither G1 nor G2 fulfill crit eria for CKD. [Autom ated message] The sy stem which generated this result transmit diane reference range : >=60 mL/min/1.73 sq. m. The reference range was not used to int erpret this result as normal/abnormal . POC Clean Dev Yes (test code = 6672) Performing Lab [facility] (test code = [facility] frances [address]) Clinical Lab, [address] [facility], [place], [place] [address]; Vat Packer: Claudette Morrison MD; Waived Point of Care Testing - Glenny boucher MD [facility] MD [facility] CenterProstate specific antigen (PSA), total, [id number] 02:35:00 Test Item Value Reference Range Interpretation Comments PSA, ICMA 0.24 ng/mL REFERENCE RANG ES for (test code PSA: LESS THAN 0.10 ng/mL = 19252-7) AFTER RADICAL PROSTATECTOMY. 4.0 ng/mL OR LESS IN HEAL THY MALES WITHOUT PROSTAT ECTOMY. PSA values obta ined with different assay methods or kitscannot b e used interchangeably . This test was perfor med using the [employer] Cou lter DxImethod. PSA, ICMA is not to be used as a diagnosticproce dure without confirm ation of the diagnosis b y anotherestablis hed product or proc edure. The lower limit of accurate quantification for this assay is0.02 ng /mL. PSA values less connie n 0.02 ng/mL cannot be accurately measured and wi ll be reported as les s than 0.02ng/mL. Spec imens with PSA levels belo w the lower limit ofa ccurate quantification should be considered as n egative. Inpatients with a negative result for post prostatectomy P SA,serial monitoring of P SA levels at regular inte rvals, alongwith physi luis examinations an d other tests, may help todetect recurrent prost ate cancer. RAC (test Performing code = RAC) Organization Information: Site ID: EZ Name: [email or web address] [facility], Address: [address] [place] [id number] Director: Alejandra Aguirre MD,PhD,DEUCE [facility], [id number] 16:52:00 Test Item Value Reference Range Interpretation Comments PSA, ICMA 0.22 ng/mL REFERENCE RANG ES for (test code PSA: LESS THAN 0.10 ng/mL = 70276-0) AFTER RADICAL PROSTATECTOMY. 4.0 ng/mL OR LESS IN HEAL THY MALES WITHOUT PROSTAT ECTOMY. PSA values obta ined with different assay methods or kitscannot b e used interchangeably . This test was perfor med using the [employer] lter DxImethod. PSA, ICMA is not to be used as a diagnosticproce dure without confirm ation of the diagnosis b y anotherestablis hed product or proc edure. The lower limit of accurate quantification for this assay is0.02 ng /mL. PSA values less connie n 0.02 ng/mL cannot be accurately measured and wi ll be reported as les s than 0.02ng/mL. Spec imens with PSA levels belo w the lower limit ofa ccurate quantification should be considered as n egative. Inpatients with a negative result for post prostatectomy P SA,serial monitoring of P SA levels at regular inte rvals, alongwith physi luis examinations an d other tests, may help todetect recurrent prost ate cancer. RAC (test Performing code = RAC) Organization Information: Site ID: EZ Name: [employer] [facility], Address: [address] [place] [id number] Director: Alejandra Aguirre MD,PhD,[facility], [id number] 01:44:00 Test Item Value Reference Range Interpretation Comments PSA, ICMA 0.23 ng/mL REFERENCE RANG ES for (test code PSA: LESS THAN 0.10 ng/mL = 95172-0) AFTER RADICAL PROSTATECTOMY. 4.0 ng/mL OR LESS IN HEAL THY MALES WITHOUT PROSTAT ECTOMY. PSA values obta ined with different assay methods or kitscannot b e used interchangeably . This test was perfor med using the [employer] Cou lter DxImethod. PSA, ICMA is not to be used as a diagnosticproce dure without confirm ation of the diagnosis b y anotherestablis hed product or proc edure. The lower limit of accurate quantification for this assay is0.02 ng /mL. PSA values less connie n 0.02 ng/mL cannot be accurately measured and wi ll be reported as les s than 0.02ng/mL. Spec imens with PSA levels belo w the lower limit ofa ccurate quantification should be considered as n egative. Inpatients with a negative result for post prostatectomy P SA,serial monitoring of P SA levels at regular inte rvals, alongwith physi luis examinations an d other tests, may help todetect recurrent prost ate cancer. YUSEF (test FASTING:NO FASTING: code = YUSEF) NO RAC (test Performing code = RAC) Organization Information: Site ID: EZ Name: [employer] [facility], Address: [address] [place] [phone] Director: Alejandra Aguirre MD,PhD,DEUCE [facility] [id number] 12:44:55 Test Item Value Reference Range Interpretation Comments TSH (test code = 4.68 See_Comment H Note: New M ethodology 05322-9) and Reference R josue change effectiv e 10/21/2017 at 14 00 Testing Perform ed at [facility], [address] [place] [address], [address], [place], [facility] [address] [Automate d message] The sy stem which generated this result transmit diane reference range : 0.27 - 4.20 mcunit/m L. The reference range was not used to int erpret this result as normal/abnormal . Lab Interpretation (test Abnormal code = 14263-9) [facility] CenterFree [id number] 12:44:54 Test Item Value Reference Range Interpretation Comments T4 Free (test code 1.02 ng/dL 0.93-1.70 Testing P erformed at [facility] = 3024-7) Lab Upfitter [facility], [facility], [address], [place] [address] [facility] Cancer MonetteGlomerular Filtration Rate 2021-12-19 12:31:05 Test Item Value Reference Range Interpretation Comments eGFR-AA (test code 84 See_Comment Normal eG FR >= 60 mL/min/1.73 = 85060-9) m2 Note: The eG FR is calculated [...] Kidney failure <15 Ann ting Performed at [facility], [address], [address], [place] [address] [Automated mess age] The system which ge nerated this result transmit diane reference range: >=60 mL/ min/1.73 sq. m. The referenc e range was not used to int erpret this result as brenda l/abnormal. eGFR-BESSIE (test code 72 See_Comment Normal e GFR >= 60 mL/min/1.73 = 18968-2) m2 Note: The eG FR is calculated [...] Kidney failure <15 Ann ting Performed at [facility] Lab Ambu latory [facility], [address], [address], [facility] [place] [address] [Automated mess age] The system which ge nerated this result transmit diane reference range: >=60 mL/ min/1.73 sq. m. The referenc e range was not used to int erpret this result as brenda l/abnormal. [facility].Serum [id number] 12:31:04 Test Item Value Reference Range Interpretation Comments Creatinine (test code 1.11 mg/dL 0.67-1.17 Testin g Performed at = 2160-0) [facility] Lab Ambulat ory Care [facility], [address], [address], [place] [address] [facility]-17 12:31:03 Test Item Value Reference Range Interpretation Comments BUN (test code = 20 mg/dL 6-23 Testing Per formed at [facility] 3094-0) Lab Upfitter [facility], [address] [place] [address] B [address]vd, [address], [place] [address] [facility]ULAR [id number] 15:27:29 Test Item Value Reference Range Interpretation Comments POCT Molecular FluA (test code = Positive Negative A 30559-4) Lab Interpretation (test code = Abnormal 13505-6) [facility] [id number] 22:10:45 Test Item Value Reference Range Interpretation [...] Dose in cGy (test code = 5717) [facility] DAILY [id number] 18:25:33 Test Item Value Reference Range Interpretation [...] Dose in cGy (test code = 5717) [facility] DAILY [id number] 21:21:23 Test Item Value Reference Range Interpretation [...] Dose in cGy (test code = 5717) [facility] DAILY [id number] 17:07:23 Test Item Value Reference Range Interpretation [...] cGy (test code = 5717) [facility] [id number] 12:15:54 Test Item Value Reference Range Interpretation Comments POC Crea (test 1.2 mg/dL 0.6-1.3 Medications, code = 52551-9) especially h ydroxyurea or supplements, such as ascorbate, c an interfere with test results causing a falsely and significantly h igher result than exp ected. If a problem is suspected with a patient's resul t, a sample should b e [facility] to the [facility] for [facility]ory te sting. Method descript ion: [...] Normal eGF R >= 60 code = 45641-8) mL/min/1.73 m2 The eGFR is calcula diane using the CKD-E PI equation. The e GFR declines with a ge. eGFR <60 mL/min /1.73 m2 is considere d as "decreased" Thi s equation should only be used for pat ients 18 and older. According to e National Kidney Foundation's dney Disease Outcome Quality Initiat boyd (KDOQI) [...] Normal eG FR >= 60 code = 03807-2) mL/min/1.73 m2 The eGFR is calcula diane using the CKD-E PI equation. The e GFR declines with a ge. eGFR <60 mL/min /1.73 m2 is considere d as "decreased" Thi s equation should only be used for pat ients 18 and older. According to e National Kidney Foundation's dney Disease Outcome Quality Initiat boyd (KDOQI) [...] Yes (test code = 6672) Performing Lab [facility] (test code = [facility] erson [address]) Clinical Lab, [address] [facility], [place], [place] [address]; Vat Packer: Claudette Morrison MD [facility] Cancer MonetteNM BONE SCAN WHOLE BODYCLINICAL INDICATION: C61 Malignant neoplasm of prostateMODALITY: [employer] dual head gamma cameraTECHNIQUE: 25 mCi Tc [...]
[2022-12-02] MEDS ORDERED: MORPHINE 4 MG/ML SYR ONE (21:37)
[2022-12-02] MEDS ORDERED: ONDANSETRON 4 MG/2 ML VIAL ONE (21:38)
[2022-12-02] MEDS ORDERED: NA CHLORIDE 0.9% 1,000 ML ONE (21:54)
[2022-12-02 22:11] LABS: Specific Gravity 1.025 (1.005-1.030); Urine Bilirubin NEGATIVE (Negative); Urine Blood Negative (Negative); Urine Clarity Clear (Clear); Urine Color Light-Yellow (Yellow); Urine Glucose NEGATIVE (Negative); Urine Protein NEGATIVE (Negative); Urine Urobilinogen Normal (Normal)
[2022-12-02 22:11] LABS: Albumin 3.5 g/dL (3.4-5.0); Bilirubin Total 0.4 mg/dL (0.2-1.0); Potassium 3.5 mEq/L (3.5-5.1)
[2022-12-02 22:48] LABS: Absolute Lymphocytes (CBC) 1.1 K/uL (0.7-4.9); Hematocrit 39.7 % (39.6-49.0); Lymphocytes % 13.8 % (15.3-44.8); MCV 90.7 fL (80-100); RBC Red Blood Cell Count 4.38 M/uL (4.33-5.43)
--- NOTE | 2022-12-03 03:05 | EDPHYS ---
Physician Documentation [facility] Name: Leno Rincon Jr Age: 62 yrs Sex: Male : 1960 Arrival Date: 12/02/2022 Time: 20:24 Bed 7 Private MD: ED Physician Kevin Bell HPI: 12/02 20:52 This 62 yrs old Male presents to ER via Ambulatory with complaints of Abdominal Pain. cp 20:52 The patient presents with abdominal pain in the left lower quadrant. Onset: The cp symptoms/episode began/occurred yesterday, and became worse today. 20:52 Associated signs and symptoms: Pertinent positives: chills, Pertinent negatives: blood cp in stools, constipation, diarrhea, dysuria, fever, testicular pain, vomiting. 20:52 The symptoms are described as constant. The patient has experienced similar episodes in cp the past, a few times, today's symptoms are similar, to when the patient was apparently diagnosed with diverticulitis. Historical: - Allergies: 20:51 Keflex; mb9 - Home Meds: 20:51 None [Active]; mb9 - PMHx: 20:51 Diverticulitis; [place] Nails Syndrome; Prostate Cancer; throat cancer; mb9 - PSHx: 20:51 colon resection; Prostectomy; mb9 - Immunization history:: Adult Immunizations up to date. - Social history:: Smoking status: Patient denies any tobacco usage or history of. - Family history:: not pertinent. ROS: 21:00 Constitutional: Positive for chills, Negative for body aches, fever, poor PO intake. cp 21:00 Cardiovascular: Negative for chest pain, palpitations. cp 21:00 Respiratory: Negative for cough, shortness of breath, wheezing. 21:00 Abdomen/GI: Positive for abdominal pain, Negative for vomiting, diarrhea, constipation, black/tarry stool, rectal bleeding. 21:00 Eyes: Negative for injury, pain, redness, and discharge. cp 21:00 ENT: Negative for drainage from ear(s), ear pain, sore throat, difficulty swallowing, difficulty handling secretions. 12/03 21:00 Back: Positive for radiated pain, of the left lower back. cp 21:00 Skin: Negative for cellulitis, rash. cp 21:00 Neuro: Negative for altered mental status, dizziness, headache, weakness. Exam: 12/02 21:05 Constitutional: The patient appears in no acute distress, alert, awake, non-toxic, well cp developed, well nourished, uncomfortable. 21:05 Head/Face: Normocephalic, atraumatic. cp 21:05 Eyes: Periorbital structures: appear normal, Conjunctiva: normal, no exudate, no injection, Sclera: no appreciated abnormality, Lids and lashes: appear normal, bilaterally. 21:05 ENT: External ear(s): are unremarkable, Nose: is normal, Mouth: Lips: moist, Oral mucosa: pink and intact, moist, Posterior pharynx: is normal, airway is patent, no erythema, no exudate. 21:05 Chest/axilla: Inspection: normal. 21:05 Cardiovascular: Rate: normal, Rhythm: regular. 21:05 Respiratory: the patient does not display signs of respiratory distress, Respirations: normal, no use of accessory muscles, no retractions, labored breathing, is not present, Breath sounds: are clear throughout, no decreased breath sounds, no stridor, no wheezing. 21:05 Abdomen/GI: Inspection: abdomen appears normal, Bowel sounds: active, all quadrants, Palpation: soft, in all quadrants, moderate abdominal tenderness, in the left adnexal area, rebound tenderness, is not appreciated, voluntary guarding. 21:05 Back: CVA tenderness, is absent. 21:05 Neuro: Orientation: to person, place \T\ time. Mentation: is normal, Motor: moves all fours, strength is normal, Sensation: is normal, Gait: is steady. Vital Signs: 20:49 BP 110 / 78; Pulse 72; Resp 18; Temp 98.4; Pulse Ox 97% on R/A; Weight 82.55 kg; Height mb9 5 ft. 7 in. ; Pain 6/10; 22:00 BP 151 / 86; Pulse 69; Resp 16 S; Pulse Ox 99% ; aa9 22:30 BP 142 / 81; Pulse 65; Resp 16; Pulse Ox 99% on R/A; aa9 22:45 BP 138 / 82; Pulse 65; Resp 16; Pulse Ox 97% on R/A; aa9 23:00 BP 133 / 76; Pulse 63; Resp 16; Pulse Ox 96% on R/A; aa9 23:15 BP 138 / 78; Pulse 64; Resp 17; Pulse Ox 97% on R/A; aa9 12/03 02:08 BP 123 / 65; Pulse 57; Resp 18 S; Pulse Ox 97% on R/A; aa9 03:13 BP 121 / 68; Pulse 55; Resp 16 S; Pulse Ox 97% on R/A; aa9 12/02 20:49 Body Mass Index 28.50 (82.55 kg, 170.18 cm) [facility] 12/02 20:49 Pain Scale: Adult [facility] MDM: 12/02 20:55 Patient medically screened. cp 21:00 Differential diagnosis: diverticulitis, Pyelonephritis, Testicular Torsion, cp Ureterolithiasis, urinary tract infection, colitis. 12/03 02:08 Data reviewed: vital signs, nurses notes, lab test result(s). Awaiting: CT scan results.cp 02:43 Differential Diagnosis Diverticulitis, diverticular abscess, peritonitis.. Data sp4 reviewed: radiologic studies, CT scan. ED course: Diverticulitis of sigmoid . 03:02 ED course: CT report IMPRESSION: 1. Findings consistent with acute distal sp4 descending/sigmoid colon diverticulitis. No evidence of diverticular abscess. 2. Bilateral nephrolithiasis without obstruction. . ED course: Patient will be given IV Cipro and Flagyl and admitted for 24 hours for management of acute uncomplicated diverticulitis without perforation.. 12/02 20:53 Order name: CBC with Diff; Complete Time: 23:00 12/02 23:00 Interpretation: Normal except: HGB 13.5; PLT 144; LYM% 13.8. 12/02 20:53 Order name: CMP; Complete Time: 23:00 12/02 23:00 Interpretation: Normal except: CL 109; GLUC 121; BUN 22; CRE 1.88; GFR 40; A/G 1.0. 12/02 20:53 Order name: Lipase; Complete Time: 23:00 12/02 20:53 Order name: Urinalysis w/ reflexes; Complete Time: 23:00 cp 12/03 01:09 Order name: Abdomen EDMS 12/02 20:53 Order name: IV Saline Lock; Complete Time: 21:43 12/02 20:53 Order name: Labs collected and sent; Complete Time: 21:43 12/03 02:56 Order name: NPO; Complete Time: 03:00 sp4 Administered Medications: 12/02 21:59 Drug: NS 0.9% IV 500 ml Route: IV; Rate: bolus; Site: right antecubital; aa9 22:19 Follow up: Response: No adverse reaction; IV Status: Completed infusion; IV Intake: aa9 500ml 22:19 Drug: NS 0.9% IV 500 ml Route: IV; Rate: 100 ml/hr; Site: right antecubital; aa9 12/03 02:59 Follow up: Response: No adverse reaction; IV Status: Completed infusion; IV Intake: aa9 500ml 03:07 Drug: metroNIDAZOLE IVPB 500 mg Volume: 100 ml; Route: IVPB; Rate: 200 ml/hr; Infused aa9 Over: 30 mins; Site: right antecubital; 03:40 Follow up: Response: No adverse reaction; IV Status: Completed infusion; IV Intake: rv 100ml 03:10 Not Given (Patient Refused): Ondansetron IVP 4 mg IVP once; over 2 minutes aa9 03:10 Not Given (Patient Refused): morphine IVP or IV 4 mg IVP once over 4 mins aa9 03:39 Drug: Ciprofloxacin IVPB 400 mg Volume: 200 ml; Route: IVPB; Infused Over: 60 mins; rv Site: right antecubital; 03:54 Follow up: IV Status: Infusion continued upon admission rv Disposition: 02:35 Co-signature as Attending Physician, Kevin Bell MD I agree with the assessment sp4 and plan of care. I reviewed the patient's care provided by the Advanced Practice Provider and agree with the diagnosis and treatment plan. Disposition Summary: 12/03/22 03:05 Hospitalization Ordered Hospitalization Status: Observation sp4 Provider: Kendell Solitario spGian Location: Telemetry/[facility] (observation) sp4 Condition: Stable sp4 Problem: new sp4 Symptoms: have improved sp4 Bed/Room Type: Standard sp4 Room Assignment: 222(12/03/22 03:49) Diagnosis - Diverticulitis of large intestine without perforation or abscess without bleeding sp4 - Acute sigmoid diverticulitis, elevated creatinine, renal insufficiency sp4 Forms: - Medication Reconciliation Form sp4 - SBAR form sp4 Signatures: Dispatcher [employer] EDDC Francisco Lion PA PA cp Garcia, Cindy, RN RN cg Humberto Montenegro RN RN Alfreda Isaacs, RN RN aa9 Chantelle Mora RN RN mb9 Kevin Bell MD MD sp4 Corrections: (The following items were deleted from the chart) 01:09 12/02 21:36 Abdomen Pelvis W Con+CT.RAD.BRZ ordered. EDMS EDMS 12/03 02:06 12/02 21:00 Constitutional: Negative for body aches, chills, fever, poor PO intake, cp cp 12/03 03:14 02:43 ED course: CT revealed findings suggesting small bowel ileus or developing sp4 obstruction involving small bowel within the mid abdomen. Affected small bowel loops are mildly inflamed. Stomach is distended with fluid. Proximal small bowel decompressed. Several fluid-filled dilated small bowel loops within the mid abdomen. Demonstrating air-fluid levels. Gradual transition to normal caliber bowel within the right abdomen is present. Stool throughout the colon.. sp4 03:23 03:05 sp4 cg 03:49 03:23 216 cg cg 16:10 02:43 Left lower quadrant abdominal pain onset yesterday.. sp4 cp 12/04 00:38 12/03 21:00 All other systems are negative, cp cp
--- NOTE | 2022-12-03 03:05 | ER ---
Nurse's Notes [facility] Name: Leno Rincon Jr Age: 62 yrs Sex: Male : 1960 Arrival Date: 12/02/2022 Time: 20:24 Bed 7 Private MD: Diagnosis: Diverticulitis of large intestine without perforation or abscess without bleeding;Acute sigmoid diverticulitis, elevated creatinine, renal insufficiency Presentation: 12/02 20:49 Chief complaint: Patient states: "I've been having LLQ pain since yesterday and got mb9 worse today. Last time I had pain like this, it was Diverticulosis. I have the chills.". Coronavirus screen: Vaccine status: Patient reports receiving the 2nd dose of the covid vaccine. Ebola Screen: No symptoms or risks identified at this time. Initial Sepsis Screen: Does the patient meet any 2 criteria? No. Patient's initial sepsis screen is negative. Does the patient have a suspected source of infection? No. Patient's initial sepsis screen is negative. Risk Assessment: Do you want to hurt yourself or someone else? Patient reports no desire to harm self or others. Onset of symptoms. 20:49 Acuity: MANASA 3 mb9 20:49 Method Of Arrival: Ambulatory mb9 Triage Assessment: 20:52 General: Appears uncomfortable, Behavior is calm, cooperative. Pain: Complains of pain mb9 in abdomen Pain radiates to LLQ Quality of pain is described as throbbing. Neuro: Lau Agitation-Sedation Scale (RASS): 0 - Alert and Calm Level of Consciousness is awake, alert, obeys commands, Oriented to person, place, time, situation, Appropriate for age. Respiratory: Airway is patent Respiratory effort is even, unlabored, Respiratory pattern is regular, symmetrical. GI: Abdomen is flat, non-distended, Abd is soft Abdomen is tender to palpation in left lower quadrant. Derm: Skin is pink, warm \\T\\ dry. Musculoskeletal: Range of motion: intact in all extremities. Historical: - Allergies: 20:51 Keflex; mb9 - Home Meds: 20:51 None [Active]; mb9 - PMHx: 20:51 Diverticulitis; [place] Nails Syndrome; Prostate Cancer; throat cancer; mb9 - PSHx: 20:51 colon resection; Prostectomy; mb9 - Immunization history:: Adult Immunizations up to date. - Social history:: Smoking status: Patient denies any tobacco usage or history of. - Family history:: not pertinent. Screenin:27 Abuse screen: Denies threats or abuse. Denies injuries from another. Nutritional aa9 screening: No deficits noted. Tuberculosis screening: No symptoms or risk factors identified. 12/03 03:24 [facility] ED Fall Risk Assessment (Adult) History of falling in the last 3 months, aa9 including since admission No falls in past 3 months (0 pts) Confusion or Disorientation No (0 pts) Intoxicated or Sedated No (0 pts) Impaired Gait No (0 pts) Mobility Assist Device Used No (0 pt) Altered Elimination No (0 pt) Score/Fall Risk Level 0 - 2 = Low Risk Oriented to surroundings, Maintained a safe environment, Educated pt \\T\\ family on fall prevention, incl call for assistance when getting out of bed. Assessment: 12/02 21:43 General: Appears in no apparent distress. comfortable, Behavior is calm, cooperative. aa9 Pain: Complains of pain in abdomen Pain at worst was 5 out of 10 on a pain scale. Aggravated by upon palpation. Neuro: Level of Consciousness is awake, alert, obeys commands, Oriented to person, place, time, situation. Cardiovascular: Patient's skin is warm and dry. Respiratory: Airway is patent Respiratory effort is even, unlabored. EENT: No signs and/or symptoms were reported regarding the EENT system. 21:44 Reassessment: pt states,'I don't want pain medicine yet, I think I'm okay as long as I aa9 don't press the area for now.". 21:55 Reassessment: Patient appears in no apparent distress at this time. finished Po aa9 contrast, notified CT. 12/03 02:55 Reassessment: Patient appears in no apparent distress at this time. Patient and/or aa9 family updated on plan of care and expected duration. Pain level reassessed. Patient is alert, oriented x 3, equal unlabored respirations, skin warm/dry/pink. Patient denies pain at this time. 03:34 GI: Bowel sounds present X 4 quads. rv Vital Signs: 12/02 20:49 BP 110 / 78; Pulse 72; Resp 18; Temp 98.4; Pulse Ox 97% on R/A; Weight 82.55 kg; Height mb9 5 ft. 7 in. ; Pain 6/10; 22:00 BP 151 / 86; Pulse 69; Resp 16 S; Pulse Ox 99% ; aa9 22:30 BP 142 / 81; Pulse 65; Resp 16; Pulse Ox 99% on R/A; aa9 22:45 BP 138 / 82; Pulse 65; Resp 16; Pulse Ox 97% on R/A; aa9 23:00 BP 133 / 76; Pulse 63; Resp 16; Pulse Ox 96% on R/A; aa9 23:15 BP 138 / 78; Pulse 64; Resp 17; Pulse Ox 97% on R/A; aa9 12/03 02:08 BP 123 / 65; Pulse 57; Resp 18 S; Pulse Ox 97% on R/A; aa9 03:13 BP 121 / 68; Pulse 55; Resp 16 S; Pulse Ox 97% on R/A; aa9 12/02 20:49 Body Mass Index 28.50 (82.55 kg, 170.18 cm) [facility] 12/02 20:49 Pain Scale: Adult 9 ED Course: 12/02 20:28 Patient arrived in ED. ja2 20:29 Francisco Lion PA is PHCP. cp 20:29 Kevin Bell MD is Attending Physician. cp 20:48 Arm band placed on. mb9 20:51 Triage completed. mb9 21:26 Alfreda Isaacs, RN is Primary Nurse. aa9 21:40 Inserted saline lock: 20 gauge in right antecubital area, using aseptic technique. aa9 Blood collected. 21:43 CBC with Diff Sent. aa9 21:43 CMP Sent. aa9 21:43 Lipase Sent. aa9 21:44 Patient has correct armband on for positive identification. Bed in low position. Side aa9 rails up X2. Client placed on continuous cardiac and pulse oximetry monitoring. NIBP monitoring applied. 12/03 02:03 Abdomen In Process Unspecified. EDMS 03:04 Kendell Solitario is Hospitalizing Provider. sp4 03:23 No provider procedures requiring assistance completed. Patient admitted, IV remains in aa9 place. Administered Medications: 12/02 21:59 Drug: NS 0.9% IV 500 ml Route: IV; Rate: bolus; Site: right antecubital; aa9 22:19 Follow up: Response: No adverse reaction; IV Status: Completed infusion; IV Intake: aa9 500ml 22:19 Drug: NS 0.9% IV 500 ml Route: IV; Rate: 100 ml/hr; Site: right antecubital; aa9 06 02:59 Follow up: Response: No adverse reaction; IV Status: Completed infusion; IV Intake: aa9 500ml 03:07 Drug: metroNIDAZOLE IVPB 500 mg Volume: 100 ml; Route: IVPB; Rate: 200 ml/hr; Infused aa9 Over: 30 mins; Site: right antecubital; 03:40 Follow up: Response: No adverse reaction; IV Status: Completed infusion; IV Intake: rv 100ml 03:10 Not Given (Patient Refused): Ondansetron IVP 4 mg IVP once; over 2 minutes aa9 03:10 Not Given (Patient Refused): morphine IVP or IV 4 mg IVP once over 4 mins aa9 03:39 Drug: Ciprofloxacin IVPB 400 mg Volume: 200 ml; Route: IVPB; Infused Over: 60 mins; rv Site: right antecubital; 03:54 Follow up: IV Status: Infusion continued upon admission rv Medication: 03:24 VIS not applicable for this client. aa9 Intake: 12/02 22:19 IV: 500ml; Total: 500ml. aa9 12/03 02:59 IV: 500ml; Total: 1000ml. aa9 03:40 IV: 100ml; Total: 1100ml. rv Output: 03:07 Urine: 750ml (Voided); Total: 750ml. aa9 Outcome: 03:05 Decision to Hospitalize by Provider. sp4 03:23 Condition: stable aa9 03:53 Admitted to Med/surg accompanied by nurse, room 222, with chart, Report called to rv Lorraine BARROW 03:53 Instructed on the need for admit. 03:54 Patient left the ED. rv Signatures: Dispatcher [employer] EDIN Francisco Lion PA PA cp Vicente, Ronaldo RN RN rv Zee Olsen Aylin, RN RN aa9 Breneman, Chantelle Dodd RN RN Kevin Holden MD MD sp4
[2022-12-03] MEDS ORDERED: CIPROFLOXACIN 400mg IV 400 MG/200 ML BAG IV ONE (03:11)
[2022-12-03] MEDS ORDERED: METRONIDAZOLE 500mg IVPB 500 MG/100 ML BAG IV ONE (03:11)
--- NOTE | 2022-12-03 03:12 | P.HP ---
Certification for Inpatient Patient admitted to: Observation With expected LOS: <2 Midnights Patient will require the following post-hospital care: None Practitioner: I am a practitioner with admitting privileges, knowledge of patient current condition, hospital course, and medical plan of care. Services: Services provided to patient in accordance with Admission requirements found in Title 42 Section 412.3 of the Code of Federal Regulations Patient History Date of Service: 12/03/22 Reason for admission: Diverticulitis History of Present Illness: Mr. Rincon is a 62-year-old male with past medical history of prostate cancer status post prostatectomy and recurrent sigmoid diverticulitis with history of abscess/perforation who presented to the emergency department with complaints of left lower quadrant abdominal pain and chills that began 24 hours ago. No significant lab abnormalities. CT abdomen pelvis showed " Findings consistent with acute distal descending/sigmoid colon diverticulitis. No evidence of diverticular abscess. Bilateral nephrolithiasis without obstruction." He was started on Cipro and Flagyl emergency department. He states he has not had an episode of diverticulitus since 2018 when he had to have a colon resection. pain is currently controlled. ED provider wishes for patient for further management. Allergies cephalexin monohydrate [From Keflex] Allergy (Verified 12/31/14 16:28) Rash Home Medications: Loratadine/Pseudoephedrine [Claritin-D 24 Hour Tablet] 1 each PO DAILY 01/06/18 Montelukast [Singulair] 10 mg PO DAILY 01/06/18 - Past Medical/Surgical History Diabetic: No -: Recurrent sigmoid diverticulitis -: Prostate cancer status post prostatectomy -: Allergic rhinitis -: GERD -: Prostatectomy -: Bilateral tympanic membrane repair -: Eye surgery -: Left thumb partial amputation -: shrapnel removed, right forearm (30 years ago) -: Colon Resection Psychosocial/ Personal History: The patient is . 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 He has 5 children - Family History Father -: Cancer Mother -: Cancer - Social History Smoking Status: Never smoker Alcohol use: Yes CD- Drugs: No Caffeine use: Yes Place of Residence: Home Review of Systems Gastrointestinal: Nausea, Vomiting, Abdominal Pain, Diarrhea Physical Examination - Vital Signs Temperature: 98.4 F Blood Pressure: 123/65 Pulse: 57 Respirations: 18 Pulse Ox (%): 97 - Physical Exam General: Alert, In no apparent distress HEENT: Atraumatic, EOMI, Sclerae nonicteric Neck: Supple, 2+ carotid pulse no bruit Respiratory: Clear to auscultation bilaterally, Normal air movement Cardiovascular: Regular rate/rhythm, Normal S1 S2 Gastrointestinal: Normal bowel sounds, No tenderness Musculoskeletal: No tenderness Integumentary: No rashes Neurological: Normal speech, Normal affect Lymphatics: No axilla or inguinal lymphadenopathy - Studies Laboratory Data (last 24 hrs) 12/02/22 21:41: Sodium 137, Potassium 3.5, BUN 22 H, Creatinine 1.88 H, Glucose 121 H, Total Bilirubin 0.4, AST 19, ALT 25, Alkaline Phosphatase 83, Lipase 35 12/02/22 21:41: WBC 7.70, Hgb 13.5 L, Hct 39.7, Plt Count 144 L Assessment and Plan - Problems (Diagnosis) (1) Diverticulitis Current Visit: Yes Status: Acute - Plan Patient is admitted for further management of acute on chronic sigmoid diverti culitis. Continue IV Cipro and Flagyl. Supportive measures with IV hydration, pain medications, and antiemetics as needed. Clear liquid diet, advance as tolerated. No SIRS criteria met at this time. Low suspicious for sepsis. Monitor and replete electrolytes per protocol. Reconcile continue home medications. Lovenox for VTE prophylaxis. Full code. Discharge Plan: Home Plan to discharge in: 24 Hours - Advance Directives Does patient have a Living Will: Yes Does patient have a Durable POA for Healthcare: Yes - Code Status/Comfort Care Code Status Assessed: Yes Code Status: Full Code Physician Review: Patient Assessed, Agree with Above Assessment and Plan Critical Care: No Time Spent Managing Pts Care (In Minutes): 50
[2022-12-03] MEDS ORDERED: ONDANSETRON 4 MG/2 ML VIAL IV PRN (04:05)
[2022-12-03 04:07] VITALS: BMI 29.7
[2022-12-03] MEDS: MORPHINE 2 MG/ML SYR IV PRN ×2 (04:23→10:24)
[2022-12-03] MEDS: NA CHLORIDE 0.9% 1,000 ML IV SCH ×2 (04:24→14:01)
[2022-12-03 04:42] VITALS: O2SAT 100
[2022-12-03] MEDS ORDERED: METRONIDAZOLE 500mg IVPB 500 MG/100 ML BAG IV SCH (09:00)
--- NOTE | 2022-12-03 11:14 | RAD REPORT ---
EXAM DESCRIPTION: CT - Abdomen Pelvis Wo Contrast - 12/03/2022 4:50 am CLIN CLINICAL HISTORY: The patient is 62 years old and is Male; LLQ abdomen pain TECHNIQUE: Axial computed tomography images of the abdomen and pelvis without intravenous contrast. Sagittal and coronal reformatted images were created and reviewed. This CT exam was performed usi ng one or more of the following dose reduction techniques: automated exposure control, adjustment o f the mA and/or kV according to patient size, and/or use of iterative reconstruction technique. COMPARISON: CT of the abdomen and pelvis March 19, 2022 FINDINGS: LUNG BASES: Unremarkable. No mass. No consolidation. ABDOMEN: LIVER: Homogeneous without focal mass. GALLBLADDER AND BILE DUCTS: No calcified stones. No ductal dilation. PANCREAS: Unremarkable. No ductal dilation. SPLEEN: Unremarkable. ADRENALS: Unremarkable. No mass. KIDNEYS AND URETERS: Bilateral intrarenal calcifications are present. There is no hydronephrosis or hydroureter of either kidney. No obstructing renal or ureteral calculus is seen. STOMACH AND BOWEL: Oral contrast is present within the stomach. Oral contrast is noted throughout the mid to distal small bowel which is normal in caliber. Oral contrast and stool is present through out colon. A few scattered colonic diverticula are noted. Colonic wall thickening with surrounding in flammation involving the distal descending and proximal sigmoid colon is present. There is no bowel o bstruction. PELVIS: APPENDIX: The appendix is normal in caliber without surrounding inflammation. BLADDER: Unremarkable. No stones. REPRODUCTIVE: Unremarkable as visualized. ABDOMEN and PELVIS: INTRAPERITONEAL SPACE: Unremarkable. No free air. No significant fluid collection. BONES/JOINTS: No acute fracture. SOFT TISSUES: The soft tissues are normal. VASCULATURE: Calcified phleboliths are present within the pelvis. No abdominal aortic aneurysm. LYMPH NODES: Unremarkable. No enlarged lymph nodes. IMPRESSION: 1. Findings consistent with acute distal descending/sigmoid colon diverticulitis. No e vidence of diverticular abscess. 2. Bilateral nephrolithiasis without obstruction. Electronically signed by: Janell Schmitt MD 12/03/2022 2:46 AM CDT Due to temporary technical issues with the PACS/Fluency reporting system, reports are being signed by the in house radiologists without review as a courtesy to insure prompt reporting. The interpreting radiologist is fully responsible for the content of the report.
[2022-12-03] MEDS ORDERED: CIPROFLOXACIN 400mg IV 400 MG/200 ML BAG IV SCH (15:00)
[2022-12-03 15:07] VITALS: BP 137/78; TEMP 97.7
--- NOTE | 2022-12-03 15:09 | P.DS ---
Admission Date: 12/03/22 Discharge Date: 12/03/22 Disposition: ROUTINE DISCHARGE Discharge Condition: FAIR Reason for Admission: Diverticulitis - Problems (1) Diverticulitis Current Visit: Yes Status: Acute (2) History of prostatectomy Current Visit: No Status: Chronic Brief History of Present Illness: Mr. Rincon is a 62-year-old male with past medical history of prostate cancer status post prostatectomy and recurrent sigmoid diverticulitis with history of abscess/perforation who presented to the emergency department with complaints of left lower quadrant abdominal pain and chills that began 24 hours ago. No significant lab abnormalities. CT abdomen pelvis showed " Findings consistent with acute distal descending/sigmoid colon diverticulitis. No evidence of diverticular abscess. Bilateral nephrolithiasis without obstruction." He was started on Cipro and Flagyl emergency department. He states he has not had an episode of diverticulitus since 2018 when he had to have a colon resection. Patient was admitted for further management. Hospital Course: Patient placed on observation on the medical floor and treated with IV Flagyl and IV ciprofloxacin. He did not experience any abdominal pain. He tolerated liquid diet. Vitals stable. He has no leukocytosis or sepsis. Patient requested to go home today. He is discharged with oral ciprofloxacin and Flagyl. He is informed to return to the ED if abdominal pain gets worse or he experiences nausea and vomiting and not able to take his medication. Vital Signs/Physical Exam: Temp Pulse Resp BP Pulse Ox 98.5 F 54 12 106/58 L 95 12/03/22 08:00 12/03/22 08:00 12/03/22 08:00 12/03/22 08:00 12/03/22 08:00 General: Alert, In no apparent distress, Oriented x3 HEENT: Mucous membr. moist/pink Neck: JVD not distended Respiratory: Clear to auscultation bilaterally, Normal air movement Cardiovascular: No edema, Regular rate/rhythm, Normal S1 S2 Gastrointestinal: Normal bowel sounds, Soft and benign, Non-distended, No tenderness Musculoskeletal: No swelling Integumentary: No rashes, No cyanosis Neurological: Normal strength at 5/5 x4 extr Laboratory Data at Discharge: WBC 7.70 thou/uL (4.3-10.9) 12/02/22 21:41 Hgb 13.5 g/dL (13.6-17.9) L 12/02/22 21:41 Hct 39.7 % (39.6-49.0) 12/02/22 21:41 Plt Count 144 thou/uL (152-406) L 12/02/22 21:41 Sodium 137 mEq/L (136-145) 12/02/22 21:41 Potassium 3.5 mEq/L (3.5-5.1) 12/02/22 21:41 BUN 22 mg/dL (7-18) H 12/02/22 21:41 Creatinine 1.88 mg/dL (0.70-1.30) H 12/02/22 21:41 Glucose 121 mg/dL (74-106) H 12/02/22 21:41 Total Bilirubin 0.4 mg/dL (0.2-1.0) 12/02/22 21:41 AST 19 U/L (15-37) 12/02/22 21:41 ALT 25 U/L (16-61) 12/02/22 21:41 Alkaline Phosphatase 83 U/L (45-117) 12/02/22 21:41 Lipase 35 U/L (13-75) 12/02/22 21:41 Home Medications: Ciprofloxacin HCl [Cipro 500 MG Tablet] 500 mg PO BID #20 tab 12/03/22 metroNIDAZOLE [Flagyl] 500 mg PO Q8H #30 tab 12/03/22 New Medications: Ciprofloxacin HCl [Cipro 500 MG Tablet] 500 mg PO BID #20 tab metroNIDAZOLE [Flagyl] 500 mg PO Q8H #30 tab Physician Discharge Instructions: Please return to the ED if abdominal pain gets worse or you experience nausea and vomiting and cannot take your medications. Diet: Regular (Clear liquid diet x 2 days, then advance to soft diet as tolerated.) Activity: Ad darvin Time spent managing pt's care (in minutes): 33
== END 2022-12-03 16:16 | disposition home or self-care (01) ==
LOC: ER 20:24 → ERHOLD 12-03 03:07 → 2ND 12-03 03:23
PROVIDERS: ADMIT Internal Medicine; ATTEND Internal Medicine
DX: K57.32 Diverticulitis of large intestine without perforation or abscess without bleeding (principal); N28.9 Disorder of kidney and ureter, unspecified; Z80.9 Family history of malignant neoplasm, unspecified; Z90.79 Acquired absence of other genital organ(s); Z88.1 Allergy status to other antibiotic agents
CPT/HCPCS: 96365; 96361; 85025; 36415; 81003; 83690; 80053; 74176; 96375; 99285; J2270 ×2; J0744 ×2; J7030 ×3; G0378 ×2; J2405

== ENCOUNTER 2024-07-29 21:51 | Emergency (ER) | payer OTHER ==
--- OUTSIDE RECORDS SUMMARY | 2024-07-29 21:55 | XMS REPORT | Clinical Summary ---
Author Name Unknown Organization [facility] Address [address] [place] [address] Care Team Providers Care Programs Manager Name Role Phone Rosy Aviles MD Unavailable [phone] Collette Aleman MD Primary Care Provider [phone] Wily Ham [facility]ANCE COORDINATOR Unavailable CLC [email or web address] Shae Walton RD Unavailable [phone] Frandy Clayton DDS Unavailable [phone] Sydnee Bhardwaj DDS Unavailable [phone] Gerri Guthrie MD Unavailable [phone] Errol Manzanares MD Unavailable [phone] Hortensia Bowers MD Unavailable Allergies Active Allergy Reactions Criticality Noted Date Comments Cephalexin Hives 05/07/2017 Medications * This document contains information received from the source organization and may not represent a complete record from that organization. montelukast (SINGULAIR) 10 mg tablet TAKE 1 TABLET (10 MG) BY MOUTH DAILY 08/24/2023 Active multivit,luis,mn/ folic/D3/lycop (ONE A DAY MEN COMPLETE ORAL) Take 1 tablet by mouth daily. Active Active Problems Patient Care Coordination No te Formatting of this note migh t be different from the original. 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 Disorder of fluid AND/OR electrolyte 05/06/2020 Mucositis 05/03/2020 Severe protein-calorie malnutrition 05/03/2020 Dysphagia, oropharyngeal phase 05/03/2020 Abnormal weight loss 05/03/2020 Dehydration 05/02/2020 Prostate cancer 03/04/2020 Overview (04/04/2020): Mandatory CMS ICD-10 2020 UPDATE 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 Staging:Clinical stage from 03/13/2020:Stage I(cT2, cN1, cM0, p16+) - Unsigned Encounters Date Type Department Care Team Description 04/18/2024 8:30 AM CDT - 04/18/2024 11:59 PM CDT Hospital Encounter [facility] - Surgical Oncology [address] [place] [address], 10th Floor, [place] [address] Collette Aleman MD [place], [place], [place] Squamous cell carcinoma of oropharynx Discharge Disposition: Home 04/18/2024 8:00 AM CDT - 04/18/2024 8:29 AM CDT Hospital Encounter [facility] [address] [place] [address] [place] [address] Raulito Maria PA Squamous cell carcinoma of oropharynx Discharge Disposition: Home 04/18/2024 6:25 AM CDT Ancillary Procedure Radiology Outpatient Center [address] [place] [address] Raulito Maria PA Squamous cell carcinoma of oropharynx 04/18/2024 Orders Only Neuroradiology [address] [place] [id number] Leno Matthew MD 04/18/2024 Travel 01/28/2024 Orders Only [facility] - Surgical Oncology [address] [place] [address], 10th Floor, [place] [address] Raulito Maria PA Squamous cell carcinoma of oropharynx (Primary Dx) 09/21/2023 11:05 AM CDT - 09/21/2023 11:59 PM CDT Hospital Encounter [facility] - Surgical Oncology [address] [facility], 10th Floor, [place] [address] Collette Aleman MD Squamous cell carcinoma of oropharynx (Primary Dx); Squamous cell carcinoma of pharynx Discharge Disposition: Home 09/21/2023 10:45 AM CDT Ancillary Procedure X-Ray Outpatient Center [address] [facility], 7th [place] [address] Soraya Foster PA Squamous cell carcinoma of pharynx 09/21/2023 10:15 AM CDT - 09/21/2023 11:04 AM CDT Hospital Encounter [facility] [address] [place] [address] Soraya Foster PA Squamous cell carcinoma of pharynx Discharge Disposition: Home 09/21/2023 7:25 AM CDT Ancillary Procedure Radiology Outpatient Center [address] [place] [address] Soraya Foster PA Squamous cell carcinoma of pharynx 09/21/2023 Travel after 07/30/2023 Immunizations Name Administration Dates Next Due Pfizer SARS-CoV-2 Vaccination (Purple Cap) 08/31,08/10/2020 Surgical History Surgery Date Site/Laterality Comments COLON SURGERY 07/05/2017 - 07/04/2018 COLONOSCOPY 07/05/2017 - 07/04/2018 PROSTATE SURGERY 07/05/2017 - 07/04/2018 ROBOTIC LAPAROSCOPIC PROSTATECTOMY Medical History Medical History Date Comments Hearing loss 2005 tinnitus Diverticulitis 2018 Renal stone 2016 Prostate cancer 06/20/2017 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/26/20 20 Squamous cell carcinoma of pharynx Family History Medical History Relation Name Comments Prostate cancer Father allen rincon Lung cancer Maternal Grandfather cachorro rodriguez Cervical cancer Mother esteban sergey Relation Name Status Comments Father allen rincon Maternal Grandfather cachorro rodriguez Mother esteban sergey Social History Tobacco Use Types Packs/Day Years Used Date Smoking Tobacco: Never Smokeless Tobacco: Never Tobacco Cessation:Counseling Given: No Alcohol Use Standard Drinks/Week Comments Yes 0 (1 standard drink = 0.6 oz pur e alcohol) 1 or 2 mixed drinks a month Sex and Gender Information Value Date Recorded Sex Assigned at Male 02/27/2020 11:04 AM CDT Legal Sex Male 3:40 PM CDT Gender Identity Male 02/27/2020 11:04 AM CDT Sexual Orientation Straight 02/27/2020 11 :04 AM CDT 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 on file Not on file Not on file Obstetrics History Last Filed Vital Signs Vital Sign Reading Time Taken Comments Blood Pressure 144/88 04/18/2024 9:02 AM CDT Pulse 62 04/18/2024 9:02 AM CDT Temperature 36.6 C (97.9 F) 04/18/2024 9:02 AM CD T Respiratory Rate 18 04/18/2024 9:02 AM CDT Oxygen Saturation 97% 04/18/2024 9:02 AM CDT Inhaled Oxygen Concentration - - Weight 74.6 kg (164 lb 7.4 oz) 04/18/2024 8:58 A M CDT Height 168 cm (5' 6.14") 04/18/2024 8:58 AM CDT Body Mass Index 26.43 04/18/2024 8:58 AM CDT Plan of Treatment Upcoming Encounters Date Type Department Care Team (Late st Contact Info) Description 04/19/2025 6:30 AM CDT Appointment Main CT IMAGING [address] [place] [address], 3rd [place] [address] Raulito Maria PA [address] [place] [id number] [email or web address] 04/19/2025 8:45 AM CDT Appointment Diagnostic [facility] Center [address] [place] [address], [place] [address] Raulito Maria PA [facility] [place] [address] [email or web address] 04/19/2025 10:00 AM CDT Appointment Radiation Treatment Center [address] [facility], 1st Floor near Elevator G [place], [place] [id number] Errol Manzanares MD [address] [place], [place] [phone] [email or web address] Health Maintenance Due Date Last Done Comments COVID-19 Vaccine ( season) 2024 08/31/2020, 08/10/2020 Influenza Vaccine Completed 03/29/2024, , 04/13/2022, Additional history exists Pneumococcal Vaccine: Pediatrics (0 to 5 Years) and At-Risk Patients (6 to 64 Years) Aged Out No longer eligible based on patient's age to complete this topic Procedures Procedure Name Priority Date/Time Associated Diagnosis Comments BLOOD UREA NITROGEN Routine 04/18/2024 8 :39 AM CDT Squamous cell carcinoma of oropharynx CREATININE Routine 04/18/2024 8:39 AM CDT Squamous cell carcinoma of oropharynx THYROID STIMULATING HORMONE Routine 04/18/2024 8:39 AM CDT Squamous cell carcinoma of oropharynx FREE THYROXINE Routine 04/18/2024 8:39 AM CDT Squamous cell carcinoma of oropharynx CT SOFT TISSUE NECK W CONTRAST Routine 04/18/2024 7:51 AM CDT Squamous cell carcinoma of oropharynx POC CREATININE Routine 04/18/2024 7:21 AM CDT FREE THYROXINE Routine 09/21/2023 10:23 AM CDT Squamous cell carcinoma of pharynx THYROID STIMULATING HORMONE Routine 09/21/2023 10:23 AM CDT Squamous cell carcinoma of pharynx CREATININE Routine 09/21/2023 10:23 AM CDT Squamous cell carcinoma of pharynx BLOOD UREA NITROGEN Routine 09/21/2023 1 0:23 AM CDT Squamous cell carcinoma of pharynx XR CHEST 2 VW Routine 09/21/2023 10:19 AM CDT Squamous cell carcinoma of pharynx CT SOFT TISSUE NECK W CONTRAST Routine 09/21/2023 8:43 AM CDT Squamous cell carcinoma of pharynx POC CREATININE Routine 09/21/2023 7:37 AM CDT after 07/30/2023 Results * BUN (04/18/2024 8:39 AM CDT) Only the most recent of2 resultswithin the time period is included. BUN 17 6 - 23 mg/dL 04/18/2024 9:40 AM CDT [facility] Blood Peripheral blood specimen / Unknown Venipuncture / Unknown 04/18/2024 8:39 AM CDT 04/18/2024 8:41 AM CDT Raulito FUENTES LAB BLOOD ORDERABLES Final Res ult [facility] Unless otherwise noted, all lab tests performed by: Division of Pathology and Laboratory Medicine [address] [place] [id number] * TSH (04/18/2024 8:39 AM CDT) Only the most recent of2 resultswithin the time period is included. Thyroid Stimulating Hormone 3.46 0.27 - 4.20 mcunit/mL 04/18/2024 9:57 AM CDT [facility] Blood Peripheral blood specimen / Unknown Venipuncture / Unknown 04/18/2024 8:39 AM CDT 04/18/2024 8:41 AM CDT Raulito FUENTES LAB BLOOD ORDERABLES Final Res ult [facility] Unless otherwise noted, all lab tests performed by: Division of Pathology and Laboratory Medicine [address] [place] [id number] * Free T4 (04/18/2024 8:39 AM CDT) Only the most recent of2 resultswithin the time period is included. T4 (Thyroxine) Free 1.09 0.92 - 1.68 ng/dL 04/18/2024 9:57 AM CDT [facility] Blood Peripheral blood specimen / Unknown Venipuncture / Unknown 04/18/2024 8:39 AM CDT 04/18/2024 8:41 AM CDT Raulito FUENTES LAB BLOOD ORDERABLES Final Res ult Performing Organization Address [facility] Co de Phone Number [facility] Unless otherwise noted, all lab tests performed by: Division of Pathology and Laboratory Medicine [address] [place] [id number] * Creatinine (04/18/2024 8:39 AM CDT) Only the most recent of2 resultswithin the time period is included. Creatinine 1.08 0.67 - 1.17 mg/dL 04/18/2024 9:40 AM CDT [facility] eGFR 78 >=60 mL/min/1.7 3 sq. m 04/18/2024 9:40 AM CDT [facility] Comment: The eGFRcr is calculated with the 2020 CKD-EPI creatinine equation using creatinine, patient's age, and sex for adults 18 years of age and older. Other factors, especially muscle mass, may affect accuracy and need to be considered. According to the Kidney Disease: Improving Global Outcomes (KDIGO) CKD Work Group 2012 Clinical Practice Guideline, chronic kidney disease (CKD) is defined as the abnormalities of kidney structure or function, present for more than 3 months, with implications for health. CKD should be classified by cause, GFR category, and albuminuria category. KDIGO guidelines provide the following GFR categories. Stage / Description / GFR mL/min/1.73 m2: G1* / Normal or high / >= 90 G2* / Mildly decreased / 60-89 G3a / Mildly to moderately decreased / 45-59 G3b / Moderately to severely decreased / 30-44 G4 / Severely decreased / 15-29 G5 / Kidney failure / <15 *In the absence of evidence of kidney damage, neither G1 nor G2 fulfill criteria for CKD. Blood Peripheral blood specimen / Unknown Venipuncture / Unknown 04/18/2024 8:39 AM CDT 04/18/2024 8:41 AM CDT us Raulito FUENTES LAB BLOOD ORDERABLES Final Res ult [facility] Unless otherwise noted, all lab tests performed by: Division of Pathology and Laboratory Medicine [address] [place] [id number] * CT Soft Tissue Neck with Contrast (04/18/2024 7:51 AM CDT) Only the most recent of2 resultswithin the time period is included. Anatomical Region Laterality Modality Neck Computed Tomogra phy 04/18/2024 7:59 AM CDT Impressions 04/18/2024 8:08 AM CDT 1. No local or dari recurrence. 2. A few ill-defined bilateral pulmonary nodules measuring up to 3 mm in size are noted, not clearly seen on prior exam. Recommend dedicated CT chest. NIRADS SCORE: 1. Primary: NIRADS 1: Expected post-treatment changes without evidence of recurrence, routine surveillance 2. Nodes: NIRADS 1: No evidence of recurrence; routine surveillance ACTIONABLE ITEMS/RECOMMENDATIONS*: CT chest. *An Actionable Finding is a finding that may be unrelated to the original reason for imaging but potentially actionable, meaning further investigation may be necessary. The Actionable Findings Vigilance Unit (AFVU) assists medical providers with responding to additional radiologic findings that are unexpected and potentially actionable. Narrative 04/18/2024 8:08 AM CDT FULL RESULT: Examination: CT SOFT TISSUE NECK W CONTRAST on 04/18/2024 7:51 AM. CLINICAL HISTORY: Squamous cell carcinoma of oropharynx INDICATION: prostate cancer and T2N1M0 right tonsillar p16+ SCC, chemoradiation completed May 2020 COMPARISON: CT 09/21/2023, 03/11/2023. TECHNIQUE: CT neck with IV contrast was performed. FINDINGS: Primary Site: There is no evidence for recurrence at the primary site or in the upper aerodigestive tract. Post-treatment changes: Expected post treatment changes are noted. There is no evidence of osteoradionecrosis. Lymph Nodes: There is no cervical adenopathy. A heterogeneous node in the left submental region measuring 0.7 cm on image 126 series 2 is unchanged compared to 03/11/2023. Distant Sites: No metastasis is seen in the visualized brain. No bony metastasis is seen. A few ill-defined 2 to 3 mm bilateral upper lung pulmonary nodules are noted, for example on image 6 series 3 in the left upper lobe and image 1 series 3 in the left upper lobe. Procedure Note Soniya Guerrero MD - 04/18/2024 FULL RESULT: Examination: CT SOFT TISSUE NECK W CONTRAST on 04/18/2024 7:51 AM. CLINICAL HISTORY: Squamous cell carcinoma of oropharynx INDICATION: prostate cancer and T2N1M0 right tonsillar p16+ SCC,chemoradiation completed May 2020 COMPARISON: CT 09/21/2023, 03/11/2023. TECHNIQUE: CT neck with IV contrast was performed. FINDINGS: Primary Site: There is no evidence for recurrence at the primary site or in the upperaerodigestive tract. Post-treatment changes: Expected post treatment changes are noted. There is no evidence of osteoradionecrosis. Lymph Nodes: There is no cervical adenopathy. A heterogeneous node in the left submental region measuring 0.7 cm onimage 126 series 2 is unchanged compared to 03/11/2023. Distant Sites: No metastasis is seen in the visualized brain. No bony metastasis is seen. A few ill-defined 2 to 3 mm bilateral upper lung pulmonary nodules arenoted, for example on image 6 series 3 in the left upper lobe and image 1series 3 in the left upper lobe. IMPRESSION: 1. No local or dari recurrence. 2. A few ill-defined bilateral pulmonary nodules measuring up to 3 mm insize are noted, not clearly seen on prior exam. Recommend dedicated CTchest. NIRADS SCORE: 1. Primary: NIRADS 1: Expected post-treatment changes without evidence ofrecurrence, routine surveillance 2. Nodes: NIRADS 1: No evidence of recurrence; routine surveillance ACTIONABLE ITEMS/RECOMMENDATIONS*: CT chest. *An Actionable Finding is a finding that may be unrelated to the originalreason for imaging but potentially actionable, meaning furtherinvestigation may be necessary. The Actionable Findings Vigilance Unit(AFVU) assists medical providers with responding to additional radiologicfindings that are unexpected and potentially actionable. Raulito FUENTES [facility] CT ORDERABLES Final Result * POC Creatinine (04/18/2024 7:21 AM CDT) Only the most recent of2 resultswithin the time period is included. POC Creatinine 1.1 0.6 - 1.3 mg/dL 04/18/2024 7:26 AM CDT [facility] Comment:Medications, especia lly hydroxyurea or supplements, such as ascorbate, can interfere with test results causing a falsely and significantly higher result than expected. If a problem is suspected with a patient's result, a sample should be sent to the laboratory for confirmatory testing. POC eGFR 76 >=60 mL/min/1.7 3 sq. m 04/18/2024 7:26 AM CDT [facility] Comment: The eGFRcr is calculated with the 2020 CKD-EPI creatinine equation using creatinine, patient's age, and sex for adults 18 years of age and older. Other factors, especially muscle mass, may affect accuracy and need to be considered. According to the Kidney Disease: Improving Global Outcomes (KDIGO) CKD Work Group 2012 Clinical Practice Guideline, chronic kidney disease (CKD) is defined as the abnormalities of kidney structure or function, present for more than 3 months, with implications for health. CKD should be classified by cause, GFR category, and albuminuria category. KDIGO guidelines provide the following GFR categories. Stage / Description / GFR mL/min/1.73 m2: G1* / Normal or high / >= 90 G2* / Mildly decreased / 60-89 G3a / Mildly to moderately decreased / 45-59 G3b / Moderately to severely decreased / 30-44 G4 / Severely decreased / 15-29 G5 / Kidney failure / <15 *In the absence of evidence of kidney damage, neither G1 nor G2 fulfill criteria for CKD. Blood 04/18/2024 7:21 AM CDT 04/18/2024 7:26 AM CDT Narrative [facility] - 04/18/2024 7:26 AM CDT Method description: The i-STAT is an analyzer used for in vitro quantification of various analytes in whole blood. The device uses a single disposable cartridge which contains microfabricated sensors, a calibration solution, fluidics system, and a waste chamber. Each test cartridge contains chemically sensitive biosensors on a silicon chip that are configured to perform specific tests. The microfabricated sensors measure analyte concentration by an electrochemical assay. us Raulito FUENTES POCT ORDERABLES - DEVICE Final Result [facility] [address] [place] [address], [place] * X-ray Chest 2 Views (09/21/2023 10:19 AM CDT) Anatomical Region Laterality Modality Chest Digital Radiogra phy 09/21/2023 10:2 5 AM CDT Impressions 09/21/2023 10:26 AM CDT Stable exam without evidence of intrathoracic metastatic disease or acute cardiopulmonary process. ACTIONABLE ITEMS/RECOMMENDATIONS*: None. Narrative 09/21/2023 10:26 AM CDT FULL RESULT: Examination: XR CHEST 2 VW on 09/21/2023 10:19 AM. Clinical History: Squamous cell carcinoma of pharynx Indication: Oropharyngeal cancer, Surveillance Comparison: Chest radiograph 09/08/2022 Technique: Posteroanterior, lateral and dual-energy radiographs of the chest Findings: Support Apparatus: None. Lungs/Pleura: The lungs are adequately inflated without acute airspace consolidation or new radiographically apparent pulmonary nodule. No pleural effusion or pneumothorax. Mediastinum: The heart size and aortic contour are normal. No mediastinal or hilar lymphadenopathy. Other: No destructive bone lesion or acute fracture is appreciated in the thorax. Procedure Note Vivi Doty MD - 09/21/2023 FULL RESULT: Examination: XR CHEST 2 VW on 09/21/2023 10:19 AM. Clinical History: Squamous cell carcinoma of pharynx Indication: Oropharyngeal cancer, Surveillance Comparison: Chest radiograph 09/08/2022 Technique: Posteroanterior, lateral and dual-energy radiographs of thechest Findings: Support Apparatus: None. Lungs/Pleura: The lungs are adequately inflated without acute airspaceconsolidation or new radiographically apparent pulmonary nodule. Nopleural effusion or pneumothorax. Mediastinum: The heart size and aortic contour are normal. No mediastinalor hilar lymphadenopathy. Other: No destructive bone lesion or acute fracture is appreciated in thethorax. IMPRESSION: Stable exam without evidence of intrathoracic metastatic disease or acutecardiopulmonary process. ACTIONABLE ITEMS/RECOMMENDATIONS*: None. Soraya FUENTES [facility] ORDERAB LES Final Result after 07/30/2023 Insurance [employer] PPO POS [employer] PPO POS Advance Directives * Full Code (Latest Code Status on File) Date Activated Date Inactivated Comments 05/03/2020 6:21 PM 05/07/2020 6:23 PM Care Teams Programs Manager Relationship Specialty Start Date End Date Rosy Aviles MD [address] [place] [phone] [email or web address] PCP - External Referring Otolaryngology 02/26/20 Collette Aleman MD [address] [place] [address] [phone] [email or web address] PCP - General Head and Neck Surgery 02/27/20 Wily Ham [facility] COORDINATOR [address] [place] [phone] [email or web address] Speech Language Pathologist Speech Pathology 06/10/20 Shae Walton, RD [address] [facility] [address] [place] [address] [phone] [email or web address] Clinical Dietitian Nutrition 06/17/20 Frandy Clayton DDS [address] [place] [phone] [email or web address] Consulting Physician Dental Oncology 03/05/20 Sydnee Bhardwaj DDS [address] [place] [address] [phone] [email or web address] Consulting Physician Dental Oncology 03/13/20 Gerri Guthrie MD [address] [place] [address] [phone] [email or web address] Consulting Physician Head and Neck Surgery 07/15/20 Errol Manzanares MD [address] [place] [address] [phone] [email or web address] Consulting Physician Radiation Oncology 03/08/20 Hortensia Bowers MD [address] [place] [address] [phone] [email or web address] Consulting Physician Genitourinary Oncology 01/03/21
[2024-07-29] MEDS ORDERED: NA CHLORIDE 0.9% 1,000 ML ONE (22:49)
[2024-07-29] MEDS ORDERED: ONDANSETRON 4 MG/2 ML VIAL ONE (22:49)
[2024-07-29] MEDS ORDERED: HYDROMORPHONE HCL 1 MG/ML INJ ONE (22:49)
[2024-07-29 23:18] LABS: Albumin 3.9 g/dL (3.4-5.0); Albumin/Globulin Ratio 1.1 (1.1-1.8); Anion Gap 11.9 mEq/L (5.0-15.0); Bilirubin Total 0.5 mg/dL (0.2-1.0); Globulin 3.6 g/dL (2.3-3.5); Potassium 3.9 mEq/L (3.5-5.1); Protein, Total 7.5 g/dL (6.4-8.2)
[2024-07-29 23:30] LABS: Sqamous Epithelial None Seen /HPF (None Seen); Urine Bacteria None Seen /HPF (<20); Urine Bilirubin NEGATIVE (Negative); Urine Blood 2+ (Negative); Urine Clarity Turbid (Clear); Urine Color Light-Yellow (Yellow); Urine Crystals Unidentified Few /HPF (None Seen); Urine Culture Reflex Order NOT NEEDED; Urine Glucose NEGATIVE (Negative); Urine Ketones NEGATIVE (Negative); Urine Microscopic Reflex YN ORDER UMIC; Urine Mucus Slight /HPF (None Seen); Urine Nitrite NEGATIVE (Negative); Urine Protein TRACE (Negative); Urine RBC >50 /HPF (None Seen); Urine Urobilinogen Normal (Normal); Urine WBC <5 /HPF (<5); Urine Yeast (Budding) Trace /HPF (None Seen); Urine pH 5.5 (5.0-7.0)
[2024-07-29 23:35] LABS: Absolute Eosinophils 0.2 K/uL (0-0.5); Absolute Lymphocytes (CBC) 0.7 K/uL (0.7-4.9); Absolute Monocytes 0.5 K/uL (0.1-1.3); Absolute Neutrophil 8.5 K/uL (1.8-8.0); Basophils % 0.5 % (0-1.3); Eosinophils % 1.8 % (0-4.4); Hematocrit 42.6 % (39.6-49.0); Hemoglobin 14.9 g/dL (13.6-17.9); Lymphocytes % 6.8 % (15.3-44.8); MCV 88.5 fL (80-100); MPV 7.7 fL (7.6-11.3); Monocytes % 4.9 % (3.3-12.3); Platelets 160 thou/uL (152-406); RBC Red Blood Cell Count 4.81 M/uL (4.33-5.43); Red Cell Distribution Width 13.2 % (12.1-15.2)
--- NOTE | 2024-07-30 00:18 | RAD REPORT ---
EXAM: Abdomen Pelvis W Contrast CLINICAL INDICATION: 63-year-old male with left lower abdominal pain. COMPARISON: 12/03/2022. EXAMINATION: CT of the abdomen and pelvis was performed following intravenous administration of contr ast. Oral contrast was not administered. Multiplanar reformatted images were provided. This exam was performed according to our departmental dose optimization program which includes use of automated exposure control, adjustment of the mA and/or kV according to patient size and/or use of iterative reconstruction technique. FINDINGS: Chest: Evaluation through the lung bases reveals no focal opacity, pleural effusion or pneumothorax. Heart size is within normal limits. No pericardial effusion. Abdomen and pelvis: Punctate foci of nonobstructing 2 mm calcification within the superior and lower pole of the left kid carie. Mild prominence of the left renal pelvis and ureter secondary to distal ureteral calculus measuring 2 mm. Mild ureteral enhancement with periureteral and pelvic stranding to be secondary to o bstruction versus infectious process without clear findings to suggest pyelonephritis. Delayed left renal contrast opacification. Nonobstructing 2 mm calculus within the right renal pelvis without hydronephrosis or hydroureter. The liver, gallbladder, pancreas, spleen, bilateral kidneys and bilateral adrenal glands are within n ormal limits. The vessels are patent and normal in caliber. No abdominopelvic lymph nodes are noted to be pathologically enlarged by CT measurement criteria. The bowel is within normal limits without abnormal bowel wall thickness or bowel dilation. Diverticul ar disease without findings to suggest diverticulitis. No free air. No free abdominopelvic fluid collections. The appendix is within normal limits. Thickene d appearance of the bladder wall may be secondary to incomplete distention, however can be seen in the setting of infectious or inflammatory process. Please correlate with laboratory values. The osseous structures are within normal limits. Small fat-containing left inguinal hernia. IMPRESSION: 1. Mild prominence of the left renal pelvis and ureter secondary to distal ureteral calculus measur ing 2 mm. 2. Mild ureteral enhancement with periureteral and pelvic stranding to be secondary to obstruction versus infectious process without clear findings to suggest pyelonephritis. 3. Thickened appearance of the bladder wall may be secondary to incomplete distention, however can be seen in the setting of infectious or inflammatory process. Please correlate with laboratory values. 4. Diverticular disease without findings to suggest diverticulitis. Electronically signed by: Ondina Watts MD 07/30/2024 12:13 AM [facility] Due to temporary technical issues with the PACS[employer] reporting system, reports are being venkatesh d by the in-house radiologist without review as a courtesy to ensure prompt reporting the interpreting radiologist is fully responsible for the content of the report. Transcribed Date/Time: 07/30/2024 12:18 AM
--- NOTE | 2024-07-30 00:58 | ER ---
Nurse's Notes [facility] Name: Leno Rincon Jr Age: 63 yrs Sex: Male : 1960 Arrival Date: 07/29/2024 Time: 21:51 Bed 16 Private MD: Diagnosis: Calculus of kidney with calculus of ureter-left Presentation: 07/29 22:03 Chief complaint: Patient states: left lower abdominal pain with vomiting since 6pm. br2 Coronavirus screen: Client denies travel out of the [place] in the last 14 days. At this time, the client does not indicate any symptoms associated with coronavirus-19. Ebola Screen: No symptoms or risks identified at this time. Initial Sepsis Screen: Does the patient meet any 2 criteria? No. Patient's initial sepsis screen is negative. Does the patient have a suspected source of infection? No. Patient's initial sepsis screen is negative. Risk Assessment: Do you want to hurt yourself or someone else? Patient reports no desire to harm self or others. Onset of symptoms was July 29, 2024. 22:03 Method Of Arrival: Ambulatory br2 22:03 Acuity: MANASA 3 br2 Triage Assessment: 22:05 General: Appears in no apparent distress. uncomfortable, Behavior is calm, cooperative. br2 Pain: Complains of pain in left lower quadrant. EENT: No deficits noted. No signs and/or symptoms were reported regarding the EENT system. Neuro: No deficits noted. Lau Agitation-Sedation Scale (RASS): 0 - Alert and Calm Level of Consciousness is awake, alert, obeys commands, Oriented to person, place, time, situation. Cardiovascular: No deficits noted. Denies chest pain, shortness of breath, Capillary refill < 3 seconds Clubbing of nail beds is absent JVD is absent Patient's skin is warm and dry. Respiratory: No deficits noted. Airway is patent Respiratory effort is even, unlabored, Respiratory pattern is regular, symmetrical. GI: Abdomen is round non-distended, Reports lower abdominal pain, nausea, vomiting. : No signs and/or symptoms were reported regarding the genitourinary system. Derm: No deficits noted. No signs and/or symptoms reported regarding the dermatologic system. Skin is intact, is healthy with good turgor, Skin is dry, Skin is normal, Skin temperature is warm. Musculoskeletal: No deficits noted. No signs and/or symptoms reported regarding the musculoskeletal system. Circulation, motion, and sensation intact. Range of motion: intact in all extremities. Historical: - Allergies: 22:05 Keflex; br2 - Home Meds: 22:05 None [Active]; br2 - PMHx: 22:05 Diverticulitis; [place] Nails Syndrome; Prostate Cancer; throat cancer; br2 - PSHx: 22:05 colon resection; Prostectomy; br2 - Immunization history:: Adult Immunizations up to date. - Infectious Disease History:: Denies. - Social history:: Smoking status: Patient denies any tobacco usage or history of. Patient uses alcohol, on a daily basis. Patient/guardian denies using street drugs. Screenin:10 [facility] ED Fall Risk Assessment (Adult) History of falling in the last 3 months, rg5 including since admission No falls in past 3 months (0 pts) Confusion or Disorientation No (0 pts) Intoxicated or Sedated No (0 pts) Impaired Gait No (0 pts) Mobility Assist Device Used No (0 pt) Altered Elimination No (0 pt) Score/Fall Risk Level 0 - 2 = Low Risk Oriented to surroundings, Maintained a safe environment, Hourly rounding (assess needs \T\ fall precautionary measures) done. Abuse screen: Denies threats or abuse. Nutritional screening: No deficits noted. Tuberculosis screening: No symptoms or risk factors identified. Assessment: 22:10 General: Appears uncomfortable, Behavior is calm, cooperative, appropriate for age. rg5 22:10 Pain: Complains of pain in abdomen Pain currently is 10 out of 10 on a pain scale. rg5 Quality of pain is described as aching, Pain began 2 hours ago. Is continuous. Neuro: Level of Consciousness is awake, alert, obeys commands, Oriented to time. Cardiovascular: Denies chest pain, Patient's skin is warm and dry. Respiratory: Airway is patent Trachea midline Respiratory effort is even, unlabored, Respiratory pattern is regular, symmetrical. GI: Bowel sounds present in left upper quadrant Abd is soft Reports nausea, Pain is 10 out of 10 on a pain scale. vomiting. : No signs and/or symptoms were reported regarding the genitourinary system. EENT: No deficits noted. Derm: Skin is intact, Skin is dry, Skin is normal, Skin temperature is warm. Musculoskeletal: Circulation, motion, and sensation intact. Range of motion: intact in all extremities. 23:32 Reassessment: Patient and/or family updated on plan of care and expected duration. Pain rg5 level reassessed. Patient is alert, oriented x 3, equal unlabored respirations, skin warm/dry/pink. Patient states feeling better. Patient states symptoms have improved. 07/30 00:20 Reassessment: Patient and/or family updated on plan of care and expected duration. Pain rg5 level reassessed. Patient is alert, oriented x 3, equal unlabored respirations, skin warm/dry/pink. Patient states symptoms have improved. 01:15 Reassessment: Patient and/or family updated on plan of care and expected duration. Pain rg5 level reassessed. Patient is alert, oriented x 3, equal unlabored respirations, skin warm/dry/pink. Patient states feeling better. Patient states symptoms have improved. Vital Signs: 07/29 22:03 BP 151 / 92; Pulse 71; Resp 17 S; Temp 98.4(TE); Pulse Ox 100% on R/A; Weight 72.57 kg; br2 Height 5 ft. 7 in. ; Pain 10/10; 23:00 BP 135 / 71; Pulse 75; Resp 17; Temp 98; Pulse Ox 97% on R/A; Pain 3/10; rg5 07/30 00:21 BP 98 / 56; Pulse 73; Resp 17; Pulse Ox 97% on R/A; rg5 01:15 BP 117 / 73; Pulse 72; Resp 17; Temp 98(O); Pulse Ox 97% on R/A; Pain 3/10; rg5 07/29 22:03 Body Mass Index 25.06 (72.57 kg, 170.18 cm) br2 07/29 22:03 Pain Scale: Adult br2 23:00 Pain Scale: Adult rg5 01:15 Pain Scale: Adult rg5 ED Course: 07/29 21:54 Patient arrived in ED. im 21:58 Francisco Lion PA is PHCP. cp 21:58 Francisco Azar MD is Attending Physician. cp 22:05 Triage completed. br2 22:05 Arm band placed on right wrist. br2 22:10 Patient has correct armband on for positive identification. Provided Education on:. rg5 Door closed. Noise minimized. Warm blanket given. 22:10 No provider procedures requiring assistance completed. Inserted saline lock: 20 gauge rg5 in left antecubital area, using aseptic technique. Blood collected. Flushed with 10 mL NS. 22:15 Chris Ray, RN is Primary Nurse. rg5 23:40 CT Abd/Pelvis - IV Contrast Only In Process Unspecified. EDMS 07/30 00:55 Jorgito Crowder MD is Referral Physician. cp 01:38 IV discontinued, bleeding controlled, No redness/swelling at site. Pressure dressing rg5 applied. Administered Medications: 07/29 22:50 Drug: NS 0.9% IV 1000 ml IV at 1000 ml once; to be given as a bolus over 60 minutes rg5 Route: IV; Rate: 1000 ml; Site: left antecubital; 07/30 00:20 Follow up: IV Status: Completed infusion; IV Intake: 1000ml rg5 07/29 22:50 Drug: Ondansetron IVP 4 mg IVP once; over 2 minutes Route: IVP; Site: left antecubital; rg5 07/30 00:19 Follow up: Response: No adverse reaction rg5 07/29 23:07 Drug: HYDROmorphone IVP 1 mg IVP once Route: IVP; Site: left antecubital; rg5 07/30 00:20 Follow up: Response: No adverse reaction; Pain is decreased rg5 Medication: 07/29 22:10 VIS not applicable for this client. rg5 Intake: 07/30 00:20 IV: 1000ml; Total: 1000ml. rg5 Outcome: 00:57 Discharge ordered by . cp 01:56 Discharged to home ambulatory, rg5 01:56 Condition: stable 01:56 Discharge instructions given to patient, Instructed on discharge instructions, Demonstrated understanding of instructions, follow-up care, medications, Prescriptions given X 3, 01:57 Patient left the ED. rg5 Signatures: Dispatcher [employer] EDNE Francisco Lion PA PA cp Mendoza, Itzel im Gallardo, Rommel, RN RN rg5 Charlee Strong RN RN br2
--- NOTE | 2024-07-30 00:58 | EDPHYS ---
Physician Documentation [facility] Name: Leno Rincon Jr Age: 63 yrs Sex: Male : 1960 Arrival Date: 07/29/2024 Time: 21:51 Bed 16 Private MD: ED Physician Francisco Azar HPI: 07/29 22:15 This 63 yrs old Male presents to ER via Ambulatory with complaints of Abdominal Pain, cp Nausea/Vomiting. 22:15 The patient presents with abdominal pain in the left lower quadrant. cp 22:15 Onset: The symptoms/episode began/occurred suddenly, today, about 1800. cp 22:15 The symptoms do not radiate. Associated signs and symptoms: Pertinent positives: nausea cp and vomiting, Pertinent negatives: chest pain, constipation, diarrhea, fever, shortness of breath. The symptoms are described as constant. Severity of pain: in the emergency department the pain is unchanged despite home interventions. Historical: - Allergies: 22:05 Keflex; br2 - Home Meds: 22:05 None [Active]; br2 - PMHx: 22:05 Diverticulitis; [place] Nails Syndrome; Prostate Cancer; throat cancer; br2 - PSHx: 22:05 colon resection; Prostectomy; br2 - Immunization history:: Adult Immunizations up to date. - Infectious Disease History:: Denies. - Social history:: Smoking status: Patient denies any tobacco usage or history of. Patient uses alcohol, on a daily basis. Patient/guardian denies using street drugs. ROS: 22:20 Constitutional: Negative for body aches, chills, fever, cp 22:20 Abdomen/GI: Positive for abdominal pain, nausea and vomiting, of the left lower quadrant, Negative for diarrhea, constipation, 22:20 Eyes: Negative for injury, pain, redness, and discharge, cp 22:20 ENT: Negative for drainage from ear(s), ear pain, sore throat, difficulty swallowing, difficulty handling secretions, 22:20 Cardiovascular: Negative for chest pain, palpitations, 22:20 Respiratory: Negative for cough, shortness of breath, wheezing, 22:20 Back: Negative for radiated pain, 22:20 Neuro: Negative for altered mental status, dizziness, headache, numbness, weakness, 22:20 All other systems are negative, Exam: 22:25 Constitutional: The patient appears in no acute distress, alert, awake, non-toxic, well cp developed, well nourished, 22:25 Head/Face: Normocephalic, atraumatic. cp 22:25 Eyes: Periorbital structures: appear normal, Conjunctiva: normal, no exudate, no injection, Sclera: no appreciated abnormality, Lids and lashes: appear normal, bilaterally, 22:25 ENT: External ear(s): are unremarkable, Mouth: Lips: moist, Oral mucosa: moist, Posterior pharynx: Airway: no evidence of obstruction, patent, 22:25 Chest/axilla: Inspection: normal, 22:25 Cardiovascular: Rate: normal, Rhythm: regular, 22:25 Respiratory: the patient does not display signs of respiratory distress, Respirations: normal, no use of accessory muscles, no retractions, labored breathing, is not present, Breath sounds: are clear throughout, no decreased breath sounds, no stridor, no wheezing, 22:25 Abdomen/GI: Inspection: abdomen appears normal, Bowel sounds: active, all quadrants, Palpation: soft, in all quadrants, severe abdominal tenderness, in the left lower quadrant, rebound tenderness, is not appreciated, involuntary guarding, is not appreciated, 22:25 Neuro: Orientation: to person, place \T\ time. Mentation: is normal, Motor: moves all fours, strength is normal, Vital Signs: 22:03 BP 151 / 92; Pulse 71; Resp 17 S; Temp 98.4(TE); Pulse Ox 100% on R/A; Weight 72.57 kg; br2 Height 5 ft. 7 in. ; Pain 10/10; 23:00 BP 135 / 71; Pulse 75; Resp 17; Temp 98; Pulse Ox 97% on R/A; Pain 3/10; rg5 07/30 00:21 BP 98 / 56; Pulse 73; Resp 17; Pulse Ox 97% on R/A; rg5 01:15 BP 117 / 73; Pulse 72; Resp 17; Temp 98(O); Pulse Ox 97% on R/A; Pain 3/10; rg5 07/29 22:03 Body Mass Index 25.06 (72.57 kg, 170.18 cm) br2 07/29 22:03 Pain Scale: Adult br2 23:00 Pain Scale: Adult rg5 01:15 Pain Scale: Adult rg5 MDM: 07/29 22:08 Medical Screening Exam initiated rhianna 23:00 Differential diagnosis: diverticulitis, non-specific abd pain, Pyelonephritis, cp Testicular Torsion, Ureterolithiasis, urinary tract infection. 07/30 00:57 Data reviewed: vital signs, nurses notes, lab test result(s), radiologic studies, CT cp scan, and as a result, I will discharge patient. 00:57 I considered the following discharge prescriptions or medication management in the emergency department Medications were administered in the Emergency Department. See MAR. Counseling: I had a detailed discussion with the patient and/or guardian regarding the historical points, exam findings, and any diagnostic results supporting the discharge/admit diagnosis, lab results, radiology results, to return to the emergency department if symptoms worsen or persist or if there are any questions or concerns that arise at home. Response to treatment: the patient's symptoms have markedly improved after treatment, and as a result, I will discharge patient. Special discussion: Based on the patient's Hx, exam, and Dx evaluation, there is no indication for emergent surgery or inpatient Tx. It is understood by the patient/guardian that if the Sx's persist or worsen they need to return immediately for re-evaluation. 07/29 22:09 Order name: CBC with Diff; Complete Time: 23:47 07/29 23:48 Interpretation: Normal except: GEO% 86.0; LYM% 6.8; NEUT A 8.5. 07/29 22:09 Order name: CMP; Complete Time: 23:47 07/29 23:49 Interpretation: Normal except: GLUC 146; BUN 21; CRE 1.33; GFR 61; GLOB 3.6. 07/29 22:09 Order name: Lipase; Complete Time: 23:47 07/29 22:09 Order name: Urinalysis w/ reflexes; Complete Time: 23:47 07/29 22:24 Order name: Lactate w/ 2H reflex if indic.; Complete Time: 23:47 07/29 22:24 Order name: Magnesium; Complete Time: 23:47 07/29 22:24 Order name: CT Abd/Pelvis - IV Contrast Only 07/29 22:09 Order name: IV Saline Lock; Complete Time: 23:07 07/29 22:09 Order name: Labs collected and sent; Complete Time: 23:07 cp 07/30 00:51 Order name: PO challenge; Complete Time: 01:37 cp Administered Medications: 07/29 22:50 Drug: NS 0.9% IV 1000 ml IV at 1000 ml once; to be given as a bolus over 60 minutes rg5 Route: IV; Rate: 1000 ml; Site: left antecubital; 07/30 00:20 Follow up: IV Status: Completed infusion; IV Intake: 1000ml [facility] 07/29 22:50 Drug: Ondansetron IVP 4 mg IVP once; over 2 minutes Route: IVP; Site: left antecubital; rg5 07/30 00:19 Follow up: Response: No adverse reaction [facility] 07/29 23:07 Drug: HYDROmorphone IVP 1 mg IVP once Route: IVP; Site: left antecubital; 5 07/30 00:20 Follow up: Response: No adverse reaction; Pain is decreased rg Disposition Summary: 07/30/24 00:57 Discharge Ordered Notes: Location: Home cp Problem: new cp Symptoms: have improved cp Condition: Stable cp Diagnosis - Calculus of kidney with calculus of ureter - left cp Followup: cp - With: Jorgito Crowder MD - When: 2 - 3 days - Reason: Worsening of condition Discharge Instructions: - Discharge Summary Sheet cp - Kidney Stones cp - Renal Colic cp - Dietary Guidelines to Help Prevent Kidney Stones cp Forms: - Medication Reconciliation Form cp - Antibiotic Education cp - Prescription Opioid Use cp - Patient Portal Instructions cp - Leadership Thank You Letter cp Prescriptions: - Flomax 0.4 mg Oral capsule - take 1 capsule ORAL route daily As needed; 7 capsule; Refills: 0, Product cp Selection Permitted - acetaminophen-codeine 300-30 mg Oral tablet - take 2 tablet ORAL route every 8 hours; 16 tablet; Refills: 0, Product cp Selection Permitted - ondansetron 8 mg Oral Tablet,disintegrating - take 1 tablet ORAL route every 12 hours; 10 tablet; Refills: 0, Product cp Selection Permitted Addendum: 08/01/2024 14:17 Co-signature as Attending Physician, Francisco Azar MD I agree with the assessment and c najera plan of care. Signatures: Dispatcher [employer] Francisco Alicea MD MD cha Page, Corey, PA PA cp Chris Ray RN RN rg5 Charlee Strong RN RN br2 Corrections: (The following items were deleted from the chart) 07/29 21: 22:25 LACTATE+C.LAB.BRZ ordered. EDMS EDMS : 22:25 MAGNESIUM+C.LAB.BRZ ordered. EDMS EDMS
[2024-07-30 04:24] VITALS: TEMP 98; O2SAT 97
[2024-07-30 04:27] VITALS: BP 117/73
== END 2024-07-30 01:57 | disposition home or self-care (01) ==
LOC: ER 21:51
DX: N20.2 Calculus of kidney with calculus of ureter (principal)
CPT/HCPCS: 96361; 85025; 81001; 36415; 83735; 83605; 83690; 80053; 74177; 96375; 96374; 99284; Q9967; J1171; J2405; J7030